=== PATIENT | female | born 1935 | race Caucasian/White ===

== ENCOUNTER 2019-12-09 09:59 | Emergency (ER) | payer MEDICARE, OTHER, SELFPAY ==
--- NOTE | ~2019-12-09 | CT_ITS ---
EXAMINATION: CT abdomen pelvis w con DATE: 12/09/2019 13:09 INDICATION: Right upper quadrant abdominal pain. TECHNIQUE: Computed tomography (CT) of the abdomen and pelvis was performed with 100 mL Omnipaque-350 intravenous contrast. Automated exposure control and iterative reconstruction technique were employe d. The dose-length product was 305.11 mGy-cm. COMPARISON: None FINDINGS: Mild respiratory motion and atelectasis at the lung bases. Mild cardiomegaly. No pericardial or pleur al effusion. Small sliding-type hiatal hernia suggestion of mild wall thickening the distal esophagus which could be related to reflux esophagitis. Mild intrahepatic ductal or ductal dilation likely related to prior cholecystectomy. Several splenic calcifications consistent with old granulomatous disease. Pancreas and bilateral adrenal glands are n ormal. A few subcentimeter low-attenuation renal cysts as well as a few 3 mm or smaller bilateral non obstructing renal stones. No hydronephrosis or stones seen along the bilateral ureters. Normal bladde r. The uterus is not identified and has likely been surgically resected. Unchanged 2.8 x 1.8 x 2.2 cm nodular soft tissue density in the left hemipelvis likely representing the left ovary. Postoperative change of prior distal colectomy with suture line at the end of a Mckenzie's pouch in th e bladder and with left lower quadrant and colostomy. Small portions of the anterior wall of the amezcua sverse colon extends through a small ventral hernias at 2 locations along a midline surgical scar. Th ere is edematous wall thickening at the terminal ileum which is most likely infectious or inflammator y in etiology. No obstruction. No free intraperitoneal gas or fluid. Small fat-containing right ingui nal hernia. No pathologically enlarged abdominal or pelvic lymphadenopathy. Evaluation of the left hemipelvis is mildly limited by metallic streak artifact from a bipolar type l eft hip hemiarthroplasty. Mild thoracolumbar levocurvature with moderate to severe spondylosis. Uncha nged chronic compression fractures at L3 and L5 and L1 burst fracture. Interval progression of a hand almond blancher sammy T12 burst fracture. More recent-appearing L4 burst fracture with more subacute appearing lucent f racture lines. IMPRESSION: 1. Terminal ileitis which could be infectious or secondary to Crohn's disease. 2. Small sliding-type hiatal hernia with mild wall thickening the distal esophagus suggesting reflux esophagitis. 3. A couple ventral hernias containing small portions of the anterior wall of the nonobstructed trans verse colon. 4. Multiple chronic lumbar and lower thoracic compression and burst fractures with new subacute appea ring L4 burst fracture. 5. Cardiomegaly. Reviewed, dictated and finalized at location A. IMPRESSION: 1. Terminal ileitis which could be infectious or secondary to Crohn's disease. 2. Small sliding-type hiatal hernia with mild wall thickening the distal esopha zelda suggesting reflux esophagitis. 3. A couple ventral hernias containing small portions of the anterior wall of t he nonobstructed transverse colon. 4. Multiple chronic lumbar and lower thoracic compression and burst fractures w ith new subacute appearing L4 burst fracture. 5. Cardiomegaly.
[2019-12-09 09:58] VITALS: BP 158/85; PULSE 64; RESP 20; TEMP 36.7; O2SAT 98
--- NOTE | 2019-12-09 10:18 | ED.ABDPAIN ---
HPI - Abdominal Pain General Chief Complaint: Abdominal Pain Stated Complaint: RUQ pain Time Seen by Provider: 12/09/19 10:17 History of Present Illness HPI narrative: RUQ pain since yesterday. Moderate pain. Cramping in quality. She is concerned that she may have a bowel obstruction although she has had a large amount of watery output from her stoma. No fever, UTI. Related Data Home Medications Medication Instructions Recorded Confirmed acetaminophen 1,000 mg PO Q6H PRN 12/09/19 amlodipine [Norvasc] 5 mg PO DAILY 12/09/19 baclofen 10 mg PO TID 12/09/19 calcium carbonate-vitamin D3 1 tablet PO BID 12/09/19 [Calcium 600 + D(3)] calcium polycarbophil [Fiber 1,250 mg PO BID 12/09/19 (calcium polycarbophil)] carbidopa-levodopa 1 tablet PO TID 12/09/19 cholecalciferol (vitamin D3) 125 mcg PO DAILY 12/09/19 [Vitamin D3] cyanocobalamin (vitamin B-12) 1,000 mcg IM ONCE 12/09/19 dicyclomine 20 mg PO QID PRN 12/09/19 donepezil 10 mg PO HS 12/09/19 duloxetine [Cymbalta] 30 mg PO BID 12/09/19 ergocalciferol (vitamin D2) 1,250 mcg PO WEEKLY 12/09/19 ferrous sulfate 325 mg PO EVERY OTHER DAY 12/09/19 fluticasone propionate [Flonase 2 spray INTRANASAL DAILY 12/09/19 Allergy Relief] gabapentin 400 mg PO TID 12/09/19 levothyroxine 125 mcg PO DAILY 12/09/19 loratadine 10 mg PO DAILY PRN 12/09/19 losartan 50 mg PO DAILY 12/09/19 meclizine 25 mg PO HS 12/09/19 melatonin 5 mg PO HS 12/09/19 memantine [Namenda] 10 mg PO BID 12/09/19 omeprazole 20 mg PO DAILY 12/09/19 polyethylene glycol 3350 [Miralax] 17 g PO DAILY 12/09/19 quetiapine 12.5 mg PO HS 12/09/19 vilazodone [Viibryd] 20 mg PO DAILY 12/09/19 vit C,F-Fe-shvdt-lutein-zeaxan 1 tablet PO DAILY 12/09/19 [PreserVision AREDS-2] Allergies Allergy/AdvReac Type Severity Reaction Status Date / Time No Known Allergies Allergy Verified 12/09/19 10:07 Review of Systems Review of Systems: All systems reviewed & are unremarkable except as noted in HPI and below PMFSH Past Medical History Medical History Bowel obstruction Ileostomy in place Family History Family History Father Acute myocardial infarction, Onset Age: 72 Patient's father is Social History Social History Smoking status: Never smoker Alcohol intake: never Exam Const: General: healthy appearing, no acute distress and alert Orientation/consciousness: patient oriented x3 HENMT: Head: normal to inspection Neck: Neck: normal visual inspection and no lymphadenopathy Chest: Chest palpation & inspection: no tenderness Resp: Effort & Inspection: normal respiratory effort Auscultation: clear to auscultation bilaterally, no rales, no rhonchi and no wheezes Cardio: Jugular venous distension: no JVD Rate: regular rate Rhythm: regular rhythm Heart sounds: no murmurs GI: Inspection: non-distended GI Palp: Yes Soft to palpation and Yes Tenderness to palpation present (GI) Auscultation: Hyperactive bowel sounds present Other: ileostomy in place draining thick brown liquid Skin: General skin exam: normal color Neuro: General: patient oriented x3 and moves all extremities Speech: normal speech Extrem: General: no edema Psych: Appearance: well kempt Affect: normal affect Course Vital Signs Vital signs: Vital Signs Temperature 36.7 C 12/09/19 09:58 Pulse Rate 64 12/09/19 09:58 Respiratory Rate 20 12/09/19 09:58 Blood Pressure 158/85 H 12/09/19 09:58 Pulse Oximetry 98 12/09/19 09:58 Temperature 36.7 C 12/09/19 09:58 Pulse Rate 64 12/09/19 14:38 Respiratory Rate 18 12/09/19 14:38 Blood Pressure 143/63 H 12/09/19 14:38 Pulse Oximetry 98 12/09/19 11:46 MDM - Abdominal Pain MDM Narrative Medical decision making narrative: Ileitis on CT. No
[2019-12-09 10:54] LABS: Add Urine Microscopic? YES; Appearance Urine Clear (Clear); Bilirubin Urine Negative (Negative); Blood Urine Negative (Negative); Color Urine Straw (Yellow); Glucose Urine UA Negative (Negative); Ketones Urine Negative (Negative); Leukocyte Esterase Ur Negative LEU/UL (Negative); Nitrate Urine Negative (Negative); Protein Urine Negative (Negative); Specific Grav Ur 1.012 (1.001-1.035); Urobilinogen Urine Negative mg/dL (<2.0); WBC Urine 0-3 /hpf
[2019-12-09 10:56] VITALS: BP 120/60; PULSE 64; RESP 18; O2SAT 99
[2019-12-09 11:46] VITALS: BP 124/77; PULSE 70; RESP 14; O2SAT 98
[2019-12-09 12:21] LABS: Basophils Percent Auto 0.2 % (0.2-1.2); Eosinophils Absolute Auto 0.1 K/mm3 (0-0.3); Eosinophils Percent Auto 1.7 % (0-4.4); Hematocrit 30.9 % (37.0-47.0); Hemoglobin 9.9 g/dL (12.0-15.0); Immature Granulocyte Absolute 0.02 K/mm3 (0.00-0.031); Immature Granulocyte Percent A 0.3 % (0-0.5); Lymphocytes Absolute Auto 0.98 K/mm3 (0.9-3.2); Lymphocytes Percent Auto 16.5 % (18.3-44.2); Mean Corpuscular Volume 106.2 fl (80-100); Mean Platelet Volume 9.4 fl (7.4-10.4); Monocytes Absolute Auto 0.4 K/mm3 (0.1-0.6); Monocytes Percent Auto 7.4 % (2.6-8.5); Neutrophils Absolute Auto 4.4 K/mm3 (1.3-6.7); Neutrophils Percent Auto 73.9 % (45.5-73.1); Platelet Count Result 126 k/mm3 (150-375); Red Blood Count 2.91 M/mm3 (4.2-5.4); Red Cell Distribution Width 13.8 % (11.5-14.5)
[2019-12-09 12:35] LABS: Alanine Aminotransferase 16 U/L (4-35); Albumin Level 3.9 g/dL (3.5-5.1); Alkaline Phosphatase 84 U/L (38-126); Aspartate Amino Transferase 24 U/L (14-36); Bilirubin,Total 0.4 mg/dL (0.2-1.3); Blood Urea Nitrogen 22 mg/dL (7-17); Carbon Dioxide 20 mmol/L (22-30); Chloride 108 mmol/L (98-107); Estimated CRCL calculation 33 ml/min; Estimated Glomerular Filt Rate 53; Glucose 120 mg/dL (65-105); Lipase 70 U/L (23-300); Potassium 4.8 mmol/L (3.4-5.0); Sodium 137 mmol/L (137-145)
[2019-12-09] MEDS: metroNIDAZOLE 250 MG TABLET 500 MG PO (14:35)
[2019-12-09] MEDS: CIPROFLOXACIN 500 MG TAB PO (14:36)
[2019-12-09 14:38] VITALS: BP 143/63; PULSE 64; RESP 18
--- NOTE | 2019-12-09 15:43 | PC.NURSE ---
report called to [facility] / [facility]. natalie called for transport
[2019-12-09 16:24] VITALS: BP 112/74; PULSE 78; RESP 20; O2SAT 99
== END 2019-12-09 16:10 ==
PROVIDERS: Emergency Provider Emergency Medicine; PCP Family Medicine
DX: K50.00 Crohn's disease of small intestine without complications (principal); Z93.2 Ileostomy status; K44.9 Diaphragmatic hernia without obstruction or gangrene; K43.9 Ventral hernia without obstruction or gangrene; I51.7 Cardiomegaly
CPT/HCPCS: 36415; 51701; 74177; 80053; 81001; 83690; 85025; 99284; A9270; Q9967

== ENCOUNTER 2020-03-30 06:09 | Inpatient (IN) | payer MEDICARE, OTHER, MEDICAID, SELFPAY ==
[2020-03-30] VITALS (9 sets, daily range): BP systolic 124–164; BP diastolic 50–94; PULSE 72–92; RESP 18–20; TEMP 36.3–36.8; O2SAT 92–98; BMI 24.7
--- NOTE | ~2020-03-30 | XR_ITS ---
EXAMINATION: XR knee RT min 4V DATE: 03/30/2020 06:39 INDICATION: Right knee pain post fall TECHNIQUE: Anteroposterior, 2 oblique and crosstable lateral views of the right knee were obtained COMPARISON: None. FINDINGS: Alignment is normal. No fracture. At least mild patellofemoral osteoarthritis with nonuniform joint space narrowing and small marginal osteophytes. Small enthesophytes at the upper pole of the patella with additional heterotopic ossification along the cephalad rim of the articular surface. No joint ef fusion/layering lipohemarthrosis. Mild prepatellar soft tissue swelling. IMPRESSION: 1. Patellofemoral osteoarthritis. No right knee joint effusion or acute osseous abnormality. Reviewed, dictated and finalized at location A.
--- NOTE | ~2020-03-30 | XR_ITS ---
EXAMINATION: XR hip RT min 2V DATE: 03/31/2020 11:30 INDICATION: Postoperative evaluation following bipolar type right hip hemiarthroplasty. TECHNIQUE: Anteroposterior and lateral views of the right hip were obtained. COMPARISON: Intraoperative radiograph dated 03/31/2020 FINDINGS: Interval placement of bipolar type right hip hemiarthroplasty which appears well seated in near anato ewa alignment. Expected small amount of subcutaneous gas in the postoperative bed. No fractures iden tified. Partially visualized is a contralateral left hip hemiarthroplasty. IMPRESSION: 1. Bipolar type right hip hemiarthroplasty, negative for postoperative purposes. Reviewed, dictated and finalized at location A. IMPRESSION: 1. Bipolar type right hip hemiarthroplasty, negative for postoperative purposes .
--- NOTE | ~2020-03-30 | XR_ITS ---
EXAMINATION: XR hip RT min 2V DATE: 03/30/2020 13:20 INDICATION: Reevaluation right hip fracture TECHNIQUE: Anteroposterior , frog leg and cross-table lateral views of the right hip were obtained. COMPARISON: CT dated 03/30/2020 FINDINGS: Again seen is a fracture of the right femoral neck with impaction along the superior head neck juncti on and with no significant displacement along the anterior margin of the fracture which is near the m id neck. Right femoral head remains normally centered within the right acetabulum with mild osteoarth ritis. Incidentally noted is a left hip hemiarthroplasty. No other fractures identified. IMPRESSION: 1. No interval change in a nondisplaced fracture of the right femoral neck with mild impaction at the superolateral femoral head neck junction. Reviewed, dictated and finalized at location A.
--- NOTE | ~2020-03-30 | XR_ITS ---
EXAMINATION: XR hip RT 2V w AP pelvis DATE: 03/30/2020 07:36 INDICATION: Right hip pain post fall TECHNIQUE: Anteroposterior view of the pelvis and anteroposterior and cross-table lateral views of th e right hip were obtained. COMPARISON: CT dated 12/09/2019 FINDINGS: Transcervical fracture of the proximal right femur with slight anterior displacement, proximal migrat ion and mild external rotation. Right femoral head remains normally located in the right acetabulum. Chronic compression fractures at L4 and L5 seen on prior CT there are poorly appreciated on the provi ded projections. No other fractures identified. Mild osteoarthritis at the right hip and mild to mode rate bilateral sacroiliac osteoarthritis. Moderate lower lumbar spondylosis. Left hip hemiarthroplast y in near-anatomic alignment. Scattered and enthesophytes and heterotopic ossification including at t he bilateral greater trochanters, iliac crest and left supratrochanteric region. IMPRESSION: 1. Transcervical proximal right femoral fracture. Reviewed, dictated and finalized at location A.
--- NOTE | ~2020-03-30 | XR_ITS ---
EXAMINATION: XR chest 1V portable DATE: 03/30/2020 08:15 INDICATION: Generalized chest pain post fall TECHNIQUE: frontal view of the chest was obtained. COMPARISON: Chest radiograph and CT dated 05/16/[address] abdomen and pelvis dated 12/09/2019 FINDINGS: Calcified nodule at the medial left lung base and calcified left hilar lymph nodes consistent with ol d granulomatous disease. The lungs are otherwise clear with no focal airspace opacities, pulmonary ed shaunna, pleural effusion or pneumothorax. Cardiomegaly. Chronic T12 and L1 burst fractures with mild ass ociated levocurvature unchanged since 12/09/2019. Additional chronic T5 and T7 burst fractures, unchang ed since 05/16/2018. Metallic interbody fusion device for anterior spinal fusion at the lower cervica l spine. There are additional IMPRESSION: 1. Cardiomegaly. No acute cardiopulmonary disease. Line 2. Multiple chronic thoracic and upper lumbar burst fractures. Reviewed, dictated and finalized at location A.
--- NOTE | ~2020-03-30 | CT_ITS ---
EXAMINATION: CT cervical spine wo con DATE: 03/30/2020 13:00 INDICATION: Neck pain post trauma TECHNIQUE: Computed tomography (CT) of the cervical spine was performed without intravenous contrast. Automated exposure control and iterative reconstruction technique were employed. The dose-length pro duct was 386.27 mGy-cm. COMPARISON: Cervical spine CT dated 05/01/[address] dated 05/16/2018 FINDINGS: Mild levocurvature centered at the cervicothoracic junction. Straightening of the normal cervical jamie dosis. C6-C7 anterior spinal fusion with dense metallic implant with associated streak artifact which extends predominately laterally and which obscures immediately adjacent bone and soft tissues. No in terval change in a chronic T3 burst fracture with 40% central vertebral body height loss and 3 mm ret ropulsion resulting in mild central canal stenosis at this level. No interval change in chronic Schmo rl's nodes along the superior endplates of C4 and T1. Remaining vertebral body heights are normal. No acute fractures identified. Disc heights are normal with mild bilateral uncovertebral osteoarthritis throughout the cervical spine. Disc bulge resulting in mild central canal stenosis at C3-C4. More pr ominent central disc extrusion resulting in mild to moderate central canal stenosis at C4-C5 which ap pears to been present on the prior study. Multilevel mild bilateral facet osteoarthritis. Mild neural foraminal stenosis on the right at C3-C4 and bilaterally at C7-T1. Small amount of atherosclerotic c alcific calcification at the bilateral carotid bulbs. Cervical soft tissues are otherwise unremarkabl e. Visualized portions of the mastoid air cells, middle ear cavities and airway are clear. Mild eric h septal line thickening at the apices consistent with minimal pulmonary edema. IMPRESSION: 1. Chronic T1 burst fracture resulting in mild central canal stenosis. No acute osseous abnormality. 2. Mild cervical thoracic levocurvature with mild spondylosis most notable for a prominent chronic di sc extrusion at C3-C4 resulting in mild to moderate central canal stenosis. Reviewed, dictated and finalized at location A. IMPRESSION: 1. Chronic T1 burst fracture resulting in mild central canal stenosis. No acute osseous abnormality. 2. Mild cervical thoracic levocurvature with mild spondylosis most notable for a prominent chronic disc extrusion at C3-C4 resulting in mild to moderate centr al canal stenosis.
--- NOTE | ~2020-03-30 | XR_ITS ---
EXAMINATION: XR surgery orthopedic DATE: 03/31/2020 11:29 INDICATION: Intraoperative evaluation during right hip arthroplasty TECHNIQUE: Frontal view of the right hip was obtained. COMPARISON: None. FINDINGS: Intraoperative image during a right total hip arthroplasty demonstrate placement of a femoral with th e proximal tip and surrounding lucent head component centered over the right acetabulum. Bipolar type left hip hemiarthroplasty in near-anatomic alignment. No fracture. Visualized bones. The cephalad as pect of the pelvis is excluded from the [id number]. IMPRESSION: 1. Expected appearance during right hip arthroplasty. Reviewed, dictated and finalized at location A.
--- NOTE | ~2020-03-30 | XR_ITS ---
EXAMINATION: XR shoulder RT min 2V DATE: 03/30/2020 13:20 INDICATION: Right shoulder pain post fall TECHNIQUE: AP internally and externally rotated, AP oblique externally rotated and axillary views of the right shoulder were obtained. COMPARISON: None FINDINGS: Normal alignment. No fracture.Mild right glenohumeral and acromioclavicular osteoarthritis. Right nathalia ng is clear with no pleural effusion or pneumothorax. Soft tissues are unremarkable. IMPRESSION: Right glenohumeral and acromioclavicular osteoarthritis. No acute osseous abnormality. Reviewed, dictated and finalized at location A. IMPRESSION: Right glenohumeral and acromioclavicular osteoarthritis. No acute osseous abnor mality.
--- NOTE | ~2020-03-30 | XR_ITS ---
EXAMINATION: XR chest 1V portable DATE: 04/02/2020 10:17 INDICATION: Hypoxia. TECHNIQUE: A single frontal view of the chest was obtained. COMPARISON: Chest single view 03/30/2020, chest CT 05/16/2018 FINDINGS: There is mild atelectasis at right lung base. No pleural effusion or pneumothorax. Cardiome nadres is noted. There are changes of anterior fusion procedure in cervical spine. IMPRESSION: 1. Mild atelectasis at right lung base. 2. Cardiomegaly. Reviewed, dictated and finalized at location A.
--- NOTE | ~2020-03-30 | CT_ITS ---
EXAMINATION: CT hip RT wo con DATE: 03/30/2020 10:06 INDICATION: Right hip pain and femoral neck fracture. TECHNIQUE: High resolution computed tomography (CT) of the right hip was performed without intravenou s contrast. Additional sagittal and coronal reconstructions were performed. Automated exposure contro l and iterative reconstruction technique were employed. The dose-length product was 235.79 mGy-cm. COMPARISON: Radiographs dated 03/30/[address] abdomen and pelvis dated 12/09/2019 FINDINGS: Again seen is a nondisplaced fracture of the right femoral neck which extends from the region of the anterosuperior femoral head neck junction anterosuperiorly posteroinferiorly to the mid neck. There i s mild impaction posteriorly. Minimal comminution couple small bone fragments along the superior chrissy in of the fracture. No other fractures identified. Right femoral head remains normally located at the right acetabulum with mild osteoarthritis. There is a small right hip joint effusion. Small fat-cont aining right inguinal hernia. There is a suture line along segment of bowel extending along the poste rior dome of the bladder. No free fluid in the pelvis. IMPRESSION: 1. Nondisplaced fracture of the right femoral neck with mild posterior impaction as detailed above. Reviewed, dictated and finalized at location A. IMPRESSION: 1. Nondisplaced fracture of the right femoral neck with mild posterior impactio n as detailed above.
--- NOTE | 2020-03-30 06:27 | PC.NURSE ---
Patient taken to xray.
--- NOTE | 2020-03-30 07:14 | ED.LOWEXIN ---
HPI - Extremity Injury (Lower) General Chief Complaint: Fall Stated Complaint: FALL Time Seen by Provider: 03/30/20 07:08 Source: patient Mode of arrival: EMS Limitations: dementia History of Present Illness HPI Narrative: Patient is 89-year-old female complaining of right thigh right knee pain after she fell at around 3 AM this morning at [facility]. Patient denies any head, neck, chest, abdomen, back, or pelvic pain/injury. Patient denies any loss of consciousness Related Data Home Medications Medication Instructions Recorded Confirmed acetaminophen 1,000 mg PO Q6H PRN 12/09/19 amlodipine [Norvasc] 5 mg PO DAILY 12/09/19 baclofen 10 mg PO TID 12/09/19 calcium carbonate-vitamin D3 1 tablet PO BID 12/09/19 [Calcium 600 + D(3)] calcium polycarbophil [Fiber 1,250 mg PO BID 12/09/19 (calcium polycarbophil)] carbidopa-levodopa 1 tablet PO TID 12/09/19 cholecalciferol (vitamin D3) 125 mcg PO DAILY 12/09/19 [Vitamin D3] cyanocobalamin (vitamin B-12) 1,000 mcg IM ONCE 12/09/19 dicyclomine 20 mg PO QID PRN 12/09/19 donepezil 10 mg PO HS 12/09/19 duloxetine [Cymbalta] 30 mg PO BID 12/09/19 ergocalciferol (vitamin D2) 1,250 mcg PO WEEKLY 12/09/19 ferrous sulfate 325 mg PO EVERY OTHER DAY 12/09/19 fluticasone propionate [Flonase 2 spray INTRANASAL DAILY 12/09/19 Allergy Relief] gabapentin 400 mg PO TID 12/09/19 levothyroxine 125 mcg PO DAILY 12/09/19 loratadine 10 mg PO DAILY PRN 12/09/19 losartan 50 mg PO DAILY 12/09/19 meclizine 25 mg PO HS 12/09/19 melatonin 5 mg PO HS 12/09/19 memantine [Namenda] 10 mg PO BID 12/09/19 omeprazole 20 mg PO DAILY 12/09/19 polyethylene glycol 3350 [Miralax] 17 g PO DAILY 12/09/19 quetiapine 12.5 mg PO HS 12/09/19 vilazodone [Viibryd] 20 mg PO DAILY 12/09/19 vit C,U-Xw-pyjcz-lutein-zeaxan 1 tablet PO DAILY 12/09/19 [PreserVision AREDS-2] white petrolatum-mineral oil 03/30/20 [Retaine PM] Allergies Allergy/AdvReac Type Severity Reaction Status Date / Time No Known Allergies Allergy Verified 03/30/20 06:20 Review of Systems Review of Systems: All systems reviewed & are unremarkable except as noted in HPI and below Constitutional: Constitutional: Denies body ache(s), Denies chills, Denies excessive sweating, Denies fatigue, Denies fever(s), Denies headache(s), Denies lethargy, Denies malaise, Denies weakness and Denies weight loss Eyes: Eyes: Denies blurry vision, Denies change in vision and Denies loss of vision ENT: Denies dizziness, Denies ear discharge, Denies headache(s), Denies lip swelling, Denies epistaxis, Denies nasal congestion, Denies neck pain, Denies throat swelling and Denies tongue swelling Cardiovascular: Cardiovascular: Denies chest pain, Denies chest pain at rest, Denies chest pain with activity, Denies diaphoresis, Denies rapid heart rate, Denies edema, Denies irregular heart rhythm, Denies lightheadedness, Denies palpitations, Denies dyspnea and Denies dyspnea on exertion Respiratory: Respiratory: Denies chest congestion, Denies cough, Denies hemoptysis, Denies dyspnea and Denies dyspnea on exertion Gastrointestinal: Gastrointestinal: Denies abdominal pain, Denies melena, Denies hematochezia, Denies diarrhea, Denies nausea, Denies vomiting and Denies hematemesis Musculoskeletal: Musculoskeletal: Denies neck pain and Denies numbness Neurologic: Denies Abnormal speech present, Denies abnormal gait, Denies confusion, Denies dizziness, Denies headache(s), Denies focal weakness, Denies loss of vision, Denies numbness, Denies Other visual disturbances, Denies Sensory deficit (Neuro) and Denies weakness Psychiatric: Psychiatric: Denies confusion, Denies depression, Denies auditory hallucinations, Denies homicidal ideation and Denies suicidal ideation Endocrine: Endocrine: Denies cold intolerance, Denies excessive sweating, Denies fatigue, Denies heat intolerance and Denies palpitations Hematologic/Lymphatic: Hematologic/Lymphatic: De
[2020-03-30] MEDS: HYDROcodone/acetaminophen (*CRX) 5-325 MG TABLET 1 TAB PO (07:23)
[2020-03-30] MEDS: HYDROmorphone HCL INJ (*CRX) 1 MG/ML SYR 0.5 MG IV PUSH (08:18)
[2020-03-30] MEDS: LACTATED RINGERS 1,000 ML 100 ML IV CONT (08:18)
[2020-03-30] MEDS: ONDANSETRON INJ 4 MG/2 ML VIAL IV PUSH (08:32)
[2020-03-30 08:46] LABS: Basophils Percent Auto 0.2 % (0.2-1.2); Eosinophils Absolute Auto 0.1 K/mm3 (0-0.3); Eosinophils Percent Auto 0.6 % (0-4.4); Hematocrit 39.7 % (37.0-47.0); Hemoglobin 12.7 g/dL (12.0-15.0); Immature Granulocyte Absolute 0.05 K/mm3 (0.00-0.031); Immature Granulocyte Percent A 0.5 % (0-0.5); Lymphocytes Absolute Auto 0.67 K/mm3 (0.9-3.2); Lymphocytes Percent Auto 6.7 % (18.3-44.2); Mean Corpuscular Hemoglobin 34.1 pg (26-34); Mean Corpuscular Volume 106.7 fl (80-100); Mean Platelet Volume 8.9 fl (7.4-10.4); Monocytes Absolute Auto 0.6 K/mm3 (0.1-0.6); Monocytes Percent Auto 6.2 % (2.6-8.5); Neutrophils Absolute Auto 8.6 K/mm3 (1.3-6.7); Neutrophils Percent Auto 85.8 % (45.5-73.1); Platelet Count Result 154 k/mm3 (150-375); Red Blood Count 3.72 M/mm3 (4.2-5.4); Red Cell Distribution Width 12.9 % (11.5-14.5)
[2020-03-30 08:48] LABS: Anion Gap 8 mmol/L (8-16); Blood Urea Nitrogen 21 mg/dL (7-17); Calcium 8.7 mg/dL (8.4-10.2); Carbon Dioxide 23 mmol/L (22-30); Chloride 110 mmol/L (98-107); Estimated Glomerular Filt Rate 60; Glucose 124 mg/dL (65-105); Potassium 5.4 mmol/L (3.4-5.0); Sodium 141 mmol/L (137-145)
[2020-03-30 08:49] LABS: INR 1.4; Prothrombin Time 16.5 Seconds (11.1-14.7)
--- NOTE | 2020-03-30 11:15 | ADMGEN ---
This patient, Lyndsey Lee, was admitted to Medical Room 253-01. Patient/family oriented to hospital policies and general routines including ID bracelet, bed and alarms, visiting hours, pain management, procedures, bathroom and other care routines, personal items, smoking policy, room service/diet, and visiting hours. Information on how to activate the Rapid Response Team has been discussed. Patient/Family are encouraged to report perceived risks to care and to ask questions if they do not understand what they are told or what they should do.
--- NOTE | 2020-03-30 11:47 | PM.CNOR ---
Assessment and Plan Additional Plan This patient is an 84-year-old female who was admitted through the emergency room this morning with an impacted slightly displaced right subcapital femoral neck fracture. Her past medical history is significant for an ostomy bag placed a [facility] in the past and a Press-Fit bipolar hemiarthroplasty performed at [place] 45 years ago period I think she is confused about the year she had her hemiarthroplasty. She does have history of dementia. Her medications are reviewed and she does take Namenda. She states she had surgery on her neck years ago and complains that she has new pain in her neck on the right side since her fall. Her other complaint is pain in the right hip area. She does communicate appropriately. I asked her what year was and she said 2019 and I asked her the present was and she said Tr. [facility]. She states she had a very hard fall onto her right hip at 3:00 a.m. this morning. She states she has never had a problem with her bipolar hemiarthroplasty On the left. X-rays of her right hip demonstrate what appears to be a minimally displaced subcapital femoral neck fracture with some marginal comminution. We obtained a CT scan since we did not have optimal positioning to assess the fracture on the plain x-rays and it shows that there is moderate posterior comminution of the neck which predicts a poorer outcome with screw fixation potentially. On examination today her mental status is as mentioned above. She has a palpable 2+ dorsalis pedis pulse on the right. There is mild external rotation of the right leg. She has no lower extremity edema under skin looks healthy. She complains of pain in the proximal anterior thigh with slight movement of the right hip and the pain is fairly severe but at rest she is comfortable. She does move her neck in can lift her head off the pillow but complains of right-sided neck pain. Will order a CT scan of her cervical spine today to evaluate for fracture. She denies any numbness or tingling in her right foot other than her normal mild neuropathy symptoms that she has. She wiggles her toes up and down which causes pain in her right hip. She denies any other injury. Pressure in mildly comminuted subcapital right femoral neck fracture. I have discussed with her the 2 options for treatment 1 would be screw fixation which would require a prolonged period of touch weight-bearing and the other would be a bipolar hemiarthroplasty and at her age I would prefer a cemented bipolar hemiarthroplasty to allow weight-bearing as tolerated immediately postoperatively. She is adamant that she would not want to have screw fixation that she would want to have the same operation and that she had on the left side since she has done so well on the left I think that is the best choice for her. She said that she had hoped that she would be taken to [place] because she has never had surgery at the hospital here at [place] and I asked her whether she would prefer to be transferred to [place] or whether she would be content to have the surgery performed here at [facility] by myself and she is willing to stay here for the surgery. I have spoke with anesthesia and we will schedule this for tomorrow morning. Patient will be evaluated by the hospitalist service for preoperative evaluation and if she is stable to proceed we will proceed as planned. History of Present Illness HPI Consult date: 03/30/20 Chief complaint: right hip fracture PMFSH Past Medical History Medical History (Updated 03/30/20 @ 09:16 by Amando Snyder MD) Bowel obstruction Ileostomy in place Family History Family History Father Acute myocardial infarction, Onset Age: 72 Patient's father is Social History Social History Smoking
--- NOTE | 2020-03-30 12:52 | PM.IMHP ---
H&P: HPI History of Present Illness Date/Time: 03/30/20 12:52 Chief complaint: right hip fracture Narrative: Lyndsey Lee is a 84 year old female Who is from [facility]. The patient stated she is up in the bathroom this morning and she fell around 3:00 a.m. this morning. She said she could not get up. She said she heard from her right shoulder all the way down to her toes. She tells me about 2 or 3 years ago she had fractured her left hip but went to [facility] to have that repaired. She has had a history of Crohn's and has a colostomy and went to [facility] for that surgery. The patient stated she had never had surgery here before initially she had requested either go to [place] or [facility]. However when she saw the orthopedic physician she felt confident that she could stay here and have her surgery performed. She does have a history of dementia and Parkinson's although she is able to answer my questions she does have some memory problems. She does some word searching at times. She has never been or had any children. Her nephew has been the [employer] regional recruiter for healthcare. The patient tells me that she is in discomfort from her right shoulder all the way down to her toe. She told me that the pain medication that she is receiving is not quite enough. The patient stated she does not feel like she hit her head or lost consciousness at that time. Her hip CT was read as nondisplaced fracture of the right femoral neck with mild posterior impaction. Dr. carey has already seen the patient. Chest x-ray was read as cardiomegaly no acute cardiopulmonary disease. Multiple chronic thoracic and upper lumbar burst fractures. Right knee x-ray patellofemoral osteoarthritis no right knee joint effusion or acute osseous abnormality. Cervical spine CT was taken but no read is available at this time . Patient was given [place], Dilaudid, and Zofran in the emergency room. Her potassium is 5.4 and glucose 124. Otherwise her labs are unremarkable. Patient is being admitted to inpatient on the medical floor date of service is 03/30/2020 Review of Systems Review of Systems: All systems reviewed & are unremarkable except as noted in HPI and below Constitutional: Constitutional: Reports as per HPI and Reports no additional constitutional complaints Eyes: Eyes: Reports as per HPI and Reports no additional eye complaints ENT: Reports system reviewed and no additional complaints, except as documented and Reports Normal hearing present Cardiovascular: Cardiovascular: Reports no additional cardiovascular complaints Respiratory: Respiratory: Reports no additional respiratory complaints and Reports no additional respiratory complaints Gastrointestinal: Gastrointestinal: Reports as per HPI and Reports no additional gastrointestinal complaints Musculoskeletal: Musculoskeletal: Reports no additional musculoskeletal complaints Integumentary/Breasts: Skin/Breast: Reports system reviewed and no additional complaints, except as docu and Reports as per HPI Neurologic: Reports system reviewed and no additional complaints, except as documented, Reports as per HPI and Reports Normal hearing present Psychiatric: Psychiatric: Reports no additional psychiatric complaints and Reports as per HPI Endocrine: Endocrine: Reports no additional endocrine complaints Hematologic/Lymphatic: Hematologic/Lymphatic: Reports no additional hematologic/lymphatic complaints Allergic/Immunologic: Allergic/Immunologic: Reports no additional allergic/immunologic complaints ON LICENSE OF [facility] Past Medical History Medical History (Updated 03/30/20 @ 13:27 by Manasa Martinez NP) Anxiety and depression Bowel obstruction Chronic GERD Colostomy in place Crohn's disease Dementia Glaucoma Hypertension Hypothyroidism Ileostomy in place Osteoarthritis Parkinsons Surgical History Surgical History (Updated 03/30/20 @ 13:12 by Manasa Martinez NP)
[2020-03-30] MEDS: oxyCODONE HCL (*CRX) 2.5 MG TAB IR PO ×3 (13:31→20:25)
[2020-03-30] MEDS: ACETAMINOPHEN 325 MG TABLET 650 MG PO ×2 (13:31→18:32)
[2020-03-30] MEDS: CELECOXIB 100 MG CAPSULE PO (13:31)
--- NOTE | 2020-03-30 13:32 | ECG_ITS ---
Measurements Intervals [place] Rate: 91 P: 52 AL: 142 QRS: -41 QRSD: 90 T: 70 QT: 327 QTc: 404 Interpretive Statements SINUS RHYTHM LEFT AXIS DEVIATION POOR R WAVE PROGRESSION, CONSIDER ANTERIOR INFARCT BORDERLINE ST-T WAVE ABNORMALITY- HIGH LATERAL LEADS ABNORMAL ECG Electronically Signed On 03-30-2020 17:37:39 CDT by Huy Hudson D.O.
[2020-03-30 14:38] LABS: Anion Gap 7 mmol/L (8-16); Blood Urea Nitrogen 21 mg/dL (7-17); Calcium 8.5 mg/dL (8.4-10.2); Carbon Dioxide 26 mmol/L (22-30); Chloride 107 mmol/L (98-107); Estimated Glomerular Filt Rate > 60; Glucose 100 mg/dL (65-105); Potassium 5.4 mmol/L (3.4-5.0); Sodium 140 mmol/L (137-145)
[2020-03-30] MEDS: DULoxetine HCL 30 MG CAPSULE.DR PO (16:32)
[2020-03-30] MEDS: CARBIDOPA/LEVODOPA 25/250 MG TABLET 1 TABLET PO (16:32)
[2020-03-30] MEDS: calcium polycarbophiL 625 MG TABLET PO (16:32)
[2020-03-30] MEDS: MEMANTINE 10 MG TABLET PO (16:32)
[2020-03-30] MEDS: BACLOFEN 5 MG TABLET PO (16:33)
[2020-03-30] MEDS: BACLOFEN 10 MG TABLET PO (16:33)
--- NOTE | 2020-03-30 18:04 | WPDANESEPP ---
Anes - Eval Pre Procedure Procedure: Right partial hip replacement Date/Time: 03/30/20 18:04 Surgeon: Drake Abraham M.D. Preop Diagnosis: right hip fracture Pre Op Diagnosis: right hip fracture Patient Data Age: 84 Gender: F Height: 1.45 m Weight: 52 kg Last Vital Signs Temp 36.3 C L 03/30/20 14:00 Pulse 90 03/30/20 14:00 Resp 20 03/30/20 14:00 BP 146/60 H 03/30/20 14:00 Pulse Ox 92 03/30/20 14:00 Allergies Allergy/AdvReac Type Severity Reaction Status Date / Time No Known Allergies Allergy Verified 03/30/20 11:02 Home Medications Medication Instructions Recorded Confirmed Type acetaminophen 1,000 mg PO Q6H PRN 12/09/19 03/30/20 History amlodipine [Norvasc] 5 mg PO DAILY 12/09/19 03/30/20 History baclofen 15 mg PO TID 12/09/19 03/30/20 History calcium carbonate-vitamin D3 1 tablet PO BID 12/09/19 03/30/20 History [Calcium 600 + D(3)] calcium polycarbophil [Fiber 625 mg PO BID 12/09/19 03/30/20 History (calcium polycarbophil)] carbidopa-levodopa 1 tablet PO TID 12/09/19 03/30/20 History cholecalciferol (vitamin D3) 125 mcg PO DAILY 12/09/19 03/30/20 History [Vitamin D3] cyanocobalamin (vitamin B-12) 1,000 mcg IM MONTHLY 12/09/19 03/30/20 History dicyclomine 20 mg PO Q6H PRN 12/09/19 03/30/20 History donepezil 10 mg PO HS 12/09/19 03/30/20 History duloxetine [Cymbalta] 30 mg PO BID 12/09/19 03/30/20 History ergocalciferol (vitamin D2) 50,000 unit PO WEEKLY 12/09/19 03/30/20 History ferrous sulfate 325 mg PO EVERY OTHER DAY 12/09/19 03/30/20 History fluticasone propionate [Flonase 2 spray INTRANASAL DAILY 12/09/19 03/30/20 History Allergy Relief] gabapentin 400 mg PO DAILY 12/09/19 03/30/20 History levothyroxine 125 mcg PO DAILY 12/09/19 03/30/20 History loratadine 10 mg PO DAILY PRN 12/09/19 03/30/20 History losartan 100 mg PO DAILY 12/09/19 03/30/20 History meclizine 25 mg PO HS 12/09/19 03/30/20 History melatonin 10 mg PO HS 12/09/19 03/30/20 History memantine [Namenda] 10 mg PO BID 12/09/19 03/30/20 History omeprazole 20 mg PO DAILY 12/09/19 03/30/20 History polyethylene glycol 3350 [Miralax] 17 g PO DAILY 12/09/19 03/30/20 History quetiapine 12.5 mg PO HS 12/09/19 03/30/20 History vilazodone [Viibryd] 20 mg PO DAILY 12/09/19 03/30/20 History vit C,T-Ka-ibihj-lutein-zeaxan 1 tablet PO DAILY 12/09/19 03/30/20 History [PreserVision AREDS-2] dextromethorphan-guaifenesin 1 tablet PO Q12H PRN 03/30/20 03/30/20 History [Mucinex DM] white petrolatum-mineral oil 1 applic OPHTHALMIC (EYE) HS 03/30/20 03/30/20 History [Retaine PM] Laboratory Tests 03/30/20 03/30/20 03/30/20 08:26 08:26 08:26 WBC 10.0 K/mm3 K/mm3 (4.5-10.0) RBC 3.72 M/mm3 L M/mm3 (4.2-5.4) Hgb 12.7 g/dL g/dL (12.0-15.0) Hct 39.7 % % (37.0-47.0) MCV 106.7 fl H fl (80-100) MCH 34.1 pg H pg (26-34) MCHC 32.0 g/dl g/dl (32-36) RDW 12.9 % % (11.5-14.5) Plt Count 154 k/mm3 k/mm3 (150-375) MPV 8.9 fl fl (7.4-10.4) Immature Gran % (Auto) 0.5 % % (0-0.5) Neut % (Auto) 85.8 % H % (45.5-73.1) Lymph % (Auto) 6.7 % L % (18.3-44.2) [place] % (Auto) 6.2 % % (2.6-8.5) Eos % (Auto) 0.6 % % (0-4.4) Baso % (Auto) 0.2 % % (0.2-1.2) Lymph # (Auto) 0.67 K/mm3 L K/mm3 (0.9-3.2) [place] # (Auto) 0.6 K/mm3 K/mm3 (0.1-0.6) Eos # (Auto) 0.1 K/mm3 K/mm3 (0-0.3) Baso # (Auto) 0.0 K/mm3 K/mm3 (0.0-0.1) Abs Immat Gran (auto) 0.05 K/mm3 H K/mm3 (0.00-0.031) Absolute Neuts (auto) 8.6 K/mm3 H K/mm3 (1.3-6.7) Absolute Nucleated RBC 0.0 K/mm3 K/mm3 (0.0-0.012) Nucleated RBC % 0.0 % % (0.0-0.2) PT 16.5 Seconds H Seconds (11.1-14.7) INR 1.4 APTT 27.0 SECONDS SECONDS (22.3-36.8) Sodium 141 mmol/L mmol/L (137-145) [place]
[2020-03-30] MEDS: LACTATED RINGERS 1,000 ML 90 ML IV CONT (18:31)
[2020-03-30] MEDS: DONEPEZIL HCL 10 MG TABLET PO (20:25)
[2020-03-30] MEDS: QUEtiapine FUMARATE 12.5 MG TABLET PO (20:26)
[2020-03-30] MEDS: MECLIZINE HCL 25 MG TABLET PO (20:26)
[2020-03-30] MEDS: MELATONIN 5 MG TABLET 10 MG PO (20:26)
[2020-03-31] VITALS (14 sets, daily range): BP systolic 120–164; BP diastolic 52–81; PULSE 88–102; RESP 14–20; TEMP 36–37.2; O2SAT 92–100
[2020-03-31] MEDS: oxyCODONE HCL (*CRX) 2.5 MG TAB IR PO ×5 (00:05→20:22)
[2020-03-31] MEDS: ACETAMINOPHEN 325 MG TABLET 650 MG PO ×4 (00:05→17:13)
[2020-03-31] MEDS: LACTATED RINGERS 1,000 ML 90 ML IV CONT (04:27)
[2020-03-31 05:27] LABS: Hematocrit 37.1 % (37.0-47.0); Hemoglobin 12.1 g/dL (12.0-15.0); Mean Corpuscular HGB Conc 32.6 g/dl (32-36); Mean Corpuscular Hemoglobin 33.7 pg (26-34); Mean Corpuscular Volume 103.3 fl (80-100); Mean Platelet Volume 9.2 fl (7.4-10.4); Platelet Count Result 134 k/mm3 (150-375); Red Blood Count 3.59 M/mm3 (4.2-5.4); Red Cell Distribution Width 12.8 % (11.5-14.5); White Blood Count 7.5 K/mm3 (4.5-10.0)
[2020-03-31 05:41] LABS: Alanine Aminotransferase 15 U/L (4-35); Albumin Level 3.3 g/dL (3.5-5.1); Alkaline Phosphatase 75 U/L (38-126); Anion Gap 7 mmol/L (8-16); Aspartate Amino Transferase 22 U/L (14-36); Bilirubin,Total 0.7 mg/dL (0.2-1.3); Blood Urea Nitrogen 20 mg/dL (7-17); Calcium 8.3 mg/dL (8.4-10.2); Carbon Dioxide 24 mmol/L (22-30); Chloride 107 mmol/L (98-107); Estimated Glomerular Filt Rate 60; Glucose 110 mg/dL (65-105); Magnesium 1.2 mg/dL (1.6-2.3); Potassium 4.6 mmol/L (3.4-5.0); Sodium 138 mmol/L (137-145)
[2020-03-31] MEDS: LEVOTHYROXINE SODIUM 125 MCG TABLET PO (06:02)
[2020-03-31 07:16] LABS: Vitamin D 25 Hydroxy 30.2 ng/mL
--- NOTE | 2020-03-31 07:29 | P.HPUP_ITS ---
History and Physical Update Update Date/Time: 03/31/20 07:29 History and Physical has been reviewed, including an updated exam of the patient. There are NO changes in the patient's condition. Risks, benefits, and alternatives have been discussed and questions answered. Patient agrees to proceed with procedure. Patient's mental status this morning is the same as yesterday. She is quite alert and talkative. She answers questions appropriately. I did note that her protime was a little bit elevated at 16 yesterday INR was 1.4. Chemistry panel showed normal AST ALT and bili Mcduffie. Creatinine still normal 0.9. Hemoglobin 12.1. Twenty-five hydroxy vitamin-D borderline normal at 30.2. TSH was normal at 3.4. I spoke at length with the patient's nephew Radu Adames, yesterday afternoon and I discussed the risks of surgery with him in detail and he provided consent to nery winn.
--- NOTE | 2020-03-31 07:34 | WPDANESEFPP ---
Anes - Eval Final PreProcedure Day of Procedure 03/31/20 07:34 Patient weight: normal Heart: regular rate and rhythm Lungs: clear to auscultation Airway: Mallampati scale class II Neurological: confused Last oral intake: >/= 8 hours ASA classification: IV Emergent: yes Anesthetic plan: proceed Anesthesia type and monitoring: general ETT and standard monitoring Informed Consent: The patient's anesthetic plan and its attendant risks and benefits were discussed with the patient/family/POA. Questions were solicited and answers provided to the satisfaction of the patient/family/POA.
[2020-03-31] MEDS: ceFAZolin SODIUM 1 GM VIAL 3 GM IM (08:11)
[2020-03-31] MEDS: ceFAZolin 2 GM/D5W 50 ML 2 GM/50 ML BAG IVPB (08:11)
[2020-03-31] MEDS: TRANEXAMIC ACID 1,000MG/ISO100 1,000 MG/100 ML BAG 200 MG IVPB (08:31)
--- NOTE | 2020-03-31 09:46 | SUR.OPER ---
IRRIGATION ON FIELD:3000CC IVNS MIXED WITH 3GM ANCEF, UNABLE TO SCAN WITH SCANNER TO PUT ON MAR. SCANNER NOT WORKING.
--- NOTE | 2020-03-31 09:48 | SUR.OPER ---
MEDICATIONS ON FIELD: 1 AMP EPI. MIXED WITH 100CC IV NS. SCANNER NOT WORKING, UNABLE TO SCAN INTO MAR
--- NOTE | 2020-03-31 10:13 | SUR.OPER ---
ADDITIONAL 1 GMTXA GIVEN BY ANESTHESIA @[facility]. [facility] SCANNER NOT WORKING
--- NOTE | 2020-03-31 10:46 | P.OP_ITS ---
Procedure Note - Detailed Date of procedure: 03/31/20 Pre-op diagnosis: right hip fracture Right subcapital femoral neck fracture with comminution and mild displacement Post-op diagnosis: same Procedure performed: cemented bipolar hemiarthroplasty of the right hip Description of procedure: patient was brought to the operating room and general anesthesia was administered. She received weight based vancomycin pre operatively 2 g of Ancef and 1 g of tranexamic acid. She was placed in the laterally decubitus position. The hip rests were applied very carefully to avoid any pressure on the stoma which was in the left lower quadrant left mid quadrant region. The left hip was prepped draped usual fashion after careful scrubbed with Paulo prep cloths. A 6 in longitudinal incision was made and fat fascia mayank incised in line with the incision. The anterior 40% of the gluteus medius and gluteus minimus were elevated off the greater trochanter. The capsule was incised. A provisional femoral neck osteotomy made according to preoperative templating. The femoral head was removed without difficulty and had normal articular cartilage as did the acetabulum and the acetabular labrum looked normal. The femoral head measured only 40.5 mm in diameter. The 41 mm trial sat nicely in the acetabulum sitting at most a mm proud. The femur was broached to a size 9 and we trialed with a -6 and found this to be a little bit too tight. We countersunk the broach another 4 mm and calcar planed and trialed and this time the hip had appropriate Shuck and stability and full range of motion. An intraoperative x-ray was obtained and showed that we had reproduced the preoperative plan. A Toussaint's plug was cut down so it would fit in her narrow canal. The canal was sounded to 10 mm but we did not have a 10 mm centralizer the smallest being 11 therefore we did not use a centralizer plug. The intramedullary canal was thoroughly irrigated and then treated with epinephrine soaked sponges then dry sponges. We cemented with 2 batches of Biomet methylmethacrylate 1 contained gentamicin powder. The cement was injected and lightly pressurized with the patient in stable condition with 100% oxygen saturation and the stem was inserted and held in the proper position and she tolerated this well without any drop in pressure or saturations. She had some ectopy and heart rate lability earlier in the case but that had normalized. Excess cement was sought for removed and we trialed with a -6 which was again found to be appropriate. The -6 ball was snapped into the 41 mm bipolar head and the construct impacted onto the clean and dry trunnion the hip was reduced stability and range of motion reconfirmed. Capsule was repaired with 2. Ethibond. The abductors repaired the anterior greater trochanter with 5. Ethibond and 2. Ethibond. The fascia was closed with interrupted 2. Vicryl as and running 1. You directional frandy strata fix suture. Wound was quite dry at time of wound closure. We estimated blood loss 200 cc during the procedure. No drain was used. Skin was closed with 2 subcutaneous Vicryl and glue. She was transferred postop recovery room stable condition no no complications. 1/3 g Ancef 2nd g of tranexamic acid were given time of wound closure. Because of her age and ectopy we will plan on having her on a monitored bed postoperatively. Implants: Biomet Anesthesia: GETA Surgeon: Drake Abraham MD Senior Storage Administrator: Liliya Woodard Estimated blood loss (mL): 200 Drains: No Packing: No Pathology: none sent Complications: No immediate complications Condition: stable Disposition: PACU
[2020-03-31] MEDS: LACTATED RINGERS 1,000 ML 30 ML IV CONT (11:16)
[2020-03-31] MEDS: fentaNYL CITRATE INJ (*CRX) 100 MCG/2 ML VIAL 25 MCG IV PUSH ×4 (11:38→12:05)
--- NOTE | 2020-03-31 11:46 | SUR.PHASEI ---
1140; SAO2 DROPPED TO 86% ON ROOM AIR. RESP EVEN UNLABORED. P,W,D. O2 2L NC APPLIED.
--- NOTE | 2020-03-31 12:00 | SUR.PHASEI ---
PT RESTING QUIETLY. REPORT FAXED TO FLOOR
--- NOTE | 2020-03-31 12:09 | SUR.PHASEI ---
PT RESTING QUIETLY. STATES PAIN BETTER NOW, LESS BURNING
--- NOTE | 2020-03-31 12:28 | SUR.PHASEI ---
REPORT GIVEN TO FLOOR RN. WAITING FOR TRANSPORT ASSISTANCE. PT AWAKE AND ALERT.
[2020-03-31] MEDS: CELECOXIB 100 MG CAPSULE PO (12:45)
--- NOTE | 2020-03-31 12:45 | PC.NURSE ---
Returned from OR per bed. Report received from YARA Garcia.
[2020-03-31] MEDS: amLODIPine BESYLATE 5 MG TABLET PO (12:46)
[2020-03-31] MEDS: BACLOFEN 10 MG TABLET PO ×2 (12:46→16:09)
[2020-03-31] MEDS: BACLOFEN 5 MG TABLET PO ×2 (12:46→16:09)
[2020-03-31] MEDS: CARBIDOPA/LEVODOPA 25/250 MG TABLET 1 TABLET PO ×2 (12:47→16:09)
[2020-03-31] MEDS: calcium polycarbophiL 625 MG TABLET PO ×2 (12:47→16:09)
[2020-03-31] MEDS: FLUTICASONE PROPIONATE 0.05% NA SPR 16 GM BTL (*BKC) 2 SPRAY NASAL (12:48)
[2020-03-31] MEDS: LORATADINE 10 MG TABLET PO (12:48)
[2020-03-31] MEDS: FERROUS SULFATE 324 MG TABLET PO (12:48)
[2020-03-31] MEDS: CHOLECALCIFEROL 1,000 UNITS TABLET 5000 UNITS PO (12:48)
[2020-03-31] MEDS: DULoxetine HCL 30 MG CAPSULE.DR PO ×2 (12:48→16:09)
[2020-03-31] MEDS: LOSARTAN POTASSIUM 100 MG TABLET PO (12:49)
[2020-03-31] MEDS: GABAPENTIN 400 MG CAPSULE PO (12:49)
[2020-03-31] MEDS: MEMANTINE 10 MG TABLET PO ×2 (12:49→16:09)
[2020-03-31] MEDS: polyethylene glycoL 3350 17 GM POWD.PACK PO (12:49)
[2020-03-31] MEDS: PANTOPRAZOLE 40 MG TABLET PO (12:49)
[2020-03-31] MEDS: OPTI-GEN TAB 1 TABLET PO (12:49)
[2020-03-31] MEDS: DEXTROSE 5%/0.45% SOD CHL 1,000 ML 80 ML IV CONT (12:56)
[2020-03-31] MEDS: MAGNESIUM SULFATE 3GM/D5W100ML 3 GM/100 ML BAG IVPB (13:04)
--- NOTE | 2020-03-31 14:04 | PM.IMPN ---
Progress Note: A&P Assessment and Plan (1) Nondisplaced fracture of right femur: Code(s): S72.91XA - Unspecified fracture of right femur, initial encounter for closed fracture Status: Acute Assessment and Plan: Patient presented with right hip pain after a fall. X-ray demonstrated transcervical proximal right femoral fracture. Orthopedic surgery consulted - appreciate recommendations. She is now POD#0 s/p bipolar hemiarthroplasty right hip by Dr. Abraham this morning. Doing well so far postoperatively. Management of wound care, DVT prophylaxis, pain control per the orthopedic service. (2) Hypertension: Qualifiers: Hypertension type: essential hypertension Qualified Code(s): I10 - Essential (primary) hypertension Code(s): I10 - Essential (primary) hypertension Status: Chronic Assessment and Plan: Blood pressure is mildly elevated, likely secondary to pain, but stable. Maintained on her home Norvasc, losartan. Monitor BP and adjust treatment as needed. (3) Hypothyroidism: Qualifiers: Hypothyroidism type: unspecified Qualified Code(s): E03.9 - Hypothyroidism, unspecified Code(s): E03.9 - Hypothyroidism, unspecified Status: Chronic Assessment and Plan: Maintained on home levothyroxine. TSH within normal limits. (4) Parkinsons: Code(s): G20 - Parkinson's disease Status: Chronic Assessment and Plan: Patient with history of Parkinson's dementia. Continue Sinemet, Aricept and Namenda, Seroquel. Stable, cooperative and pleasant this afternoon. (5) Chronic GERD: Code(s): K21.9 - Gastro-esophageal reflux disease without esophagitis Status: Chronic Assessment and Plan: Continue PPI. No acute issues. (6) Anxiety and depression: Code(s): F41.9 - Anxiety disorder, unspecified; F32.9 - Major depressive disorder, single episode, unspecified Status: Chronic Assessment and Plan: Continue Cymbalta. Viibryd held and non formulary. (7) Crohn's disease: Qualifiers: Gastrointestinal tract location: unspecified location Digestive disease complication type: unspecified complication Qualified Code(s): K50.919 - Crohn's disease, unspecified, with unspecified complications Code(s): K50.90 - Crohn's disease, unspecified, without complications Status: Chronic Assessment and Plan: Patient has a colostomy to the left lower quadrant. She is on daily MiraLax. She avoids caffeinated beverages. Subjective Date/time seen: 03/31/20 1345 Interval history: Ms. Lee is an 84yo F admitted for a right hip fracture after a fall, seen this afternoon after returning from PACU s/p right bipolar hemiarthroplasty right hip by Dr Abraham this AM. She reports she is feeling okay and her pain is controlled at present. She denies any chest pain, shortness of breath, palpitations, nausea or vomiting. Review of Systems Review of Systems: All systems reviewed & are unremarkable except as noted in HPI and below Exam Narrative: Exam Narrative: General: Pleasant elderly female comfortably resting in semi-Villatoro's position in bed in no acute distress. HEENT: Normocephalic, EOMI, oral mucosa tacky. Cardiovascular: Rate and rhythm are regular. Telemetry review shows normal sinus rhythm HR 80 bpm. Respiratory: Lungs clear to auscultation all [place]. Non-labored breathing. Abdomen: Soft, non-tender, non-distended, bowel sounds hypoactive. Extremities: Peripheral pulses intact. Right hip Mepilex is clean, dry, intact. Right lower extremity is neurovascularly intact distal to the surgica
--- NOTE | 2020-03-31 15:27 | PC.NURSE ---
I called Radu PRIETO to see if he could bring in NF Viibryd. He said he would call me back to let me know whether he could bring the medication or not.
[2020-03-31] MEDS: DOCUSATE SODIUM 100 MG CAPSULE PO (16:10)
[2020-03-31] MEDS: MECLIZINE HCL 25 MG TABLET PO (20:40)
[2020-03-31] MEDS: MELATONIN 5 MG TABLET 10 MG PO (20:40)
[2020-03-31] MEDS: DONEPEZIL HCL 10 MG TABLET PO (20:40)
[2020-03-31] MEDS: QUEtiapine FUMARATE 12.5 MG TABLET PO (20:40)
[2020-04-01] VITALS (12 sets, daily range): BP systolic 100–135; BP diastolic 39–63; PULSE 78–98; RESP 16–20; TEMP 36.4–36.9; O2SAT 91–98
--- NOTE | 2020-04-01 | ECHO_ITS ---
Patient Info Name: Lyndsey Lee Age: 84 years : 1935 Gender: Female Ht: 58 in Wt: 114 lbs BSA: 1.47 m2 HR: 68 bpm BP: 100 / 39 mmHg Heart Rhythm: Sinus Rhythm Technical Quality: Good Exam Date: 04/01/2020 3:49 PM Exam Location: [facility] Pulmonary Exam Room: 253 Patient Status: Inpatient Admit Date: 03/30/2020 Staff Ordering Physician: Andrea Banks MD Gathering Machine Setter: Cherie Valdes RDCS Attending Provider: Bekah Stevens PA-C Referring Physician: Jocelyn MOYA; Exam Type: CA echo doppler color flow Study Info Indications - MITRAL REGURGITATION Complete two-dimensional, color flow and Doppler transthoracic echocardiogram is performed. Summary 1. Complete two-dimensional, color flow and Doppler transthoracic echocardiogram is performed. 2. Left ventricular chamber dimension is normal. 3. Left ventricular systolic function is hyperdynamic, estimated at >70%. 4. Left atrial chamber dimension is moderately enlarged. 5. Remarkably normal looking cardiac valves at this age. Left Ventricle Left ventricular chamber dimension is normal. Left ventricular systolic function is hyperdynamic, estimated at >70%. There is mild concentric increased left ventricular wall thickness. The left ventricular diastolic function is normal. Right Ventricle Right ventricular chamber dimension is normal. Left Atria Left atrial chamber dimension is moderately enlarged. Right Atria Right atrial chamber dimension is normal. Aortic Valve The aortic valve is normal. Pulmonic Valve The pulmonic valve is normal. Mitral Valve The mitral valve has normal leaflets. Tricuspid Valve The tricuspid valve leaflets are normal. There is mild tricuspid valve regurgitation. Pericardium/Pleural The pericardium appears normal. Aorta The aortic root size at the sinus of Valsalva is normal. Left Ventricular Outflow Tract Name Value Normal LVOT 2D LVOT Diameter 2.0 cm LVOT Doppler LVOT Peak Gradient 7 mmHg LVOT Mean Gradient 4 mmHg LVOT VTI 28 cm LVOT VTI/AV VTI Ratio 0.8 LVOT Stroke Volume 87 ml LVOT CO 17.8 l/min LVOT CI 12.1 l/min/m2 Pulmonic Valve Name Value Normal PV Doppler PV Peak Gradient 4 mmHg Mitral Valve Name Value Normal MV Doppler MV Decel [place] 358 cm/s2 MV PHT 63 ms
[2020-04-01] MEDS: ACETAMINOPHEN 325 MG TABLET 650 MG PO ×4 (00:31→17:04)
[2020-04-01] MEDS: oxyCODONE HCL (*CRX) 2.5 MG TAB IR PO ×5 (00:32→20:20)
[2020-04-01] MEDS: LEVOTHYROXINE SODIUM 125 MCG TABLET PO (05:54)
[2020-04-01 06:13] LABS: Basophils Percent Auto 0.1 % (0.2-1.2); Eosinophils Absolute Auto 0.1 K/mm3 (0-0.3); Eosinophils Percent Auto 0.9 % (0-4.4); Hematocrit 29.9 % (37.0-47.0); Hemoglobin 9.7 g/dL (12.0-15.0); Immature Granulocyte Absolute 0.04 K/mm3 (0.00-0.031); Immature Granulocyte Percent A 0.4 % (0-0.5); Lymphocytes Absolute Auto 0.82 K/mm3 (0.9-3.2); Lymphocytes Percent Auto 8.5 % (18.3-44.2); Mean Corpuscular HGB Conc 32.4 g/dl (32-36); Mean Corpuscular Hemoglobin 34.5 pg (26-34); Mean Corpuscular Volume 106.4 fl (80-100); Mean Platelet Volume 9.2 fl (7.4-10.4); Monocytes Absolute Auto 0.6 K/mm3 (0.1-0.6); Monocytes Percent Auto 5.9 % (2.6-8.5); Neutrophils Absolute Auto 8.1 K/mm3 (1.3-6.7); Neutrophils Percent Auto 84.2 % (45.5-73.1); Platelet Count Result 118 k/mm3 (150-375); Red Blood Count 2.81 M/mm3 (4.2-5.4); Red Cell Distribution Width 13.2 % (11.5-14.5); White Blood Count 9.7 K/mm3 (4.5-10.0)
[2020-04-01] MEDS: oxyCODONE HCL (*CRX) 5 MG TAB IR PO (07:35)
[2020-04-01] MEDS: CELECOXIB 100 MG CAPSULE PO (07:35)
[2020-04-01 08:40] LABS: Anion Gap 6 mmol/L (8-16); Blood Urea Nitrogen 18 mg/dL (7-17); Calcium 7.8 mg/dL (8.4-10.2); Carbon Dioxide 27 mmol/L (22-30); Chloride 101 mmol/L (98-107); Estimated Glomerular Filt Rate 53; Glucose 101 mg/dL (65-105); Magnesium 1.9 mg/dL (1.6-2.3); Potassium 4.6 mmol/L (3.4-5.0); Sodium 134 mmol/L (137-145)
[2020-04-01] MEDS: CHOLECALCIFEROL 1,000 UNITS TABLET 5000 UNITS PO (09:07)
[2020-04-01] MEDS: ENOXAPARIN 40 MG/0.4 ML SYRINGE SUB-Q (09:08)
[2020-04-01] MEDS: DULoxetine HCL 30 MG CAPSULE.DR PO ×2 (09:08→17:05)
[2020-04-01] MEDS: guaiFENesin 600 MG/DEXTROMETHORPHAN 30 MG SR TAB 12 HR 1 TAB PO (09:08)
[2020-04-01] MEDS: PANTOPRAZOLE 40 MG TABLET PO (09:08)
[2020-04-01] MEDS: DOCUSATE SODIUM 100 MG CAPSULE PO (09:08)
[2020-04-01] MEDS: CARBIDOPA/LEVODOPA 25/250 MG TABLET 1 TABLET PO ×3 (09:08→17:05)
[2020-04-01] MEDS: OPTI-GEN TAB 1 TABLET PO (09:08)
[2020-04-01] MEDS: calcium polycarbophiL 625 MG TABLET PO ×2 (09:09→17:04)
[2020-04-01] MEDS: polyethylene glycoL 3350 17 GM POWD.PACK PO (09:09)
[2020-04-01] MEDS: MEMANTINE 10 MG TABLET PO ×2 (09:10→17:05)
[2020-04-01] MEDS: GABAPENTIN 400 MG CAPSULE PO (09:10)
[2020-04-01] MEDS: LOSARTAN POTASSIUM 100 MG TABLET PO (09:25)
[2020-04-01] MEDS: BACLOFEN 5 MG TABLET PO ×3 (09:25→17:04)
[2020-04-01] MEDS: amLODIPine BESYLATE 5 MG TABLET PO (09:25)
[2020-04-01] MEDS: BACLOFEN 10 MG TABLET PO ×3 (09:25→17:04)
--- NOTE | 2020-04-01 09:29 | PCOTNOTE ---
OT evaluation attempted this AM. Patient nauseated and vomiting. Will attempt OT evaluation at later time.
--- NOTE | 2020-04-01 10:30 | ECG_ITS ---
Measurements Intervals [place] Rate: 77 P: 51 MN: 129 QRS: -40 QRSD: 106 T: 31 QT: 369 QTc: 418 Interpretive Statements SINUS RHYTHM LEFT AXIS DEVIATION VOLTAGE CRITERIA FOR LVH POOR R WAVE PROGRESSION, CONSIDER ANTERIOR INFARCT ABNORMAL ECG Electronically Signed On 04-01-2020 11:56:19 CDT by Huy Hudson D.O.
--- NOTE | 2020-04-01 10:30 | WPDANESPN ---
Anes - Prog Note Post-Op Date/Time: 04/01/20 10:30 Cardiovascular status: normal Respiratory status: normal Airway patency: baseline Mental status: baseline Post-Op hydration status: normal Vital Signs: Last Vital Signs Temp 97.9 F 04/01/20 05:44 Pulse 89 04/01/20 05:44 Resp 16 04/01/20 05:44 BP 132/56 L 04/01/20 05:44 Pulse Ox 97 04/01/20 05:44 Pain Score (VAS): 0 I/O: Intake & Output 03/31/20 04/01/20 04/01/20 23:59 07:59 15:59 Intake Total 690 1550 120 Output Total 500 1000 Balance 190 550 120 Laboratory Tests 04/01/20 05:27 04/01/20 05:27 04/01/20 04/01/20 04/01/20 03:20 05:27 05:27 WBC 9.7 RBC 2.81 L Hgb 9.7 L Hct 29.9 L MCV 106.4 H MCH 34.5 H MCHC 32.4 RDW 13.2 Plt Count 118 L MPV 9.2 Immature Gran % (Auto) 0.4 Neut % (Auto) 84.2 H Lymph % (Auto) 8.5 L King[place] % (Auto) 5.9 Eos % (Auto) 0.9 Baso % (Auto) 0.1 L Lymph # (Auto) 0.82 L King[place] # (Auto) 0.6 Eos # (Auto) 0.1 Baso # (Auto) 0.0 Abs Immat Gran (auto) 0.04 H Absolute Neuts (auto) 8.1 H Absolute Nucleated RBC 0.0 Nucleated RBC % 0.0 Sodium 134 L Potassium 4.6 Chloride 101 Carbon Dioxide 27 Anion Gap 6 L BUN 18 H Creatinine 1.00 Estim Creat Clear Calc Not Reportable Estimated GFR 53 L Glucose 101 Calcium 7.8 L Magnesium 1.9 SARS-CoV-2 RNA (RT-PCR) Pending Post-procedural complaints: none Patient Feedback: Patient satisfied with anesthetic care.
--- NOTE | 2020-04-01 11:20 | PM.PNORT ---
Progress Note: A&P Additional Plan POD 1 alert avss ,wd-dry ,wiggles toes .pain is well controlled, PT will work with pt, will plan to send back to care home when stable <MARTHA Avila - Last Filed: 04/01/20 11:21> Subjective Subjective Date/Time Seen: 04/01/20 11:20 <MARTHA Avila - Last Filed: 04/01/20 11:21> Objective Data Vital Signs Vital Signs: Vital Signs - 24 hr 03/31/20 11:30 03/31/20 11:44 03/31/20 12:00 Temperature Pulse Rate 94 92 94 Respiratory Rate 14 16 16 Blood Pressure 154/73 H 153/64 H 145/77 H Pulse Oximetry 99 98 98 03/31/20 12:15 03/31/20 12:40 03/31/20 12:55 Temperature 36.8 C 36.7 C Pulse Rate 92 92 100 Respiratory Rate 14 18 18 Blood Pressure 145/66 H 153/70 H 157/81 H Pulse Oximetry 98 96 96 03/31/20 13:25 03/31/20 14:25 03/31/20 16:00 Temperature 36.4 C 37.1 C Pulse Rate 96 93 102 H Respiratory Rate 15 16 Blood Pressure 164/66 H 141/56 H Pulse Oximetry 93 98 03/31/20 18:00 03/31/20 20:00 03/31/20 21:51 Temperature 37.2 C 36.8 C Pulse Rate 99 92 88 Respiratory Rate 18 16 Blood Pressure 120/52 L 133/64 Pulse Oximetry 92 100 04/01/20 00:00 04/01/20 02:00 04/01/20 04:00 Temperature 36.7 C Pulse Rate 92 98 91 Respiratory Rate 16 Blood Pressure 135/63 Pulse Oximetry 98 04/01/20 05:44 Temperature 36.6 C Pulse Rate 89 Respiratory Rate 16 Blood Pressure 132/56 L Pulse Oximetry 97 <MARTHA Avila - Last Filed: 04/01/20 11:21> Intake/Output Intake/Output: Intake & Output 03/29/20 03/30/20 03/31/20 04/01/20 23:59 23:59 23:59 23:59 Intake Total 1480 2630 1670 Output Total 1275 1650 1000 Balance 205 980 670 <MARTHA Avila - Last Filed: 04/01/20 11:21> Meds/Results Medications: Active Medications Generic Name Dose Route Start Last Admin Trade Name Pawan PRN Reason Stop Dose Admin Acetaminophen 650 mg 03/30/20 12:00 04/01/20 05:54 Acetaminophen 325 Mg Tablet PO 650 mg Q6HR [facility] Administration Amlodipine Besylate 5 mg 03/31/20 09:00 04/01/20 09:25 Amlodipine Besylate 5 Mg Tablet PO 5 mg DAILY [facility] Administration Baclofen 10 mg 03/30/20 17:00 04/01/20 09:25 Baclofen 10 Mg Tablet PO 10 mg TID [facility] Administration Baclofen 5 mg 03/30/20 17:00 04/01/20 09:25 Baclofen 5 Mg Tablet PO 5 mg TID [facility] Administration Calcium Carbonate 500 mg 03/30/20 17:00 04/01/20 09:10 Calcium/Vitamin D 500 Mg Tablet PO 500 mg BID [facility] Administration Calcium Polycarbophil 625 mg 03/30/20 17:00 04/01/20 09:09 Calcium Polycarbophil 625 Mg Tablet PO 625 mg BID [facility] Administration Carbidopa/Levodopa 1 tablet 03/30/20 17:00 04/01/20 09:08 Carbidopa/Levodopa 25/250 Mg Tablet PO 1 tablet TID [facility] Administration Celecoxib 100 mg 03/30/20 11:40 04/01/20 07:35 Celecoxib 100 Mg Capsule PO 100 mg DAILY@0800 [facility] Administration Cyanocobalamin 1,000 mcg 04/08/20 09:00 Cyanocobalamin Inj 1,000 Mcg/Ml Vial IM MONTHLY [facility] Dicyclomine HCl 20 mg 03/30/20 15:27 Dicyclomine Hcl 10 Mg Capsule PO Q6H PRN Abdominal Discomfort Docusate Sodium 100 mg 03/31/20 17:00 04/01/20 09:08 Docusate Sodium 100 Mg Capsule PO 100 mg BID [facility] Administration Donepezil HCl 10 mg 03/30/20 21:00 03/31/20 20:40 Donepezil Hcl 10 Mg Tablet PO 10 mg HS [facility] Administration Duloxetine HCl 30 mg 03/30/20 17:00 04/01/20 09:08 Duloxetine Hcl 30 Mg Capsule.Dr PO 30 mg BID [facility] Administration Enoxaparin Sodium 40 mg 04/01/20 09:00 04/01/20 09:08 Enoxaparin 40 Mg/0.4 Ml Syringe SUB-Q 05/06/20 09:01 40 mg DAILY [facility] Administration Ergocalciferol 50,000 unit 04/08/20 09:00 Ergocalciferol 50,000 Unit Capsule PO MoFr@0900 [facility] Ferrous Sulfate 324 mg 03/31/20 09:00 03/31/20 12:48 Ferrous Sulfate 324 Mg Tablet PO 324 mg Q48H [facility] Administration Fluticasone Propionate 2 spray 03/31
[2020-04-01] MEDS: FLUTICASONE PROPIONATE 0.05% NA SPR 16 GM BTL (*BKC) 2 SPRAY NASAL (12:09)
[2020-04-01 12:29] LABS: Troponin I 0.086 ng/mL (0.000-0.034)
--- NOTE | 2020-04-01 14:25 | PM.CNCAR ---
Assessment and Plan Additional Plan this is an 84-year-old woman who entered the hospital after falling in her long-term units sustaining a hip fracture. While she is in the hospital presumably because of her age and frailty she was placed on telemetry. We are seeing evidence of what appears to be asymptomatic sick sinus syndrome. I do not believe we are seeing any evidence of AV node dysfunction. She has no history of syncope according to the nephew who is in the room to provide additional history. She is not taking any medications such as a beta-dipti that would slow the sinus node. She does have a murmur on physical exam suggestive of some mitral valve regurgitation. I will watch her telemetry with you while she is in the hospital at this time since she is not symptomatic she does not require or meet criteria to receive a cardiac pacemaker device. I will obtain an echocardiogram to assess her valvular disease Andrea Banks MD [facility] History of Present Illness History of Present Illness Consult date/time: 04/01/20 14:25 Reason For Visit: right hip fracture Narrative: This is an 84-year-old woman I am seeing at the request of the hospitalist because of Elijah arrhythmias that were noted on telemetry this morning. The patient was hospitalized here at [facility] after falling and sustaining a hip fracture. She was seen by Orthopedics and was already taken to the operating room for surgical repair which was done successfully over the weekend. Apparently just because of her advanced age she is on telemetry and some Elijah arrhythmias were noticed earlier today prompting me to see her in consultation. According to the nursing staff she was asymptomatic at the time of being bradycardic. The patient is a somewhat limited historian because of memory deficits and some degree of dementia. Fortunately her nephew was in the room providing more assistance with the history. She was hospitalized over the weekend again she lives the in a long-term where she slipped on a slippery bathroom floor fell and sustained her hip fracture. She is confident that she did not lose consciousness resulting in the fall. She indicates she has never had an episode of syncope or near-syncope. Her nephew also corroborates this history indicating that there is no knowledge of a previous syncopal event to the best of his ability to remember. The patient's 12 lead ECG demonstrates normal sinus rhythm with a leftward axis but no significant abnormalities. She on telemetry is also in sinus rhythm occasionally she has some premature atrial contractions and then appears to have some sinus pauses with no clear-cut evidence of AV node dysfunction. She is not taking any medications that would affect her sinus node and once again has never had a syncopal event. Review of Systems Constitutional: Constitutional: Reports frequent falls Eyes: Eyes: Reports no additional eye complaints ENT: Reports system reviewed and no additional complaints, except as documented Cardiovascular: Cardiovascular: Reports no additional cardiovascular complaints Respiratory: Respiratory: Reports no additional respiratory complaints Gastrointestinal: Gastrointestinal: Reports constipation Musculoskeletal: Musculoskeletal: Reports arthralgias Neurologic: Reports memory loss Endocrine: Endocrine: Reports no additional endocrine complaints Hematologic/Lymphatic: Hematologic/Lymphatic: Reports no additional hematologic/lymphatic complaints Allergic/Immunologic: Allergic/Immunologic: Reports no additional allergic/immunologic complaints [facility] Past Medical History Medical History (Updated 03/31/20 @ 15:20 by Bekah Stevens PA-C) Anxiety and depression Bowel obstruction Chronic GERD Colostomy in place Crohn's disease Dementia Glaucoma Hypertension Hypothyroidism Ileostomy in place Osteoarthritis Parkinsons Surgical History Surgical History (Updated 03/30/20 @ 13:12 by
--- NOTE | 2020-04-01 15:57 | PM.IMPN ---
Progress Note: A&P Assessment and Plan (1) Nondisplaced fracture of right femur: Code(s): S72.91XA - Unspecified fracture of right femur, initial encounter for closed fracture Status: Acute Assessment and Plan: Patient presented with right hip pain after a fall. X-ray demonstrated transcervical proximal right femoral fracture. Orthopedic surgery consulted - appreciate recommendations. She is now POD#1 s/p bipolar hemiarthroplasty right hip by Dr. Abraham 03/31/20. Management of wound care, DVT prophylaxis, pain control per the orthopedic service. (2) Hypertension: Qualifiers: Hypertension type: essential hypertension Qualified Code(s): I10 - Essential (primary) hypertension Code(s): I10 - Essential (primary) hypertension Status: Chronic Assessment and Plan: Blood pressures are soft today maintained on her home Norvasc, losartan. Will hold AM doses of her medications for now, monitor BP and reassess in AM. (3) Hypothyroidism: Qualifiers: Hypothyroidism type: unspecified Qualified Code(s): E03.9 - Hypothyroidism, unspecified Code(s): E03.9 - Hypothyroidism, unspecified Status: Chronic Assessment and Plan: Maintained on home levothyroxine. TSH within normal limits. (4) Parkinsons: Code(s): G20 - Parkinson's disease Status: Chronic Assessment and Plan: Patient with history of Parkinson's dementia. Continue Sinemet, Aricept and Namenda, Seroquel. Stable, cooperative and pleasant this afternoon. (5) Chronic GERD: Code(s): K21.9 - Gastro-esophageal reflux disease without esophagitis Status: Chronic Assessment and Plan: Continue PPI. No acute issues. (6) Anxiety and depression: Code(s): F41.9 - Anxiety disorder, unspecified; F32.9 - Major depressive disorder, single episode, unspecified Status: Chronic Assessment and Plan: Continue Cymbalta. Viibryd brought in from home. (7) Crohn's disease: Qualifiers: Gastrointestinal tract location: unspecified location Digestive disease complication type: unspecified complication Qualified Code(s): K50.919 - Crohn's disease, unspecified, with unspecified complications Code(s): K50.90 - Crohn's disease, unspecified, without complications Status: Chronic Assessment and Plan: Patient has a colostomy to the left lower quadrant. She is on daily MiraLax. She avoids caffeinated beverages. (8) Bradycardia: Code(s): R00.1 - Bradycardia, unspecified Status: Acute Assessment and Plan: I am notified by nursing this morning that patient had a couple episodes of bradycardia on telemetry with which she was asymptomatic. Dr Abraham has ordered EKG, troponin x 1, and cardiology consultation. No chest pain, palpitations, dizziness. Appreciate Dr Banks's input. Noted his recommendations that this appears to be asymptomatic sick sinus syndrome, monitor telemetry. Subjective Date/time seen: 04/01/20 1445 Interval history: Ms. Lee is an 84yo F admitted for a right hip fracture after a fall now POD#1 s/p right hip hemiarthroplasty by Dr Abraham. She reports feeling okay today, describes a sore throat after anesthesia. She vomited this morning but denies feeling nauseous at present. She denies any chest pain, shortness of breath, dizziness, or palpitations. Review of Systems Review of Systems: All systems reviewed & are unremarkable except as noted in HPI and below Exam Narrative: Exam Narrative: General: Pleasant elderly female comfortably resting in s
--- NOTE | 2020-04-01 16:15 | PHAR ---
(Vilazodone [Viibryd] 20 mg Tablet)- Home med seen in pharmacy and returned to nurse at pharmacy window
[2020-04-01 16:30] LABS: SARS-CoV-2 RNA PCR Negative
[2020-04-01] MEDS: MELATONIN 5 MG TABLET 10 MG PO (20:22)
[2020-04-01] MEDS: MECLIZINE HCL 25 MG TABLET PO (20:22)
[2020-04-01] MEDS: DONEPEZIL HCL 10 MG TABLET PO (20:22)
[2020-04-01] MEDS: QUEtiapine FUMARATE 12.5 MG TABLET PO (21:30)
[2020-04-02] VITALS (12 sets, daily range): BP systolic 98–105; BP diastolic 40–54; PULSE 71–86; RESP 16–18; TEMP 36.3–36.9; O2SAT 90–96
[2020-04-02] MEDS: ACETAMINOPHEN 325 MG TABLET 650 MG PO ×4 (00:01→17:41)
[2020-04-02] MEDS: oxyCODONE HCL (*CRX) 2.5 MG TAB IR PO ×7 (00:01→20:22)
[2020-04-02 05:54] LABS: Basophils Percent Auto 0.3 % (0.2-1.2); Eosinophils Absolute Auto 0.2 K/mm3 (0-0.3); Eosinophils Percent Auto 2.7 % (0-4.4); Hematocrit 29.7 % (37.0-47.0); Hemoglobin 9.4 g/dL (12.0-15.0); Immature Granulocyte Absolute 0.03 K/mm3 (0.00-0.031); Immature Granulocyte Percent A 0.4 % (0-0.5); Lymphocytes Absolute Auto 0.83 K/mm3 (0.9-3.2); Lymphocytes Percent Auto 11.2 % (18.3-44.2); Mean Corpuscular HGB Conc 31.6 g/dl (32-36); Mean Corpuscular Hemoglobin 34.7 pg (26-34); Mean Corpuscular Volume 109.6 fl (80-100); Mean Platelet Volume 9.5 fl (7.4-10.4); Monocytes Absolute Auto 0.7 K/mm3 (0.1-0.6); Neutrophils Absolute Auto 5.7 K/mm3 (1.3-6.7); Neutrophils Percent Auto 76.4 % (45.5-73.1); Platelet Count Result 110 k/mm3 (150-375); Red Blood Count 2.71 M/mm3 (4.2-5.4); Red Cell Distribution Width 13.6 % (11.5-14.5); White Blood Count 7.4 K/mm3 (4.5-10.0)
[2020-04-02] MEDS: LEVOTHYROXINE SODIUM 125 MCG TABLET PO (05:57)
[2020-04-02 06:10] LABS: Anion Gap 5 mmol/L (8-16); Blood Urea Nitrogen 26 mg/dL (7-17); Calcium 7.8 mg/dL (8.4-10.2); Carbon Dioxide 26 mmol/L (22-30); Chloride 104 mmol/L (98-107); Estimated Glomerular Filt Rate 53; Glucose 99 mg/dL (65-105); Magnesium 1.8 mg/dL (1.6-2.3); Potassium 4.7 mmol/L (3.4-5.0); Sodium 135 mmol/L (137-145)
[2020-04-02] MEDS: CARBIDOPA/LEVODOPA 25/250 MG TABLET 1 TABLET PO ×3 (08:22→17:08)
[2020-04-02] MEDS: FLUTICASONE PROPIONATE 0.05% NA SPR 16 GM BTL (*BKC) 2 SPRAY NASAL (08:22)
[2020-04-02] MEDS: ENOXAPARIN 40 MG/0.4 ML SYRINGE SUB-Q (08:22)
[2020-04-02] MEDS: calcium polycarbophiL 625 MG TABLET PO ×2 (08:31→17:08)
[2020-04-02] MEDS: guaiFENesin 600 MG/DEXTROMETHORPHAN 30 MG SR TAB 12 HR 1 TAB PO ×2 (08:31→20:23)
[2020-04-02] MEDS: DULoxetine HCL 30 MG CAPSULE.DR PO ×2 (08:32→17:08)
[2020-04-02] MEDS: PANTOPRAZOLE 40 MG TABLET PO (08:32)
[2020-04-02] MEDS: FERROUS SULFATE 324 MG TABLET PO (08:32)
[2020-04-02] MEDS: BACLOFEN 10 MG TABLET PO ×3 (08:32→17:07)
[2020-04-02] MEDS: LORATADINE 10 MG TABLET PO ×2 (08:32→17:41)
[2020-04-02] MEDS: GABAPENTIN 400 MG CAPSULE PO (08:32)
[2020-04-02] MEDS: CELECOXIB 100 MG CAPSULE PO (08:33)
[2020-04-02] MEDS: OPTI-GEN TAB 1 TABLET PO (08:33)
[2020-04-02] MEDS: MEMANTINE 10 MG TABLET PO ×2 (08:33→17:09)
[2020-04-02] MEDS: CHOLECALCIFEROL 1,000 UNITS TABLET 5000 UNITS PO (08:33)
[2020-04-02] MEDS: BACLOFEN 5 MG TABLET PO ×3 (08:33→17:07)
[2020-04-02] MEDS: DOCUSATE SODIUM 100 MG CAPSULE PO (08:34)
--- NOTE | 2020-04-02 09:58 | PM.IMPN ---
Progress Note: A&P Assessment and Plan (1) Nondisplaced fracture of right femur: Code(s): S72.91XA - Unspecified fracture of right femur, initial encounter for closed fracture Status: Acute Assessment and Plan: -----Patient presented with right hip pain after a fall. X-ray demonstrated transcervical proximal right femoral fracture. POD#2 s/p bipolar hemiarthroplasty right hip by Dr. Abraham 03/31/20. Management of wound care, DVT prophylaxis, pain control per the orthopedic service. I have held the Dulcolax since she has been having pretty significant ostomy output. Continue MiraLax (2) Acute respiratory failure with hypoxia: Code(s): J96.01 - Acute respiratory failure with hypoxia Status: Acute Assessment and Plan: ----- Currently on 3L and she usually does not utilize o2 at home. Unclear etiology at this time. no documentation of hypoxia but I spoke to the nurse who took care the patient yesterday and said that she was unable to be weaned off oxygen after her surgery. I will obtain a chest x-ray and wean her off oxygen as tolerated. Could be due to excessive fluids since there are some crackles. White blood cell count normal, no signs of pneumonia. COVID appears less likely, negative test yesterday. Will see how the chest x-ray is and may consider giving Lasix although blood pressure is low. Monitor (3) Hypertension: Qualifiers: Hypertension type: essential hypertension Qualified Code(s): I10 - Essential (primary) hypertension Code(s): I10 - Essential (primary) hypertension Status: Chronic Assessment and Plan: ------ blood pressures have remained soft, continue to hold Norvasc and losartan at this time. hemoglobin stable. Monitor (4) Hypothyroidism: Qualifiers: Hypothyroidism type: unspecified Qualified Code(s): E03.9 - Hypothyroidism, unspecified Code(s): E03.9 - Hypothyroidism, unspecified Status: Chronic Assessment and Plan: ------Maintained on home levothyroxine. TSH within normal limits. (5) Parkinsons: Code(s): G20 - Parkinson's disease Status: Chronic Assessment and Plan: ------Patient with history of Parkinson's dementia. Continue Sinemet, Aricept and Namenda, Seroquel. She is stable, cooperative and pleasant during this stay. (6) Chronic GERD: Code(s): K21.9 - Gastro-esophageal reflux disease without esophagitis Status: Chronic Assessment and Plan: -----Continue PPI. No acute issues. (7) Anxiety and depression: Code(s): F41.9 - Anxiety disorder, unspecified; F32.9 - Major depressive disorder, single episode, unspecified Status: Chronic Assessment and Plan: ----Continue Cymbalta. Viibryd brought in from home. (8) Crohn's disease: Qualifiers: Gastrointestinal tract location: unspecified location Digestive disease complication type: unspecified complication Qualified Code(s): K50.919 - Crohn's disease, unspecified, with unspecified complications Code(s): K50.90 - Crohn's disease, unspecified, without complications Status: Chronic Assessment and Plan: --------Patient has a colostomy to the left lower quadrant. She is on daily MiraLax. She avoids caffeinated beverages (9) Bradycardia: Code(s): R00.1 - Bradycardia, unspecified Status: Acute Assessment and Plan: -----Reported bradycardia during her stay without CP, palpitations or dizziness. Cardiology saw the patient and does not think she needs any additional treatment at this time and to continue conservative treatment and observation. Tele shows no further bradycardia at this point. Echo reviewed and looks okay. Continue to major hospital tele. Time Spent With Patient Time with patient: 25 - 35 minutes Subjective Date/time seen: 04/02/20 09:58 Interval history: Pt is a 84-year-old female here for hip fract
--- NOTE | 2020-04-02 10:22 | PCOTNOTE ---
Attempted to see patient for OT, patient sleeping soundly and difficult to maintain wakeful state. Will attempt patient later today when she is more rested.
--- NOTE | 2020-04-02 12:50 | PM.PNORT ---
Progress Note: A&P Additional Plan Patient is now postop day 2. After cemented bipolar hemiarthroplasty right hip. She had an episode of bradycardia yesterday morning and Dr. Banks saw her and ordered an echocardiogram. The results of the echocardiogram appeared to be unremarkable. She had and ejection fraction of greater than 70% considered hyper dynamic. She had a chest x-ray today that showed cardiomegaly and mild atelectasis right lung base. Hemoglobin is 9.4 not significantly changed from yesterday 9.7. Platelets [id number] slightly down from yesterday. Creatinine is 1.0. It was 0.9 at admission. Her BUN is elevated at 26. Potassium normal 4.7. I have discontinued her Celebrex which we are using to help control her pain to minimize use of narcotics. She was positive for MRSA in her nose. I have initiated Bactroban ointment and we will treat her with 7 days of single strength Bactrim b.i.d. for prophylaxis against wound infection. At this time she was resting comfortably and she aroused. She stated it was Wednesday in that her cyst Nephew was here to see her yesterday on Wednesday so she is trying to remain oriented. Her wound is dry there is no drainage on the dressing. There is no significant swelling in the hip or thigh. She is being mobilized. She is weight-bearing as tolerated. She is on Lovenox for DVT prophylaxis. Subjective Subjective Date/Time Seen: 04/02/20 12:50 Objective Data Vital Signs Vital Signs: Vital Signs - 24 hr 04/01/20 14:00 04/01/20 16:00 04/01/20 16:54 Temperature 36.4 C Pulse Rate 88 78 78 Respiratory Rate 18 Blood Pressure 100/39 L 104/48 L Pulse Oximetry 91 04/01/20 20:00 04/01/20 22:00 04/02/20 00:00 Temperature 36.6 C Pulse Rate 84 83 83 Respiratory Rate 20 Blood Pressure 112/46 L Pulse Oximetry 98 04/02/20 04:00 04/02/20 06:00 04/02/20 08:00 Temperature 36.9 C Pulse Rate 81 81 82 Respiratory Rate 18 Blood Pressure 105/53 L Pulse Oximetry 96 04/02/20 08:39 04/02/20 11:20 Temperature Pulse Rate Respiratory Rate Blood Pressure Pulse Oximetry 94 92 Intake/Output Intake/Output: Intake & Output 03/30/20 03/31/20 04/01/20 04/02/20 23:59 23:59 23:59 23:59 Intake Total 1480 2630 2755 420 Output Total 1275 1650 1800 Balance 205 980 955 420 Meds/Results Medications: Active Medications Generic Name Dose Route Start Last Admin Trade Name Freq PRN Reason Stop Dose Admin Acetaminophen 650 mg 03/30/20 12:00 04/02/20 05:57 Acetaminophen 325 Mg Tablet PO 650 mg Q6HR [facility] Administration Amlodipine Besylate 5 mg 03/31/20 09:00 04/01/20 09:25 Amlodipine Besylate 5 Mg Tablet PO 5 mg DAILY [facility] Administration Baclofen 10 mg 03/30/20 17:00 04/02/20 08:32 Baclofen 10 Mg Tablet PO 10 mg TID [place] Administration Baclofen 5 mg 03/30/20 17:00 04/02/20 08:33 Baclofen 5 Mg Tablet PO 5 mg TID [place] Administration Calcium Carbonate 500 mg 03/30/20 17:00 04/02/20 08:33 Calcium/Vitamin D 500 Mg Tablet PO 500 mg BID [place] Administration Calcium Polycarbophil 625 mg 03/30/20 17:00 04/02/20 08:31 Calcium Polycarbophil 625 Mg Tablet PO 625 mg BID [place] Administration Carbidopa/Levodopa 1 tablet 03/30/20 17:00 04/02/20 08:22 Carbidopa/Levodopa 25/250 Mg Tablet PO 1 tablet TID [facility] Administration Cyanocobalamin 1,000 mcg 04/08/20 09:00 Cyanocobalamin Inj 1,000 Mcg/Ml Vial IM MONTHLY [facility] Dicyclomine HCl 20 mg 03/30/20 15:27 Dicyclomine Hcl 10 Mg Capsule PO Q6H PRN Abdominal Discomfort Docusate Sodium 100 mg 03/31/20 17:00 04/02/20 08:34 Docusate Sodium 100 Mg Capsule PO 100 mg BID [place] Administration Donepezil HCl 10 mg 03/30/20 21:00 04/01/20 20:22 Donepezil Hcl 10 Mg Tablet PO 10 mg HS [facility] Administration Duloxetine HCl 30 mg 03/30/20 17:00 04/02/20 08:32 Duloxetine Hcl 30 Mg Capsule.Dr PO 30 mg BID [place] Administration
[2020-04-02] MEDS: MUPIROCIN 2% OINT 22 GM TUBE 1 APPLIC EACH NARE ×2 (13:14→20:30)
--- NOTE | 2020-04-02 13:56 | PC.NURSE ---
On 04/02/20, the student, [ Destiny Rico and Elissa Yan], provided care and completed [facility] documentation on this patient. I have reviewed the student's documentation and agree with the findings.
--- NOTE | 2020-04-02 14:53 | PM.PNCARD ---
Progress Note: A&P Assessment and Plan (1) Bradycardia: Code(s): R00.1 - Bradycardia, unspecified Status: Acute Assessment and Plan: Telemetry reveals no bradycardia over the last 24 hours. (2) Murmur: Code(s): R01.1 - Cardiac murmur, unspecified Status: Acute Assessment and Plan: Echocardiogram 04/01/2020:Left ventricular chamber dimension is normal. Left ventricular systolic function is hyperdynamic, estimated at >70%. Left atrial chamber dimension is moderately enlarged. Remarkably normal looking cardiac valves at this age. Additional Plan Will continue follow-up p.r.n.. Plan discussed with Dr Rashaun Ragland 04/02/2020 Subjective Date/time seen: 04/02/20 14:53 Interval history: Follow-up for: Bradycardia Date of service: Subjective: Sleeping when I entered the room. Very hard of hearing. Arousable. States needs a pain pill. Denied any chest discomfort, shortness of breath or lightheadedness. Review of Systems Constitutional: Constitutional: Reports frequent falls Eyes: Eyes: Denies blurry vision ENT: Denies dizziness and Reports hearing loss Cardiovascular: Cardiovascular: Denies chest pain, Denies pedal edema, Denies dyspnea on exertion, Denies orthopnea and Denies paroxysmal nocturnal dyspnea Respiratory: Respiratory: Denies dyspnea on exertion Gastrointestinal: Gastrointestinal: Reports constipation Musculoskeletal: Musculoskeletal: Reports arthralgias ( Hip pain) Neurologic: Reports frequent falls and Reports memory loss Psychiatric: Psychiatric: Reports memory loss Endocrine: Endocrine: Reports no additional endocrine complaints Hematologic/Lymphatic: Hematologic/Lymphatic: Reports no additional hematologic/lymphatic complaints Allergic/Immunologic: Allergic/Immunologic: Reports no additional allergic/immunologic complaints Exam Const: Other: Elderly white female sleeping. Laying flat in bed. HENMT: Head: normocephalic and atraumatic Ears: hearing grossly impaired General nose exam: Normal nares present and no epistaxis Mouth: Yes dry mucous membranes Other: Neck: Neck: supple Resp: Effort & Inspection: normal respiratory effort Auscultation: clear to auscultation bilaterally Cardio: Jugular venous distension: no JVD Rate: regular rate Rhythm: regular rhythm Heart sounds: Murmur heart sound present systolic holo and at the left sternal border Peripheral pulses: Peripheral pulses 2+ throughout GI: Auscultation: normal bowel sounds Skin: General skin exam: normal color Neuro: Cognition (Neuro): normal cognition Extrem: General: normal to inspection and no clubbing, cyanosis or edema Objective Data Vital Signs Vital Signs: Vital Signs - 24 hr 04/01/20 16:00 04/01/20 16:54 04/01/20 20:00 Temperature Pulse Rate 78 78 84 Respiratory Rate Blood Pressure 104/48 L Pulse Oximetry 04/01/20 22:00 04/02/20 00:00 04/02/20 04:00 Temperature 36.6 C Pulse Rate 83 83 81 Respiratory Rate 20 Blood Pressure 112/46 L Pulse Oximetry 98 04/02/20 06:00 04/02/20 08:00 04/02/20 08:39 Temperature 36.9 C Pulse Rate 81 82 Respiratory Rate 18 Blood Pressure 105/53 L Pulse Oximetry 96 94 04/02/20 11:20 Temperature Pulse Rate Respiratory Rate Blood Pressure Pulse Oximetry 92 Intake/Output Intake/Output: Intake & Output 03/30/20 03/31/20 04/01/20 04/02/20 23:59 23:59 23:59 23:59 Intake Total 1480 2630 2755 540 Output Total 1275 1650 1800 Balance 205 980 955 540 Meds/Results Medications: Active Medications Generic Name Dose Route Start Last Admin Trade Name Pawan PRN Reason Stop Dose Admin Acetaminophen 650 mg 03/30/20 12:00 04/02/20 13:14 Acetaminophen 325 Mg Tablet PO 650 mg Q6HR [place] Administration Amlodipine Besylate 5 mg 03/31/20 09:00 04/01/20 09:25 Am
[2020-04-02] MEDS: MECLIZINE HCL 25 MG TABLET PO (20:22)
[2020-04-02] MEDS: MELATONIN 5 MG TABLET 10 MG PO (20:23)
[2020-04-02] MEDS: DONEPEZIL HCL 10 MG TABLET PO (20:23)
[2020-04-02] MEDS: QUEtiapine FUMARATE 12.5 MG TABLET PO (20:32)
--- NOTE | 2020-04-02 20:35 | PC.NURSE ---
quetiapine fumarate 12.5mg was unable to scan. pharmacy unable to fix, verified medication with 2nd RN enrique barrera
[2020-04-03] VITALS (7 sets, daily range): BP systolic 111–154; BP diastolic 47–62; PULSE 71–91; RESP 16–18; TEMP 36.4–36.8; O2SAT 94–95
[2020-04-03] MEDS: oxyCODONE HCL (*CRX) 2.5 MG TAB IR PO ×4 (00:17→08:49)
[2020-04-03] MEDS: ACETAMINOPHEN 325 MG TABLET 650 MG PO ×3 (00:17→12:01)
[2020-04-03] MEDS: LEVOTHYROXINE SODIUM 125 MCG TABLET PO (05:41)
[2020-04-03 06:07] LABS: Hematocrit 31.6 % (37.0-47.0); Hemoglobin 9.9 g/dL (12.0-15.0)
[2020-04-03 06:25] LABS: Anion Gap 5 mmol/L (8-16); Blood Urea Nitrogen 28 mg/dL (7-17); Carbon Dioxide 27 mmol/L (22-30); Chloride 103 mmol/L (98-107); Estimated Glomerular Filt Rate 47; Glucose 92 mg/dL (65-105); Potassium 4.8 mmol/L (3.4-5.0); Sodium 135 mmol/L (137-145)
--- NOTE | 2020-04-03 07:07 | PM.DS ---
DS: Admitting Diagnosis Admitting Diagnosis Admitting Diagnosis: right hip fracture DS: Discharge Diagnosis Discharge Diagnosis (1) Nondisplaced fracture of right femur: Code(s): S72.91XA - Unspecified fracture of right femur, initial encounter for closed fracture Status: Acute Assessment and Plan: -----Patient presented with right hip pain after a fall. X-ray demonstrated transcervical proximal right femoral fracture. She underwent bipolar hemiarthroplasty right hip by Dr. Abraham 03/31/20. Plan for 32 more days of lovenox and SNF placement (2) Acute respiratory failure with hypoxia: Code(s): J96.01 - Acute respiratory failure with hypoxia Status: Acute Assessment and Plan: -----Resolved and off O2. Unclear etiology at this time. no documentation of hypoxia but I spoke to the nurse who took care the patient throughout her stay and said that she was unable to be weaned off oxygen after her surgery. CXR only showed mild atelectasis. NO PE suspected as she was not tachycardic and improved and no longer required o2. Could be due to excessive fluids since there are some crackles. White blood cell count normal, no signs of pneumonia. COVID appears less likely, negative test 04/01/20 (3) Hypertension: Qualifiers: Hypertension type: essential hypertension Qualified Code(s): I10 - Essential (primary) hypertension Code(s): I10 - Essential (primary) hypertension Status: Chronic Assessment and Plan: ------ last glucose 132/55. continue htn medications. (4) Hypothyroidism: Qualifiers: Hypothyroidism type: unspecified Qualified Code(s): E03.9 - Hypothyroidism, unspecified Code(s): E03.9 - Hypothyroidism, unspecified Status: Chronic Assessment and Plan: ------Maintained on home levothyroxine. TSH within normal limits. (5) Parkinsons: Code(s): G20 - Parkinson's disease Status: Chronic Assessment and Plan: ------Patient with history of Parkinson's dementia. Continue Sinemet, Aricept and Namenda, Seroquel. She is stable, cooperative and pleasant during this stay. (6) Chronic GERD: Code(s): K21.9 - Gastro-esophageal reflux disease without esophagitis Status: Chronic Assessment and Plan: -----Continue PPI. No acute issues. (7) Anxiety and depression: Code(s): F41.9 - Anxiety disorder, unspecified; F32.9 - Major depressive disorder, single episode, unspecified Status: Chronic Assessment and Plan: ----Continue Cymbalta. Viibryd brought in from home. (8) Crohn's disease: Qualifiers: Gastrointestinal tract location: unspecified location Digestive disease complication type: unspecified complication Qualified Code(s): K50.919 - Crohn's disease, unspecified, with unspecified complications Code(s): K50.90 - Crohn's disease, unspecified, without complications Status: Chronic Assessment and Plan: --------Patient has a colostomy to the left lower quadrant. She is on daily MiraLax. She avoids caffeinated beverages (9) Bradycardia: Code(s): R00.1 - Bradycardia, unspecified Status: Acute Assessment and Plan: -----Reported bradycardia during her stay without CP, palpitations or dizziness. Cardiology saw the patient and does not think she needs any additional treatment at this time and to continue conservative treatment and observation. Tele shows no further bradycardia at this point. Echo reviewed and looks okay. DS: Summary Hospital Course Reason for hospitalization: hip fx Hospital Course: Patient is an 84-year-old female who presented emergency room for right thigh and knee pain after she fell at [facility]. Vitals in the ER were stable. CBC within normal limits. BMP showed hyperkalemia 5.4. X-ray showed transcervical proximal Right femur fracture. CT of the brain and cervic
[2020-04-03] MEDS: BACLOFEN 10 MG TABLET PO (08:49)
[2020-04-03] MEDS: OPTI-GEN TAB 1 TABLET PO (08:50)
[2020-04-03] MEDS: GABAPENTIN 400 MG CAPSULE PO (08:50)
[2020-04-03] MEDS: CARBIDOPA/LEVODOPA 25/250 MG TABLET 1 TABLET PO ×2 (08:51→12:01)
[2020-04-03] MEDS: MEMANTINE 10 MG TABLET PO (08:51)
[2020-04-03] MEDS: PANTOPRAZOLE 40 MG TABLET PO (08:51)
[2020-04-03] MEDS: CHOLECALCIFEROL 1,000 UNITS TABLET 5000 UNITS PO (08:51)
[2020-04-03] MEDS: ENOXAPARIN 40 MG/0.4 ML SYRINGE SUB-Q (08:52)
[2020-04-03] MEDS: DICYCLOMINE HCL 10 MG CAPSULE 20 MG PO (08:53)
[2020-04-03] MEDS: DULoxetine HCL 30 MG CAPSULE.DR PO (08:53)
[2020-04-03] MEDS: BACLOFEN 5 MG TABLET PO (08:53)
[2020-04-03] MEDS: FLUTICASONE PROPIONATE 0.05% NA SPR 16 GM BTL (*BKC) 2 SPRAY NASAL (08:54)
[2020-04-03] MEDS: calcium polycarbophiL 625 MG TABLET PO (08:54)
[2020-04-03] MEDS: MUPIROCIN 2% OINT 22 GM TUBE 1 APPLIC EACH NARE (08:55)
--- NOTE | 2020-04-03 10:44 | PM.PNCARD ---
Progress Note: A&P Assessment and Plan (1) Bradycardia: Code(s): R00.1 - Bradycardia, unspecified Status: Acute Assessment and Plan: Telemetry reveals no bradycardia over the last 48 hours. (2) Murmur: Code(s): R01.1 - Cardiac murmur, unspecified Status: Acute Assessment and Plan: Echocardiogram 04/01/2020:Left ventricular chamber dimension is normal. Left ventricular systolic function is hyperdynamic, estimated at >70%. Left atrial chamber dimension is moderately enlarged. Remarkably normal looking cardiac valves at this age. Additional Plan OK to discharge from cardiac standpoint. Does not need cardiology follow-up. Cardiology signing off. Can discontinue telemetry Plan discussed with Dr. Banks 1055 04/03/2020 Subjective Date/time seen: 04/03/20 10:44 Interval history: Follow-up for: Bradycardia Date of service: Subjective: Up in the chair. Complaining only right hip pain. Denied chest discomfort, shortness of breath or lightheadedness. Review of Systems Constitutional: Constitutional: Reports frequent falls Eyes: Eyes: Denies blurry vision ENT: Denies dizziness and Reports hearing loss Cardiovascular: Cardiovascular: Denies chest pain, Denies pedal edema, Denies dyspnea on exertion, Denies orthopnea and Denies paroxysmal nocturnal dyspnea Respiratory: Respiratory: Denies dyspnea on exertion Gastrointestinal: Gastrointestinal: Reports constipation Musculoskeletal: Musculoskeletal: Reports arthralgias ( Hip pain) Neurologic: Denies dizziness, Reports frequent falls and Reports memory loss Psychiatric: Psychiatric: Reports memory loss Endocrine: Endocrine: Reports no additional endocrine complaints Hematologic/Lymphatic: Hematologic/Lymphatic: Reports no additional hematologic/lymphatic complaints Allergic/Immunologic: Allergic/Immunologic: Reports no additional allergic/immunologic complaints Exam Const: Other: Elderly white female sitting up in chair. HENMT: Head: normocephalic and atraumatic Ears: hearing grossly impaired General nose exam: Normal nares present and no epistaxis Mouth: Yes dry mucous membranes Other: Neck: Neck: supple Resp: Effort & Inspection: normal respiratory effort Auscultation: clear to auscultation bilaterally Cardio: Jugular venous distension: no JVD Rate: regular rate Rhythm: regular rhythm Heart sounds: Murmur heart sound present systolic holo and at the left sternal border Peripheral pulses: Peripheral pulses 2+ throughout GI: Auscultation: normal bowel sounds Skin: General skin exam: normal color Neuro: Cognition (Neuro): normal cognition Extrem: General: normal to inspection and no clubbing, cyanosis or edema Objective Data Vital Signs Vital Signs: Vital Signs - 24 hr 04/02/20 11:20 04/02/20 12:00 04/02/20 14:00 Temperature 36.4 C Pulse Rate 77 86 Respiratory Rate 18 Blood Pressure 103/54 L Pulse Oximetry 92 91 04/02/20 16:00 04/02/20 19:57 04/02/20 20:00 Temperature Pulse Rate 86 74 74 Respiratory Rate 18 Blood Pressure Pulse Oximetry 91 04/02/20 21:51 04/03/20 00:00 04/03/20 04:00 Temperature 36.3 C L Pulse Rate 71 71 77 Respiratory Rate 16 Blood Pressure 98/40 L Pulse Oximetry 90 04/03/20 06:00 04/03/20 08:24 Temperature 36.4 C 36.7 C Pulse Rate 74 91 Respiratory Rate 16 18 Blood Pressure 111/47 L 154/62 H Pulse Oximetry 94 95 Intake/Output Intake/Output: Intake & Output 03/31/20 04/01/20 04/02/20 04/03/20 23:59 23:59 23:59 23:59 Intake Total 2630 2755 800 340 Output Total 1650 1800 1750 400 Balance 980 955 -950 -60 Meds/Results Medications: Active Medications Generic Name Dose Route Start Last Admin Trade Name Freq PRN Reason Stop Dose Admin Acetaminophen 650 mg 03/30/20 12:00 04/03/20 05:41 Acetaminophen 325
--- NOTE | 2020-04-03 12:01 | PM.PNORT ---
Progress Note: A&P Additional Plan POD 3 alert wd-dry pain is well controlled, has been working with PT. hgb-is stable from yesterday. working on d/c to [place] when ready Subjective Subjective Date/Time Seen: 04/03/20 12:01 Objective Data Vital Signs Vital Signs: Vital Signs - 24 hr 04/02/20 14:00 04/02/20 16:00 04/02/20 19:57 Temperature 36.4 C Pulse Rate 86 86 74 Respiratory Rate 18 18 Blood Pressure 103/54 L Pulse Oximetry 91 91 04/02/20 20:00 04/02/20 21:51 04/03/20 00:00 Temperature 36.3 C L Pulse Rate 74 71 71 Respiratory Rate 16 Blood Pressure 98/40 L Pulse Oximetry 90 04/03/20 04:00 04/03/20 06:00 04/03/20 08:24 Temperature 36.4 C 36.7 C Pulse Rate 77 74 91 Respiratory Rate 16 18 Blood Pressure 111/47 L 154/62 H Pulse Oximetry 94 95 Intake/Output Intake/Output: Intake & Output 03/31/20 04/01/20 04/02/20 04/03/20 23:59 23:59 23:59 23:59 Intake Total 2630 2755 800 340 Output Total 1650 1800 1750 700 Balance 980 366 -306 -976 Meds/Results Medications: Active Medications Generic Name Dose Route Start Last Admin Trade Name Nevilleq PRN Reason Stop Dose Admin Acetaminophen 650 mg 03/30/20 12:00 04/03/20 05:41 Acetaminophen 325 Mg Tablet PO 650 mg Q6HR [place] Administration Amlodipine Besylate 5 mg 03/31/20 09:00 04/01/20 09:25 Amlodipine Besylate 5 Mg Tablet PO 5 mg DAILY [facility] Administration Baclofen 10 mg 03/30/20 17:00 04/03/20 08:49 Baclofen 10 Mg Tablet PO 10 mg TID [place] Administration Baclofen 5 mg 03/30/20 17:00 04/03/20 08:53 Baclofen 5 Mg Tablet PO 5 mg TID [place] Administration Calcium Carbonate 500 mg 03/30/20 17:00 04/03/20 08:52 Calcium/Vitamin D 500 Mg Tablet PO 500 mg BID [place] Administration Calcium Polycarbophil 625 mg 03/30/20 17:00 04/03/20 08:54 Calcium Polycarbophil 625 Mg Tablet PO 625 mg BID [facility] Administration Carbidopa/Levodopa 1 tablet 03/30/20 17:00 04/03/20 08:51 Carbidopa/Levodopa 25/250 Mg Tablet PO 1 tablet TID [place] Administration Cyanocobalamin 1,000 mcg 04/08/20 09:00 Cyanocobalamin Inj 1,000 Mcg/Ml Vial IM MONTHLY [facility] Dicyclomine HCl 20 mg 03/30/20 15:27 04/03/20 08:53 Dicyclomine Hcl 10 Mg Capsule PO 20 mg Q6H PRN Administration Abdominal Discomfort Docusate Sodium 100 mg 03/31/20 17:00 04/02/20 08:34 Docusate Sodium 100 Mg Capsule PO 100 mg BID [place] Administration Donepezil HCl 10 mg 03/30/20 21:00 04/02/20 20:23 Donepezil Hcl 10 Mg Tablet PO 10 mg HS [facility] Administration Duloxetine HCl 30 mg 03/30/20 17:00 04/03/20 08:53 Duloxetine Hcl 30 Mg Capsule.Dr PO 30 mg BID [place] Administration Enoxaparin Sodium 40 mg 04/01/20 09:00 04/03/20 08:52 Enoxaparin 40 Mg/0.4 Ml Syringe SUB-Q 05/06/20 09:01 40 mg DAILY [facility] Administration Ergocalciferol 50,000 unit 04/08/20 09:00 Ergocalciferol 50,000 Unit Capsule PO MoFr@0900 [facility] Ferrous Sulfate 324 mg 03/31/20 09:00 04/02/20 08:32 Ferrous Sulfate 324 Mg Tablet PO 324 mg Q48H [facility] Administration Fluticasone Propionate 2 spray 03/31/20 09:00 04/03/20 08:54 Fluticasone Propionate 0.05% Na Spr 16 Gm Btl (*Bkc) NASAL 2 spray DAILY [facility] Administration Gabapentin 400 mg 03/31/20 09:00 04/03/20 08:50 Gabapentin 400 Mg Capsule PO 400 mg DAILY [facility] Administration Guaifenesin/Dextromethorphan 1 tab 03/30/20 15:27 04/02/20 20:23 Guaifenesin 600 Mg/Dextromethorphan 30 Mg Sr Tab 12 Hr PO 1 tab Q12H PRN Administration Cold Symptoms Levothyroxine Sodium 125 mcg 03/31/20 06:30 04/03/20 05:41 Levothyroxine Sodium 125 Mcg Tablet PO 125 mcg DAILY@0630 [facility] Administration Loratadine 10 mg 03/30/20 15:27 04/02/20 17:41 Loratadine 10 Mg Tablet PO 10 mg DAILY PRN Administration Allergic Symptoms Losartan Potassium 100 mg 03/31/20 09:00 04/01/20 09:25 Losartan Potassium 100 Mg Tablet PO 100
--- NOTE | 2020-04-03 14:48 | PC.NURSE ---
On 04/03/20, the student, Caty Rondon, provided care and completed [facility] documentation on this patient. I have reviewed the student's documentation and agree with the findings.
== END 2020-04-03 16:15 | DRG 521 ==
LOC: ANHED 09:16 → ANH2MED 03-31 04:15
PROVIDERS: Family Medicine; Nurse Practitioner; Orthopaedic Surgery; Physician Assistant; Admitting Provider Family Medicine; Emergency Provider Emergency Medicine; PCP Family Medicine; Visit Provider Physician Assistant
PROC: 0SRR019 Replacement of Right Hip Joint, Femoral Surface with Metal Synthetic Substitute, Cemented, Open Approach (ICD-10-PCS; CPT 27125; principal; 2020-03-31 07:30)
DX: S72.031A Displaced midcervical fracture of right femur, initial encounter for closed fracture (principal); J96.01 Acute respiratory failure with hypoxia; K50.90 Crohn's disease, unspecified, without complications; Z20.828 Contact with and (suspected) exposure to other viral communicable diseases; W19.XXXA Unspecified fall, initial encounter; R00.1 Bradycardia, unspecified; R01.1 Cardiac murmur, unspecified; F41.8 Other specified anxiety disorders; K21.9 Gastro-esophageal reflux disease without esophagitis; F03.90 Unspecified dementia, unspecified severity, without behavioral disturbance, psychotic disturbance, mood disturbance, and anxiety; E03.9 Hypothyroidism, unspecified; I10 Essential (primary) hypertension; E87.5 Hyperkalemia; M19.90 Unspecified osteoarthritis, unspecified site; G20 Parkinson's disease; H40.9 Unspecified glaucoma; Z96.642 Presence of left artificial hip joint; Z93.2 Ileostomy status; Z90.710 Acquired absence of both cervix and uterus; Z90.49 Acquired absence of other specified parts of digestive tract; Z22.322 Carrier or suspected carrier of Methicillin resistant Staphylococcus aureus
CPT/HCPCS: 36415; 71045; 72125; 73030; 73502; 73564; 73700; 80048; 80053; 82306; 82728; 83735; 84443; 84484; 85014; 85018; 85025; 85027; 85610; 85730; 86850; 86900; 86901; 87070; 87077; 87186; 87635; 93005; 93306; 96361; 96374; 96375; 97110; 97116; 97161; 97165; 97530; 97535; 99285; A9270; C1713; C1776; C9803; J0171; J0330; J0690; J1100; J1170; J1650; J2270; J2405; J2704; J2795; J3010; J3370; J3475; J7120; U0003

== ENCOUNTER 2020-06-05 08:46 | Inpatient (IN) | payer MEDICARE, OTHER, MEDICAID, SELFPAY ==
--- NOTE | ~2020-06-05 | XR_ITS ---
EXAMINATION: XR abdomen/kub 1V DATE: 06/06/2020 06:37 INDICATION: Small bowel obstruction TECHNIQUE: A supine view of the abdomen on 2 radiographs was obtained. COMPARISON: None. FINDINGS: Several gas-filled but not frankly dilated loops of bowel in the abdomen. Postoperative changes with suture material projecting over the central abdomen. Persistent likely excreted related to earlier co ntrast-enhanced CT within the distended bladder. Bilateral bipolar type hip hemiarthroplasties. A few chronic compression fractures in the lumbar and lower thoracic spine with severe spondylosis. IMPRESSION: 1. Nonspecific, nonobstructive bowel gas pattern. Reviewed, dictated and finalized at location A. WAITRESS
--- NOTE | ~2020-06-05 | XR_ITS ---
EXAMINATION: XR abdomen NG/feed tube insert DATE: 06/05/2020 11:59 INDICATION: Nasogastric tube placement TECHNIQUE: A supine view of the abdomen and lower chest was obtained for evaluation of feeding tube placement. COMPARISON: None. FINDINGS: Nasogastric tube tip in the stomach with proximal side-port approximately 3 cm above the level of the gastroesophageal junction. No dilated loops of gas-filled bowel to suggest obstruction. Excreted con trast in the bladder from the prior CT . Calcified nodule at the left lung base consistent with old g ranulomatous disease. Postoperative changes in the right lower quadrant with sutures project over the midline of the abdomen. Bilateral bipolar type hip hemiarthroplasties. Severe lumbar spondylosis wit h compression fractures at T12, L1, L4 and L5 which are better appreciated on prior CT. IMPRESSION: 1. Nasogastric tube tip in the body of the stomach. Consider advancement by [address] the proximal s dave-port below the level of the gastroesophageal junction. Reviewed, dictated and finalized at location A. TH CONSULTANT IMPRESSION: 1. Nasogastric tube tip in the body of the stomach. Consider advancement by [address] the proximal side-port below the level of the gastroesophageal junction .
--- NOTE | ~2020-06-05 | XR_ITS ---
EXAMINATION: XR abdomen NG/feed tube rechec INDICATION: Nasogastric tube repositioning TECHNIQUE: Portable AP KUB-NG at 0851 hours COMPARISON: 0611 hours FINDINGS: The nasogastric tube and its proximal side port are in the stomach. No dilated loops of bow el are identified. Contrast from earlier CT examination partially opacifies the urinary tract. The vi sualized lung bases are clear. Changes of bilateral hip arthroplasty are noted. IMPRESSION: 1. Nasogastric tube in the stomach. Reviewed, dictated and finalized at location A. URCE CONSERVATIONIST
--- NOTE | ~2020-06-05 | XR_ITS ---
EXAMINATION: XR abdomen/kub 1V DATE: 06/08/2020 06:23 INDICATION: Small bowel obstruction TECHNIQUE: A supine view of the abdomen was obtained. COMPARISON: 06/07/2020 FINDINGS: Interval passage of the previously seen residual oral contrast material in the colon. No dilated loop s of gas-filled bowel. Calcified nodule at the left lung base consistent with old granulomatous disea se. Severe thoracolumbar spondylosis with multiple compression and/or burst fractures. Bipolar type b ilateral hip hemiarthroplasties. IMPRESSION: 1. Nonobstructive bowel gas pattern with interval passage of the prior oral contrast material. Reviewed, dictated and finalized at location A. TO PANCAKE FRIER IMPRESSION: 1. Nonobstructive bowel gas pattern with interval passage of the prior oral con trast material.
--- NOTE | ~2020-06-05 | XR_ITS ---
EXAMINATION: XR sm bowel follow through WS DATE: 06/06/2020 14:45 INDICATION: Small bowel obstruction TECHNIQUE: Ship'S Electronic Warfare Officer radiograph(s) of the abdomen was/were obtained. Water-soluble oral contrast was admi nistered, and sequential radiographs of the abdomen were obtained until oral contrast was noted to be in the proximal colon. Spot fluoroscopic images of the small bowel were obtained. Fluoroscopy exposu re time was 0.4 minutes. A total of 4 overhead radiographs and 2 fluoroscopic spot images were obtain ed. COMPARISON: CT dated 06/05/2020, 12/09/2019 and 05/16/2018. FINDINGS: On image demonstrates nasogastric tube tip in the body of the stomach. Postoperative changes with sut ure material projecting over the central abdomen. No dilated loops of gas-filled bowel to suggest obs truction. Transit time from the stomach to proximal colon was approximately 45 minutes. There is narr owing and irregular mucosal contour to the terminal ileum consistent with terminal ileitis. There is otherwise normal caliber and mucosal fold pattern throughout the small bowel. IMPRESSION: 1. Nonobstructing stricture with irregular mucosal contour along the terminal ileum consistent with r ecurrent terminal ileitis and suggesting possibility of Crohn's disease. Reviewed, dictated and finalized at location A. SCREENER IMPRESSION: 1. Nonobstructing stricture with irregular mucosal contour along the terminal i leum consistent with recurrent terminal ileitis and suggesting possibility of C rohn's disease.
--- NOTE | ~2020-06-05 | XR_ITS ---
EXAMINATION: XR abdomen NG/feed tube rechec INDICATION: Small bowel obstruction, nasogastric tube advancement TECHNIQUE: Portable AP KUB-NG at 2141 hours COMPARISON: 0000 hours FINDINGS: The tip of the nasogastric tube is in the stomach. Proximal side port is at the gastroesoph ageal junction. Multiple dilated loops of bowel persist in the midabdomen. Contrast from earlier CT e xamination partially opacifies the urinary tract. There are changes of bilateral hip arthroplasty. IMPRESSION: 1. Tip of nasogastric tube in the proximal side port at the gastroesophageal junction. Tube could be safely advanced 2 to 3 cm. 2. Small bowel obstruction. Reviewed, dictated and finalized at location A. DER AND CHIEF TECHNICAL OFFICER IMPRESSION: 1. Tip of nasogastric tube in the proximal side port at the gastroesophageal ju nction. Tube could be safely advanced 2 to 3 cm. 2. Small bowel obstruction.
--- NOTE | ~2020-06-05 | XR_ITS ---
EXAMINATION: XR abdomen/kub 1V DATE: 06/07/2020 06:16 INDICATION: Small bowel obstruction TECHNIQUE: A supine view of the abdomen was obtained. COMPARISON: 06/06/2020 FINDINGS: Nasogastric tube tip in the body of the stomach. There is oral contrast material scattered throughout the colon extending to and colostomy in the left abdomen. No residual contrast material within the s mall bowel were dilated gas-filled small bowel to suggest obstruction. Suture material projecting ove r the mid upper abdomen. Mild thoracolumbar levocurvature with severe spondylosis and a few chronic c ompression fractures. Bilateral bipolar type hip hemiarthroplasties. IMPRESSION: 1. Nonobstructive bowel gas pattern. Reviewed, dictated and finalized at location A. HYSICAL DRAFTER
--- NOTE | ~2020-06-05 | CT_ITS ---
EXAMINATION: CT abdomen pelvis w con DATE: 06/05/2020 10:14 INDICATION: Generalized abdominal pain. Status post colostomy. TECHNIQUE: Computed tomography (CT) of the abdomen and pelvis was performed with 100 cc Omnipaque 350 intravenous contrast. Automated exposure control and iterative reconstruction technique were employe d. Exam dose: 598.78 mGy-cm total exam DLP. COMPARISON: 12/09/2019 CT abdomen pelvis FINDINGS: Cardiomegaly. No pericardial or pleural effusion. No consolidation at the lung bases. Probable cholecystectomy, which likely accounts for mild prominence of the intrahepatic bile ducts. N o hepatic or splenic space-occupying mass lesion is evident. There are calcified splenic granulomas c onsistent with old granulomatous disease. No pancreatic mass lesion or calcification or ductal dilatation. Normal morphology of the adrenal glands. Several small renal cysts are suggested. 2 mm upper pole nonobstructing right renal calculus. 4 mm nonobstructing lower pole left renal calculus. No apparent ureteral calculus or hydroureteroneph rosis is evident. However, there is extensive streak artifact obscuring the pelvic structures as result of bilateral hi p arthroplasties. This limits severely the evaluation of the urinary bladder, reproductive organs as well as rectosigmoid area and portions of the distal small bowel bowel. There are dilated small bowel segments measuring up to 4.5 cm diameter, with small bowel air-fluid le vels. There appears to be a transition in the distal small bowel in the mid to right lower abdomen/pe lvis. Differential diagnosis includes distal small bowel obstruction secondary to adhesions versus st ricture secondary to inflammatory bowel disease. Small sliding hiatal hernia. Left colostomy. Midline ventral abdominal wall hernia containing partial segment of transverse colon, without strangu lation or obstruction. Normal caliber and atherosclerotic calcification of the abdominal aorta. No abdominal aortic aneurysm . No intraperitoneal or retroperitoneal or pelvic mass lesion or adenopathy or ascites is evident, wi th the limitation mentioned above is far as visualization of the pelvic structures due to streak epifanio fact from the hip replacements. Diffuse idiopathic skeletal hyperostosis of the thoracic spine. Numerous fracture deformities of the spine including T12, L1, L3, L4, L5. Severe degenerative change at the apophyseal joints of the lower lumbar and lumbosacral area with ass ociated grade 1 anterolisthesis at L4-5. Multilevel degenerative disc disease. IMPRESSION: Distal small bowel obstruction which may be secondary to adhesions or inflammatory bowel disease Status post left colostomy Reviewed, dictated and finalized at Location A. Reviewed, dictated and finalized at location A. ANIC SOUND TECHNICIAN
[2020-06-05 08:43] VITALS: BP 177/75; PULSE 84; RESP 17; TEMP 36.7; O2SAT 95
--- NOTE | 2020-06-05 08:56 | ED.NAVMDI ---
HPI - Nausea/Vomiting/Diarrhea General Chief complaint: Nausea/Vomiting/Diarrhea Stated complaint: VOMITING/ABD PAIN Time Seen by Provider: 06/05/20 08:56 Source: patient and EMS Mode of arrival: EMS Limitations: dementia History of Present Illness HPI Narrative: Patient is an 84-year-old female with a history of Parkinson's dementia, Crohn's disease, ileostomy in place, recent femoral neck fracture, repaired in March, who presents to this facility for evaluation of abdominal pain. Patient states she had abdominal pain, nausea and vomiting over the past 24 hours. Her pain is currently resolved, but nausea persists. She states she had one episode of nonbloody, nonbilious emesis this morning. She reports that the pain was in her upper abdomen, no ripping or tearing sensation to the flanks. No chest pain, cough or shortness of breath. She denies fever, chills, dysuria or hematuria. She states she has had normal output from the ostomy. Patient does have mild dementia but is able to participate in history and I do feel like is reliable source of information at this point. Related Data Home Medications Medication Instructions Recorded Confirmed PreserVision AREDS-2 1 tablet PO DAILY 12/09/19 03/30/20 Viibryd 20 mg PO DAILY 12/09/19 03/30/20 acetaminophen 1,000 mg PO Q6H PRN 12/09/19 03/30/20 amlodipine [Norvasc] 5 mg PO DAILY 12/09/19 03/30/20 baclofen 15 mg PO TID 12/09/19 03/30/20 calcium carbonate-vitamin D3 1 tablet PO BID 12/09/19 03/30/20 [Calcium 600 + D(3)] calcium polycarbophil [Fiber 625 mg PO BID 12/09/19 03/30/20 (calcium polycarbophil)] carbidopa-levodopa 1 tablet PO TID 12/09/19 03/30/20 cholecalciferol (vitamin D3) 125 mcg PO DAILY 12/09/19 03/30/20 [Vitamin D3] cyanocobalamin (vitamin B-12) 1,000 mcg IM MONTHLY 12/09/19 03/30/20 dicyclomine 20 mg PO Q6H PRN 12/09/19 03/30/20 donepezil 10 mg PO HS 12/09/19 03/30/20 duloxetine [Cymbalta] 30 mg PO BID 12/09/19 03/30/20 ergocalciferol (vitamin D2) 50,000 unit PO WEEKLY 12/09/19 03/30/20 ferrous sulfate 325 mg PO EVERY OTHER DAY 12/09/19 03/30/20 fluticasone propionate [Flonase 2 spray INTRANASAL DAILY 12/09/19 03/30/20 Allergy Relief] levothyroxine 125 mcg PO DAILY 12/09/19 03/30/20 loratadine 10 mg PO DAILY PRN 12/09/19 03/30/20 meclizine 25 mg PO HS 12/09/19 03/30/20 melatonin 10 mg PO HS 12/09/19 03/30/20 memantine [Namenda] 10 mg PO BID 12/09/19 03/30/20 omeprazole 20 mg PO DAILY 12/09/19 03/30/20 polyethylene glycol 3350 [Miralax] 17 g PO DAILY 12/09/19 03/30/20 quetiapine 12.5 mg PO HS 12/09/19 03/30/20 Mucinex DM 1 tablet PO Q12H PRN 03/30/20 03/30/20 Retaine PM 1 applic OPHTHALMIC (EYE) HS 03/30/20 03/30/20 cyanocobalamin (vitamin B-12) 1,000 mcg PO DAILY 06/05/20 hydrocodone-acetaminophen [[place]] 1 tablet PO Q6H PRN 06/05/20 pregabalin [Lyrica] 50 mg PO BID 06/05/20 pregabalin [Lyrica] 75 mg PO HS 06/05/20 Allergies Allergy/AdvReac Type Severity Reaction Status Date / Time No Known Allergies Allergy Verified 06/05/20 09:24 Review of Systems Review of Systems: Narrative: CONSTITUTIONAL: Denies fever, chills ENT: Denies rhinorrhea, congestion, sore throat, or otalgia. CARDIOVASCULAR: Denies chest pain, palpitations, or edema. RESPIRATORY: Denies cough or dyspnea. GASTROINTESTINAL: Denies current abdominal pain, reports nausea and vomiting GENITOURINARY: Denies dysuria or hematuria. SKIN: Denies rash or itching. MUSCULOSKELETAL: Denies back pain, joint pain, or myalgia. NEUROLOGIC: Denies headache, numbness, or weakness. PMFSH Past Medical History Medical History Anxiety and depression Bowel obstruction Chronic GERD Colostomy in place Crohn's disease Dementia Glaucoma Hypertension Hypothyroidism Ileostomy in place Osteoarthritis Parkinsons Surgical History Surgical History H/O colectomy H/O: hysterectomy History of left
[2020-06-05] MEDS: ONDANSETRON INJ 4 MG/2 ML VIAL IV PUSH (09:16)
[2020-06-05] MEDS: SODIUM CHLORIDE 0.9% IV 1,000 ML 999 ML IV CONT (09:16)
[2020-06-05 09:44] LABS: Add Urine Microscopic? YES; Appearance Urine Clear (Clear); Bilirubin Urine Negative (Negative); Blood Urine Negative (Negative); Color Urine Yellow (Yellow); Glucose Urine UA Negative (Negative); Ketones Urine Negative (Negative); Leukocyte Esterase Ur 2+ LEU/UL (Negative); Mucus Urine Rare /lpf; Nitrate Urine Negative (Negative); Protein Urine 1+ mg/dL (Negative); Specific Grav Ur 1.014 (1.001-1.035); Squamous Epithelial Cell Urine Rare /hpf (Few); Urobilinogen Urine Negative mg/dL (<2.0); WBC Urine 51-75 /hpf
[2020-06-05 09:51] LABS: Basophils Percent Auto 0.3 % (0.2-1.2); Eosinophils Percent Auto 0.1 % (0-4.4); Hemoglobin 10.1 g/dL (12.0-15.0); Immature Granulocyte Absolute 0.02 K/mm3 (0.00-0.031); Immature Granulocyte Percent A 0.3 % (0-0.5); Lymphocytes Absolute Auto 0.49 K/mm3 (0.9-3.2); Lymphocytes Percent Auto 6.2 % (18.3-44.2); Mean Corpuscular HGB Conc 32.6 g/dl (32-36); Mean Corpuscular Hemoglobin 33.4 pg (26-34); Mean Corpuscular Volume 102.6 fl (80-100); Mean Platelet Volume 9.7 fl (7.4-10.4); Monocytes Absolute Auto 0.3 K/mm3 (0.1-0.6); Monocytes Percent Auto 4.2 % (2.6-8.5); Neutrophils Percent Auto 88.9 % (45.5-73.1); Platelet Count Result 142 k/mm3 (150-375); Red Blood Count 3.02 M/mm3 (4.2-5.4); Red Cell Distribution Width 13.3 % (11.5-14.5); White Blood Count 7.9 K/mm3 (4.5-10.0)
[2020-06-05 10:04] LABS: Alanine Aminotransferase 25 U/L (4-35); Albumin Level 3.6 g/dL (3.5-5.1); Alkaline Phosphatase 100 U/L (38-126); Anion Gap 7 mmol/L (8-16); Aspartate Amino Transferase 37 U/L (14-36); Bilirubin,Total 0.5 mg/dL (0.2-1.3); Blood Urea Nitrogen 24 mg/dL (7-17); Calcium 8.6 mg/dL (8.4-10.2); Carbon Dioxide 26 mmol/L (22-30); Chloride 107 mmol/L (98-107); Estimated CRCL calculation 28 ml/min; Estimated Glomerular Filt Rate 53; Glucose 109 mg/dL (65-105); Lipase 35 U/L (23-300); Potassium 4.3 mmol/L (3.4-5.0); Sodium 140 mmol/L (137-145)
[2020-06-05 10:51] VITALS: BP 171/88; PULSE 110; RESP 16; O2SAT 98
[2020-06-05] MEDS: metroNIDAZOLE 500 MG/ISO 100ML 500 MG/100 ML BAG 100 MG IVPB ×3 (12:38→23:39)
[2020-06-05 12:40] VITALS: BP 155/84; PULSE 84; RESP 16; O2SAT 98
--- NOTE | 2020-06-05 12:59 | ADMGEN ---
This patient, Lyndsey Lee, was admitted to Medical Room 343-01. Patient/family oriented to hospital policies and general routines including ID bracelet, bed and alarms, visiting hours, pain management, procedures, bathroom and other care routines, personal items, smoking policy, room service/diet, and visiting hours. Information on how to activate the Rapid Response Team has been discussed. Patient/Family are encouraged to report perceived risks to care and to ask questions if they do not understand what they are told or what they should do.
[2020-06-05 13:08] VITALS: BMI 23.2
--- NOTE | 2020-06-05 13:23 | PM.CNGS ---
Assessment and Plan Assessment and plan (1) Partial small bowel obstruction: Code(s): K56.600 - Partial intestinal obstruction, unspecified as to cause Status: Acute Assessment and Plan: CT scan suggestive of recurrent Crohn's disease and obstruction due to this. Could also be due to adhesions. NG tube has been placed. I will advance the NG tube a bit further. Does not appear to have any evidence of intestinal ischemia. Patient a poor surgical candidate and hopefully this will resolve without the need for laparotomy. Will continue NG suction, IV fluids, serial abdominal exams with labs and daily KUB. (2) Crohn's disease: Qualifiers: Gastrointestinal tract location: unspecified location Digestive disease complication type: unspecified complication Qualified Code(s): K50.919 - Crohn's disease, unspecified, with unspecified complications Code(s): K50.90 - Crohn's disease, unspecified, without complications Status: Chronic Assessment and Plan: Longstanding history with evidence of recurrence 2 years ago after colonoscopy. She seems to of had Crohn's ileitis as she had was noted to have an ileo colonic anastomosis at that colonoscopy. Not currently on therapy for Crohn's. Gastroenterology to see. 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 Status: Chronic Assessment and Plan: Some gas and stool passing. No significant abnormalities noted (4) Parkinsons: Code(s): G20 - Parkinson's disease Status: Chronic (5) Dementia: Qualifiers: Dementia type: Parkinson's disease Dementia behavioral disturbance: without behavioral disturbance Qualified Code(s): G20 - Parkinson's disease; F02.80 - Dementia in other diseases classified elsewhere without behavioral disturbance Code(s): F03.90 - Unspecified dementia without behavioral disturbance Status: Chronic History of Present Illness Consult details Consult date: 06/05/20 Reason for consult: abdominal pain Requesting physician: Suzanna Estes MD Narrative: the patient is an 84-year-old woman who resides at [facility]. She was transferred to [facility] Emergency room with a 24 hour history of abdominal pain nausea and vomiting. She was seen in the emergency room. Her pain was better and she has not had any vomiting in the emergency room. She still has some nausea. She had an emesis earlier this morning. She has a long history of Parkinson's disease and dementia but is able to give some history. Looking through her old records, she has been evaluated both fear and at [facility] for abdominal pain on several occasions in the past. She has a history of Crohn's disease and, although it is not entirely clear, probably had a sigmoid resection with end colostomy in 1985. She has also had other abdominal surgeries including hysterectomy and cholecystectomy. She had an upper endoscopy at [facility] in October of this year. This showed a tortuous esophagus and gastritis. Colonoscopy done here 2 years ago by showed a descending colostomy. There was a more proximal ileo colonic anastomosis with patchy inflammation consistent with mild Crohn's disease was noted. The rectum also showed some mild diffuse inflammation. Biopsies of the terminal ileum and the rectum showed nonspecific inflammation but evidence of distortion of crypt architecture in both the rectum and the distal ileum. She was treated with Augmentin and metronidazole. CT scan of the abdomen pelvis done in the emergency room today showed evidence of a small-bowel obstruction and possibly recurrence of inflammatory bowel disease. I reviewed the films independently and with Dr. Cesar Poe. My review with Dr. Poe was very suggestive of thickened small bowel wall and recurrent Crohn's disease. The site of obstruction seemed to be proximal to the stoma. There were several dilat
[2020-06-05] MEDS: SODIUM CHLORIDE 0.9% IV 1,000 ML 80 ML IV CONT (13:25)
[2020-06-05 14:00] VITALS: BP 161/56; PULSE 83; RESP 18; TEMP 36.4; O2SAT 95
--- NOTE | 2020-06-05 14:45 | WPDGICN ---
Assessment and Plan Additional Plan A. Abdominal pain/Nausea/Vomiting/Abnormal Imaging-Digestive -CT imaging suggesting partial SBO -Hx of crohn's disease with colostomy secondary to sigmoid colectomy -concerns for active IBD -IV decadron 4 mg q12 h -IV Levaquin and Flagyl -Last colonoscopy showed active inflammation [address] Carrasquillo -NG in place -No further nausea or vomiting. -Chong abdominal pain but tender on exam -She will most likely need to be started biologic therapy due to hx of bowel resection. -Appreciate surgical recommendations -KUB in AM B. Macrocytic Anemia -Hgb 10, Hct 31, MCV 102 -Check iron studies, b12 and folate -Monitor H&H, transfuse as needed C. GERD -Hx of gastritis, tortuous esophagus and non bleeding duodenal diverticulum on EGD 10/2019 at [facility] -Continue PPI therapy -Care with NSAIDs and ASA GI Consult Note Consult date/time: 06/05/20 14:45 HPI: This is an 84 year old patient with a history of Crohn's disease s/p sigmoid colectomy ?, Parkinson, dementia, anxiety, depression, GERD, HTN, hypothyroidism, hysterectomy, cholecystectomy, and left hip replacement. She present to the ER from [facility] as the last 24 hours she was reporting abdominal pain, nausea and vomiting. History is obtained from chart and patient was able to give limited history. Patient was slightly confused when she was assessed in the ER. She has a history of Crohn's disease and possibly had a sigmoid resection with end colostomy in 1985. It does not appear she is on any medications for inflammatory bowel disease. Patient denies any further abdominal pain, nausea or vomiting, trouble swallowing, bloating, loss of appetite or weight, early satiety, heartburn, diarrhea or constipation, rectal bleeding or melena. She denies any decreased output in her colostomy. She said she drank juice this AM and came right back up. Last colonoscopy [address] Carrasquillo she had noted descending colostomy, proximal ileo colonic anastomosis with patchy inflammation suggestive of crohn's disease along with inflammation in the rectum. Biopsies of the TI and rectum had noted non- specific inflammation but with evidence of distortion of crypt architecture in both the rectum and distal ileum. EGD reviewed from 10/2019 at [facility] she had noted tortuous esophagus, gastritis and non bleeding diverticulum. CT scan of the abdomen pelvis showed evidence of a small-bowel obstruction and possibly recurrence of inflammatory bowel disease. Per surgery site of obstruction appears to be proximal to the stoma. No history of endocarditis, rheumatic fever, dental prophylaxis, heart valve surgery, bleeding disorder. [facility] Past Medical History Medical History (Updated 06/05/20 @ 13:54 by Armando Campos MD) Anxiety and depression Bowel obstruction Chronic GERD Colostomy in place Crohn's disease Dementia Glaucoma Hypertension Hypothyroidism Ileostomy in place Osteoarthritis Parkinsons Surgical History Surgical History H/O colectomy H/O: hysterectomy History of left hip replacement Hx of cholecystectomy Family History Family History Father Acute myocardial infarction, Onset Age: 72 Patient's father is Mother Parkinson disease Heart attack Sibling Hypertension Cerebrovascular accident Social History Social History Social History: the patient lives at [facility]. She has never or had any children. Her nephew is her durable power staff attorney for healthcare. The patient desires to be a full code. She is a lifelong nonsmoker. She states that she does not use alcohol marijuana or illicit drugs. She used to work for [employer] in [place]. She worked there for 25 years but then became disabled due to all of her medical co
--- NOTE | 2020-06-05 16:00 | PM.IMHP ---
H&P: HPI History of Present Illness Date/Time: 06/05/20 16:00 Chief Complaint: Nausea, vomiting, and abdominal pain. Narrative: The patient is an 84-year-old female with Crohn's disease status post partial colectomy with colostomy, mild dementia, Parkinson, GERD, hypertension, anemia, and bipolar disorder who presented to the emergency department earlier today via EMS from [facility] with complaints of nausea, vomiting, and abdominal pain for about 24 hours. Just past midnight yesterday she developed upper abdominal cramping and nausea. This morning she reports feculent emesis x1 and she has not been able to hold down any liquids since that time. She has also noticed a decrease in stool output in her colostomy. CT of the abdomen and pelvis today showed findings of a small-bowel obstruction possibly due to recurrence of inflammatory disease bowel disease and she is being admitted in this setting. At the time my evaluation she continues to have upper abdominal cramping however it has improved somewhat since the nurse finally hooked her up to NG suction. She denies fever, chills, sweats, chest pain, shortness of breath, vomiting since admission, and dysuria. Review of Systems Review of Systems: Narrative: Twelve systems were reviewed with pertinent positives and negatives as per HPI. No fever, chills, or sweats. She is a resident at a long-term care facility but has been mack not to contract COVID. She denies sinus congestion, rhinorrhea, otalgia, and odynophagia. No cough or shortness of breath. Except as documented, all other systems were reviewed and are negative. [facility] Past Medical History Medical History (Updated 06/05/20 @ 16:11 by Divina Hurt PA-C) Anxiety and depression Bipolar disorder Bowel obstruction Chronic anemia Chronic GERD Colostomy in place Crohn's disease Dementia Glaucoma Hip fracture Left hip fracture in 12/2017 after a fall. Right hip fracture in 03/26/2020 after a fall. Hypertension Hypothyroidism Lumbar burst fracture (~12/2017) L1, L3, and L5 burst fractures sustained in a fall. Osteoarthritis Osteoporosis Parkinsons Vitamin D deficiency Surgical History Surgical History (Updated 06/05/20 @ 16:09 by Divina Hurt PA-C) History of bilateral carpal tunnel release History of cervical spinal surgery Diskectomy and fusion. History of cholecystectomy History of left hip replacement (~12/2017) History of partial colectomy History of right hip replacement (~03/2020) History of vaginal hysterectomy Family History Family History Father Acute myocardial infarction, Onset Age: 72 Patient's father is Mother Parkinson disease Heart attack Sibling Hypertension Cerebrovascular accident Social History Social History (Updated 06/05/20 @ 16:10 by Divina Hurt PA-C) Social History: The patient lives at [facility]. She was never and has no children. 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 She is a lifelong nonsmoker and denies alcohol and illicit substance use. Her nephew, Radu Adames, as her healthcare power of collections attorney. She is listed as a full code. Spiritual care concerns: No Meds Home Medications and Allergies Home Medications Medication Instructions Recorded Confirmed Type PreserVision AREDS-2 1 tablet PO DAILY 12/09/19 06/05/20 History Viibryd 20 mg PO DAILY 12/09/19 06/05/20 History acetaminophen 1,000 mg PO Q6H PRN 12/09/19 06/05/20 History amlodipine [Norvasc] 5 mg PO DAILY 12/09/19 06/05/20 History baclofen 15 mg PO TID 12/09/19 06/05/20 History calcium carbonate-vitamin D3 1 tablet PO BID 12/09/19 06/05/20 History [Calcium 600 + D(3)] calcium polycarbophil [Fiber 625 mg PO BID 12/09/19 06/05/20 History (calcium polycarbophil)] carbidopa-levodopa 1 tablet PO TID 12/09/19 06/05/20 History cholecalciferol (vitami
[2020-06-05 16:38] LABS: Iron 40 ug/dL (37-170)
[2020-06-05 16:47] LABS: Percent Iron Saturation 13 % (20-50)
[2020-06-05 17:11] LABS: Hepatitis B Surface Antigen Negative (Negative)
[2020-06-05 17:17] LABS: HAV RESULT Negative (Negative); Hepatitis B Core IgM Result Negative (Negative)
[2020-06-05 17:28] LABS: Hepatitis C Virus Antibody Negative (Negative)
[2020-06-05 17:35] LABS: CRP 0.6 mg/dL (<1.0)
[2020-06-05 17:38] LABS: Folic Acid > 20.0 ng/mL (2.76->20)
[2020-06-05 17:38] LABS: Erythrocyte Sedimentation Rate 51 mm/hr (0-20)
[2020-06-05] MEDS: PREGABALIN (*CRX) 50 MG CAPSULE PO (17:44)
[2020-06-05] MEDS: CARBIDOPA/LEVODOPA 25/250 MG TABLET 1 TABLET PO (17:45)
[2020-06-05] MEDS: DULoxetine HCL 30 MG CAPSULE.DR PO (17:45)
[2020-06-05 20:34] VITALS: BP 146/66; PULSE 87; RESP 14; TEMP 36.6; O2SAT 97
[2020-06-05] MEDS: PREGABALIN (*CRX) 75 MG CAPSULE PO (20:45)
[2020-06-05] MEDS: MEMANTINE 10 MG TABLET PO (20:46)
[2020-06-05] MEDS: QUEtiapine FUMARATE 12.5 MG TABLET PO (20:46)
[2020-06-05] MEDS: DEXAMETHASONE SOD PHOS INJ 4 MG/ML VIAL IV PUSH (20:46)
[2020-06-05] MEDS: MINERAL OIL/PETROLATUM OPHTH OINT 3.5 GM (EYE LUBRICANT) 1 APPLIC EACH EYE (20:47)
[2020-06-06] MEDS: SODIUM CHLORIDE 0.9% IV 1,000 ML 80 ML IV CONT ×2 (02:56→23:56)
[2020-06-06 04:29] VITALS: BP 122/60; PULSE 89; RESP 17; TEMP 36.6; O2SAT 97
[2020-06-06] MEDS: metroNIDAZOLE 500 MG/ISO 100ML 500 MG/100 ML BAG 100 MG IVPB ×4 (05:08→23:56)
[2020-06-06] MEDS: LEVOTHYROXINE SODIUM 125 MCG TABLET PO (05:34)
[2020-06-06 07:29] LABS: Anion Gap 9 mmol/L (8-16); Blood Urea Nitrogen 21 mg/dL (7-17); Calcium 7.8 mg/dL (8.4-10.2); Carbon Dioxide 23 mmol/L (22-30); Chloride 107 mmol/L (98-107); Estimated CRCL calculation 31 ml/min; Estimated Glomerular Filt Rate 60; Glucose 92 mg/dL (65-105); Potassium 4.7 mmol/L (3.4-5.0); Sodium 139 mmol/L (137-145)
[2020-06-06 07:34] LABS: Hematocrit 32.1 % (37.0-47.0); Hemoglobin 10.8 g/dL (12.0-15.0); Mean Corpuscular HGB Conc 33.6 g/dl (32-36); Mean Corpuscular Hemoglobin 34.6 pg (26-34); Mean Corpuscular Volume 102.9 fl (80-100); Platelet Count Result 175 k/mm3 (150-375); Red Blood Count 3.12 M/mm3 (4.2-5.4); Red Cell Distribution Width 13.4 % (11.5-14.5); White Blood Count 5.9 K/mm3 (4.5-10.0)
--- NOTE | 2020-06-06 08:12 | PM.PNGS ---
Progress Note: A&P Assessment and Plan (1) Partial small bowel obstruction: Code(s): K56.600 - Partial intestinal obstruction, unspecified as to cause Status: Acute Assessment and Plan: improving. Continue present treatment. Possibly proceed with Gastrografin upper GI small-bowel follow-through tomorrow. (2) Crohn's disease: Qualifiers: Gastrointestinal tract location: unspecified location Digestive disease complication type: unspecified complication Qualified Code(s): K50.919 - Crohn's disease, unspecified, with unspecified complications Code(s): K50.90 - Crohn's disease, unspecified, without complications Status: Chronic Assessment and Plan: On steroids as well as Levaquin and metronidazole 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 (4) Dementia: Qualifiers: Dementia type: Parkinson's disease Dementia behavioral disturbance: without behavioral disturbance Qualified Code(s): G20 - Parkinson's disease; F02.80 - Dementia in other diseases classified elsewhere without behavioral disturbance Code(s): F03.90 - Unspecified dementia without behavioral disturbance Status: Chronic (5) Parkinsons: Code(s): G20 - Parkinson's disease Status: Chronic Subjective Subjective Date/Time Seen: 06/06/20 08:12 Patient reports: no new complaints, feels better ( wants to go home) and pain is less Review of Systems Review of Systems: All systems reviewed & are unremarkable except as noted in HPI and below Constitutional: Constitutional: Denies chills, Denies fever(s) and Reports increased appetite Cardiovascular: Cardiovascular: Denies chest pain and Denies dyspnea Respiratory: Respiratory: Denies cough and Denies dyspnea Gastrointestinal: Gastrointestinal: Reports as per HPI, Denies abdominal pain, Denies GI cramping, Denies nausea and Denies vomiting Neurologic: Reports confusion and Reports memory loss Psychiatric: Psychiatric: Reports confusion and Reports memory loss Exam Const: General: comfortable, no acute distress, alert, awake and confusion Nutritional Appearance: well nourished and thin Orientation/consciousness: confusion GI: Inspection: distended, scar and other ( stool and air in colostomy bag. More than yesterday. Abd less distended) GI Palp: No abdominal tenderness, Yes Soft to palpation, No Tenderness to palpation present (GI), No Guarding due to palpation present (GI) and No Rebound tenderness present Auscultation: Hypoactive bowel sounds present Extrem: General: no calf tenderness and no edema Objective Data Vital Signs Vital Signs: Vital Signs - 24 hr 06/05/20 08:43 06/05/20 10:51 06/05/20 12:40 Temperature 36.7 C Pulse Rate 84 110 H 84 Respiratory Rate 17 16 16 Blood Pressure 177/75 H 171/88 H 155/84 H Pulse Oximetry 95 98 98 06/05/20 14:00 06/05/20 20:34 06/06/20 04:29 Temperature 36.4 C L 36.6 C 36.6 C Pulse Rate 83 87 89 Respiratory Rate 18 14 17 Blood Pressure 161/56 H 146/66 H 122/60 Pulse Oximetry 95 97 97 Intake/Output Intake/Output: Intake & Output 06/03/20 06/04/20 06/05/20 06/06/20 23:59 23:59 23:59 23:59 Intake Total 1250 1200 Output Total 50 160 Balance 1200 1040 Meds/Results Medications: Active Medications Generic Name Dose Route Start Last Admin Trade Name Freq PRN Reason Stop Dose Admin Carbidopa/Levodopa 1 tablet 06/05/20 17:00 06/05/20 17:45 Carbidopa/Levodopa 25/250 Mg Tablet PO 1 tablet TID [place] Administration Dexamethasone Sodium Phosphate 4 mg 06/05/20 21:00 06/05/20 20:46 Dexamethasone Sod Phos Inj 4 Mg/Ml Vial IV PUSH 4 mg Q12HR [place] Administration Donepezil HCl 10 mg 06/05/20 21:00 Donepezil Hcl 10 Mg Tablet PO HS [place] Duloxetine HCl 30 mg 06/05/20 17:00 06/05/20 17:45 Duloxetine Hcl 30 Mg Capsule.Dr PO 30
[2020-06-06] MEDS: DULoxetine HCL 30 MG CAPSULE.DR PO ×2 (09:05→17:46)
[2020-06-06] MEDS: DEXAMETHASONE SOD PHOS INJ 4 MG/ML VIAL IV PUSH ×2 (09:05→22:37)
[2020-06-06] MEDS: ENOXAPARIN 40 MG/0.4 ML SYRINGE SUB-Q (09:05)
[2020-06-06] MEDS: CARBIDOPA/LEVODOPA 25/250 MG TABLET 1 TABLET PO ×3 (09:05→17:46)
[2020-06-06] MEDS: MEMANTINE 10 MG TABLET PO ×2 (09:06→22:36)
[2020-06-06] MEDS: PANTOPRAZOLE SODIUM IV 40 MG VIAL IV PUSH (09:06)
[2020-06-06] MEDS: OPTI-GEN TAB 1 TABLET PO (09:06)
[2020-06-06] MEDS: PREGABALIN (*CRX) 50 MG CAPSULE PO ×2 (09:09→17:45)
--- NOTE | 2020-06-06 09:36 | PM.IMPN ---
Progress Note: A&P Assessment and Plan (1) Partial small bowel obstruction: Code(s): K56.600 - Partial intestinal obstruction, unspecified as to cause Status: Acute Assessment and Plan: Improving. appreciate Dr. Soto (gastroenterology) and Dr. Campos (surgery) consults KUB ordered for today results/report pending. continue IVFs 80 ml/hr NS maintenance rate Electrolytes stable, Na 139, K 4.7, Gluc 92, Monitor daily and PRN Glucose to avoid Hypoglycemia. patient comfortable, stool output per ostomy appropriate, NG patent and remains in place. No N/V, Abd. Pain improved. No fevers noted. WBC 5.9. Trying ice chips today. Keeping NG in place. Gen. Surgery - Possibly proceed with Gastrografin upper GI small-bowel follow-through tomorrow. (2) Crohn's disease: Qualifiers: Digestive disease complication type: unspecified complication Gastrointestinal tract location: unspecified location Qualified Code(s): K50.919 - Crohn's disease, unspecified, with unspecified complications Code(s): K50.90 - Crohn's disease, unspecified, without complications Status: Chronic Assessment and Plan: On steroids 4mg Dexamethasone Q 12 H minimal pain / distension/bloating/ abd swelling today. IV Levaquin and IV metronidazole patient comfortable, stool output per ostomy appropriate, NG patent and remains in place. No N/V, Abd. Pain improved. No fevers noted. WBC 5.9. Slowly restart PO diet, trying ice chips today. (3) Chronic anemia: Code(s): D64.9 - Anemia, unspecified Status: Inactive Assessment and Plan: Chronic. Treated with Iron every other day at home. Stable. H/H 10.8 / 32.1 iron studies as well as B12 and folates. % sat low 13%, takes Vit D and B12 at home. No current S/s of bleeding, non noted in ostomy output, patient denies Hematuria. Need to restart Iron and Vitamins once back on full diet. Continue to monitor with CBC. (4) Hypertension: Qualifiers: Hypertension type: essential hypertension Qualified Code(s): I10 - Essential (primary) hypertension Code(s): I10 - Essential (primary) hypertension Status: Chronic Assessment and Plan: Chronic. Controlled with Meds. BPs 122/60 HR 80s. controlled at home with Norvasc will need to started Norvasc once SBPs>140 continue to monitor. (5) Hypothyroidism: Qualifiers: Hypothyroidism type: unspecified Qualified Code(s): E03.9 - Hypothyroidism, unspecified Code(s): E03.9 - Hypothyroidism, unspecified Status: Chronic Assessment and Plan: Chronic. Controlled with Meds. Vital signs stable, alert when awakened. controlled at home with Levothyroxine TSH 1.93 on 06/05/20 continue to monitor. (6) Parkinsons: Code(s): G20 - Parkinson's disease Status: Chronic Assessment and Plan: Chronic. Controlled with Meds. Vital signs stable, alert when awakened. controlled at home with Carbidopa-Levodopa TSH 1.93 on 06/05/20 continue to monitor. (7) Dementia: Qualifiers: Dementia behavioral disturbance: without behavioral disturbance Dementia type: Parkinson's disease Qualified Code(s): G20 - Parkinson's disease; F02.80 - Dementia in other diseases classified elsewhere without behavioral disturbance Code(s): F03.90 - Unspecified dementia without behavioral disturbance Status: Chronic Assessment and Plan: Chronic. Controlled with Meds. Vital signs stable, alert when awakened. controlled at home with Namenda restart when tolerating PO meds. continue to monitor. (8) Chronic GERD: Code(s): K21.9 - Gastro-esophageal reflux disease without esophagitis Status: Chronic Assessment and Plan: Chronic. Controlled with Meds. Vital signs stable, alert when awakened. controlled at this time, with NG in place continue to monitor. (9) Bipolar disorder: Code(s): F31.9 - Bipolar disorder, unspeci
--- NOTE | 2020-06-06 13:31 | PC.NURSE ---
NG remains clamped r/t small bowel series. Transport to X-ray via stretcher.
[2020-06-06 14:00] VITALS: BP 105/79; PULSE 91; RESP 16; TEMP 36.6; O2SAT 96
--- NOTE | 2020-06-06 15:37 | PC.NURSE ---
NG to remain clamped per Dr. Soto, unless pt demonstrates nausea/vomiting.
--- NOTE | 2020-06-06 16:09 | WPDGIPROGNO ---
Progress Note: A&P Additional Plan [facility] for Dr. Carrasquillo 05 Jun 2020 VSS soft/NT Pertinent Labs/Imaging: Hct 32. B12 297, folate >20. Ferritin 395, fe 40, TIBC 308, %sat 13 SBFT: IMPRESSION: Nonobstructing stricture with irregular mucosal contour along the terminal ileum consistent with recurrent terminal ileitis and suggesting possibility of Crohn's disease. Assessment and Plan: A. Abdominal pain/Nausea/Vomiting/Abnormal Imaging-Digestive: -CT imaging suggesting partial SBO in patient with history of Crohn's disease -Hx of Crohn's disease with colostomy secondary to sigmoid colectomy -Concerns for flare of SB Crohn's -IV decadron 4 mg q12 h -IV Levaquin and Flagyl -Last colonoscopy showed active inflammation [address] Carrasquillo -NG in place; clamp and consider clears -No further nausea or vomiting -May consider biologic therapy due to hx of bowel resection. -Appreciate surgical recommendations B. Macrocytic Anemia -Hgb 10, Hct 31, MCV 102 -Check B12 is low normal suggesting total body deficiency; replete SQ -Monitor H&H, transfuse as needed C. GERD -Hx of gastritis, tortuous esophagus and non bleeding duodenal diverticulum on EGD 10/2019 at [facility] -Continue PPI therapy -Care with NSAIDs and ASA -Observe for now Thanks, [facility] [phone] Subjective Date/time seen: 06/06/20 16:09 Objective Data Vital Signs Vital Signs: Vital Signs - 24 hr 06/05/20 20:34 06/06/20 04:29 Temperature 36.6 C 36.6 C Pulse Rate 87 89 Respiratory Rate 14 17 Blood Pressure 146/66 H 122/60 Pulse Oximetry 97 97 Intake/Output Intake/Output: Intake & Output 06/03/20 06/04/20 06/05/20 06/06/20 23:59 23:59 23:59 23:59 Intake Total 1250 1540 Output Total 50 1010 Balance 1200 530 Meds/Results Medications: Active Medications Generic Name Dose Route Start Last Admin Trade Name Freq PRN Reason Stop Dose Admin Carbidopa/Levodopa 1 tablet 06/05/20 17:00 06/06/20 12:50 Carbidopa/Levodopa 25/250 Mg Tablet PO 1 tablet TID [facility] Administration Dexamethasone Sodium Phosphate 4 mg 06/05/20 21:00 06/06/20 09:05 Dexamethasone Sod Phos Inj 4 Mg/Ml Vial IV PUSH 4 mg Q12HR [facility] Administration Donepezil HCl 10 mg 06/05/20 21:00 Donepezil Hcl 10 Mg Tablet PO HS [facility] Duloxetine HCl 30 mg 06/05/20 17:00 06/06/20 09:05 Duloxetine Hcl 30 Mg Capsule.Dr PO 30 mg BID [facility] Administration Enoxaparin Sodium 40 mg 06/06/20 09:00 06/06/20 09:05 Enoxaparin 40 Mg/0.4 Ml Syringe SUB-Q 40 mg DAILY [facility] Administration Sodium Chloride 1,000 mls @ 80 mls/hr 06/05/20 11:35 06/06/20 02:56 Normal Saline Iv IV CONT 80 mls/hr .[id number] [facility] Administration Metronidazole 500 mg in 100 mls @ 100 mls/hr 06/05/20 18:00 06/06/20 12:34 Flagyl 500 Mg/Iso Soln 100 Ml IVPB Infused Q6H [facility] Infusion Levofloxacin/Dextrose 750 mg in 150 mls @ 100 mls/hr 06/07/20 22:00 Levaquin 750 Mg/D5w 150 Ml IVPB Q48H [facility] Levothyroxine Sodium 125 mcg 06/06/20 06:30 06/06/20 05:34 Levothyroxine Sodium 125 Mcg Tablet PO 125 mcg DAILY@0630 [facility] Administration Memantine 10 mg 06/05/20 21:00 06/06/20 09:06 Memantine 10 Mg Tablet PO 10 mg Q12HR [facility] Administration Mineral Oil/Petrolatum/Glycerin 1 applic 06/05/20 21:00 06/05/20 20:47 Mineral Oil/Petrolatum Ophth Oint 3.5 Gm (Eye Lubricant) EACH EYE 1 applic HS [place] Administration Multivitamins/Minerals 1 tablet 06/06/20 09:00 06/06/20 09:06 Opti-Gen Tab PO 1 tablet QAM [place] Administration Pantoprazole Sodium 40 mg 06/06/20 09:00 06/06/20 09:06 Pantoprazole Sodium Iv 40 Mg Vial IV PUSH 40 mg QAM [place] Administration Pregabalin 75 mg 06/05/20 21:00 06/05/20 20:45 Pregabalin (*Crx) 75 Mg Capsule PO 75 mg HS [facility] Administration Pregabalin 50 mg 06/05/20 17:00 06/06/20 09:09 Pregabalin (*Crx) 50 Mg Capsule PO 50 mg BID [facility] Administration Quetiapine Fumarate 12.5 mg
[2020-06-06 22:00] VITALS: BP 118/52; PULSE 87; RESP 21; TEMP 36.6; O2SAT 100
[2020-06-06] MEDS: QUEtiapine FUMARATE 12.5 MG TABLET PO (22:37)
[2020-06-06] MEDS: PREGABALIN (*CRX) 75 MG CAPSULE PO (22:37)
[2020-06-06] MEDS: MINERAL OIL/PETROLATUM OPHTH OINT 3.5 GM (EYE LUBRICANT) 1 APPLIC EACH EYE (22:37)
[2020-06-07 06:00] VITALS: BP 142/82; PULSE 80; RESP 20; TEMP 36.7; O2SAT 99
[2020-06-07 06:10] LABS: Hematocrit 33.4 % (37.0-47.0); Hemoglobin 10.5 g/dL (12.0-15.0); Mean Corpuscular HGB Conc 31.4 g/dl (32-36); Mean Corpuscular Hemoglobin 32.9 pg (26-34); Mean Corpuscular Volume 104.7 fl (80-100); Platelet Count Result 156 k/mm3 (150-375); Red Blood Count 3.19 M/mm3 (4.2-5.4); Red Cell Distribution Width 13.1 % (11.5-14.5); White Blood Count 9.1 K/mm3 (4.5-10.0)
[2020-06-07] MEDS: LEVOTHYROXINE SODIUM 125 MCG TABLET PO (06:10)
[2020-06-07] MEDS: metroNIDAZOLE 500 MG/ISO 100ML 500 MG/100 ML BAG 100 MG IVPB ×4 (06:10→23:25)
[2020-06-07 06:27] LABS: Anion Gap 10 mmol/L (8-16); Blood Urea Nitrogen 25 mg/dL (7-17); Calcium 7.9 mg/dL (8.4-10.2); Carbon Dioxide 20 mmol/L (22-30); Chloride 106 mmol/L (98-107); Estimated CRCL calculation 26 ml/min; Estimated Glomerular Filt Rate 47; Glucose 80 mg/dL (65-105); Potassium 3.9 mmol/L (3.4-5.0); Sodium 136 mmol/L (137-145)
--- NOTE | 2020-06-07 08:45 | PM.IMPN ---
Progress Note: A&P Assessment and Plan (1) Partial small bowel obstruction: Code(s): K56.600 - Partial intestinal obstruction, unspecified as to cause Status: Acute Assessment and Plan: Improving. hx of bowel resection and Last colonoscopy showed active inflammation [address] Carrasquillo appreciate Dr. Soto (gastroenterology) and Dr. Campos (surgery) orders/recommendations. continue IVFs 80 ml/hr NS maintenance rate Electrolytes stable, Na 139 yesterday, 136 today; K 4.7 yesterday, 3.9 today. Monitor daily and PRN Glucose to avoid Hypoglycemia. Daily glucose checks: 109, 92, 80 today. patient comfortable, stool output per ostomy- green and watery, bilious at times. Change in stool, stool cultures pending. No N/V, Abd. Pain completely resolved. No fevers noted. WBC 5.9 yesterday, 9.1 today. NG remains in stomach/ in place and patent. 06/06 SBfollow-through:Nonobstructing stricture with irregular mucosal contour along the terminal ileum consistent with recurrent terminal ileitis and suggesting Crohn's. Continue steroids 4mg Dexamethasone Q 12 H, IV Levaquin and IV metronidazole (2) Crohn's disease: Qualifiers: Gastrointestinal tract location: unspecified location Digestive disease complication type: unspecified complication Qualified Code(s): K50.919 - Crohn's disease, unspecified, with unspecified complications Code(s): K50.90 - Crohn's disease, unspecified, without complications Status: Chronic Assessment and Plan: On steroids 4mg Dexamethasone Q 12 H minimal pain / distension/bloating/ abd swelling today. IV Levaquin and IV metronidazole patient comfortable, stool output per ostomy- green and watery, bilious at times. Change in stool, stool cultures pending. No N/V, Abd. Pain completely resolved. No fevers noted. WBC 5.9 yesterday, 9.1 today. Slowly restart PO diet, Did well with Meds and Ice chips yesterday. 06/06 SBfollow-through:Nonobstructing stricture with irregular mucosal contour along the terminal ileum consistent with recurrent terminal ileitis and suggesting Crohn's. (3) Chronic anemia: Code(s): D64.9 - Anemia, unspecified Status: Inactive Assessment and Plan: Chronic. Treated with Iron every other day at home. Stable. H/H 10.8 / 32.1, and 10.5/33.4 today. iron studies as well as B12 and folates. % sat low 13%, takes Vit D and B12 at home. No current S/s of bleeding, none noted in ostomy output, patient denies Hematuria. Need to restart Iron once back on full diet. Restarted Vitamins. Continue to monitor with CBC. (4) Hypertension: Qualifiers: Hypertension type: essential hypertension Qualified Code(s): I10 - Essential (primary) hypertension Code(s): I10 - Essential (primary) hypertension Status: Chronic Assessment and Plan: Chronic. Controlled with Meds. BPs 105/79-118/52 HR 57-74. controlled at home with Norvasc will need to restart Norvasc if SBPs>140, continue to hold at this time. continue to monitor. (5) Hypothyroidism: Qualifiers: Hypothyroidism type: unspecified Qualified Code(s): E03.9 - Hypothyroidism, unspecified Code(s): E03.9 - Hypothyroidism, unspecified Status: Chronic Assessment and Plan: Chronic. Controlled with Meds. Vital signs stable, alert when awakened. controlled at home with Levothyroxine TSH 1.93 on 06/05/20 continue to monitor. (6) Parkinsons: Code(s): G20 - Parkinson's disease Status: Chronic Assessment and Plan: Chronic. Controlled with Meds. Vital signs stable, alert when awakened. controlled at home with Carbidopa-Levodopa assist with ADLs PT/OT continue to monitor. (7) Dementia: Qualifiers: Dementia type: Parkinson's disease Dementia behavioral disturbance: without behavioral disturbance Qualified Code(s): G20 - Parkinson's disease; F02.80 - Dementia in other diseases classified elsewher
[2020-06-07] MEDS: PANTOPRAZOLE SODIUM IV 40 MG VIAL IV PUSH (08:52)
[2020-06-07] MEDS: OPTI-GEN TAB 1 TABLET PO (08:52)
[2020-06-07] MEDS: ENOXAPARIN 40 MG/0.4 ML SYRINGE SUB-Q (08:52)
[2020-06-07] MEDS: MEMANTINE 10 MG TABLET PO ×2 (08:52→20:13)
[2020-06-07] MEDS: CARBIDOPA/LEVODOPA 25/250 MG TABLET 1 TABLET PO ×3 (08:52→17:19)
[2020-06-07] MEDS: DEXAMETHASONE SOD PHOS INJ 4 MG/ML VIAL IV PUSH ×2 (08:52→20:12)
[2020-06-07] MEDS: PREGABALIN (*CRX) 50 MG CAPSULE PO ×2 (08:52→17:20)
[2020-06-07] MEDS: DULoxetine HCL 30 MG CAPSULE.DR PO ×2 (08:52→17:19)
[2020-06-07] MEDS: ERGOCALCIFEROL 50,000 UNIT CAPSULE 50000 UNITS PO (10:15)
[2020-06-07] MEDS: CHOLECALCIFEROL 1,000 UNITS TABLET 5000 UNITS PO (10:15)
[2020-06-07] MEDS: FERROUS SULFATE 324 MG TABLET PO (10:16)
[2020-06-07] MEDS: CYANOCOBALAMIN 1,000 MCG TABLET 1000 MCG PO (10:16)
[2020-06-07] MEDS: FLUTICASONE PROPIONATE 0.05% NA SPR 16 GM BTL (*BKC) 2 SPRAY NASAL (10:16)
--- NOTE | 2020-06-07 11:25 | WPDGIPROGNO ---
Progress Note: A&P Additional Plan GI [facility] for Dr. Carrasquillo 07 Jun 2020 Per YARA hayes sips of liquids and ice chips with NG clamped VSS soft/NT Pertinent Labs/Imagin06-06-2020: Hct 32. B12 297, folate >20. Ferritin 395, fe 40, TIBC 308, %sat 13 SBFT: IMPRESSION: Nonobstructing stricture with irregular mucosal contour along the terminal ileum consistent with recurrent terminal ileitis and suggesting possibility of Crohn's disease. Assessment and Plan: A. Abdominal pain/Nausea/Vomiting/Abnormal Imaging-Digestive: -CT imaging suggesting partial SBO in patient with history of Crohn's disease -Hx of Crohn's disease with colostomy secondary to sigmoid colectomy -Concerns for flare of SB Crohn's -IV decadron 4 mg q12 h -IV Levaquin and Flagyl -Last colonoscopy showed active inflammation [address] Carrasquillo -Improving; will d/c NG and slowly advance diet -May consider biologic therapy due to hx of bowel resection. -Appreciate surgical recommendations B. Macrocytic Anemia -Hgb 10, Hct 31, MCV 102 -Check B12 is low normal suggesting total body deficiency; replete SQ -Monitor H&H, transfuse as needed C. GERD -Hx of gastritis, tortuous esophagus and non bleeding duodenal diverticulum on EGD 10/2019 at [facility] -Continue PPI therapy -Care with NSAIDs and ASA -Observe for now Thanks, MIKE [phone] Subjective Date/time seen: 06/07/20 11:25 Objective Data Vital Signs Vital Signs: Vital Signs - 24 hr 06/06/20 14:00 06/06/20 22:00 06/07/20 06:00 Temperature 36.6 C 36.6 C 36.7 C Pulse Rate 91 87 80 Respiratory Rate 16 21 H 20 Blood Pressure 105/79 118/52 L 142/82 H Pulse Oximetry 96 100 99 Intake/Output Intake/Output: Intake & Output 06/04/20 06/05/20 06/06/20 06/07/20 23:59 23:59 23:59 23:59 Intake Total 1250 3120 200 Output Total 50 2160 Balance 1200 960 200 Meds/Results Medications: Active Medications Generic Name Dose Route Start Last Admin Trade Name Freq PRN Reason Stop Dose Admin Calcium Carbonate 500 mg 06/07/20 09:00 06/07/20 10:15 Calcium/Vitamin D 500 Mg Tablet PO 500 mg BID [place] Administration Carbidopa/Levodopa 1 tablet 06/05/20 17:00 06/07/20 08:52 Carbidopa/Levodopa 25/250 Mg Tablet PO 1 tablet TID [facility] Administration Cyanocobalamin 1,000 mcg 06/07/20 09:00 06/07/20 10:16 Cyanocobalamin 1,000 Mcg Tablet PO 1,000 mcg DAILY [facility] Administration Dexamethasone Sodium Phosphate 4 mg 06/05/20 21:00 06/07/20 08:52 Dexamethasone Sod Phos Inj 4 Mg/Ml Vial IV PUSH 4 mg Q12HR [facility] Administration Donepezil HCl 10 mg 06/05/20 21:00 Donepezil Hcl 10 Mg Tablet PO HS [facility] Duloxetine HCl 30 mg 06/05/20 17:00 06/07/20 08:52 Duloxetine Hcl 30 Mg Capsule.Dr PO 30 mg BID [facility] Administration Enoxaparin Sodium 40 mg 06/06/20 09:00 06/07/20 08:52 Enoxaparin 40 Mg/0.4 Ml Syringe SUB-Q 40 mg DAILY [facility] Administration Ergocalciferol 50,000 unit 06/07/20 09:00 06/07/20 10:15 Ergocalciferol 50,000 Unit Capsule PO 50,000 unit MoFr@0900 [facility] Administration Ferrous Sulfate 324 mg 06/07/20 09:00 06/07/20 10:16 Ferrous Sulfate 324 Mg Tablet PO 324 mg Q48H [place] Administration Fluticasone Propionate 2 spray 06/07/20 09:00 06/07/20 10:16 Fluticasone Propionate 0.05% Na Spr 16 Gm Btl (*Bkc) NASAL 2 spray DAILY [facility] Administration Sodium Chloride 1,000 mls @ 80 mls/hr 06/05/20 11:35 06/06/20 23:56 Normal Saline Iv IV CONT 80 mls/hr .[id number] [facility] Administration Metronidazole 500 mg in 100 mls @ 100 mls/hr 06/05/20 18:00 06/07/20 07:10 Flagyl 500 Mg/Iso Soln 100 Ml IVPB Infused Q6H [facility] Infusion Levofloxacin/Dextrose 750 mg in 150 mls @ 100 mls/hr 06/07/20 22:00 Levaquin 750 Mg/D5w 150 Ml IVPB Q48H [facility] Levothyroxine Sodium 125 mcg 06/06/20 06:30 06/07/20 06:10 Levothyroxine Sodium 125 Mcg Tablet PO 125 mcg DAILY@0630 [facility] Administration Meclizine HCl 25 mg
--- NOTE | 2020-06-07 13:08 | PM.PNGS ---
Progress Note: A&P Assessment and Plan (1) Partial small bowel obstruction: Code(s): K56.600 - Partial intestinal obstruction, unspecified as to cause Status: Acute Assessment and Plan: OK to advance diet and discharge from surgical standpoint GI recs for medical treatment of Crohn's (2) Crohn's disease: Qualifiers: Gastrointestinal tract location: unspecified location Digestive disease complication type: unspecified complication Qualified Code(s): K50.919 - Crohn's disease, unspecified, with unspecified complications Code(s): K50.90 - Crohn's disease, unspecified, without complications Status: Chronic Assessment and Plan: On steroids as well as Levaquin and metronidazole 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 (4) Dementia: Qualifiers: Dementia type: Parkinson's disease Dementia behavioral disturbance: without behavioral disturbance Qualified Code(s): G20 - Parkinson's disease; F02.80 - Dementia in other diseases classified elsewhere without behavioral disturbance Code(s): F03.90 - Unspecified dementia without behavioral disturbance Status: Chronic (5) Parkinsons: Code(s): G20 - Parkinson's disease Status: Chronic Subjective Subjective Date/Time Seen: 06/07/20 13:08 NG out. Tolerating clears. Good ostomy output. No bloating or nausea. Exam GI: Inspection: non-distended and other (Ostomy pink and functioning) GI Palp: Yes Soft to palpation, No Tenderness to palpation present (GI) and No Guarding due to palpation present (GI) Auscultation: normal bowel sounds Objective Data Vital Signs Vital Signs: Vital Signs - 24 hr 06/06/20 14:00 06/06/20 22:00 06/07/20 06:00 Temperature 36.6 C 36.6 C 36.7 C Pulse Rate 91 87 80 Respiratory Rate 16 21 H 20 Blood Pressure 105/79 118/52 L 142/82 H Pulse Oximetry 96 100 99 Intake/Output Intake/Output: Intake & Output 06/04/20 06/05/20 06/06/20 06/07/20 23:59 23:59 23:59 23:59 Intake Total 1250 3120 780 Output Total 50 2160 Balance 1200 960 780 Meds/Results Medications: Active Medications Generic Name Dose Route Start Last Admin Trade Name Pawan PRN Reason Stop Dose Admin Calcium Carbonate 500 mg 06/07/20 09:00 06/07/20 10:15 Calcium/Vitamin D 500 Mg Tablet PO 500 mg BID [place] Administration Carbidopa/Levodopa 1 tablet 06/05/20 17:00 06/07/20 08:52 Carbidopa/Levodopa 25/250 Mg Tablet PO 1 tablet TID [place] Administration Cyanocobalamin 1,000 mcg 06/07/20 09:00 06/07/20 10:16 Cyanocobalamin 1,000 Mcg Tablet PO 1,000 mcg DAILY [facility] Administration Dexamethasone Sodium Phosphate 4 mg 06/05/20 21:00 06/07/20 08:52 Dexamethasone Sod Phos Inj 4 Mg/Ml Vial IV PUSH 4 mg Q12HR [facility] Administration Donepezil HCl 10 mg 06/05/20 21:00 Donepezil Hcl 10 Mg Tablet PO HS [facility] Duloxetine HCl 30 mg 06/05/20 17:00 06/07/20 08:52 Duloxetine Hcl 30 Mg Capsule.Dr PO 30 mg BID [place] Administration Enoxaparin Sodium 40 mg 06/06/20 09:00 06/07/20 08:52 Enoxaparin 40 Mg/0.4 Ml Syringe SUB-Q 40 mg DAILY [facility] Administration Ergocalciferol 50,000 unit 06/07/20 09:00 06/07/20 10:15 Ergocalciferol 50,000 Unit Capsule PO 50,000 unit MoFr@0900 [facility] Administration Ferrous Sulfate 324 mg 06/07/20 09:00 06/07/20 10:16 Ferrous Sulfate 324 Mg Tablet PO 324 mg Q48H [facility] Administration Fluticasone Propionate 2 spray 06/07/20 09:00 06/07/20 10:16 Fluticasone Propionate 0.05% Na Spr 16 Gm Btl (*Bkc) NASAL 2 spray DAILY [facility] Administration Sodium Chloride 1,000 mls @ 80 mls/hr 06/05/20 11:35 06/06/20 23:56 Normal Saline Iv IV CONT 80 mls/hr .[id number] [facility] Administration Metronidazole 500 mg in 100 mls @ 100 mls/hr 06/05/20 18:00 06/07/20 12:27 Flagyl 500 Mg/Iso Soln 100 Ml IVPB Infuse
[2020-06-07 14:00] VITALS: BP 122/80; PULSE 82; RESP 16; TEMP 36.8; O2SAT 99
[2020-06-07 16:09] LABS: IFOB Positive Control Positive; Immunochemical Fecal Occult Bl Negative (N)
[2020-06-07] MEDS: SODIUM CHLORIDE 0.9% IV 1,000 ML 80 ML IV CONT (18:35)
[2020-06-07] MEDS: MECLIZINE HCL 25 MG TABLET PO (20:12)
[2020-06-07] MEDS: PREGABALIN (*CRX) 75 MG CAPSULE PO (20:12)
[2020-06-07] MEDS: MELATONIN 5 MG TABLET 10 MG PO (20:13)
[2020-06-07] MEDS: MINERAL OIL/PETROLATUM OPHTH OINT 3.5 GM (EYE LUBRICANT) 1 APPLIC EACH EYE (20:13)
[2020-06-07] MEDS: QUEtiapine FUMARATE 12.5 MG TABLET PO (20:13)
[2020-06-07 20:24] VITALS: BP 136/57; PULSE 73; RESP 16; TEMP 37; O2SAT 97
[2020-06-07 20:56] LABS: NIL 0.02 IU/mL; Quantiferon TB Plus, 1T NEGATIVE (NEGATIVE); TB1-NIL 0.01 IU/mL
[2020-06-08] MEDS: metroNIDAZOLE 500 MG/ISO 100ML 500 MG/100 ML BAG 100 MG IVPB ×2 (05:32→12:46)
[2020-06-08] MEDS: LEVOTHYROXINE SODIUM 125 MCG TABLET PO (05:32)
[2020-06-08 05:33] VITALS: BP 116/50; PULSE 70; RESP 18; TEMP 36.9; O2SAT 97
[2020-06-08 05:47] LABS: Hematocrit 26.5 % (37.0-47.0); Hemoglobin 8.6 g/dL (12.0-15.0); Mean Corpuscular HGB Conc 32.5 g/dl (32-36); Mean Corpuscular Hemoglobin 32.5 pg (26-34); Platelet Count Result 148 k/mm3 (150-375); Red Blood Count 2.65 M/mm3 (4.2-5.4)
[2020-06-08 06:13] LABS: Anion Gap 7 mmol/L (8-16); Blood Urea Nitrogen 24 mg/dL (7-17); Calcium 7.2 mg/dL (8.4-10.2); Carbon Dioxide 21 mmol/L (22-30); Chloride 105 mmol/L (98-107); Estimated CRCL calculation 26 ml/min; Estimated Glomerular Filt Rate 47; Glucose 106 mg/dL (65-105); Potassium 3.8 mmol/L (3.4-5.0); Sodium 133 mmol/L (137-145)
[2020-06-08] MEDS: FLUTICASONE PROPIONATE 0.05% NA SPR 16 GM BTL (*BKC) 2 SPRAY NASAL (09:21)
[2020-06-08] MEDS: CYANOCOBALAMIN 1,000 MCG TABLET 1000 MCG PO (09:24)
[2020-06-08] MEDS: OPTI-GEN TAB 1 TABLET PO (09:24)
[2020-06-08] MEDS: PREGABALIN (*CRX) 50 MG CAPSULE PO (09:24)
[2020-06-08] MEDS: CHOLECALCIFEROL 1,000 UNITS TABLET 5000 UNITS PO (09:24)
[2020-06-08] MEDS: DULoxetine HCL 30 MG CAPSULE.DR PO (09:25)
[2020-06-08] MEDS: ENOXAPARIN 40 MG/0.4 ML SYRINGE SUB-Q (09:25)
[2020-06-08] MEDS: MEMANTINE 10 MG TABLET PO (09:25)
[2020-06-08] MEDS: CARBIDOPA/LEVODOPA 25/250 MG TABLET 1 TABLET PO ×2 (09:25→12:48)
[2020-06-08] MEDS: PANTOPRAZOLE SODIUM IV 40 MG VIAL IV PUSH (09:25)
[2020-06-08] MEDS: DEXAMETHASONE SOD PHOS INJ 4 MG/ML VIAL IV PUSH (09:25)
--- NOTE | 2020-06-08 10:31 | WPDGIPROGNO ---
Progress Note: A&P Additional Plan GI [facility] for Dr. Carrasquillo 08 Jun 2020 Per RN patient freddy po well and good ostomy OP. NG out. No AP, N, V VSS soft/NT Hct 25, WBC 5 Pertinent Labs/Imagin-31-2019: Hct 32. B12 297, folate >20. Ferritin 395, fe 40, TIBC 308, %sat 13 SBFT: IMPRESSION: Nonobstructing stricture with irregular mucosal contour along the terminal ileum consistent with recurrent terminal ileitis and suggesting possibility of Crohn's disease. Assessment and Plan: A. Abdominal pain/Nausea/Vomiting/Abnormal Imaging-Digestive: -Patient with partial SBO secondary to Crohn's disease -Resolving with Steroids and ABX -CT imaging suggesting partial SBO in patient with history of Crohn's disease -Hx of Crohn's disease with colostomy secondary to sigmoid colectomy -IV decadron 4 mg q12 h-> 4 mg po as OP -IV Levaquin->Rocephin and Flagyl -Last colonoscopy showed active inflammation [address] Carrasquillo -May consider biologic therapy and oral Pentasa due to hx of bowel resection per Dr. Carrasquillo as OP -Appreciate surgical recommendations B. Macrocytic Anemia -Hgb 10, Hct 31, MCV 102 -B12 is low normal suggesting total body deficiency; replete SQ -H&H stable C. GERD -Hx of gastritis, tortuous esophagus and non bleeding duodenal diverticulum on EGD 10/2019 at [facility] -Continue PPI therapy -Care with NSAIDs and ASA -Observe for now OK with me for discharge today. Patient will follow-up with Dr. Carrasquillo for GI GI discharge meds: Cefdinir per Jaylyn (finish 14 day course of ABx) Flagyl 500 mg po BID (finish 14 day course of ABx) Decadron 4 mg po daily (please give 30 day supply) Thanks, [facility] [phone] Cc: Dr. Yamileth Garcia; Dr. Kevin Carrasquillo Subjective Date/time seen: 06/08/20 10:31 Objective Data Vital Signs Vital Signs: Vital Signs - 24 hr 06/07/20 14:00 06/07/20 20:24 06/08/20 05:33 Temperature 36.8 C 37.0 C 36.9 C Pulse Rate 82 73 70 Respiratory Rate 16 16 18 Blood Pressure 122/80 136/57 L 116/50 L Pulse Oximetry 99 97 97 Intake/Output Intake/Output: Intake & Output 06/05/20 06/06/20 06/07/20 06/08/20 23:59 23:59 23:59 23:59 Intake Total 1250 3120 2670 1290 Output Total 50 2160 1900 300 Balance 1200 960 770 990 Meds/Results Medications: Active Medications Generic Name Dose Route Start Last Admin Trade Name Freq PRN Reason Stop Dose Admin Acetaminophen 650 mg 06/08/20 10:27 Acetaminophen 325 Mg Tablet PO Q4H PRN Mild Pain (1-3) or Fever Calcium Carbonate 500 mg 06/07/20 09:00 06/08/20 09:25 Calcium/Vitamin D 500 Mg Tablet PO 500 mg BID [place] Administration Carbidopa/Levodopa 1 tablet 06/05/20 17:00 06/08/20 09:25 Carbidopa/Levodopa 25/250 Mg Tablet PO 1 tablet TID [facility] Administration Cyanocobalamin 1,000 mcg 06/07/20 09:00 06/08/20 09:24 Cyanocobalamin 1,000 Mcg Tablet PO 1,000 mcg DAILY [facility] Administration Dexamethasone Sodium Phosphate 4 mg 06/05/20 21:00 06/08/20 09:25 Dexamethasone Sod Phos Inj 4 Mg/Ml Vial IV PUSH 4 mg Q12HR [facility] Administration Donepezil HCl 10 mg 06/05/20 21:00 Donepezil Hcl 10 Mg Tablet PO HS [facility] Duloxetine HCl 30 mg 06/05/20 17:00 06/08/20 09:25 Duloxetine Hcl 30 Mg Capsule.Dr PO 30 mg BID [facility] Administration Enoxaparin Sodium 40 mg 06/06/20 09:00 06/08/20 09:25 Enoxaparin 40 Mg/0.4 Ml Syringe SUB-Q 40 mg DAILY [facility] Administration Ergocalciferol 50,000 unit 06/07/20 09:00 06/07/20 10:15 Ergocalciferol 50,000 Unit Capsule PO 50,000 unit MoFr@0900 [place] Administration Ferrous Sulfate 324 mg 06/07/20 09:00 06/07/20 10:16 Ferrous Sulfate 324 Mg Tablet PO 324 mg Q48H [facility] Administration Fluticasone Propionate 2 spray 06/07/20 09:00 06/08/20 09:21 Fluticasone Propionate 0.05% Na Spr 16 Gm Btl (*Bkc) NASAL 2 spray DAILY [place] Administration Sodium Chloride 1,000 mls @ 80 mls/hr 06/05/20 11:35 06/07/20 18:35 Normal Saline Iv IV CONT 80
[2020-06-08] MEDS: SODIUM CHLORIDE 0.9% IV 1,000 ML 80 ML IV CONT (10:50)
[2020-06-08] MEDS: ACETAMINOPHEN 325 MG TABLET 650 MG PO (10:52)
[2020-06-08 14:00] VITALS: BP 120/56; PULSE 72; RESP 16; TEMP 36.7; O2SAT 96
--- NOTE | 2020-06-08 15:51 | PM.DS ---
DS: Admitting Diagnosis Admitting Diagnosis Admitting Diagnosis: Small bowel obstruction due to Chron's colitis DS: Discharge Diagnosis Discharge Diagnosis (1) Partial small bowel obstruction: Code(s): K56.600 - Partial intestinal obstruction, unspecified as to cause Status: Acute Assessment and Plan: Discharge Summary (Date of service 06/08/20): Mrs. Lee is an 84-year-old female with PMH significant for Crohn's disease status post partial colectomy with colostomy, mild dementia, Parkinson, GERD, hypertension, anemia, and bipolar disorder who presented to the emergency department 06/05/20 via EMS from [facility] with complaints of nausea, vomiting, and abdominal pain for 24 hours as well as a decrease in stool output in her colostomy. CT abdomen/pelvis in the emergency department demonstrated a small-bowel obstruction possibly due to recurrence of inflammatory disease bowel disease and she was admitted to the hospitalist service with general surgery and gastroenterology consultations. NG tube was placed and she was treated with IV dexamethasone, IV flagyl, and IV levaquin. General surgery recommended conservative management. Plain abdominal films the morning of 06/06/20 demonstrated non-obstructive bowel gas pattern. She underwent small bowel follow-through the afternoon of 06/06/20 which demonstrated nonobstructing stricture with irregular mucosal contour along the terminal ileum consistent with recurrent terminal ileitis and suggesting Crohn's. Pain resolved and she had no further nausea or vomiting. Her diet was advanced per general surgery and she tolerated this well. Output from her colostomy improved. She was cleared from a general surgery and GI standpoint. Dr. Soto recommended she complete 14 days total of antibiotics (cefdinir and metronidazole) as well as 30 days of dexamethasone with further recommendations per Dr. Carrasquillo outpatient regarding steroids/potential taper. She will also need to discuss biologic therapy with Dr. Carrasquillo outpatient. She was discharged in hemodynamically stable condition on the afternoon of 06/08/20. (2) Crohn's disease: Qualifiers: Gastrointestinal tract location: unspecified location Digestive disease complication type: unspecified complication Qualified Code(s): K50.919 - Crohn's disease, unspecified, with unspecified complications Code(s): K50.90 - Crohn's disease, unspecified, without complications Status: Chronic Assessment and Plan: The patient has a known hx of Chron's disease s/p partial colectomy with end colostomy. CT abd/pelvis demostrated partial small bowel obstrcution with thickened small bowel wall suggestive of Chron's colitis. She follows with Dr. Carrasquillo and had a colonoscopy 2 years ago which showed active inflammation. She was not on any Chron's-specific therapy prior to admission. She was seen by Dr. Soto who recommended IV dexamethasone 4mg Q12Hr and IV levaquin and flagyl for acute Chron's flare. She underwent small bowel follow-through 06/06/20 which demonstrated nonobstructing stricture with irregular mucosal contour along the terminal ileum consistent with recurrent terminal ileitis and suggesting Crohn's. (3) Hypertension: Qualifiers: Hypertension type: essential hypertension Qualified Code(s): I10 - Essential (primary) hypertension Code(s): I10 - Essential (primary) hypertension Status: Chronic Assessment and Plan: Chronic. Blood pressure control was reasonable while inpatient. Amlodipine was resumed at discharge. (4) Hypothyroidism: Qualifiers: Hypothyroidism type: unspecified Qualified Code(s): E03.9 - Hypothyroidism, unspecified Code(s): E03.9 - Hypothyroidism, unspecified Status: Chronic Assessment and Plan: Chronic. TSH was 1.93 on 06/05/20. Levothyroxine was continued at discharge. (5) Parkinsons: Code(s): G20 - Parkinson'
[2020-06-09 20:43] LABS: Hepatitis A Antibody Total Reactive (Nonreactive)
== END 2020-06-08 17:40 | DRG 389 ==
LOC: ANHED 12:32 → ANH3MED 12:40
PROVIDERS: Nurse Practitioner; Physician Assistant; Surgery; Admitting Provider Family Medicine; Emergency Provider Emergency Medicine; PCP Family Medicine; Visit Provider Physician Assistant
DX: K56.600 Partial intestinal obstruction, unspecified as to cause (principal); K50.912 Crohn's disease, unspecified, with intestinal obstruction; N39.0 Urinary tract infection, site not specified; G20 Parkinson's disease; F02.80 Dementia in other diseases classified elsewhere, unspecified severity, without behavioral disturbance, psychotic disturbance, mood disturbance, and anxiety; Z93.2 Ileostomy status; D64.9 Anemia, unspecified; K21.9 Gastro-esophageal reflux disease without esophagitis; F41.8 Other specified anxiety disorders; I10 Essential (primary) hypertension; E03.9 Hypothyroidism, unspecified
CPT/HCPCS: 36415; 51701; 74018; 74177; 74250; 80048; 80053; 80074; 81001; 82274; 82607; 82728; 82746; 83540; 83550; 83605; 83690; 84443; 85025; 85027; 85652; 86140; 86480; 86708; 87015; 87045; 87046; 87077; 87086; 87088; 87177; 87186; 87209; 87269; 87272; 87324; 87427; 89055; 96361; 96374; 96375; 97116; 97161; 97165; 97530; 97535; 99285; A9270; C9113; G0378; J0696; J1100; J1650; J1956; J2405; J7030; Q9967

== ENCOUNTER 2020-07-13 19:22 | Inpatient (IN) | payer MEDICARE, OTHER, MEDICAID, SELFPAY ==
--- NOTE | ~2020-07-13 | XR_ITS ---
EXAMINATION: XR sm bowel follow through WS DATE: 07/15/2020 12:32 INDICATION: Small bowel obstruction. TECHNIQUE: Oral contrast was administered, and a time course of radiographs of the abdomen was obtain ed. Fluoroscopy of the small bowel was not performed. Fluoroscopy exposure time was 0 minutes. The to carine number of images was 4. COMPARISON: CT abdomen and pelvis 07/13/2020, small bowel series 06/06/2020 FINDINGS: There is a stricture of the terminal ileum. There are multiple dilated loops of small bowel. Transit time from the stomach to proximal colon was approximately 1 hour 45 minutes. There is an end colostom y on the left. 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 IMPRESSION: 1. Persistent stricture of the terminal ileum with partial small bowel obstruction, which may be from Crohn disease. Reviewed, dictated and finalized at location A. N OUT DRILLER IMPRESSION: 1. Persistent stricture of the terminal ileum with partial small bowel obstruct ion, which may be from Crohn disease.
--- NOTE | ~2020-07-13 | CT_ITS ---
EXAMINATION: CT abdomen pelvis w con DATE: 07/13/2020 20:52 INDICATION: Epigastric pain TECHNIQUE: Computed tomography (CT) of the abdomen and pelvis was performed with 100 cc Omnipaque 350 intravenous contrast. The dose-length product was 505.50 mGy-cm. Automated exposure control and iter ative reconstruction technique were employed. COMPARISON: CT dated 06/05/2020 FINDINGS: Cardiomegaly. No significant pleural or pericardial effusion. Status post cholecystectomy with expected prominence of the bile ducts. The spleen, pancreas, adrenal glands, and kidneys are unremarkable. Study is limited by motion artifact as well as streak artifact from bilateral hip arthroplasties in the pelvis. There are probable bilateral renal stones, although evaluation limited by contrast. There are surgical changes consistent with partial colectomy with le ft lower quadrant ostomy. There are surgical anastomotic changes in the pelvis. There is abnormal thi ckening in the expected location of the terminal ileum which may relate to infection or inflammatory bowel disease. There is retained fecal material in the more proximal small bowel with air-fluid level s at multiple locations. There is a ventral abdominal wall hernia containing nonobstructed bowel. The re are multiple chronic compression fractures of the lower thoracic and lumbar spine. Severe lumbar s pondylosis. There is a Chance fracture of L2 which appears new compared with prior examination. IMPRESSION: 1. Abnormal thickening of the distal small bowel at the level of the terminal ileum with probable ass ociated small bowel obstruction. Differential diagnosis includes infection and inflammatory bowel dis ease. 2: New Chance fracture of L2. Correlate for history of recent trauma. There are additional stable chr onic lower thoracic and lumbar compression fractures. Reviewed, dictated and finalized at location A. DUMPER IMPRESSION: 1. Abnormal thickening of the distal small bowel at the level of the terminal i leum with probable associated small bowel obstruction. Differential diagnosis i ncludes infection and inflammatory bowel disease. 2: New Chance fracture of L2. Correlate for history of recent trauma. There are additional stable chronic lower thoracic and lumbar compression fractures.
--- NOTE | ~2020-07-13 | XR_ITS ---
EXAMINATION: XR abdomen NG/feed tube insert DATE: 07/13/2020 22:00 INDICATION: Nasogastric tube placement. TECHNIQUE: A semierect view of the abdomen was obtained. COMPARISON: CT abdomen and pelvis 07/13/2020 FINDINGS: The lower abdomen is excluded. There are no visible dilated loops of bowel. The nasogastric tube tip is in the stomach. IMPRESSION: 1. Nasogastric tube tip in the stomach. Reviewed, dictated and finalized at location A. ERAGE PURCHASE AND SALE CLERK
--- NOTE | ~2020-07-13 | XR_ITS ---
EXAMINATION: XR abdomen NG/feed tube insert DATE: 07/15/2020 00:59 INDICATION: Nasogastric tube placement. TECHNIQUE: An upright view of the abdomen was obtained. COMPARISON: Abdomen single view 07/13/2020 FINDINGS: The lower abdomen and right lateral aspect of the abdomen are excluded. There are no dilate d loops of bowel. The nasogastric tube tip is in the stomach. IMPRESSION: 1. Nasogastric tube tip in the stomach. Reviewed, dictated and finalized at location A. ARE WORKER
[2020-07-13 19:25] VITALS: BP 139/74; PULSE 80; RESP 16; O2SAT 100
[2020-07-13 20:01] VITALS: BP 125/65; PULSE 83; RESP 28; O2SAT 96
[2020-07-13 20:03] LABS: Basophils Percent Auto 0.2 % (0.2-1.2); Eosinophils Absolute Auto 0.1 K/mm3 (0-0.3); Eosinophils Percent Auto 0.9 % (0-4.4); Hematocrit 35.9 % (37.0-47.0); Hemoglobin 11.6 g/dL (12.0-15.0); Immature Granulocyte Absolute 0.02 K/mm3 (0.00-0.031); Immature Granulocyte Percent A 0.3 % (0-0.5); Lymphocytes Absolute Auto 1.06 K/mm3 (0.9-3.2); Lymphocytes Percent Auto 16.4 % (18.3-44.2); Mean Corpuscular HGB Conc 32.3 g/dl (32-36); Mean Corpuscular Hemoglobin 33.7 pg (26-34); Mean Corpuscular Volume 104.4 fl (80-100); Monocytes Absolute Auto 0.5 K/mm3 (0.1-0.6); Monocytes Percent Auto 7.1 % (2.6-8.5); Neutrophils Absolute Auto 4.9 K/mm3 (1.3-6.7); Neutrophils Percent Auto 75.1 % (45.5-73.1); Platelet Count Result 149 k/mm3 (150-375); Red Blood Count 3.44 M/mm3 (4.2-5.4); Red Cell Distribution Width 14.4 % (11.5-14.5); White Blood Count 6.5 K/mm3 (4.5-10.0)
[2020-07-13] MEDS: fentaNYL CITRATE INJ (*CRX) 100 MCG/2 ML VIAL 50 MCG IV PUSH (20:10)
[2020-07-13] MEDS: ONDANSETRON INJ 4 MG/2 ML VIAL IV PUSH (20:10)
[2020-07-13 20:14] LABS: Alanine Aminotransferase 13 U/L (4-35); Albumin Level 3.8 g/dL (3.5-5.1); Alkaline Phosphatase 92 U/L (38-126); Anion Gap 7 mmol/L (8-16); Aspartate Amino Transferase 71 U/L (14-36); Bilirubin,Total 0.5 mg/dL (0.2-1.3); Blood Urea Nitrogen 28 mg/dL (7-17); Calcium 8.4 mg/dL (8.4-10.2); Carbon Dioxide 24 mmol/L (22-30); Chloride 113 mmol/L (98-107); Estimated CRCL calculation 33 ml/min; Estimated Glomerular Filt Rate > 60; Glucose 118 mg/dL (65-105); INR 1.2; Lipase 43 U/L (23-300); Potassium 4.3 mmol/L (3.4-5.0); Prothrombin Time 15.3 Seconds (11.1-14.7); Sodium 144 mmol/L (137-145)
--- NOTE | 2020-07-13 21:24 | ED.GENADULT ---
HPI - General Adult General Chief complaint: Abdominal Pain Stated complaint: abd pain Time Seen by Provider: 07/13/20 19:27 History of Present Illness HPI narrative: Patient is an 84-year-old female with history of Crohn's disease that presents the ER with concern for possible bowel obstruction. Patient has been having epigastric pain throughout the day as well as increased abdominal distention. She has decreased output from her colostomy but does continue to have air in the bag. No reports of nausea or vomiting however patient has dementia and history is limited. Patient has been seen by Dr. Carrasquillo in the past. She was recently hospitalized a little over a month ago with a small bowel obstruction due to a Crohn's flare. She was treated with Decadron, Levaquin, and Flagyl. Related Data Home Medications Medication Instructions Recorded Confirmed PreserVision AREDS-2 1 tablet PO DAILY 12/09/19 06/05/20 Viibryd 20 mg PO DAILY 12/09/19 06/05/20 acetaminophen 1,000 mg PO Q6H PRN 12/09/19 06/05/20 amlodipine [Norvasc] 5 mg PO DAILY 12/09/19 06/05/20 baclofen 15 mg PO TID 12/09/19 06/05/20 calcium carbonate-vitamin D3 1 tablet PO BID 12/09/19 06/05/20 [Calcium 600 + D(3)] calcium polycarbophil [Fiber 625 mg PO BID 12/09/19 06/05/20 (calcium polycarbophil)] carbidopa-levodopa 1 tablet PO TID 12/09/19 06/05/20 cholecalciferol (vitamin D3) 125 mcg PO DAILY 12/09/19 06/05/20 [Vitamin D3] dicyclomine 20 mg PO Q6H PRN 12/09/19 06/05/20 donepezil 10 mg PO HS 12/09/19 06/05/20 duloxetine [Cymbalta] 30 mg PO BID 12/09/19 06/05/20 ergocalciferol (vitamin D2) 50,000 unit PO WEEKLY 12/09/19 06/05/20 ferrous sulfate 325 mg PO EVERY OTHER DAY 12/09/19 06/05/20 fluticasone propionate [Flonase 2 spray INTRANASAL DAILY 12/09/19 06/05/20 Allergy Relief] levothyroxine 125 mcg PO DAILY 12/09/19 06/05/20 loratadine 10 mg PO DAILY PRN 12/09/19 06/05/20 meclizine 25 mg PO HS 12/09/19 06/05/20 melatonin 10 mg PO HS 12/09/19 06/05/20 memantine [Namenda] 10 mg PO BID 12/09/19 06/05/20 polyethylene glycol 3350 [Miralax] 17 g PO DAILY 12/09/19 06/05/20 quetiapine 12.5 mg PO HS 12/09/19 06/05/20 Mucinex DM 1 tablet PO Q12H PRN 03/30/20 06/05/20 Retaine PM 1 applic OPHTHALMIC (EYE) HS 03/30/20 06/05/20 cyanocobalamin (vitamin B-12) 1,000 mcg PO DAILY 06/05/20 06/05/20 hydrocodone-acetaminophen [[place]] 1 tablet PO Q6H PRN 06/05/20 06/05/20 pregabalin [Lyrica] 50 mg PO BID 06/05/20 06/05/20 pregabalin [Lyrica] 75 mg PO HS 06/05/20 06/05/20 Allergies Allergy/AdvReac Type Severity Reaction Status Date / Time No Known Allergies Allergy Verified 06/05/20 13:23 Review of Systems Review of Systems: ROS unobtainable: Yes unobtainable due to mental status PMFSH Past Medical History Medical History (Updated 07/13/20 @ 23:39 by Pawel Barbour MD) Anxiety and depression Bipolar disorder Bowel obstruction Chronic anemia Chronic GERD Colostomy in place Crohn's disease Dementia Glaucoma Hip fracture Left hip fracture in 12/2017 after a fall. Right hip fracture in 03/26/2020 after a fall. Hypertension Hypothyroidism Lumbar burst fracture (~12/2017) L1, L3, and L5 burst fractures sustained in a fall. Osteoarthritis Osteoporosis Parkinsons Vitamin D deficiency Surgical History Surgical History (Updated 06/05/20 @ 16:09 by Divina Hurt PA-C) History of bilateral carpal tunnel release History of cervical spinal surgery Diskectomy and fusion. History of cholecystectomy History of left hip replacement (~12/2017) History of partial colectomy History of right hip replacement (~03/2020) History of vaginal hysterectomy Family History Family History Father Acute myocardial infarction, Onset Age: 72 Patient's father is Mother Parkinson disease Heart attack Sibling Hypertension Cerebrovascular accident Social History Social History (Updated 12
[2020-07-13 21:42] VITALS: BP 135/71; PULSE 89; RESP 18; O2SAT 96
[2020-07-13 22:01] VITALS: BP 127/96; PULSE 82; RESP 15
[2020-07-13 23:01] VITALS: BP 141/70; PULSE 83; RESP 19
[2020-07-13] MEDS: MORPHINE SULFATE (*CRX) 2 MG/ML INJ IV PUSH (23:56)
[2020-07-14] VITALS (9 sets, daily range): BP systolic 126–164; BP diastolic 49–74; PULSE 76–100; RESP 12–23; TEMP 36.3–37.4; O2SAT 94–97; BMI 21.6
--- NOTE | 2020-07-14 00:43 | PM.IMHP ---
H&P: HPI History of Present Illness Date/Time: 07/14/20 00:43 Chief Complaint: Abdominal pain, no colostomy output Narrative: Lyndsey Lee is a 84 year old female with a past medical history of dementia, hypothyroidism, hypertension and Crohn's disease with chronic colostomy who presented to the ER via EMS from [facility] due to abdominal pain. The patient inform nursing staff that he has not had any stool output from her ostomy for the last week. She has had continued gas output from her ostomy. She had not been eating for the last 24-36 hours due to abdominal pain. She has had increased abdominal distension. The patient was admitted to the hospital last month for bowel obstruction and was treated with Decadron Levaquin and Flagyl. She has been evaluated by Dr. Carrasquillo in the past. The patient is a poor historian at baseline and had just received morphine prior to my evaluation so did not provide any history directly to me. In the ER the patient had NG tube placed. She has had a moderate amount of gastric secretions since NG placement. She has gas in her ostomy bag at the time of my evaluation but no stool. She remained he is afebrile. The patient was sleeping but moving her legs restlessly. When I attempted to evaluate her abdomen she cried out in pain with light palpation of the epigastric region and right lower quadrant. Her abdomen was soft without rebound tenderness. Review of Systems Review of Systems: ROS unobtainable: Yes unobtainable due to medical condition (Dementia) [facility] Past Medical History Medical History Anxiety and depression Bipolar disorder Bowel obstruction Chronic anemia Chronic GERD Colostomy in place Crohn's disease Dementia Glaucoma Hip fracture Left hip fracture in 12/2017 after a fall. Right hip fracture in 03/26/2020 after a fall. Hypertension Hypothyroidism Lumbar burst fracture (~12/2017) L1, L3, and L5 burst fractures sustained in a fall. Osteoarthritis Osteoporosis Parkinsons Vitamin D deficiency Surgical History Surgical History History of bilateral carpal tunnel release History of cervical spinal surgery Diskectomy and fusion. History of cholecystectomy History of left hip replacement (~12/2017) History of partial colectomy History of right hip replacement (~03/2020) History of vaginal hysterectomy Family History Family History (Updated 07/14/20 @ 06:23 by Essie Beckman DO) Father Acute myocardial infarction, Onset Age: 72 Mother Parkinson disease Heart attack Sibling Hypertension Cerebrovascular accident Social History Social History (Updated 07/14/20 @ 06:24 by Essie Beckman DO) Social History: The patient lives at [facility]. She was never and has no children. 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 She is a lifelong nonsmoker and denies alcohol and illicit substance use. Her nephew, Radu Adames, as her healthcare power of transactional attorney. She is listed as a full code. Smoking status: Never smoker Alcohol intake: former Substance use: never Gender identity (if verbalized by the patient): Female Sexual Orientation (if Verbalized by the Patient): Straight or Heterosexual Spiritual care concerns: No Meds Home Medications and Allergies Home Medications Medication Instructions Recorded Confirmed Type PreserVision AREDS-2 1 tablet PO DAILY 12/09/19 07/14/20 History Viibryd 20 mg PO DAILY 12/09/19 07/14/20 History acetaminophen 1,000 mg PO Q6H PRN 12/09/19 07/14/20 History amlodipine [Norvasc] 5 mg PO DAILY 12/09/19 07/14/20 History baclofen 10 mg PO QPM 12/09/19 07/14/20 History calcium carbonate-vitamin D3 1 tablet PO BID 12/09/19 07/14/20 History [Calcium 600 + D(3)] calcium polycarbophil [Fiber 625 mg PO BID 12/09/19 07/14/20 History (calcium po
--- NOTE | 2020-07-14 01:13 | ADMGEN ---
This patient, Lyndsey Lee, was admitted to Medical Room 346-01. Patient/family oriented to hospital policies and general routines including ID bracelet, bed and alarms, visiting hours, pain management, procedures, bathroom and other care routines, personal items, smoking policy, room service/diet, and visiting hours. Information on how to activate the Rapid Response Team has been discussed. Patient/Family are encouraged to report perceived risks to care and to ask questions if they do not understand what they are told or what they should do.
[2020-07-14] MEDS: SODIUM CHLORIDE 0.9% IV 1,000 ML 100 ML IV CONT (01:17)
[2020-07-14] MEDS: MORPHINE SULFATE (*CRX) 4 MG/ML INJ IV PUSH (05:53)
[2020-07-14] MEDS: PANTOPRAZOLE SODIUM IV 40 MG VIAL IV PUSH ×2 (09:33→09:34)
--- NOTE | 2020-07-14 09:36 | WPDGICN ---
Assessment and Plan Assessment and plan (1) Small bowel obstruction: Code(s): K56.609 - Unspecified intestinal obstruction, unspecified as to partial versus complete obstruction Status: Acute Assessment and Plan: We will continue NG tube decompression. IV steroids will be started for presumed Crohn's disease causing a bowel obstruction. Sigmoid stricture ring by previous endoscopy was identified. Subsequent small bowel series will be performed perhaps tomorrow to determine the status of her obstruction. May benefit for surgical consultation as this is recurrent she may need resection at some point. Ultimately she would benefit from long-term medications for her Crohn's disease currently does not be appear to be on any period IV antibiotics will be given empirically for possible infectious contribute taken to her inflammation the small bowel Levaquin and Flagyl may be of some benefit in inflammatory bowel disease as well. (2) Crohn's disease: Qualifiers: Digestive disease complication type: with intestinal obstruction Gastrointestinal tract location: unspecified location Qualified Code(s): K50.912 - Crohn's disease, unspecified, with intestinal obstruction Code(s): K50.90 - Crohn's disease, unspecified, without complications Status: Acute 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 Status: Chronic (4) Dementia: Qualifiers: Dementia type: Parkinson's disease Dementia behavioral disturbance: without behavioral disturbance Qualified Code(s): G20 - Parkinson's disease; F02.80 - Dementia in other diseases classified elsewhere without behavioral disturbance Code(s): F03.90 - Unspecified dementia without behavioral disturbance Status: Chronic (5) L2 vertebral fracture: Code(s): S32.029A - Unspecified fracture of second lumbar vertebra, initial encounter for closed fracture Status: Acute GI Consult Note Consult date/time: 07/14/20 09:36 HPI: Lyndsey Lee is a 84 year old female Currently resident at custodial stated that she developed abdominal pain with no output through her colostomy for this reason presented to the emergency room. CT scan suggest small bowel obstruction. Patient states symptoms have been present for 2 days. Patient has a past history Crohn's disease with colectomy on this basis. Patient has had follow-up colonoscopy apparently by Dr. babs shaw 2 years ago that revealed active inflammation in the ileum at that time patient was placed on Uceris. In May patient [facility] with bowel obstruction was treated with Decadron. It is unclear if any additional medications were given subsequently. Surgery was not required at that time. Patient's past medical history is significant for dementia, Crohn's disease with sigmoid colectomy, dim Parkinson's disease, anxiety, depression, reflux, hypothyroidism, previous hysterectomy, previous cholecystectomy, previous left hip replacement. this presentation appears very similar to the last last presentation. Review of Systems Review of Systems: All systems reviewed & are unremarkable except as noted in HPI and below PMFSH Past Medical History Medical History Anxiety and depression Bipolar disorder Bowel obstruction Chronic anemia Chronic GERD Colostomy in place Crohn's disease Dementia Glaucoma Hip fracture Left hip fracture in 12/2017 after a fall. Right hip fracture in 03/26/2020 after a fall. Hypertension Hypothyroidism Lumbar burst fracture (~12/2017) L1, L3, and L5 burst fractures sustained in a fall. Osteoarthritis Osteoporosis Parkinsons Vitamin D deficiency Surgical History Surgical History History of bilateral carpal tunnel release History of cervical spinal surgery Diskectomy and fusion. History of cholecystec
[2020-07-14] MEDS: levoFLOXacin 250 MG/D5W 50 ML 250 MG/50 ML BAG 50 MG IVPB (10:32)
--- NOTE | 2020-07-14 11:17 | PM.IMPN ---
Progress Note: A&P Assessment and Plan (1) Small bowel obstruction: Code(s): K56.609 - Unspecified intestinal obstruction, unspecified as to partial versus complete obstruction Status: Acute Assessment and Plan: Partial small-bowel obstruction likely associated with Crohn's disease. NG tube has been placed to low intermittent suction. Patient is NPO. Continue morphine as needed for pain and Zofran as needed for nausea and vomiting. Will change the patient's home Protonix to IV formulation. Gastroenterology has been consulted and evaluated the pt and started her on IV antibiotics Flagyl and Levaquin to cover for infection as well as IV Solumedrol to cover for Crohn's disease flare Plans for small-bowel series tomorrow per GI Continue monitoring. Appreciate GI input. Pain medications as needed. (2) Crohn's disease: Qualifiers: Digestive disease complication type: with intestinal obstruction Gastrointestinal tract location: unspecified location Qualified Code(s): K50.912 - Crohn's disease, unspecified, with intestinal obstruction Code(s): K50.90 - Crohn's disease, unspecified, without complications Status: Acute Assessment and Plan: She above under SBO. For her Crohn's she is on mesalamine 1000 mg q.i.d. GIs input is greatly appreciated for further recommendations on medications (3) L2 vertebral fracture: Code(s): S32.029A - Unspecified fracture of second lumbar vertebra, initial encounter for closed fracture Status: Acute Assessment and Plan: Patient's CT scan of her abdomen showed new Chance fracture of L2. As compared to CT scan from May of 2020. There are additional stable chronic lower thoracic and lumbar compression fractures. Since the patient is a poor historian and unsure of he fall for her last admission 1 month ago. We will consult orthopedic surgery for further evaluation recommendations because a chance fracture is known to unstable. Appreciate Orthopedic's input. Continue pain medications p.r.n.. Will order PT/OT once cleared by orthopedic. (4) Hypertension: Qualifiers: Hypertension type: essential hypertension Qualified Code(s): I10 - Essential (primary) hypertension Code(s): I10 - Essential (primary) hypertension Status: Chronic Assessment and Plan: Patient does have history of hypertension but blood pressures are stable at this time. Will provide orders for IV hydralazine as needed for systolic blood pressures greater than 160. Restart home medications once she is eating and drinking like normal. Continue monitoring. (5) Dementia: Qualifiers: Dementia type: Parkinson's disease Dementia behavioral disturbance: without behavioral disturbance Qualified Code(s): G20 - Parkinson's disease; F02.80 - Dementia in other diseases classified elsewhere without behavioral disturbance Code(s): F03.90 - Unspecified dementia without behavioral disturbance Status: Chronic Time Spent With Patient Time with patient: 25 - 35 minutes Subjective Date/time seen: 07/14/20 11:17 Interval history: Date of service 07/14/2020: Patient reports feeling better today.She denies any pain at this time since she recently had some pain medications given. She does have tenderness to palpation but not at rest. She denies much stool output in a few days. She denies any chest pain, shortness of breath, cough cough fever, chills, nausea, vomiting since arrival, leg swelling, calf pain or any other symptoms at this time. Review of Systems Review of Systems: All systems reviewed & are unremarkable except as noted in HPI and below Exam Narrative: Exam Narrative: General: 84 year-old woman laying flat in bed, appe
[2020-07-14] MEDS: metroNIDAZOLE 500 MG/ISO 100ML 500 MG/100 ML BAG 100 MG IVPB ×2 (11:35→21:20)
[2020-07-14] MEDS: methylPREDNISolone SOD SUCC 40 MG VIAL IV PUSH ×2 (11:35→21:20)
--- NOTE | 2020-07-14 12:40 | PM.CNOR ---
Assessment and Plan Additional Plan This patient is a very pleasant 84-year-old female with was asked to see for evaluation of an incidental finding on abdominal CT scan done yesterday. The radiologist noted a Chance fracture at L2. She had a CT scan of her abdomen on June 05 2020 and I reviewed those images and the fracture at L2 was not present at that time. A Chance fracture is a potentially very serious type of a fracture as it can be associated with severe spinal instability. It usually occurs as a fracture through the posterior elements, typically and classically a fracture of the spinous process that runs longitudinally along the axis of the spinous process approximating the axial plane of the body, and the pedicles and then the vertebral body through a flexion distraction mechanism such as having a seatbelt across the waist only and being in a head on collision. In this case, there is a transverse fracture of the lower aspect of the L2 vertebral body between the inferior endplate and the rest of the vertebral body with slight distraction. I do not see a fracture through the pedicles or through the spinous process. I think the mechanism of this injury is different than a Chance fracture also. She has compression deformities that are chronic of L4 and L5 and also of L1 and T12 so as she tries to stand straight her lie supine there is relative extension moment at L2. Patient denies any recent falls. She denies any back pain at all right now. I think this fracture is occurred as an insufficiency fracture. On exam she is very pleasant. And she was oriented to the year but could not recall the names of either past or current presents. She has normal motor function both ankles denies any numbness or tingling in either lower extremity. Again she denies any pain. She has a colostomy bag on the left side of her abdomen that was placed 17 years ago for Crohn's disease. She is currently being treated for small bowel obstruction and she has a nasogastric tube in place and is NPO. I would recommend that this patients L2 vertebral body distraction fracture be managed by a career resource specialist and I am not a career resource specialist. Her colostomy poses additional difficulties with respective bracing which has to be done in a way to allow access to the colostomy. Close follow-up will be necessary to make sure that the distraction does not increase and become unstable which could cause neurologic compromise potentially. Perhaps the greater risk is that this will go on to a symptomatic nonunion that be problematic and difficult to manage. I do not have expertise in managing this type of fracture. I will speak to the hospitalist service regarding obtaining evaluation by a career resource specialist. History of Present Illness HPI Consult date: 07/14/20 Chief complaint: SBO, chrons disease PMFSH Past Medical History Medical History Anxiety and depression Bipolar disorder Bowel obstruction Chronic anemia Chronic GERD Colostomy in place Crohn's disease Dementia Glaucoma Hip fracture Left hip fracture in 12/2017 after a fall. Right hip fracture in 03/26/2020 after a fall. Hypertension Hypothyroidism Lumbar burst fracture (~12/2017) L1, L3, and L5 burst fractures sustained in a fall. Osteoarthritis Osteoporosis Parkinsons Vitamin D deficiency Surgical History Surgical History History of bilateral carpal tunnel release History of cervical spinal surgery Diskectomy and fusion. History of cholecystectomy History of left hip replacement (~12/2017) History of partial colectomy History of right hip replacement (~03/2020) History of vaginal hysterectomy Family History Family History (Updated 07/14/20 @ 06:23 by Essie Beckman DO) Father Acute myocardial infarction, Onset Age: 72 Mother Parkinson disease Heart attack Sibling Hypertension Cere
[2020-07-14] MEDS: hydrALAZINE HCL 20 MG/ML VIAL 10 MG IV PUSH (14:13)
[2020-07-14] MEDS: SODIUM CHLORIDE 0.9% IV 1,000 ML 60 ML IV CONT (14:14)
[2020-07-14 14:41] LABS: Folic Acid > 20.0 ng/mL (2.76->20)
[2020-07-15 05:51] LABS: Hematocrit 36.6 % (37.0-47.0); Hemoglobin 11.2 g/dL (12.0-15.0); Mean Corpuscular HGB Conc 30.6 g/dl (32-36); Mean Platelet Volume 9.1 fl (7.4-10.4); Platelet Count Result 179 k/mm3 (150-375); Red Blood Count 3.39 M/mm3 (4.2-5.4); Red Cell Distribution Width 14.3 % (11.5-14.5); White Blood Count 8.4 K/mm3 (4.5-10.0)
[2020-07-15] MEDS: metroNIDAZOLE 500 MG/ISO 100ML 500 MG/100 ML BAG 100 MG IVPB ×2 (05:56→14:03)
[2020-07-15 06:00] VITALS: BP 142/59; PULSE 95; RESP 12; TEMP 36.6; O2SAT 96
[2020-07-15 06:05] LABS: Alanine Aminotransferase 37 U/L (4-35); Albumin Level 3.6 g/dL (3.5-5.1); Alkaline Phosphatase 79 U/L (38-126); Anion Gap 9 mmol/L (8-16); Aspartate Amino Transferase 27 U/L (14-36); Bilirubin,Total 0.6 mg/dL (0.2-1.3); Blood Urea Nitrogen 27 mg/dL (7-17); Calcium 8.5 mg/dL (8.4-10.2); Carbon Dioxide 22 mmol/L (22-30); Chloride 116 mmol/L (98-107); Estimated CRCL calculation 27 ml/min; Estimated Glomerular Filt Rate 53; Glucose 107 mg/dL (65-105); Potassium 4.2 mmol/L (3.4-5.0); Sodium 147 mmol/L (137-145)
[2020-07-15] MEDS: methylPREDNISolone SOD SUCC 40 MG VIAL IV PUSH ×2 (06:12→14:04)
--- NOTE | 2020-07-15 07:13 | WPDGIPROGNO ---
Progress Note: A&P Assessment and Plan (1) Partial small bowel obstruction: Code(s): K56.600 - Partial intestinal obstruction, unspecified as to cause Status: Acute Assessment and Plan: Bowel obstruction appears resolved clinically. Plan is for small bowel series today. Etiology unclear but suspicious for Crohn's disease based on prior x-ray reports. If no obstruction by a small bowel series with change to oral medications. Oral prednisone tapering dose suggested and Pentasa mesalamine type product advised. (2) Crohn's disease: Qualifiers: Digestive disease complication type: with intestinal obstruction Gastrointestinal tract location: unspecified location Qualified Code(s): K50.912 - Crohn's disease, unspecified, with intestinal obstruction Code(s): K50.90 - Crohn's disease, unspecified, without complications Status: Acute (3) Dementia: Qualifiers: Dementia type: Parkinson's disease Dementia behavioral disturbance: without behavioral disturbance Qualified Code(s): G20 - Parkinson's disease; F02.80 - Dementia in other diseases classified elsewhere without behavioral disturbance Code(s): F03.90 - Unspecified dementia without behavioral disturbance Status: Chronic Subjective Date/time seen: 07/15/20 07:13 Patient alert but confused this morning. Pulled out her NG tube. Now passing flatus and stool via her colostomy. Review of Systems Review of Systems: ROS unobtainable: Yes unobtainable due to mental status Exam Narrative: Exam Narrative: On physical exam lungs are clear. Heart without murmur. Abdomen is soft flat nontender. Bowel sounds are present. Colostomy in the left lower quadrant now functioning. Brown stool evident. Objective Data Vital Signs Vital Signs: Vital Signs - 24 hr 07/14/20 08:00 07/14/20 12:00 07/14/20 13:59 Temperature 97.8 F 97.3 F L Pulse Rate 86 76 83 Respiratory Rate 12 16 16 Blood Pressure 158/69 H 164/74 H Pulse Oximetry 94 97 94 07/14/20 15:38 07/14/20 19:58 07/15/20 06:00 Temperature 99.4 F 98 F Pulse Rate 100 97 95 Respiratory Rate 12 12 Blood Pressure 126/49 L 133/52 L 142/59 H Pulse Oximetry 97 96 Intake/Output Intake/Output: Intake & Output 07/12/20 07/13/20 07/14/2021 23:59 23:59 23:59 23:59 Intake Total 1250 Output Total 700 950 Balance 550 -950 Meds/Results Medications: Active Medications Generic Name Dose Route Start Last Admin Trade Name Freq PRN Reason Stop Dose Admin Hydralazine HCl 10 mg 07/14/20 06:27 07/14/20 14:13 Hydralazine Hcl 20 Mg/Ml Vial IV PUSH 10 mg Q4H PRN Administration SBP greater than 160 Sodium Chloride 1,000 mls @ 60 mls/hr 07/13/20 23:40 07/14/20 14:14 Normal Saline Iv IV CONT 60 mls/hr .[id number] [facility] Administration Metronidazole 500 mg in 100 mls @ 100 mls/hr 07/14/20 12:00 07/15/20 05:56 Flagyl 500 Mg/Iso Soln 100 Ml IVPB 100 mls/hr Q8HR [facility] Administration Levofloxacin/Dextrose 250 mg in 50 mls @ 50 mls/hr 07/14/20 09:00 07/14/20 11:32 Levaquin 250 Mg/D5w 50 Ml IVPB Infused Q24H [facility] Infusion Methylprednisolone Sodium Succinate 40 mg 07/14/20 12:00 07/15/20 06:12 Methylprednisolone Sod Succ 40 Mg Vial IV PUSH 40 mg Q8HR [facility] Administration Morphine Sulfate 1 mg 07/14/20 11:51 Morphine Sulfate (*Crx) 4 Mg/Ml Inj IV PUSH Q2H PRN Pain Rated 7-10 Multi-Ingred Cream/Lotion/Oil/Oint 1 applic 07/14/20 21:00 07/14/20 21:20 Mineral Oil/Petrolatum,White 1 Applic EACH EYE 08/13/20 21:01 1 applic HS [facility] Administration Pantoprazole Sodium 40 mg 07/14/20 09:00 07/14/20 09:34 Pantoprazole Sodium Iv 40 Mg Vial IV PUSH 40 mg QAM [facility] Administration Radiology Results: ITS Impressions Abdomen/Pelvis CT 07/13/20 20:55 IMPRESSION: 1. Abnormal thickening of the distal small bowel at the level of the terminal ileum with probable associated small arlen
[2020-07-15] MEDS: SODIUM CHLORIDE 0.9% IV 1,000 ML 60 ML IV CONT (08:30)
[2020-07-15] MEDS: levoFLOXacin 250 MG/D5W 50 ML 250 MG/50 ML BAG 50 MG IVPB (08:31)
[2020-07-15] MEDS: DEXTROSE 5%/LACTATED RINGERS 1,000 ML 75 ML IV CONT (11:24)
[2020-07-15] MEDS: MESALAMINE 250 MG CAP CR 1000 MG PO ×3 (12:05→20:46)
[2020-07-15 14:00] VITALS: BP 154/69; PULSE 88; RESP 18; TEMP 36.8; O2SAT 98
--- NOTE | 2020-07-15 15:05 | PM.IMPN ---
Progress Note: A&P Assessment and Plan (1) L2 vertebral fracture: Code(s): S32.029A - Unspecified fracture of second lumbar vertebra, initial encounter for closed fracture Status: Acute Assessment and Plan: Patient's CT scan of her abdomen showed new Chance fracture of L2. As compared to CT scan from May of 2020. There are additional stable chronic lower thoracic and lumbar compression fractures. I talked to the patient's nephew who states that she has had a few episodes where she has slid out of bed at her long-term. He stated that they did imaging and it showed no acute fractures. Dr. Abraham evaluated the patient 07/14/20 and recommended transfer to [facility] Since the patient is a poor historian and unsure of he fall for her last admission 1 month ago. We will consult orthopedic surgery for further evaluation recommendations because a chance fracture is known to unstable. * I Called [facility] and talked to their NeuroSurgery Team, Dr. Landis who accepted the patient to the NeuroSurg Floor now that the patients Crohn's Flare and SBO is resolved. TRANSFER to [facility]- She is stable from a GI Perspective and medical perspective to be transferred to [place] [facility] Floor and was accepted by Dr. Landis. (2) Small bowel obstruction: Code(s): K56.609 - Unspecified intestinal obstruction, unspecified as to partial versus complete obstruction Status: Acute Assessment and Plan: Partial small-bowel obstruction likely associated with Crohn's disease. The patient had pulled her NG tube out twice last night. Dr. Damon saw her this morning and her Small Bowel Follow Through showed Persistent stricture of the terminal ileum with partial small bowel obstruction, which may be from Crohn disease. Dr. Damon thought that district sugar is chronic in nature. Otherwise during his examination she was having gas and stool in her colostomy bag. He recommended continuing her on a prednisone taper for her Crohn's flare: Prednisone 30mg for 1 week, then decrease by 5 mg every week until done. Recommended starting Pentasa 1000 mg QID. She ate a Low Residual Diet without any issues or concerns. Dr. Damon recommended discontinuing antibiotics at this time and Following up with Dr. Carrasquillo her GI specialist she has seen in the past. Continue monitoring. Appreciate GI input. Pain medications as needed. (3) Crohn's disease: Qualifiers: Digestive disease complication type: with intestinal obstruction Gastrointestinal tract location: unspecified location Qualified Code(s): K50.912 - Crohn's disease, unspecified, with intestinal obstruction Code(s): K50.90 - Crohn's disease, unspecified, without complications Status: Acute Assessment and Plan: See above under SBO. (4) Hypertension: Qualifiers: Hypertension type: essential hypertension Qualified Code(s): I10 - Essential (primary) hypertension Code(s): I10 - Essential (primary) hypertension Status: Chronic Assessment and Plan: Patient does have history of hypertension. Blood pressures have been elevated, 154/69, today. She is now eating without any issues and will restart her home medications. Will provide orders for IV hydralazine as needed for systolic blood pressures greater than 160. Continue monitoring. (5) Dementia: Qualifiers: Dementia behavioral disturbance: without behavioral disturbance Dementia type: Parkinson's disease Qualified Code(s): G20 - Parkinson's disease; F02.80 - Dementia in other diseases classified elsewhere without behavioral disturbance Code(s): F03.90 - Unspecified dementia without behavioral disturbance Status: Chronic Assessment and P
[2020-07-15 18:27] LABS: SARS-CoV-2 RNA PCR Negative
[2020-07-15 20:00] VITALS: BP 118/52; PULSE 77; RESP 16; TEMP 36.8; O2SAT 95
--- NOTE | 2020-07-16 04:39 | PC.NURSE ---
Spoke to Ursula at [facility] transfer center to inform them pt Covid test is negative as of 07/15/2020 at 0154am. Height, weight, and most recent vitals given at request. [facility] will call to notify when there is a bed available.
[2020-07-16] MEDS: DEXTROSE 5%/LACTATED RINGERS 1,000 ML 50 ML IV CONT (04:54)
[2020-07-16 06:00] VITALS: BP 137/57; PULSE 67; RESP 18; TEMP 37.1; O2SAT 98
[2020-07-16 06:11] LABS: Hemoglobin 10.3 g/dL (12.0-15.0); Mean Corpuscular HGB Conc 32.2 g/dl (32-36); Mean Corpuscular Hemoglobin 33.1 pg (26-34); Mean Corpuscular Volume 102.9 fl (80-100); Platelet Count Result 148 k/mm3 (150-375); Red Blood Count 3.11 M/mm3 (4.2-5.4); Red Cell Distribution Width 14.2 % (11.5-14.5); White Blood Count 8.7 K/mm3 (4.5-10.0)
[2020-07-16 06:24] LABS: Anion Gap 4 mmol/L (8-16); Blood Urea Nitrogen 27 mg/dL (7-17); Carbon Dioxide 25 mmol/L (22-30); Chloride 109 mmol/L (98-107); Estimated CRCL calculation 27 ml/min; Estimated Glomerular Filt Rate 53; Glucose 105 mg/dL (65-105); Potassium 3.5 mmol/L (3.4-5.0); Sodium 138 mmol/L (137-145)
[2020-07-16] MEDS: predniSONE 20 MG, predniSONE 10 MG 30 MG PO (08:33)
[2020-07-16] MEDS: PANTOPRAZOLE SODIUM IV 40 MG VIAL IV PUSH (08:34)
[2020-07-16] MEDS: MESALAMINE 250 MG CAP CR 1000 MG PO ×3 (08:34→17:01)
[2020-07-16] MEDS: CARBIDOPA/LEVODOPA 25/250 MG TABLET 1 TABLET PO ×3 (09:36→17:01)
[2020-07-16] MEDS: amLODIPine BESYLATE 5 MG TABLET PO (09:36)
[2020-07-16] MEDS: DULoxetine HCL 30 MG CAPSULE.DR PO (09:36)
[2020-07-16] MEDS: PREGABALIN (*CRX) 50 MG CAPSULE PO ×2 (09:37→17:01)
[2020-07-16] MEDS: LEVOTHYROXINE SODIUM 125 MCG TABLET PO (09:37)
[2020-07-16] MEDS: MEMANTINE 10 MG TABLET PO (09:37)
--- NOTE | 2020-07-16 11:40 | WPDGIPROGNO ---
Progress Note: A&P Assessment and Plan (1) Small bowel obstruction: Code(s): K56.609 - Unspecified intestinal obstruction, unspecified as to partial versus complete obstruction Status: Acute Assessment and Plan: Small-bowel obstruction appears resolved. Small-bowel follow-through reveals narrowing in the distal ileum suspicious for Crohn's disease. Plan to continue steroid taper we will start her on Pentasa orally. Follow-up with Dr. Annie Guzman as an outpatient. (2) Crohn's disease: Qualifiers: Digestive disease complication type: with intestinal obstruction Gastrointestinal tract location: unspecified location Qualified Code(s): K50.912 - Crohn's disease, unspecified, with intestinal obstruction Code(s): K50.90 - Crohn's disease, unspecified, without complications Status: Acute Assessment and Plan: Patient known to have Crohn's disease. Status post previous bowel resection and colostomy. 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 Anticipate transfer to tertiary care center. If necessary GI service can follow up at that institution. Subjective Date/time seen: 07/16/20 11:40 Patient feeling better today. Tolerating low residue diet. Adequate stool output noted abdomen less distended and nontender. Review of Systems Review of Systems: All systems reviewed & are unremarkable except as noted in HPI and below Exam Narrative: Exam Narrative: Physical exam reveals patient to be alert comfortable at rest. She is anicteric. Lungs are clear. Abdomen is soft bowel sounds are present colostomy functioning adequately. Objective Data Vital Signs Vital Signs: Vital Signs - 24 hr 07/15/20 14:00 07/15/20 20:00 07/16/20 06:00 Temperature 98.3 F 98.2 F 98.8 F Pulse Rate 88 77 67 Respiratory Rate 18 16 18 Blood Pressure 154/69 H 118/52 L 137/57 L Pulse Oximetry 98 95 98 Intake/Output Intake/Output: Intake & Output 07/13/20 07/14/20 07/15/20 07/16/20 23:59 23:59 23:59 23:59 Intake Total 1250 2870 1000 Output Total 700 2625 125 Balance 550 183 875 Meds/Results Medications: Active Medications Generic Name Dose Route Start Last Admin Trade Name Freq PRN Reason Stop Dose Admin Acetaminophen 650 mg 07/15/20 17:55 Acetaminophen 325 Mg Tablet PO Q4H PRN Headache Amlodipine Besylate 5 mg 07/16/20 09:00 07/16/20 09:36 Amlodipine Besylate 5 Mg Tablet PO 5 mg DAILY [facility] Administration Carbidopa/Levodopa 1 tablet 07/16/20 09:00 07/16/20 09:36 Carbidopa/Levodopa 25/250 Mg Tablet PO 1 tablet TID [facility] Administration Donepezil HCl 10 mg 07/16/20 21:00 Donepezil Hcl 10 Mg Tablet PO HS [facility] Duloxetine HCl 30 mg 07/16/20 09:00 07/16/20 09:36 Duloxetine Hcl 30 Mg Capsule.Dr PO 30 mg Q12HR [facility] Administration Hydralazine HCl 10 mg 07/14/20 06:27 07/14/20 14:13 Hydralazine Hcl 20 Mg/Ml Vial IV PUSH 10 mg Q4H PRN Administration SBP greater than 160 Dextrose/Lactated Ringer's 1,000 mls @ 50 mls/hr 07/15/20 08:40 07/16/20 04:54 Dextrose 5%/Lactated Ringers IV CONT 50 mls/hr .Q20H [facility] Administration Levothyroxine Sodium 125 mcg 07/16/20 09:00 07/16/20 09:37 Levothyroxine Sodium 125 Mcg Tablet PO 125 mcg DAILY@0630 [facility] Administration Memantine 10 mg 07/16/20 09:00 07/16/20 09:37 Memantine 10 Mg Tablet PO 10 mg Q12HR [facility] Administration Mesalamine 1,000 mg 07/15/20 09:00 07/16/20 08:34 Mesalamine 250 Mg Cap Cr PO 1,000 mg QID [facility] Administration Morphine Sulfate 1 mg 07/14/20 11:51 Morphine Sulfate (*Crx) 4 Mg/Ml Inj IV PUSH Q2H PRN Pain Rated 7-10
[2020-07-16 14:00] VITALS: BP 135/66; PULSE 76; RESP 18; TEMP 36.9; O2SAT 98
--- NOTE | 2020-07-16 15:46 | PC.NURSE ---
1, Anna Cunningham clinical instructor for [employer], have reviewed and approve student nurse - Lizette Fisher's charting for the today
--- NOTE | 2020-07-16 15:46 | PM.IMPN ---
Subjective Date/time seen: 07/16/20 15:46 Interval history: Patient is a 84 yo F with history of dementia, hypothyroidism, hypertension and Crohn's disease with chronic colostomy who is seen in follow up for resolved SBO and L2 vertebral Chance fracture; patient awaiting bed from Neurosurgery service at [facility]. Patient states she feels okay today. Her main complaint is having the SCDs placed on her legs earlier. No other complaints. Denies f/c/s, cp/palpitations, sob/cough, n/v/d/c, abd pain, dysuria, hematuria, cloudy urine, calf pain/swelling. Review of Systems Review of Systems: All systems reviewed & are unremarkable except as noted in HPI and below (pleasantly confused at times. A&Ox3) Exam Narrative: Exam Narrative: General: Patient resting supine in bed in no acute distress; feet elevated. A&Ox person, place, year but pleasantly confused at times HEENT: Normocephalic, EOMI, oral mucosa moist. Cardiovascular: Rate and rhythm are regular. No notable murmur, rub, or gallop. Respiratory: Lungs clear to auscultation all [place]. Non-labored breathing. Abdomen: Soft, non-tender, non-distended, bowel sounds present. Extremities: Peripheral pulses intact. No edema. Neuro: No focal neurological deficits. Speech is clear. Objective Data Vital Signs Vital Signs: Vital Signs - 24 hr 07/15/20 20:00 07/16/20 06:00 07/16/20 14:00 Temperature 98.2 F 98.8 F 98.5 F Pulse Rate 77 67 76 Respiratory Rate 16 18 18 Blood Pressure 118/52 L 137/57 L 135/66 Pulse Oximetry 95 98 98 Intake/Output Intake/Output: Intake & Output 07/13/20 07/14/20 07/15/20 07/16/20 23:59 23:59 23:59 23:59 Intake Total 1250 2870 1290 Output Total 263 3435 748 Balance 550 923 022 Meds/Results Medications: Active Medications Generic Name Dose Route Start Last Admin Trade Name Freq PRN Reason Stop Dose Admin Acetaminophen 650 mg 07/15/20 17:55 Acetaminophen 325 Mg Tablet PO Q4H PRN Headache Amlodipine Besylate 5 mg 07/16/20 09:00 07/16/20 09:36 Amlodipine Besylate 5 Mg Tablet PO 5 mg DAILY [place] Administration Carbidopa/Levodopa 1 tablet 07/16/20 09:00 07/16/20 14:10 Carbidopa/Levodopa 25/250 Mg Tablet PO 1 tablet TID [facility] Administration Donepezil HCl 10 mg 07/16/20 21:00 Donepezil Hcl 10 Mg Tablet PO HS [facility] Duloxetine HCl 30 mg 07/16/20 09:00 07/16/20 09:36 Duloxetine Hcl 30 Mg Capsule.Dr PO 30 mg Q12HR [facility] Administration Hydralazine HCl 10 mg 07/14/20 06:27 07/14/20 14:13 Hydralazine Hcl 20 Mg/Ml Vial IV PUSH 10 mg Q4H PRN Administration SBP greater than 160 Dextrose/Lactated Ringer's 1,000 mls @ 50 mls/hr 07/15/20 08:40 07/16/20 04:54 Dextrose 5%/Lactated Ringers IV CONT 50 mls/hr .Q20H [facility] Administration Levothyroxine Sodium 125 mcg 07/16/20 09:00 07/16/20 09:37 Levothyroxine Sodium 125 Mcg Tablet PO 125 mcg DAILY@0630 [facility] Administration Memantine 10 mg 07/16/20 09:00 07/16/20 09:37 Memantine 10 Mg Tablet PO 10 mg Q12HR [facility] Administration Mesalamine 1,000 mg 07/15/20 09:00 07/16/20 14:10 Mesalamine 250 Mg Cap Cr PO 1,000 mg QID [facility] Administration Morphine Sulfate 1 mg 07/14/20 11:51 Morphine Sulfate (*Crx) 4 Mg/Ml Inj IV PUSH Q2H PRN Pain Rated 7-10 Multi-Ingred Cream/Lotion/Oil/Oint 1 applic 07/14/20 21:00 07/15/20 20:47 Mineral Oil/Petrolatum,White 1 Applic EACH EYE 08/13/20 21:01 1 applic HS [facility] Administration Pantoprazole Sodium 40 mg 07/14/20 09:00 07/16/20 08:34 Pantoprazole Sodium Iv 40 Mg Vial IV PUSH 40 mg QAM [facility] Administration Prednisone 20 mg/ Prednisone 30 mg 07/16/20 08:00 07/16/20 08:33 10 mg PO 07/22/20 08:01 30 mg DAILY@0800 [facility] Administration Pregabalin 75 mg 07/16/20 21:00 Pregabalin (*Crx) 75 Mg Capsule PO HS [facility] Pregabalin 50 mg 07/16/20 09:00 07/16/20 09:37 Pregabalin (*Crx) 50 Mg Capsule PO 50 mg BID [facility] Admini
--- NOTE | 2020-07-16 16:10 | PC.NURSE ---
Report given to YARA Oreilly at [place] regarding transfer of the patient. No questions remain.
--- NOTE | 2020-07-16 16:13 | PM.TDS ---
Transfer Discharge Sum: Prov Provider Date of admission: 07/14/20 07:21 Primary care physician: Jaciel Garcia MD Admitting clinician: Essie Beckman DO Consults: 07/13/20 23:37 Consult to Physician Routine Comment: spoke with ED physician Consulting Provider: Bobo Damon truck washer/MD group to consult: [place] Reason for consultation: SBO Has provider been notified: Yes 07/14/20 Consult to Physician Routine Comment: Spoke with Dr. Abraham @ 0739 Consulting Provider: Drake Abraham truck washer/MD group to consult: Orthopedic surgery Reason for consultation: New L2 trans fracture (incidental finding) Has provider been notified: Yes DS: Admitting Diagnosis Admitting Diagnosis Admitting Diagnosis: SBO, crohn's disease, L2 vertebral Chance fracture DS: Discharge Diagnosis Discharge Diagnosis (1) L2 vertebral fracture: Code(s): S32.029A - Unspecified fracture of second lumbar vertebra, initial encounter for closed fracture Status: Acute Assessment and Plan: Patient's CT scan of her abdomen showed new Chance fracture of L2. As compared to CT scan from May of 2020. There are additional stable chronic lower thoracic and lumbar compression fractures. Dr. Abraham, Orthopedic Surgery, consulted and recommended transfer to tertiary care center given that this was felt unstable. [facility] transfer line contacted on and case was discussed with previous Hospitalist provider and Neurosurgeon, Dr. Landis at [facility] who accepted patient for transfer. Bed available on 07/16 and will transfer to [facility] (2) Small bowel obstruction: Code(s): K56.609 - Unspecified intestinal obstruction, unspecified as to partial versus complete obstruction Status: Acute Assessment and Plan: Partial small-bowel obstruction likely associated with Crohn's disease. Appears to have resolved; bowel function returned. Dr. Damon consulted and appreciate input. Continue with low residue diet per GI rec Continue with Crohn's recommendations as detailed below (3) Crohn's disease: Qualifiers: Digestive disease complication type: with intestinal obstruction Gastrointestinal tract location: unspecified location Qualified Code(s): K50.912 - Crohn's disease, unspecified, with intestinal obstruction Code(s): K50.90 - Crohn's disease, unspecified, without complications Status: Acute Assessment and Plan: Dr. Damon consulted and appreciate input. Transitioned to PO prednisone 07/16, as well as, Pentasa per GI rec. Per GI rec, continue prednisone 30 mg x 1 week, then taper by 5 mg every week until taper complete. Continue Pentasa per GI rec Continue Low residual diet per GI rec F/u with GI as outpatient (4) Hypertension: Qualifiers: Hypertension type: essential hypertension Qualified Code(s): I10 - Essential (primary) hypertension Code(s): I10 - Essential (primary) hypertension Status: Chronic Assessment and Plan: BP 130s sys most recently Resume home antihypertensive PRN hydralazine with parameters (5) Dementia: Qualifiers: Dementia behavioral disturbance: without behavioral disturbance Dementia type: Parkinson's disease Qualified Code(s): G20 - Parkinson's disease; F02.80 - Dementia in other diseases classified elsewhere without behavioral disturbance Code(s): F03.90 - Unspecified dementia without behavioral disturbance Status: Chronic Assessment and Plan: History of dementia. Continue with home medications Transfer Discharge Sum: Med Medications Active and Home Medications: Home Medications PreserVision AREDS-2 1 tablet PO DAILY 12/09/19 [History Confirmed 07/14/20] Vi
== END 2020-07-16 20:03 | disposition short-term general hospital (02) | DRG 386 ==
LOC: ANHED 23:39 → ANH3MED 23:55
PROVIDERS: Physician Assistant; Admitting Provider Internal Medicine; Emergency Provider Emergency Medicine; PCP Family Medicine; Visit Provider Physician Assistant
DX: K50.912 Crohn's disease, unspecified, with intestinal obstruction (principal); S32.029A Unspecified fracture of second lumbar vertebra, initial encounter for closed fracture; K56.690 Other partial intestinal obstruction; W19.XXXA Unspecified fall, initial encounter; Z20.822 Contact with and (suspected) exposure to COVID-19; F03.90 Unspecified dementia, unspecified severity, without behavioral disturbance, psychotic disturbance, mood disturbance, and anxiety; I10 Essential (primary) hypertension; F41.8 Other specified anxiety disorders; F31.9 Bipolar disorder, unspecified; K21.9 Gastro-esophageal reflux disease without esophagitis; D64.9 Anemia, unspecified; H40.9 Unspecified glaucoma; E03.9 Hypothyroidism, unspecified; M19.90 Unspecified osteoarthritis, unspecified site; M81.0 Age-related osteoporosis without current pathological fracture; E55.9 Vitamin D deficiency, unspecified; G20 Parkinson's disease; M48.54XD Collapsed vertebra, not elsewhere classified, thoracic region, subsequent encounter for fracture with routine healing; M48.56XD Collapsed vertebra, not elsewhere classified, lumbar region, subsequent encounter for fracture with routine healing; Z96.643 Presence of artificial hip joint, bilateral; Z93.3 Colostomy status; Z98.1 Arthrodesis status; Z90.49 Acquired absence of other specified parts of digestive tract; Z90.710 Acquired absence of both cervix and uterus
CPT/HCPCS: 36415; 74177; 74250; 80048; 80053; 82607; 82746; 83690; 85025; 85027; 85610; 85730; 96361; 96374; 96375; 96376; 99285; A9270; C9113; C9803; G0378; J0360; J1956; J2270; J2405; J2920; J3010; J7030; J7121; J7512; Q9967; U0003; U0005

== ENCOUNTER 2021-02-11 14:11 | Outpatient (RCR) | payer MEDICAID, SELFPAY | END 2021-02-11 23:59 | disposition home or self-care (01) | LOC: ANHAUDIO 14:11 | PROVIDERS: PCP Family Medicine; Visit Provider Family Medicine | DX: Z46.1 Encounter for fitting and adjustment of hearing aid (principal) | CPT/HCPCS: V5160; V5261 ==

== ENCOUNTER 2021-02-11 14:30 | Outpatient (RCR) | payer MEDICAID, SELFPAY | END 2021-02-11 23:59 | disposition home or self-care (01) | LOC: ANHAUDIO 14:30 | PROVIDERS: PCP Family Medicine | DX: Z46.1 Encounter for fitting and adjustment of hearing aid (principal) | CPT/HCPCS: 99199 ==

== ENCOUNTER 2021-03-02 16:36 | Inpatient (IN) | payer MEDICARE, OTHER, MEDICAID, SELFPAY ==
--- NOTE | ~2021-03-02 | XR_ITS ---
EXAMINATION: XR abdomen NG/feed tube insert DATE: 03/04/2021 07:46 INDICATION: Nasogastric tube placement TECHNIQUE: A supine view of the abdomen was obtained for evaluation of feeding tube placement. COMPARISON: 03/04/2021 at 5:49 AM FINDINGS: Nasogastric tube tip in proximal side port in the body of the stomach. Moderate amount of gas scatter ed throughout the colon. Gas within a nondilated loop of small bowel in the left lower quadrant. No d ilated loops of gas-filled small bowel. Postoperative changes in the abdomen. Calcified left lower lo be nodule consistent with old granulomatous disease. Cardiomegaly. Moderate spondylosis with multiple compression/burst fractures throughout the lumbar spine and at T12. IMPRESSION: 1. Nasogastric tube in stomach. 2. Nonspecific nonobstructive bowel gas pattern. 3. Cardiomegaly. Reviewed, dictated and finalized at location A.
--- NOTE | ~2021-03-02 | XR_ITS ---
EXAMINATION: XR sm bowel follow through WS EXAM DATE: 03/04/2021 09:38 INDICATION: Small bowel obstruction follow-up. Patient has had bowel surgery orthopedic surgeries, h as a left lower quadrant ostomy. TECHNIQUE: Cattle Dipper radiograph was acquired. Barium was administered for small bowel exam performed. Carlos almendarez had just removed. Nasogastric tube but she ingested barium and portable KUB obtained bedside at 15 minutes. Pulsed dose reduction fluoroscopy was used with fluoroscopic time of 0.0 minutes. A to carine of 1 images obtained for the exam. Correlation is made to CT abdomen pelvis 03/02/2021. FINDINGS: On the 1st image obtained at 15 minutes postingestion of contrast, there is barium within n ormal appearing jejunum, and several loops of mildly dilated ileum. Contrast was also within the asce nding colon, rapid transit time of 15 minutes. No obstruction. The colonic ileal junction is superimposed on other pelvic loops of small bowel making it specificall y poorly visualized, but no question that there was ileitis on CT scan 2 days ago. IMPRESSION: 1. Mildly dilated ileum with rapid transit time 15 minutes, no obstruction. 2. Mildly dilated ileum, ileitis. Reviewed, dictated and finalized at location A.
--- NOTE | ~2021-03-02 | XR_ITS ---
EXAMINATION: XR abdomen/kub 1V DATE: 03/04/2021 06:03 INDICATION: Small bowel obstruction TECHNIQUE: A supine view of the abdomen was obtained. COMPARISON: 03/03/2021 FINDINGS: Nasogastric tube tip in proximal side port in the body of the stomach. There are some gas scattered t hroughout nondilated bowel most likely colonic. No dilated gas-filled loops of small bowel to suggest obstruction. Postoperative changes knee upper abdomen. Bilateral bipolar type hip hemiarthroplasties . Moderate lumbar spondylosis with multiple compression fractures. IMPRESSION: 1. Nasogastric tube in the stomach with no dilated gas-filled bowel to suggest obstruction. Reviewed, dictated and finalized at location A.
--- NOTE | ~2021-03-02 | XR_ITS ---
EXAMINATION: XR abdomen NG/feed tube insert DATE: 03/03/2021 01:44 INDICATION: Nasogastric tube placement TECHNIQUE: A supine view of the abdomen and lower chest was obtained for evaluation of feeding tube placement. COMPARISON: CT dated 03/02/2021 FINDINGS: Nasogastric tube tip in proximal side port in the body of the stomach. No dilated loops of gas-filled bowel in the visualized abdomen. Portions of the pelvis are excluded from the [id number]. Sutures project over the mid abdomen. There are additional radiopaque foreign bodies projecting over the lef t lower chest and of the midline lower abdomen which on prior CT appear to represent material externa l to the patient. Excreted contrast is seen within the bilateral renal collecting systems from the ea rlier contrast-enhanced CT . Mild atelectasis in the bilateral lower lung zones. Calcified left lower lobe nodule consistent with old granulomatous disease. Heart size is normal. Mild lumbar levocurvatu re with multiple lumbar burst fractures and moderate spondylosis. IMPRESSION: 1. Nasogastric tube in stomach. Reviewed, dictated and finalized at location A.
--- NOTE | ~2021-03-02 | CT_ITS ---
EXAMINATION: CT abdomen pelvis w con DATE: 03/02/2021 22:31 INDICATION: Epigastric pain TECHNIQUE: Computed tomography (CT) of the abdomen and pelvis was performed with 100 mL Omnipaque-350 intravenous contrast. Automated exposure control and iterative reconstruction technique were employe d. The dose-length product was 683.48 mGy-cm. COMPARISON: 07/13/2020 FINDINGS: Calcified left lower lobe nodule consistent with old granulomatous disease. Mild dependent atelectasi s in the bilateral lower lobes. 8 x 4 mm nodular opacity in the anterior right middle lobe. Mild card iomegaly. No pericardial or pleural effusion. Small sliding-type hiatal hernia. Chronic pneumobilia l ikely related to prior cholecystectomy. Liver is otherwise normal. Spleen, pancreas, bilateral adrena l glands are normal. Again seen are a few nonobstructing bilateral renal stones measuring up to 3-4 m m in maximal diameter in the left kidney. Bilateral <6 mm renal cysts. Distal colectomy with Mckenzie' s pouch and left lower quadrant and colostomy. The anterior margins of several loops of small bowel e xtend into a shallow wide mouthed ventral hernia extending along the deep margin of a midline surgica l scar. There is wall thickening with some inflammatory stranding surrounding the terminal ileum cons istent with terminal ileitis such as in the setting of Crohn's disease. There is mild dilation of the immediately more proximal small bowel with pseudofeces sign consistent with likely early or partial small bowel obstruction. No pneumatosis. No abscess or free intraperitoneal gas or fluid. Portions of the bladder and central pelvis are obscured by dense metallic streak artifact from bilateral likely bipolar type hip hemiarthroplasties. Visualized portion of the bladder is normal. The uterus is not i dentified and has likely been surgically resected. Mild thoracolumbar levocurvature with chronic burs t fractures from T12 through L5, all moderate severity except for mild at L3. Associated retropulsion results in multilevel mild to moderate central canal stenosis. Additional severe central canal steno sis at L4-L5 resulting from 7 mm anterolisthesis L4 on L5. Severe lumbar facet osteoarthritis. IMPRESSION: 1. Early/partial small bowel obstruction with transition point at the terminal ileum where there is w all thickening and inflammatory change consistent with recurrent terminal ileitis suspicious for Croh n's disease. 2. Mild cardiomegaly. 3. Small sliding-type hiatal hernia. 4. 8 x 4 mm right middle lobe nodule. Recommend 6-12 month follow-up low-dose noncontrast chest CT. 5. Bilateral nonobstructing nephrolithiasis. 6. Moderate to severe lumbar central canal stenosis resulting from combination of spondylosis, multip le burst fractures and 7 mm anterolisthesis L4 on L5. Reviewed, dictated and finalized at location A. IMPRESSION: 1. Early/partial small bowel obstruction with transition point at the terminal ileum where there is wall thickening and inflammatory change consistent with re current terminal ileitis suspicious for Crohn's disease. 2. Mild cardiomegaly. 3. Small sliding-type hiatal hernia. 4. 8 x 4 mm right middle lobe nodule. Recommend 6-12 month follow-up low-dose n oncontrast chest CT. 5. Bilateral nonobstructing nephrolithiasis. 6. Moderate to severe lumbar central canal stenosis resulting from combination of spondylosis, multiple burst fractures and 7 mm anterolisthesis L4 on L5.
[2021-03-02 16:56] VITALS: BP 165/71; PULSE 84; RESP 16; TEMP 36.6; O2SAT 93
[2021-03-02 17:05] LABS: Basophils Percent Auto 0.4 % (0.2-1.2); Eosinophils Absolute Auto 0.1 K/mm3 (0-0.3); Eosinophils Percent Auto 1.6 % (0-4.4); Hematocrit 42.5 % (37.0-47.0); Hemoglobin 13.3 g/dL (12.0-15.0); Immature Granulocyte Absolute 0.05 K/mm3 (0.00-0.031); Immature Granulocyte Percent A 0.6 % (0-0.5); Lymphocytes Absolute Auto 0.78 K/mm3 (0.9-3.2); Lymphocytes Percent Auto 10.1 % (18.3-44.2); Mean Corpuscular HGB Conc 31.3 g/dl (32-36); Mean Corpuscular Hemoglobin 34.5 pg (26-34); Mean Corpuscular Volume 110.4 fl (80-100); Monocytes Absolute Auto 0.4 K/mm3 (0.1-0.6); Monocytes Percent Auto 5.3 % (2.6-8.5); Neutrophils Absolute Auto 6.3 K/mm3 (1.3-6.7); Platelet Count Result 165 k/mm3 (150-375); Red Blood Count 3.85 M/mm3 (4.2-5.4); Red Cell Distribution Width 14.1 % (11.5-14.5); White Blood Count 7.7 K/mm3 (4.5-10.0)
[2021-03-02 17:15] LABS: Alanine Aminotransferase 13 U/L (4-35); Albumin Level 4.4 g/dL (3.5-5.1); Alkaline Phosphatase 95 U/L (38-126); Anion Gap 10 mmol/L (8-16); Aspartate Amino Transferase 42 U/L (14-36); Bilirubin,Total 0.3 mg/dL (0.2-1.3); Blood Urea Nitrogen 19 mg/dL (7-17); Calcium 8.9 mg/dL (8.4-10.2); Carbon Dioxide 27 mmol/L (22-30); Chloride 108 mmol/L (98-107); Estimated Glomerular Filt Rate 60; Glucose 115 mg/dL (65-110); Lipase 41 U/L (23-300); Potassium 3.9 mmol/L (3.4-5.0); Sodium 145 mmol/L (137-145)
--- NOTE | 2021-03-02 19:40 | PC.NURSE ---
Pt actively vomiting in WR. Pt awake and upright in wheelchair. Offered wash cloths and given emesis bag.
[2021-03-02 20:04] VITALS: BP 152/86; PULSE 86; RESP 18; TEMP 36.6; O2SAT 100
--- NOTE | 2021-03-02 21:00 | ED.ABDPAIN ---
HPI - Abdominal Pain General Chief Complaint: Abdominal Pain Stated Complaint: abd pain Time Seen by Provider: 03/02/21 20:56 History of Present Illness HPI narrative: Patient is an 85-year-old female who presents ER with epigastric pain. Ongoing over the last day. Reports she has decreased output from her colostomy bag but continues to have gas. She endorses nausea and vomiting but no abdominal distention. No fevers or chills or sweats. Cannot report any alleviating factors. Patient has history of Crohn's disease. Related Data Home Medications Medication Instructions Recorded Confirmed PreserVision AREDS-2 1 tablet PO DAILY 12/09/19 03/03/21 Viibryd 10 mg PO DAILY 12/09/19 03/03/21 acetaminophen 1,000 mg PO Q6H PRN 12/09/19 03/03/21 amlodipine [Norvasc] 5 mg PO DAILY 12/09/19 03/03/21 baclofen 10 mg PO QPM 12/09/19 03/03/21 calcium carbonate-vitamin D3 1 tablet PO BID 12/09/19 03/03/21 [Calcium 600 + D(3)] calcium polycarbophil [Fiber 625 mg PO BID 12/09/19 03/03/21 (calcium polycarbophil)] carbidopa-levodopa 1 tablet PO TID 12/09/19 03/03/21 cholecalciferol (vitamin D3) 125 mcg PO DAILY 12/09/19 03/03/21 [Vitamin D3] dicyclomine 20 mg PO Q6H PRN 12/09/19 03/03/21 donepezil 10 mg PO HS 12/09/19 03/03/21 duloxetine [Cymbalta] 30 mg PO DAILY 12/09/19 03/03/21 ergocalciferol (vitamin D2) 50,000 unit PO 2XW 12/09/19 03/03/21 ferrous sulfate 325 mg PO BID 12/09/19 03/03/21 fluticasone propionate [Flonase 2 spray INTRANASAL DAILY PRN 12/09/19 03/03/21 Allergy Relief] levothyroxine 125 mcg PO QAM 12/09/19 03/03/21 loratadine 10 mg PO DAILY PRN 12/09/19 03/03/21 meclizine 25 mg PO HS 12/09/19 03/03/21 melatonin 10 mg PO HS 12/09/19 03/03/21 memantine [Namenda] 10 mg PO BID 12/09/19 03/03/21 polyethylene glycol 3350 [Miralax] 17 g PO DAILY PRN 12/09/19 03/03/21 quetiapine 12.5 mg PO HS 12/09/19 03/03/21 Retaine PM 1 applic OPHTHALMIC (EYE) HS 03/30/20 03/03/21 cyanocobalamin (vitamin B-12) 1,000 mcg PO MONTHLY 06/05/20 03/03/21 hydrocodone-acetaminophen [Crane] 1 tablet PO Q6H PRN 06/05/20 03/03/21 pregabalin [Lyrica] 50 mg PO BID 06/05/20 03/03/21 pregabalin [Lyrica] 75 mg PO HS 06/05/20 03/03/21 baclofen 5 mg PO QAM AND QPM 07/14/20 03/03/21 mesalamine 1,000 mg PO QID 07/14/20 03/03/21 Biofreeze (menthol) 1 dose TOPICAL TID PRN 03/03/21 03/03/21 clotrimazole-betamethasone 1 applic TOPICAL BID PRN 03/03/21 03/03/21 cyanocobalamin (vitamin B-12) 1,000 mcg PO DAILY 03/03/21 03/03/21 dicyclomine 20 mg PO AC 03/03/21 03/03/21 duloxetine 20 mg PO HS 03/03/21 03/03/21 meclizine 25 mg PO Q6-8H PRN 03/03/21 03/03/21 Allergies Allergy/AdvReac Type Severity Reaction Status Date / Time No Known Allergies Allergy Verified 03/03/21 02:52 Review of Systems Review of Systems: All systems reviewed & are unremarkable except as noted in HPI and below Constitutional: Constitutional: Denies chills, Denies fever(s) and Denies weakness ENT: Denies nasal congestion and Denies sore throat Cardiovascular: Cardiovascular: Denies chest pain, Denies rapid heart rate and Denies radiating jaw, neck or arm pain Respiratory: Respiratory: Denies cough and Denies dyspnea Gastrointestinal: Gastrointestinal: Reports abdominal pain, Denies bloating, Denies diarrhea, Reports nausea and Reports vomiting Genitourinary: Genitourinary: Denies nocturia, Denies dysuria and Denies flank pain PMFSH Past Medical History Medical History Anxiety and depression Bipolar disorder Bowel obstruction Chronic anemia Chronic GERD Colostomy in place Crohn's disease Dementia Glaucoma Hip fracture Left hip fracture in 12/2017 after a fall. Right hip fracture in 03/26/2020 after a fall. Hypertension Hypothyroidism Lumbar burst fracture (~12/2017) L1, L3, and L5 burst fractures sustained in a fall. Osteoarthritis Osteoporosis Parkinsons Vitamin D deficiency Surgical History Surgical History (Revi
[2021-03-02 21:04] VITALS: BP 139/89; PULSE 90; RESP 18; O2SAT 98
[2021-03-02 22:23] LABS: Basophils Percent Auto 0.3 % (0.2-1.2); Eosinophils Absolute Auto 0.1 K/mm3 (0-0.3); Eosinophils Percent Auto 0.6 % (0-4.4); Hematocrit 43.1 % (37.0-47.0); Immature Granulocyte Absolute 0.04 K/mm3 (0.00-0.031); Immature Granulocyte Percent A 0.3 % (0-0.5); Lymphocytes Percent Auto 6.8 % (18.3-44.2); Mean Corpuscular HGB Conc 32.5 g/dl (32-36); Mean Corpuscular Hemoglobin 34.7 pg (26-34); Mean Corpuscular Volume 106.7 fl (80-100); Mean Platelet Volume 8.9 fl (7.4-10.4); Monocytes Absolute Auto 0.7 K/mm3 (0.1-0.6); Monocytes Percent Auto 5.6 % (2.6-8.5); Neutrophils Absolute Auto 10.2 K/mm3 (1.3-6.7); Neutrophils Percent Auto 86.4 % (45.5-73.1); Platelet Count Result 173 k/mm3 (150-375); Red Blood Count 4.04 M/mm3 (4.2-5.4); Red Cell Distribution Width 13.9 % (11.5-14.5); White Blood Count 11.8 K/mm3 (4.5-10.0)
[2021-03-02 22:45] LABS: Alanine Aminotransferase 20 U/L (4-35); Albumin Level 4.5 g/dL (3.5-5.1); Alkaline Phosphatase 94 U/L (38-126); Anion Gap 10 mmol/L (8-16); Aspartate Amino Transferase 52 U/L (14-36); Bilirubin,Total 0.4 mg/dL (0.2-1.3); Blood Urea Nitrogen 19 mg/dL (7-17); Calcium 9.2 mg/dL (8.4-10.2); Carbon Dioxide 27 mmol/L (22-30); Chloride 107 mmol/L (98-107); Estimated Glomerular Filt Rate 60; Glucose 127 mg/dL (65-110); Lipase 37 U/L (23-300); Potassium 3.8 mmol/L (3.4-5.0); Sodium 144 mmol/L (137-145)
[2021-03-02] MEDS: SODIUM CHLORIDE 0.9% IV 1,000 ML 999 ML IV CONT (22:48)
[2021-03-02] MEDS: MORPHINE SULFATE (*CRX) 4 MG/ML INJ IV PUSH (22:49)
[2021-03-02] MEDS: ONDANSETRON INJ 4 MG/2 ML VIAL IV PUSH (22:49)
[2021-03-02 23:45] VITALS: BP 158/77; PULSE 90; RESP 20; O2SAT 100
[2021-03-03] MEDS: DEXAMETHASONE SOD PHOS INJ 4 MG/ML VIAL IV PUSH ×3 (01:14→20:33)
[2021-03-03 01:18] VITALS: BP 161/66; PULSE 87; RESP 20; O2SAT 100
--- NOTE | 2021-03-03 01:44 | PC.NURSE ---
NG tube placement verified by portable KUB xray, and ED MD Barbour gave OK to use.
--- NOTE | 2021-03-03 01:51 | PC.NURSE ---
marlinar faxed to [address] [place] [address]. pt to go to [phone].
[2021-03-03 02:09] VITALS: PULSE 92; RESP 16; TEMP 36.3; O2SAT 98
--- NOTE | 2021-03-03 02:09 | PC.NURSE ---
Report to YARA Driscoll for [id number].
--- NOTE | 2021-03-03 02:30 | ADMGEN ---
This patient, Lyndsey Lee, was admitted to Medical Room 344-01. Patient/family oriented to hospital policies and general routines including ID bracelet, bed and alarms, visiting hours, pain management, procedures, bathroom and other care routines, personal items, smoking policy, room service/diet, and visiting hours. Information on how to activate the Rapid Response Team has been discussed. Patient/Family are encouraged to report perceived risks to care and to ask questions if they do not understand what they are told or what they should do.
[2021-03-03] MEDS: SODIUM CHLORIDE 0.9% IV 1,000 ML 125 ML IV CONT ×2 (02:43→12:29)
[2021-03-03 02:51] VITALS: BMI 23.8
[2021-03-03 03:25] VITALS: BP 171/65; PULSE 89; RESP 18; TEMP 36.7; O2SAT 95
[2021-03-03 03:33] LABS: Add Urine Microscopic? NO; Appearance Urine Clear (Clear); Bilirubin Urine Negative (Negative); Blood Urine Negative (Negative); Color Urine Yellow (Yellow); Glucose Urine UA Negative (Negative); Ketones Urine Negative (Negative); Leukocyte Esterase Ur Negative LEU/UL (Negative); Nitrate Urine Negative (Negative); Protein Urine Negative (Negative); Specific Grav Ur 1.029 (1.001-1.035); Urobilinogen Urine Negative mg/dL (<2.0)
--- NOTE | 2021-03-03 04:03 | PM.IMHP ---
H&P: HPI History of Present Illness Date/Time: 03/03/21 04:03 Chief Complaint: abdominal pain Narrative: Patient is an 85-year-old female [facility] resident who presents to the ER with 2 days history of abdominal pain nausea and vomiting. She also reports decreased output from her colostomy bag but does report it gets filled up with gas. She reports she had nausea and decreased appetite along with abdominal distension and several episodes of vomiting since past 2 days. She denies any fevers chills. She had a history of Crohn's disease and has similar episodes back in July 2020. Review of Systems Review of Systems: - CONSTITUTIONAL: Denies weight loss, fever and chills. - HEENT: Denies changes in vision and hearing - RESPIRATORY: Denies SOB and cough. - CV: Denies palpitations and CP. - GI: Reports abdominal pain, nausea, vomiting and denies diarrhea. - : Denies dysuria and urinary frequency. - MSK: Denies myalgia and joint pain. - SKIN: Denies rash and pruritus. - NEUROLOGICAL: Denies headache and syncope. - PSYCHIATRIC: Denies recent changes in mood. Denies anxiety and depression. All systems reviewed & are unremarkable except as noted in HPI and below Constitutional: Constitutional: Reports fatigue and Reports weakness Neurologic: Reports weakness Endocrine: Endocrine: Reports fatigue PMFSH Past Medical History Medical History Anxiety and depression Bipolar disorder Bowel obstruction Chronic anemia Chronic GERD Colostomy in place Crohn's disease Dementia Glaucoma Hip fracture Left hip fracture in 12/2017 after a fall. Right hip fracture in 03/26/2020 after a fall. Hypertension Hypothyroidism Lumbar burst fracture (~12/2017) L1, L3, and L5 burst fractures sustained in a fall. Osteoarthritis Osteoporosis Parkinsons Vitamin D deficiency Surgical History Surgical History History of bilateral carpal tunnel release History of cervical spinal surgery Diskectomy and fusion. History of cholecystectomy History of left hip replacement (~12/2017) History of partial colectomy History of right hip replacement (~03/2020) History of vaginal hysterectomy Family History Family History Father Acute myocardial infarction, Onset Age: 72 Mother Parkinson disease Heart attack Sibling Hypertension Cerebrovascular accident Social History Social History (Updated 07/14/20 @ 06:24 by Essie Beckman DO) Social History: The patient lives at [facility]. She was never and has no children. 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 She is a lifelong nonsmoker and denies alcohol and illicit substance use. Her nephew, Radu Adames, as her healthcare power of immigration attorney. She is listed as a full code. Smoking status: Never smoker Alcohol intake: never Substance use: never Gender identity (if verbalized by the patient): Female Sexual Orientation (if Verbalized by the Patient): Straight or Heterosexual Spiritual care concerns: No Meds Home Medications and Allergies Home Medications Medication Instructions Recorded Confirmed Type PreserVision AREDS-2 1 tablet PO DAILY 12/09/19 03/03/21 History Viibryd 10 mg PO DAILY 12/09/19 03/03/21 History acetaminophen 1,000 mg PO Q6H PRN 12/09/19 03/03/21 History amlodipine [Norvasc] 5 mg PO DAILY 12/09/19 03/03/21 History baclofen 10 mg PO QPM 12/09/19 03/03/21 History calcium carbonate-vitamin D3 1 tablet PO BID 12/09/19 03/03/21 History [Calcium 600 + D(3)] calcium polycarbophil [Fiber 625 mg PO BID 12/09/19 03/03/21 History (calcium polycarbophil)] carbidopa-levodopa 1 tablet PO TID 12/09/19 03/03/21 History cholecalciferol (vitamin D3) 125 mcg PO DAILY 12/09/19 03/03/21 History [Vitamin D3] dicyclomine
[2021-03-03 06:00] VITALS: BP 155/78; PULSE 91; RESP 18; TEMP 37.1; O2SAT 97
--- NOTE | 2021-03-03 13:33 | PM.CNGS ---
Assessment and Plan Assessment and plan (1) Small bowel obstruction: Code(s): K56.609 - Unspecified intestinal obstruction, unspecified as to partial versus complete obstruction Status: Acute Assessment and Plan: CT scan reviewed. There is evidence of terminal ileitis and immediately proximal to this is some mildly dilated loops of small bowel with pseudofeces sign, suggesting there is a possible small bowel obstruction secondary to the terminal ileitis. Most likely this is related to her Crohn's disease, although this could be secondary to adhesions as well. We would agree with GI consultation for management of her Crohn's, and to continue NG tube decompression, bowel rest, analgesics, and IV fluids. NG tube appears to be in good position. Due to her age, previous abdominal surgeries, and multiple co-morbidities, she is a poor surgical candidate. Hopefully, this will improve with medical/conservative treatment and she can avoid surgical intervention. We will continue to monitor with serial abdominal exams and imaging. I have ordered a KUB for tomorrow morning. Thank you for allowing us to see the patient in consultation and we will continue to follow along with you. (2) Crohn's disease: Qualifiers: Digestive disease complication type: with intestinal obstruction Gastrointestinal tract location: unspecified location Qualified Code(s): K50.912 - Crohn's disease, unspecified, with intestinal obstruction Code(s): K50.90 - Crohn's disease, unspecified, without complications Status: Acute Assessment and Plan: CT findings of wall thickening and inflammatory change of the terminal ileum, likely related to her Crohn's. GI has been consulted. Would agree with continuing IV steroids and await GI's recommendations. 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 Status: Chronic Assessment and Plan: Multiple previous abdominal surgeries with what appears to be a sigmoid resection with an end descending colostomy in the . No gas or stool output in the ostomy bag on exam today. (4) Dementia: Qualifiers: Dementia type: Parkinson's disease Dementia behavioral disturbance: without behavioral disturbance Qualified Code(s): G20 - Parkinson's disease; F02.80 - Dementia in other diseases classified elsewhere without behavioral disturbance Code(s): F03.90 - Unspecified dementia without behavioral disturbance Status: Chronic (5) Hypertension: Qualifiers: Hypertension type: essential hypertension Qualified Code(s): I10 - Essential (primary) hypertension Code(s): I10 - Essential (primary) hypertension Status: Chronic (6) Parkinsons: Code(s): G20 - Parkinson's disease Status: Chronic (7) Incisional hernia without obstruction or gangrene: Code(s): K43.2 - Incisional hernia without obstruction or gangrene Status: Acute Assessment and Plan: CT scan showed a wide-mouthed ventral hernia containing some loops of small bowel, but this does not appear to be causing the obstruction by CT or on exam. Additional Plan I have discussed the patient's case and plan of care with Dr. Campos. History of Present Illness Consult details Consult date: 03/03/21 Reason for consult: other (Partial small bowel obstruction with terminal ileitis) Requesting physician: Pawel Barbour MD Narrative: This is an 85-year-old elderly female with a history of multiple medical problems, who was transferred to the ER from [facility] for a 2 day history of abdominal pain and vomiting. She has a history of dementia and Parkinson's, and is able to answer some questions while gathering a history. The rest of her history is obtained from review of her electronic medical records. She apparently had generalized abdominal pain and vomiting with generalized weakness. She reports also having vomiting while in the ER. She has been evaluated here an
[2021-03-03 14:22] VITALS: BP 140/64; PULSE 86; RESP 16; TEMP 37.1; O2SAT 92
[2021-03-03] MEDS: MORPHINE SULFATE (*CRX) 4 MG/ML INJ IV PUSH (15:23)
--- NOTE | 2021-03-03 16:07 | PM.IMPN ---
Progress Note: A&P Assessment and Plan (1) Small bowel obstruction: Code(s): K56.609 - Unspecified intestinal obstruction, unspecified as to partial versus complete obstruction Status: Acute Assessment and Plan: SBO: Distal small bowel obstruction with masslike wall thickening causing obstruction and terminal ileum approximately 3 cm segment Similar presentation back in July 2020 Likely related to Crohn's disease GI has been consulted, and started on steroid Solu-Medrol NG tube has been placed in the ER will connect to low intermittent suction General surgery has been consulted,recommendations appreciated Continue NPO and bowel rest Continue IVF Follow KUB Subjective Date/time seen: 03/03/21 16:07 Interval history: Agree with current A/P. Will continue to monitor Objective Data Vital Signs Vital Signs: Vital Signs - 24 hr 03/02/21 16:56 03/02/21 20:04 03/02/21 21:04 Temperature 36.6 C 36.6 C Pulse Rate 84 86 90 Respiratory Rate 16 18 18 Blood Pressure 165/71 H 152/86 H 139/89 Pulse Oximetry 93 100 98 03/02/21 23:45 03/03/21 01:18 03/03/21 02:09 Temperature 36.3 C L Pulse Rate 90 87 92 Respiratory Rate 20 20 16 Blood Pressure 158/77 H 161/66 H Pulse Oximetry 100 100 98 03/03/21 03:25 03/03/21 06:00 03/03/21 14:22 Temperature 36.7 C 37.1 C 37.1 C Pulse Rate 89 91 86 Respiratory Rate 18 18 16 Blood Pressure 171/65 H 155/78 H 140/64 Pulse Oximetry 95 97 92 Intake/Output Intake/Output: Intake & Output 02/28/21 03/01/21 03/02/21 03/03/21 23:59 23:59 23:59 23:59 Intake Total 2000 Output Total 480 Balance 1520 Meds/Results Medications: Active Medications Generic Name Dose Route Start Last Admin Trade Name Freq PRN Reason Stop Dose Admin Dexamethasone Sodium Phosphate 4 mg 03/03/21 09:00 03/03/21 08:21 Dexamethasone Sod Phos Inj 4 Mg/Ml Vial IV PUSH 4 mg Q12HR [place] Administration Acetaminophen 1,000 mg in 100 mls @ 400 mls/hr 03/03/21 00:46 Ofirmev 1,000 Mg Ivpb IVPB 03/04/21 00:45 Q6H PRN Mild Pain (1-3) or Fever Sodium Chloride 1,000 mls @ 125 mls/hr 03/03/21 00:50 03/03/21 12:29 Normal Saline Iv IV CONT 125 mls/hr .Q8H [place] Administration Mineral Oil/Petrolatum/Glycerin 1 applic 03/03/21 21:00 Mineral Oil/Petrolatum Ophth Oint 3.5 Gm (Eye Lubricant) EACH EYE HS [place] Morphine Sulfate 4 mg 03/03/21 00:46 03/03/21 15:23 Morphine Sulfate (*Crx) 4 Mg/Ml Inj IV PUSH 4 mg Q2H PRN Administration Pain Rated 7-10 Morphine Sulfate 2 mg 03/03/21 14:09 Morphine Sulfate (*Crx) 2 Mg/Ml Inj IV PUSH Q2H PRN Pain Rated 4-6 Ondansetron HCl 4 mg 03/03/21 00:46 Ondansetron Inj 4 Mg/2 Ml Vial IV PUSH Q4H PRN Nausea Radiology Results: ITS Impressions Abdomen X-Ray 03/03/21 08:08 IMPRESSION: 1. Nasogastric tube in stomach. Abdomen/Pelvis CT 03/03/21 08:36 IMPRESSION: 1. Early/partial small bowel obstruction with transition point at the terminal ileum where there is wall thickening and inflammatory change consistent with recurrent terminal ileitis suspicious for Crohn's disease. 2. Mild cardiomegaly. 3. Small sliding-type hiatal hernia. 4. 8 x 4 mm right middle lobe nodule. Recommend 6-12 month follow-up low-dose noncontrast chest CT. 5. Bilateral nonobstructing nephrolithiasis. 6. Moderate to severe lumbar central canal stenosis resulting from combination of spondylosis, multiple burst fractures and 7 mm anterolisthesis L4 on L5. Labs Labs: Laboratory Results - last 24 hr 03/02/21 03/02/21 03/02/21 16:57 16:57 22:16 WBC 7.7 11.8 H RBC 3.85 L 4.04 L Hgb 13.3 D 14.0 Hct 42.5 43.1 MCV 110.4 H 106.7 H MCH 34.5 H 34.7 H MCHC 31.3 L 32.5 RDW 14.1 13.9 Plt Count 165 173 MPV 9.0 8.9 Immature Gran % (Auto) 0.6 H 0.3 Neut % (Auto) 82.0 H 86.4 H Lymph % (Auto) 10.1 L 6.8 L [place] % (Auto) 5.3 5.6 Eos % (Auto
[2021-03-03] MEDS: KCL 40 MEQ/D5 1/2NS 1,000 ML 80 ML IV CONT (18:52)
[2021-03-03] MEDS: ENOXAPARIN 30 MG/0.3 ML SYRINGE SUB-Q (18:53)
[2021-03-03 20:25] VITALS: BP 150/65; PULSE 86; RESP 16; TEMP 35.8; O2SAT 94
[2021-03-03] MEDS: FAMOTIDINE 20 MG/2 ML VIAL IV PUSH (20:33)
[2021-03-04 05:59] VITALS: BP 142/60; PULSE 77; RESP 16; TEMP 35.7; O2SAT 98
[2021-03-04 06:13] LABS: Hematocrit 37.4 % (37.0-47.0); Hemoglobin 12.2 g/dL (12.0-15.0); Mean Corpuscular HGB Conc 32.6 g/dl (32-36); Mean Corpuscular Hemoglobin 35.4 pg (26-34); Mean Corpuscular Volume 108.4 fl (80-100); Mean Platelet Volume 9.3 fl (7.4-10.4); Platelet Count Result 180 k/mm3 (150-375); Red Blood Count 3.45 M/mm3 (4.2-5.4); Red Cell Distribution Width 13.8 % (11.5-14.5); White Blood Count 9.8 K/mm3 (4.5-10.0)
[2021-03-04 06:29] LABS: Anion Gap 7 mmol/L (8-16); Blood Urea Nitrogen 15 mg/dL (7-17); Calcium 7.7 mg/dL (8.4-10.2); Carbon Dioxide 25 mmol/L (22-30); Chloride 110 mmol/L (98-107); Estimated CRCL calculation 29 ml/min; Estimated Glomerular Filt Rate 60; Glucose 106 mg/dL (65-110); Potassium 4.3 mmol/L (3.4-5.0); Sodium 142 mmol/L (137-145)
--- NOTE | 2021-03-04 08:48 | PM.IMPN ---
Progress Note: A&P Assessment and Plan (1) Partial small bowel obstruction: Code(s): K56.600 - Partial intestinal obstruction, unspecified as to cause Status: Acute Assessment and Plan: Patient presents with abdominal pain. CT the abdomen showing partial small bowel obstruction with transition point at the terminal ileum where there is wall thickening and inflammatory change consistent with recurrent terminal ileitis suspicious for Crohn's disease. suspect partial small-bowel obstruction related to exacerbation. She has been started on IV steroids. She is having increasing stool output. KUB today showing no dilated bowel. Defer to General surgery consider starting clear liquid diet. Patient has removed her NG tube and will try not to have to put this back in at this time. (2) Acute Crohn's disease: Qualifiers: Digestive disease complication type: with intestinal obstruction Qualified Code(s): K50.912 - Crohn's disease, unspecified, with intestinal obstruction Code(s): K50.90 - Crohn's disease, unspecified, without complications Status: Acute Assessment and Plan: CT scan as mentioned above consistent with Crohn's exacerbation. Currently on dexamethasone. GI has been consulted. Wean steroids once she is able to take oral intake. (3) Dementia: Qualifiers: Dementia behavioral disturbance: without behavioral disturbance Dementia type: Parkinson's disease Qualified Code(s): G20 - Parkinson's disease; F02.80 - Dementia in other diseases classified elsewhere without behavioral disturbance Code(s): F03.90 - Unspecified dementia without behavioral disturbance Status: Chronic Assessment and Plan: Other providers have documented that the patient has been more oriented. Worsening confusion probably related to the fact she is off her medications and from the IV steroids. Will resume home medications when patient is able to take oral intake which will hopefully be later today. (4) Hypertension: Qualifiers: Hypertension type: essential hypertension Qualified Code(s): I10 - Essential (primary) hypertension Code(s): I10 - Essential (primary) hypertension Status: Chronic Assessment and Plan: Patient's blood pressure was reviewed on 03/04 Blood pressure remains reasonably well controlled. Will continue to monitor. Resume home medications when able. (5) Parkinsons: Code(s): G20 - Parkinson's disease Status: Chronic Assessment and Plan: patient feeling very weak. Probably combination of bed rest and being off her medications. Resume Sinemet when able. Start PT and OT. Increase activity level. (6) DVT prophylaxis: Code(s): Z29.9 - Encounter for prophylactic measures, unspecified Status: Acute Assessment and Plan: [place] Subjective Date/time seen: 03/04/21 08:48 Interval history: 85yo female with dementia and Crohns disease here for abdominal pain and found to have a partial SBO. Assuming care. Chart reviewed. Patient is alert but confused so hx is suspect. She denies n/v. She denies abdominal pain. No chest pain. She feels weak. RN states good stool output from colostomy yesterday Review of Systems Review of Systems: ROS unobtainable: Yes unobtainable due to mental status Exam Narrative: AF 96.2 142/60 77 16 98% ra Gen - NARD Chest - CTA bilaterally, nml RR CV - RRR S1/S2 Abd - Soft, ND, Positive BS. ostomy in the left lower quadrant with brown stool in the bag Ext - No pedal edema Neuro - Alert but confused. No focal weakness. Psych - Nml mood and affect Skin - Warm and dry Objective Data Vital Signs Vital Signs: Vital Signs - 24 hr 03/03/21 14:22 03/03/21 20:25 03/04/21 05:59 Temperature 98.8 F 96.4 F L 96.2 F L Pulse Rate 86 86 77 Respiratory Rate 16 16 16 Blood Pressure 140/64 150/65 H 142/60 H Pulse Oximetry 92 9
[2021-03-04] MEDS: ENOXAPARIN 30 MG/0.3 ML SYRINGE SUB-Q (09:19)
[2021-03-04] MEDS: DEXAMETHASONE SOD PHOS INJ 4 MG/ML VIAL IV PUSH (09:19)
[2021-03-04] MEDS: FAMOTIDINE 20 MG/2 ML VIAL IV PUSH (09:19)
[2021-03-04] MEDS: KCL 40 MEQ/D5 1/2NS 1,000 ML 80 ML IV CONT (12:04)
--- NOTE | 2021-03-04 13:09 | WPDGICN ---
Assessment and Plan Assessment and plan (1) Crohn's disease: Qualifiers: Digestive disease complication type: with intestinal obstruction Gastrointestinal tract location: unspecified location Qualified Code(s): K50.912 - Crohn's disease, unspecified, with intestinal obstruction Code(s): K50.90 - Crohn's disease, unspecified, without complications Status: Acute Assessment and Plan: Patient with known Crohn's disease. Now with partial small-bowel obstruction. Plan is to continue mesalamine after discharge. She currently is responding to IV steroids. As obstruction resolves whilst introduce oral steroids on a tapering dose. Start with clear liquid diet advance as tolerated. (2) Partial small bowel obstruction: Code(s): K56.600 - Partial intestinal obstruction, unspecified as to cause Status: Acute Assessment and Plan: Patient appears to have partial small-bowel obstruction on the basis of terminal ileitis. Similar to previous admission in July. She is improving with nonsurgical conservative management. NG tube now out. Small-bowel series reveals no blockage but slow passage contrast would recommend advancing diet initially with liquid diet advancing as tolerated. IV steroids will be changed to oral steroids as diet as tolerated. (3) Dementia: Qualifiers: Dementia type: Parkinson's disease Dementia behavioral disturbance: without behavioral disturbance Qualified Code(s): G20 - Parkinson's disease; F02.80 - Dementia in other diseases classified elsewhere without behavioral disturbance Code(s): F03.90 - Unspecified dementia without behavioral disturbance Status: Chronic GI Consult Note Consult date/time: 03/04/21 13:09 HPI: Lyndsey Lee is a 85 year old female was just notified to see today. Patient previously followed by Dr. Bobo Carrasquillo. Patient known to have Crohn's disease. Has a history of sigmoid resection and subsequent colostomy. Admitted the hospital in July with partial small-bowel obstruction. Similar to current presentation patient presented Wednesday with nausea vomiting. CT scan suggested partial small-bowel obstruction. Evidence for terminal ileal Crohn's disease. Patient has been maintained on mesalamine as an outpatient. After presentation was started on IV steroids. Patient currently has good bowel function manifested by air and stool in the colostomy bag. She no longer has nausea vomiting. She she denies abdominal pain. Patient does have a history of underlying dementia. Making history somewhat difficult. But appears quite comfortable at the present time. Page patient does have a prior history of cholecystectomy and a left hip replacement. Her sigmoid resection occurred in 1985. Most recent colonoscopy performed by Dr. Carrasquillo was 2 years ago. She had active inflammation at that time. Review of Systems Review of Systems: Review of systems limited by her dementia. [facility] Past Medical History Medical History (Updated 03/04/21 @ 08:55 by Jan Trammell MD) Anxiety and depression Bipolar disorder Bowel obstruction Chronic anemia Chronic GERD Colostomy in place Crohn's disease Dementia Glaucoma Hip fracture Left hip fracture in 12/2017 after a fall. Right hip fracture in 03/26/2020 after a fall. Hypertension Hypothyroidism Lumbar burst fracture (~12/2017) L1, L3, and L5 burst fractures sustained in a fall. Osteoarthritis Osteoporosis Parkinsons Vitamin D deficiency Surgical History Surgical History History of bilateral carpal tunnel release History of cervical spinal surgery Diskectomy and fusion. History of cholecystectomy History of left hip replacement (~12/2017) History of partial colectomy Appears to have had a sigmoid resection with end descending colostomy. Also evidence of an ileocolic anastomosis from previous surgery. History of right hi
[2021-03-04 14:00] VITALS: BP 123/43; PULSE 90; RESP 18; TEMP 37; O2SAT 95
--- NOTE | 2021-03-04 16:03 | PM.PNGS ---
Progress Note: A&P Assessment and Plan (1) Small bowel obstruction: Code(s): K56.609 - Unspecified intestinal obstruction, unspecified as to partial versus complete obstruction Status: Acute Assessment and Plan: Resolving with current treatment. +ostomy output today and she is much less distended on exam. Abdominal x-ray this morning showed a normal bowel gas pattern. Gastrografin SBFT ordered and showed transit of contrast to the colon in 15 minutes, no evidence of SBO. Tolerating clear liquids. Okay to advance diet as tolerated to low fiber from our standpoint. (2) Crohn's disease: Qualifiers: Digestive disease complication type: with intestinal obstruction Gastrointestinal tract location: unspecified location Qualified Code(s): K50.912 - Crohn's disease, unspecified, with intestinal obstruction Code(s): K50.90 - Crohn's disease, unspecified, without complications Status: Acute Assessment and Plan: Continue treatment per GI, currently on steroids and mesalamine. 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 Status: Chronic Assessment and Plan: Ostomy functioning well. Multiple previous abdominal surgeries with what appears to be a sigmoid resection with an end descending colostomy in the . Additional Plan I have discussed the plan of care with Dr. Campos. Subjective Subjective Date/Time Seen: 03/04/21 14:03 Patient reports: no new complaints and tolerating liquids well Interval history: Patient seen and examined following her small bowel series. She has had her NG tube removed and started on clear liquids per GI prior to my arrival. History limited by her dementia, but able to answer simple questions. She denies any abdominal pain, nausea, or vomiting currently. Per the nurse, she has had a large amount of stool output and gas from her colostomy following the gastrografin study. There is documented 500 cc stool so far today. No other acute complaints at this time. Review of Systems Constitutional: Constitutional: Denies fever(s) and Denies headache(s) Gastrointestinal: Gastrointestinal: Reports as per HPI and Reports no additional gastrointestinal complaints Exam Const: General: comfortable and no acute distress Orientation/consciousness: oriented to person and Other orientation findings (hx dementia, memory loss) GI: Inspection: non-distended GI Palp: Yes Soft to palpation, No Tenderness to palpation present (GI), No Guarding due to palpation present (GI), Yes Hernia present (soft reducible incisional hernia) and No Rebound tenderness present Auscultation: normal bowel sounds Other: Colostomy with gas and small amount of liquid stool in bag. Neuro: General: moves all extremities and no focal motor deficits Extrem: General: no clubbing, cyanosis or edema Psych: Mental Status: mental status grossly normal Insight: Limited insight present (Psych) Judgement: Limited judgement present (Psych) Objective Data Vital Signs Vital Signs: Vital Signs - 24 hr 03/03/21 20:25 03/04/21 05:59 03/04/21 14:00 Temperature 96.4 F L 96.2 F L 98.6 F Pulse Rate 86 77 90 Respiratory Rate 16 16 18 Blood Pressure 150/65 H 142/60 H 123/43 L Pulse Oximetry 94 98 95 Intake/Output Intake/Output: Intake & Output 03/01/21 03/02/21 03/03/21 03/04/21 23:59 23:59 23:59 23:59 Intake Total 2000 1000 Output Total 930 1025 Balance 1070 -25 Meds/Results Medications: Active Medications Generic Name Dose Route Start Last Admin Trade Name Freq PRN Reason Stop Dose Admin Acetaminophen 1,000 mg 03/04/21 14:48 Acetaminophen 500 Mg Tablet PO Q6H PRN Fever Or Pain 1-5 Amlodipine Besylate 5 mg 03/05/21 09:00 Amlodipine Besylate 5 Mg Tablet PO DAILY [place] Baclofen 10 mg 03/04/21 21:00 Baclofen 10 Mg Tablet PO HS [facility] Baclofen 5 mg 03/04/21 17:00 Baclofen 5 Mg Tablet PO BID [place] Calcium Carbon
[2021-03-04] MEDS: BACLOFEN 5 MG TABLET PO (16:57)
[2021-03-04] MEDS: MESALAMINE 250 MG CAP CR 1000 MG PO ×2 (16:57→23:08)
[2021-03-04] MEDS: LORazepam INJ (*CRX) 2 MG/ML VIAL 0.5 MG IM (18:00)
[2021-03-04] MEDS: PREGABALIN (*CRX) 50 MG CAPSULE PO (18:07)
[2021-03-04] MEDS: FERROUS SULFATE 324 MG TABLET PO (19:27)
[2021-03-04 19:53] VITALS: BP 123/70; PULSE 76; RESP 18; TEMP 36.5; O2SAT 100
[2021-03-04] MEDS: QUEtiapine FUMARATE 12.5 MG TABLET PO (23:08)
[2021-03-04] MEDS: DONEPEZIL HCL 10 MG TABLET PO (23:08)
[2021-03-04] MEDS: MEMANTINE 10 MG TABLET PO (23:08)
[2021-03-04] MEDS: MELATONIN 5 MG TABLET 10 MG PO (23:08)
[2021-03-04] MEDS: DULoxetine HCL 20 MG CAPSULE.DR PO (23:09)
[2021-03-04] MEDS: MECLIZINE HCL 25 MG TABLET PO (23:09)
[2021-03-04] MEDS: CARBIDOPA/LEVODOPA 25/250 MG TABLET 1 TABLET PO (23:09)
[2021-03-04] MEDS: BACLOFEN 10 MG TABLET PO (23:09)
[2021-03-04] MEDS: PREGABALIN (*CRX) 75 MG CAPSULE PO (23:10)
[2021-03-05] MEDS: LEVOTHYROXINE SODIUM 125 MCG TABLET PO (05:39)
[2021-03-05 05:40] VITALS: BP 146/74; PULSE 66; RESP 18; TEMP 36.1; O2SAT 98
[2021-03-05 06:21] LABS: Hematocrit 37.6 % (37.0-47.0); Hemoglobin 11.9 g/dL (12.0-15.0); Mean Corpuscular HGB Conc 31.6 g/dl (32-36); Mean Corpuscular Hemoglobin 34.6 pg (26-34); Mean Corpuscular Volume 109.3 fl (80-100); Platelet Count Result 131 k/mm3 (150-375); Red Blood Count 3.44 M/mm3 (4.2-5.4); Red Cell Distribution Width 13.7 % (11.5-14.5); White Blood Count 6.8 K/mm3 (4.5-10.0)
[2021-03-05 06:31] LABS: Anion Gap 7 mmol/L (8-16); Blood Urea Nitrogen 14 mg/dL (7-17); Calcium 8.2 mg/dL (8.4-10.2); Carbon Dioxide 24 mmol/L (22-30); Chloride 107 mmol/L (98-107); Estimated CRCL calculation 29 ml/min; Estimated Glomerular Filt Rate 60; Glucose 92 mg/dL (65-110); Potassium 3.3 mmol/L (3.4-5.0); Sodium 138 mmol/L (137-145)
[2021-03-05] MEDS: FLUTICASONE PROPIONATE 0.05% NA SPR 16 GM BTL (*BKC) 2 SPRAY NASAL (08:20)
[2021-03-05] MEDS: MESALAMINE 250 MG CAP CR 1000 MG PO ×2 (08:20→12:10)
[2021-03-05] MEDS: ENOXAPARIN 30 MG/0.3 ML SYRINGE SUB-Q (08:21)
[2021-03-05] MEDS: BACLOFEN 5 MG TABLET PO (08:21)
[2021-03-05] MEDS: predniSONE 20 MG TABLET 40 MG PO (08:21)
[2021-03-05] MEDS: FERROUS SULFATE 324 MG TABLET PO (08:21)
[2021-03-05] MEDS: PANTOPRAZOLE 40 MG TABLET PO (08:22)
[2021-03-05] MEDS: MEMANTINE 10 MG TABLET PO (08:22)
[2021-03-05] MEDS: CARBIDOPA/LEVODOPA 25/250 MG TABLET 1 TABLET PO ×2 (08:22→12:10)
[2021-03-05] MEDS: CYANOCOBALAMIN 1,000 MCG TABLET 1000 MCG PO (08:22)
[2021-03-05] MEDS: CHOLECALCIFEROL 1,000 UNITS TABLET 5000 UNITS PO (08:22)
[2021-03-05] MEDS: amLODIPine BESYLATE 5 MG TABLET PO (08:22)
[2021-03-05] MEDS: DULoxetine HCL 30 MG CAPSULE.DR PO (08:23)
[2021-03-05] MEDS: OPTI-GEN TAB 1 TABLET PO (08:23)
[2021-03-05] MEDS: POTASSIUM CHLORIDE 20 MEQ TABLET 40 MEQ PO (08:25)
[2021-03-05] MEDS: PREGABALIN (*CRX) 50 MG CAPSULE PO (08:25)
--- NOTE | 2021-03-05 10:38 | WPDGIPROGNO ---
Progress Note: A&P Assessment and Plan (1) Partial small bowel obstruction: Code(s): K56.600 - Partial intestinal obstruction, unspecified as to cause Status: Acute Assessment and Plan: Small-bowel obstruction appears resolved. Appears to be on the basis of small bowel Crohn's disease. Plan to continue oral Pentasa after discharge. Tapering dose of oral steroids are suggested. Now on prednisone 40mg p.o. daily should decrease by 5mg weekly. (2) Crohn's disease: Qualifiers: Digestive disease complication type: with intestinal obstruction Gastrointestinal tract location: unspecified location Qualified Code(s): K50.912 - Crohn's disease, unspecified, with intestinal obstruction Code(s): K50.90 - Crohn's disease, unspecified, without complications Status: Acute Assessment and Plan: Chronic condition. Patient has had previous colon resection on this basis. Now with small bowel Crohn's disease. Advance to low residue diet as tolerated. Hopefully early discharge. (3) Dementia: Qualifiers: Dementia type: Parkinson's disease Dementia behavioral disturbance: without behavioral disturbance Qualified Code(s): G20 - Parkinson's disease; F02.80 - Dementia in other diseases classified elsewhere without behavioral disturbance Code(s): F03.90 - Unspecified dementia without behavioral disturbance Status: Chronic Assessment and Plan: Patient with baseline dementia. Currently resident of skilled nursing anticipate return to skilled nursing today or tomorrow. Okay with GI service for discharge at this point. Subjective Date/time seen: 03/05/21 10:38 Patient alert and comfortable. Appears to be tolerating diet without difficulty. Passing stool and flatus via colostomy. Review of Systems Review of Systems: All systems reviewed & are unremarkable except as noted in HPI and below Exam Narrative: Physical exam patient is alert. Somewhat limited by dementia. Oriented x2. Lungs are clear to auscultation and percussion. Heart is without murmur or extra sounds. Bowel sounds are present no organomegaly evident. Gas and stool in left upper quadrant colostomy. Objective Data Vital Signs Vital Signs: Vital Signs - 24 hr 03/04/21 14:00 03/04/21 19:53 03/05/21 05:40 Temperature 98.6 F 97.7 F 97 F L Pulse Rate 90 76 66 Respiratory Rate 18 18 18 Blood Pressure 123/43 L 123/70 146/74 H Pulse Oximetry 95 100 98 Intake/Output Intake/Output: Intake & Output 03/02/21 03/03/21 03/04/21 03/05/21 23:59 23:59 23:59 23:59 Intake Total 1999 1240 320 Output Total 933 9234 800 Balance 2984 -6620 -754 Meds/Results Medications: Active Medications Generic Name Dose Route Start Last Admin Trade Name Pawan PRN Reason Stop Dose Admin Acetaminophen 1,000 mg 03/04/21 14:48 Acetaminophen 500 Mg Tablet PO Q6H PRN Fever Or Pain 1-5 Amlodipine Besylate 5 mg 03/05/21 09:00 03/05/21 08:22 Amlodipine Besylate 5 Mg Tablet PO 5 mg DAILY [place] Administration Baclofen 10 mg 03/04/21 21:00 03/04/21 23:09 Baclofen 10 Mg Tablet PO 10 mg HS [place] Administration Baclofen 5 mg 03/04/21 17:00 03/05/21 08:21 Baclofen 5 Mg Tablet PO 5 mg BID [place] Administration Calcium Carbonate 500 mg 03/04/21 17:00 03/05/21 08:21 Calcium/Vitamin D 500 Mg Tablet PO 04/03/21 16:59 500 mg BID [place] Administration Carbidopa/Levodopa 1 tablet 03/04/21 21:00 03/05/21 08:22 Carbidopa/Levodopa 25/250 Mg Tablet PO 1 tablet 0900,1300,2100 [place] Administration Clotrimazole 1 applic 03/04/21 14:48 Betamethasone/Clotrimazole Cr 15 Gm Tube TOPICAL BID PRN Pain Cyanocobalamin 1,000 mcg 03/05/21 09:00 03/05/21 08:22 Cyanocobalamin 1,000 Mcg Tablet PO 04/04/21 08:59 1,000 mcg DAILY [place] Administration Donepezil HCl 10 mg 03/04/21 21:00 03/04/21 23:08 Donepezil Hcl 10 Mg Tablet PO 10 mg HS [place] Administration
--- NOTE | 2021-03-05 12:13 | PM.DS ---
DS: Admitting Diagnosis Discharge Date 03/05/21 Admitting Diagnosis Abdominal pain with nausea and vomiting DS: Discharge Diagnosis Discharge Diagnosis (1) Partial small bowel obstruction: Code(s): K56.600 - Partial intestinal obstruction, unspecified as to cause Status: Acute Assessment and Plan: Patient presents with abdominal pain with n/v. CT the abdomen showed partial small bowel obstruction with transition point at the terminal ileum where there is wall thickening and inflammatory change consistent with recurrent terminal ileitis suspicious for Crohn's disease. Suspect partial small-bowel obstruction related to Crohn's exacerbation. NGT placed. She was started on IV steroids. Symptoms improved and she began to have increasing stool output. KUB showing no dilated bowel. NGT removed (by patient ) and this was not replaced. General surgery and GI were consulted. Clear liquid diet started and advanced as she tolerated. (2) Acute Crohn's disease: Qualifiers: Digestive disease complication type: with intestinal obstruction Qualified Code(s): K50.912 - Crohn's disease, unspecified, with intestinal obstruction Code(s): K50.90 - Crohn's disease, unspecified, without complications Status: Acute Assessment and Plan: CT scan as mentioned above consistent with Crohn's exacerbation. Treated with IV steroids. GI was consulted. She was weaned to oral steroids once she was able to take oral intake. (3) Dementia: Qualifiers: Dementia type: Parkinson's disease Dementia behavioral disturbance: without behavioral disturbance Qualified Code(s): G20 - Parkinson's disease; F02.80 - Dementia in other diseases classified elsewhere without behavioral disturbance Code(s): F03.90 - Unspecified dementia without behavioral disturbance Status: Chronic Assessment and Plan: Patient with dementia but is more oriented at times. She developed worsening confusion probably related to the fact she is off her medications and from the IV steroids. We resumed her home medications once she was able to take oral intake. Mood improved. (4) Hypertension: Qualifiers: Hypertension type: essential hypertension Qualified Code(s): I10 - Essential (primary) hypertension Code(s): I10 - Essential (primary) hypertension Status: Chronic Assessment and Plan: Patient's blood pressure was monitored closely and it remained well controlled. (5) Parkinsons: Code(s): G20 - Parkinson's disease Status: Chronic Assessment and Plan: Patient was feeling weak felt related to the bed rest and being off her medications. We resumed her Sinemet as soon as we could. She worked with PT/OT. She was independent in bed mobility and chair transfer. She was standby assist walking. DS: Summary Hospital Course Reason for hospitalization: 85yo female with dementia and Crohn's disease here for abdominal pain and found to have a partial SBO. Please see H&P for details Hospital Course: Please see above for details of hospital course Status at Discharge Cognitive/behavioral status at discharge: stable Time Spent with Patient Time attestation: Total time spent providing and/or coordinating discharge services: 35 minutes Time spent: Greater than 30 minutes Specific discharge activities: discussed with POA. Exam Narrative: slept well. No problems overnight. eatin gand toerlating without n/v. No cough AF 97.0 146/74 66 18 98% ra Gen - NARD Chest - mild left base inspiratory crackles that improved with dep inspirations, nml RR CV - RRR S1/S2 Abd - Soft, ND, Positive BS. ostomy in the left lower quadrant with liquid brown stool in the bag Ext - No pedal edema Neuro - Alert but confused. Oriented x2. No focal weakness. Psych - Nml mood and affect. Calm and cooperative Skin - Warm and dry DS: Data Data Completed and
--- NOTE | 2021-03-05 12:35 | PM.PNGS ---
Progress Note: A&P Assessment and Plan (1) Small bowel obstruction: Code(s): K56.609 - Unspecified intestinal obstruction, unspecified as to partial versus complete obstruction Status: Acute Assessment and Plan: Resolved with treatment of her Crohn's. +ostomy output and she is tolerating a low fiber diet. Okay from our standpoint to discharge when okay with other services. Will sign off at this point. No follow-up needed. Please call if there are any future surgical needs. (2) Crohn's disease: Qualifiers: Digestive disease complication type: with intestinal obstruction Gastrointestinal tract location: unspecified location Qualified Code(s): K50.912 - Crohn's disease, unspecified, with intestinal obstruction Code(s): K50.90 - Crohn's disease, unspecified, without complications Status: Acute Assessment and Plan: Management per GI 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 Status: Chronic Additional Plan I have discussed the plan of care with Dr. Campos. Subjective Subjective Date/Time Seen: 03/05/21 12:00 Patient reports: no new complaints, feels better, tolerating a regular diet and bowel movement (+ostomy output) Interval history: Patient seen and examined this morning. Feeling well today without any specific complaints. Denies any abdominal pain, nausea, or vomiting. ostomy bag completely full of liquid stool at the time of my exam. Review of Systems Review of Systems: All systems reviewed & are unremarkable except as noted in HPI and below Exam Const: General: comfortable, no acute distress and awake Orientation/consciousness: oriented to person and Other orientation findings (hx dementia, memory loss) GI: Inspection: non-distended GI Palp: Yes Soft to palpation, No Tenderness to palpation present (GI) and No Guarding due to palpation present (GI) Auscultation: normal bowel sounds Other: Colostomy with gas and large amount of liquid stool in bag. Neuro: General: moves all extremities and no focal motor deficits Extrem: General: no clubbing, cyanosis or edema Psych: Mental Status: mental status grossly normal Insight: Limited insight present (Psych) Judgement: Limited judgement present (Psych) Objective Data Vital Signs Vital Signs: Vital Signs - 24 hr 03/04/21 14:00 03/04/21 19:53 03/05/21 05:40 Temperature 98.6 F 97.7 F 97 F L Pulse Rate 90 76 66 Respiratory Rate 18 18 18 Blood Pressure 123/43 L 123/70 146/74 H Pulse Oximetry 95 100 98 Intake/Output Intake/Output: Intake & Output 03/02/21 03/03/21 03/04/21 03/05/21 23:59 23:59 23:59 23:59 Intake Total 1999 1240 320 Output Total 218 7866 800 Balance 0408 -6626 -852 Meds/Results Medications: Active Medications Generic Name Dose Route Start Last Admin Trade Name Pawan PRN Reason Stop Dose Admin Acetaminophen 1,000 mg 03/04/21 14:48 Acetaminophen 500 Mg Tablet PO Q6H PRN Fever Or Pain 1-5 Amlodipine Besylate 5 mg 03/05/21 09:00 03/05/21 08:22 Amlodipine Besylate 5 Mg Tablet PO 5 mg DAILY [place] Administration Baclofen 10 mg 03/04/21 21:00 03/04/21 23:09 Baclofen 10 Mg Tablet PO 10 mg HS [place] Administration Baclofen 5 mg 03/04/21 17:00 03/05/21 08:21 Baclofen 5 Mg Tablet PO 5 mg BID [place] Administration Calcium Carbonate 500 mg 03/04/21 17:00 03/05/21 08:21 Calcium/Vitamin D 500 Mg Tablet PO 04/03/21 16:59 500 mg BID [place] Administration Carbidopa/Levodopa 1 tablet 03/04/21 21:00 03/05/21 12:10 Carbidopa/Levodopa 25/250 Mg Tablet PO 1 tablet 0900,1300,2100 [place] Administration Clotrimazole 1 applic 03/04/21 14:48 Betamethasone/Clotrimazole Cr 15 Gm Tube TOPICAL BID PRN Pain Cyanocobalamin 1,000 mcg 03/05/21 09:00 03/05/21 08:22 Cyanocobalamin 1,000 Mcg Tablet PO 04/04/21 08:59 1,000 mcg DAILY [place] Administration Donepezil HCl 10 mg 03/04/21 21:00 03/04/21 23:08
[2021-03-05 13:34] LABS: EDCOVIDSCREEN Negative (Negative)
== END 2021-03-05 14:00 | DRG 386 ==
LOC: ANHED 21:17 → ANH3MED 03-03 01:04
PROVIDERS: Emergency Medicine; Surgery; Admitting Provider Internal Medicine; Emergency Provider Emergency Medicine; Visit Provider Internal Medicine
DX: K50.012 Crohn's disease of small intestine with intestinal obstruction (principal); K56.600 Partial intestinal obstruction, unspecified as to cause; Z20.822 Contact with and (suspected) exposure to COVID-19; G20 Parkinson's disease; F02.80 Dementia in other diseases classified elsewhere, unspecified severity, without behavioral disturbance, psychotic disturbance, mood disturbance, and anxiety; I10 Essential (primary) hypertension; M81.0 Age-related osteoporosis without current pathological fracture; E55.9 Vitamin D deficiency, unspecified; M19.90 Unspecified osteoarthritis, unspecified site; E03.9 Hypothyroidism, unspecified; H40.9 Unspecified glaucoma; K43.2 Incisional hernia without obstruction or gangrene; K21.9 Gastro-esophageal reflux disease without esophagitis; D64.9 Anemia, unspecified; F31.9 Bipolar disorder, unspecified; F41.8 Other specified anxiety disorders; Z96.643 Presence of artificial hip joint, bilateral; Z93.3 Colostomy status; Z98.1 Arthrodesis status; Z90.49 Acquired absence of other specified parts of digestive tract; Z90.710 Acquired absence of both cervix and uterus
CPT/HCPCS: 36415; 74018; 74177; 74250; 80048; 80053; 81003; 83690; 85025; 85027; 87426; 96361; 96374; 96375; 96376; 97161; 97165; 99285; A9270; C9803; G0378; J1100; J1650; J2060; J2270; J2405; J3480; J7030; J7512; Q9967

== ENCOUNTER 2021-05-28 01:32 | Inpatient (IN) | payer OTHER, SELFPAY ==
[2021-05-28] VITALS (8 sets, daily range): BP systolic 125–179; BP diastolic 55–83; PULSE 82–115; RESP 14–22; TEMP 36.6–37.1; O2SAT 94–100; BMI 25.7
--- NOTE | ~2021-05-28 | XR_ITS ---
UGI-AIR CONTRAST/SMALL BOWEL INDICATION: Generalized abdominal pain. Nausea. TECHNIQUE: Serial images of the upper GI tract structures and small bowel are performed following NG tube administration of water-soluble contrast. COMPARISON: None FINDINGS: Contrast flowed readily through the esophagus without evidence of hernia or reflux. Gastri c contour, mucosa and motility are normal. The duodenal bulb fills and empties regularly and has a n ormal mucosal pattern. The duodenal sweep is in normal position. The mucosal pattern of the small b owel is unremarkable with normal transit time to the colon. IMPRESSION: 1: Normal upper GI/small bowel series. Reviewed, dictated and finalized at location A. Y LOOM FIXER
--- NOTE | ~2021-05-28 | XR_ITS ---
XR abdomen NG/feed tube insert INDICATION: Evaluate NG tube position. TECHNIQUE: Limited KUB perform for evaluating NG tube . COMPARISON: 03/04/2021 FINDINGS: NG tube tip in the stomach. Visualized bowel gas pattern is unremarkable.There are surgica l changes in the abdomen. There is moderate levoscoliosis of the thoracolumbar spine. There is loss o f vertebral body height at multiple levels which appears chronic. There are bilateral hip arthroplast ies partially visualized. IMPRESSION: 1: NG tube tip in the stomach. Reviewed, dictated and finalized at location A. HT SURVEYOR
--- NOTE | ~2021-05-28 | CT_ITS ---
EXAMINATION: CT abdomen pelvis w con DATE: 05/28/2021 03:42 INDICATION: Abdominal pain. TECHNIQUE: Computed tomography (CT) of the abdomen and pelvis was performed with 100 mL Omnipaque 350 intravenous contrast. Automated exposure control and iterative reconstruction technique were employe d. The dose-length product was 437.04 mGy-cm. COMPARISON: CT abdomen and pelvis 03/02/2021 FINDINGS: The visualized portions of the lung bases demonstrate mild atelectasis. A calcified left nathalia ng nodule and calcified left hilar lymph nodes are consistent with old granulomatous disease. No pleu ral effusion. The heart size is normal. There are coronary artery calcifications. There is periportal edema in the liver. The gallbladder is absent. Calcifications in the spleen are consistent with old granulomatous disease. The pancreas and adrenal glands are normal. There is cortical thinning of the kidneys. There are stones in the kidneys measuring up to 7 mm on the right. There are cysts in left k idney measuring up to 8 mm. There is a ventral hernia containing harper of nonobstructed transverse co aura. There is an end colostomy in left abdomen. There are dilated loops of small bowel with transitio n point in the terminal ileum. There is wall thickening of the terminal ileum. There are no pathologi arlette enlarged lymph nodes. There is no free intraperitoneal fluid. There are bilateral hip arthropla sties. There is thoracolumbar levoscoliosis and severe spondylosis. There are multiple chronic burst fractures in the spine. IMPRESSION: 1. Small bowel obstruction with transition point in the terminal ileum. Chronic wall thickening of th e terminal ileum is consistent with Crohn disease. 2. Ventral hernia containing harper of nonobstructed transverse colon. Reviewed, dictated and finalized at location A. CTOR OF BILLING IMPRESSION: 1. Small bowel obstruction with transition point in the terminal ileum. Chronic wall thickening of the terminal ileum is consistent with Crohn disease. 2. Ventral hernia containing harper of nonobstructed transverse colon.
--- NOTE | ~2021-05-28 | XR_ITS ---
EXAMINATION: XR chest 1V portable DATE: 05/28/2021 16:30 INDICATION: Hypoxia TECHNIQUE: frontal view of the chest was obtained. COMPARISON: Chest radiograph dated 04/02/2020 FINDINGS: Mildly decreased right lung volume with mild relative elevation of the right hemidiaphragm. No focal airspace opacities, pulmonary edema, pleural effusion or pneumothorax. Cardiomegaly. Nasogastric tube extends along the tortuous esophagus with distal tip in proximal side port in the body of the stomac h. Anterior fusion procedure with interbody fusion device in the lower cervical spine. IMPRESSION: 1. Cardiomegaly. 2. Decreased right lung volume with elevation of right hemidiaphragm. Reviewed, dictated and finalized at location H. OR PRODUCTION PLANNER
--- NOTE | ~2021-05-28 | XR_ITS ---
EXAMINATION: XR abdomen/kub 1V DATE: 05/29/2021 06:21 INDICATION: Small bowel obstruction. TECHNIQUE: A supine view of the abdomen on 3 radiographs was obtained. COMPARISON: Abdomen radiograph 05/28/2021 FINDINGS: There are no dilated loops of bowel. The nasogastric tube tip is in the stomach. No free in traperitoneal gas. There are bilateral bipolar hip hemiarthroplasties. IMPRESSION: 1. Nonobstructive bowel gas pattern. Reviewed, dictated and finalized at location A. AGE WORKER
--- NOTE | ~2021-05-28 | US_ITS ---
EXAMINATION:US venous doppler LE BI INDICATION:Shortness of breath TECHNIQUE: Multiple grayscale, color flow and Doppler images of the right and left lower extremity de ep venous systems were obtained and reviewed. COMPARISON:No prior studies for comparison. FINDINGS: The common femoral, superficial femoral and popliteal veins demonstrate normal respiratory variation, augmentation and compressibility. Color flow is also seen within the posterior tibial, pe roneal, greater saphenous and profunda veins. IMPRESSION: 1: No lower extremity deep venous thrombosis. Reviewed, dictated and finalized at location A. RUCTIONAL DESIGN CONSULTANT
--- NOTE | 2021-05-28 01:49 | ED.ABDPAIN ---
HPI - Abdominal Pain General Chief Complaint: Nausea/Vomiting/Diarrhea Stated Complaint: abd pain Time Seen by Provider: 05/28/21 01:41 Source: patient Mode of arrival: EMS Limitations: no limitations History of Present Illness HPI narrative: Patient is an 85-year-old female complaining of abdominal pain, diffuse, 10 out of 10 accompanied by nausea and vomiting, throwing up bile that started tonight. Patient denies any chest pain, shortness of breath, diarrhea, fever or chills. According to EMS, alf staff noticed her colostomy bag to be empty today accompanied by nausea and vomiting. Related Data Home Medications Medication Instructions Recorded Confirmed PreserVision AREDS-2 1 tablet PO DAILY 12/09/19 03/03/21 Viibryd 10 mg PO DAILY 12/09/19 03/03/21 acetaminophen 1,000 mg PO Q6H PRN 12/09/19 03/03/21 amlodipine [Norvasc] 5 mg PO DAILY 12/09/19 03/03/21 baclofen 10 mg PO QPM 12/09/19 03/03/21 calcium carbonate-vitamin D3 1 tablet PO BID 12/09/19 03/03/21 [Calcium 600 + D(3)] calcium polycarbophil [Fiber 625 mg PO BID 12/09/19 03/03/21 (calcium polycarbophil)] carbidopa-levodopa 1 tablet PO TID 12/09/19 03/03/21 cholecalciferol (vitamin D3) 125 mcg PO DAILY 12/09/19 03/03/21 [Vitamin D3] dicyclomine 20 mg PO Q6H PRN 12/09/19 03/03/21 donepezil 10 mg PO HS 12/09/19 03/03/21 duloxetine [Cymbalta] 30 mg PO DAILY 12/09/19 03/03/21 ergocalciferol (vitamin D2) 50,000 unit PO 2XW 12/09/19 03/03/21 ferrous sulfate 325 mg PO BID 12/09/19 03/03/21 fluticasone propionate [Flonase 2 spray INTRANASAL DAILY PRN 12/09/19 03/03/21 Allergy Relief] levothyroxine 125 mcg PO QAM 12/09/19 03/03/21 loratadine 10 mg PO DAILY PRN 12/09/19 03/03/21 meclizine 25 mg PO HS 12/09/19 03/03/21 melatonin 10 mg PO HS 12/09/19 03/03/21 memantine [Namenda] 10 mg PO BID 12/09/19 03/03/21 polyethylene glycol 3350 [Miralax] 17 g PO DAILY PRN 12/09/19 03/03/21 quetiapine 12.5 mg PO HS 12/09/19 03/03/21 Retaine PM 1 applic OPHTHALMIC (EYE) HS 03/30/20 03/03/21 hydrocodone-acetaminophen [Blanchard] 1 tablet PO Q6H PRN 06/05/20 03/03/21 pregabalin [Lyrica] 50 mg PO BID 06/05/20 03/03/21 pregabalin [Lyrica] 75 mg PO HS 06/05/20 03/03/21 baclofen 5 mg PO QAM AND QPM 07/14/20 03/03/21 mesalamine 1,000 mg PO QID 07/14/20 03/03/21 Biofreeze (menthol) 1 dose TOPICAL TID PRN 03/03/21 03/03/21 clotrimazole-betamethasone 1 applic TOPICAL BID PRN 03/03/21 03/03/21 cyanocobalamin (vitamin B-12) 1,000 mcg PO DAILY 03/03/21 03/03/21 dicyclomine 20 mg PO AC 03/03/21 03/03/21 duloxetine 20 mg PO HS 03/03/21 03/03/21 meclizine 25 mg PO Q6-8H PRN 03/03/21 03/03/21 Allergies Allergy/AdvReac Type Severity Reaction Status Date / Time No Known Allergies Allergy Verified 03/03/21 02:52 Review of Systems Review of Systems: All systems reviewed & are unremarkable except as noted in HPI and below Constitutional: Constitutional: Denies body ache(s), Denies chills, Denies excessive sweating, Denies fatigue, Denies fever(s), Denies headache(s), Denies lethargy, Denies malaise, Denies weakness and Denies weight loss Eyes: Eyes: Denies blurry vision, Denies change in vision and Denies loss of vision ENT: Denies dizziness, Denies ear discharge, Denies headache(s), Denies lip swelling, Denies epistaxis, Denies nasal congestion, Denies neck pain, Denies throat swelling and Denies tongue swelling Cardiovascular: Cardiovascular: Denies chest pain, Denies chest pain at rest, Denies chest pain with activity, Denies diaphoresis, Denies rapid heart rate, Denies edema, Denies irregular heart rhythm, Denies lightheadedness, Denies palpitations, Denies dyspnea and Denies dyspnea on exertion Respiratory: Respiratory: Denies chest congestion, Denies cough, Denies hemoptysis, Denies dyspnea and Denies dyspnea on exertion Gastrointestinal: Gastrointestinal: Denies melena, Denies hematochezia, Denies diarrhea and Denies hematemesis Musculoskeletal: Musculoskeletal: Denies abnormal gait, Denie
[2021-05-28] MEDS: ONDANSETRON INJ 4 MG/2 ML VIAL IV PUSH (02:06)
[2021-05-28] MEDS: LACTATED RINGERS 1,000 ML 999 ML IV CONT (02:07)
[2021-05-28] MEDS: HYDROmorphone HCL INJ (*CRX) 1 MG/ML SYR 0.5 MG IV PUSH (02:07)
[2021-05-28 02:48] LABS: Basophils Absolute Auto 0.1 K/mm3 (0.0-0.1); Basophils Percent Auto 0.4 % (0.2-1.2); Eosinophils Absolute Auto 0.1 K/mm3 (0-0.3); Eosinophils Percent Auto 0.7 % (0-4.4); Hematocrit 39.2 % (37.0-47.0); Hemoglobin 12.9 g/dL (12.0-15.0); Immature Granulocyte Absolute 0.06 K/mm3 (0.00-0.031); Immature Granulocyte Percent A 0.4 % (0-0.5); Lymphocytes Absolute Auto 2.05 K/mm3 (0.9-3.2); Lymphocytes Percent Auto 13.6 % (18.3-44.2); Mean Corpuscular HGB Conc 32.9 g/dl (32-36); Mean Corpuscular Hemoglobin 35.4 pg (26-34); Mean Corpuscular Volume 107.7 fl (80-100); Mean Platelet Volume 9.3 fl (7.4-10.4); Monocytes Absolute Auto 1.3 K/mm3 (0.1-0.6); Monocytes Percent Auto 8.7 % (2.6-8.5); Neutrophils Absolute Auto 11.5 K/mm3 (1.3-6.7); Neutrophils Percent Auto 76.2 % (45.5-73.1); Platelet Count Result 184 k/mm3 (150-375); Red Blood Count 3.64 M/mm3 (4.2-5.4); Red Cell Distribution Width 14.1 % (11.5-14.5); White Blood Count 15.1 K/mm3 (4.5-10.0)
[2021-05-28 03:05] LABS: Alanine Aminotransferase 11 U/L (4-35); Albumin Level 4.1 g/dL (3.5-5.1); Alkaline Phosphatase 101 U/L (38-126); Anion Gap 6 mmol/L (8-16); Aspartate Amino Transferase 57 U/L (14-36); Bilirubin,Total 1.1 mg/dL (0.2-1.3); Blood Urea Nitrogen 16 mg/dL (7-17); Carbon Dioxide 28 mmol/L (22-30); Chloride 99 mmol/L (98-107); Estimated Glomerular Filt Rate 60; Glucose 158 mg/dL (65-110); Lactic Acid Reflex 1.3 mmol/L (0.7-2.1); Potassium 4.2 mmol/L (3.4-5.0); Sodium 133 mmol/L (137-145)
[2021-05-28 03:13] LABS: INR 1.1
[2021-05-28 03:14] LABS: Partial Thromboplastin Time 27.8 SECONDS (22.3-36.8)
[2021-05-28] MEDS: LACTATED RINGERS 1,000 ML 100 ML IV CONT ×2 (04:37→14:37)
[2021-05-28 04:38] LABS: Add Urine Microscopic? NO; Appearance Urine Clear (Clear); Bilirubin Urine Negative (Negative); Blood Urine Negative (Negative); Color Urine Yellow (Yellow); Glucose Urine UA Negative (Negative); Ketones Urine Negative (Negative); Leukocyte Esterase Ur Negative LEU/UL (Negative); Nitrate Urine Negative (Negative); Protein Urine Negative (Negative); Specific Grav Ur 1.017 (1.001-1.035); Urobilinogen Urine Negative mg/dL (<2.0)
[2021-05-28 05:55] LABS: EDCOVIDSCREEN Negative (Negative)
--- NOTE | 2021-05-28 08:43 | PC.NURSE ---
Updated long-term on patient condition and plan to admit her, Jaqueline STEVENSON states pt is usually very active with regular diet, and colostomy bag was empty throughout the night
--- NOTE | 2021-05-28 12:43 | PM.IMHP ---
H&P: HPI History of Present Illness Date/Time: 05/28/21 12:43 Chief Complaint: Abdominal pain Narrative: 85yo female with dementia, Crohn's disease with partial colectomy here for abdominal pain. Pateint was admitted here in February for abdominal pain and found to have pSBO due to Crohn's flare. Patient is alert but mildly confused so history is limited. She states she has chronic abdominal pain but she denies to me that it is worse but does admit that she has been having n/v past few days with 'stool' vomitus. She has noted decreased stool output. She denies fever or chills. No hematemesis, melena or hematochezia. She is mildly hypoxic. She is up to date on her COVID with booster and influenza vaccine. She denies feeling short of breath, chest pain, palpitations, cough, calf pain, pedal edema, anosmia, dysgeusia, odynophagia or dysphagia. According to EMS, group home staff noticed her colostomy bag to be empty accompanied by nausea and vomiting. Patient was sent to the ED for evaluation. In the ED, patient's blood pressure was elevated otherwise she was hemodynamically stable[place] [id number] with a normal hemoglobin macrocytosis noted. Sodium was low 133 and glucose 158 and AST 57 otherwise CMP was normal. Urinalysis was clear. CT abdomen pelvis shows small-bowel obstruction with transition point in the terminal ileum with chronic wall thickening the terminal ileum consistent with Crohn's disease. Visualized lung bases show atelectasis. She did not get a chest x-ray. She was given Zofran, Dilaudid and started on IV fluids. Levaquin was started. She was admitted for further care. Review of Systems Review of Systems: All systems reviewed & are unremarkable except as noted in HPI and below PMFSH Past Medical History Medical History (Updated 05/29/21 @ 17:03 by Armando Campos MD) Anxiety and depression Bipolar disorder Bowel obstruction Chronic anemia Chronic GERD Colostomy in place Dementia Glaucoma Hip fracture Left hip fracture in 12/2017 after a fall. Right hip fracture in 03/26/2020 after a fall. Hypertension Hypothyroidism Lumbar burst fracture (~12/2017) L1, L3, and L5 burst fractures sustained in a fall. Osteoarthritis Osteoporosis Parkinsons Vitamin D deficiency Surgical History Surgical History History of bilateral carpal tunnel release History of cervical spinal surgery Diskectomy and fusion. History of cholecystectomy History of left hip replacement (~12/2017) History of partial colectomy Appears to have had a sigmoid resection with end descending colostomy. Also evidence of an ileocolic anastomosis from previous surgery. History of right hip replacement (~03/2020) History of vaginal hysterectomy Family History Family History Father Acute myocardial infarction, Onset Age: 72 Mother Parkinson disease Heart attack Sibling Hypertension Cerebrovascular accident Social History Social History Social History: The patient lives at [facility]. She was never and has no children. 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 She is a lifelong nonsmoker and denies alcohol and illicit substance use. Her nephew, Radu Adames, as her healthcare power of sider mechanic. She is listed as a full code. Smoking status: Never smoker Alcohol intake: never Substance use: never Gender identity (if verbalized by the patient): Female Sexual Orientation (if Verbalized by the Patient): Straight or Heterosexual Spiritual care concerns: No Meds Home Medications and Allergies Home Medications Medication Instructions Recorded Confirmed Type PreserVision AREDS-2 1 tablet PO DAILY 12/09/19 05/28/21 History Viibryd 10 mg PO DAILY 12/09/19 05/28/21 History acetaminophen 1,000 mg
[2021-05-28] MEDS: ENOXAPARIN 30 MG/0.3 ML SYRINGE SUB-Q (14:54)
--- NOTE | 2021-05-28 14:59 | WPDGICN ---
Assessment and Plan Assessment and plan (1) Partial bowel obstruction: Qualifiers: Intestinal obstruction type: unspecified Qualified Code(s): K56.600 - Partial intestinal obstruction, unspecified as to cause Code(s): K56.600 - Partial intestinal obstruction, unspecified as to cause Status: Acute Assessment and Plan: Patient with apparent small bowel obstruction. CT scan suggests this is in the small bowel near the ileum consistent with Crohn's disease. Plan is for bowel rest. Should she have nausea vomiting then NG tube may be necessary we will try to avoid this present. Currently we will treat with IV steroids. When she is able to tolerate diet we will reimage mesalamine such as Pentasa. Hopefully surgery can be avoided as was avoided in February. Broad-spectrum antibiotics may have some value agree with Levaquin trial initially as well. (2) Crohn's disease: Qualifiers: Digestive disease complication type: with intestinal obstruction Gastrointestinal tract location: unspecified location Qualified Code(s): K50.912 - Crohn's disease, unspecified, with intestinal obstruction Code(s): K50.90 - Crohn's disease, unspecified, without complications Status: Acute Assessment and Plan: Patient known to have Crohn's disease which appears to be the major etiology for current partial small-bowel obstruction. Continuing to treat this as we are with steroids followed by a adding mesalamine when diet is tolerated with concomitant 1 to 10 day course of antibiotics is encourage. Will follow with you. (3) Dementia: Code(s): F03.90 - Unspecified dementia without behavioral disturbance Status: Acute Assessment and Plan: Patient has underlying dementia makes it difficult to assess her. Will need to rely on clinical parameters at this point. GI Consult Note Consult date/time: 05/28/21 14:59 HPI: Lyndsey Lee is a 85 year old female I am asked to see because of history of Crohn's disease. Patient currently resident of senior care. She has a history of Crohn's disease with colectomy. She has in colostomy in place. Nursing staff noticed some nausea vomiting and no stool in her colostomy bag for this reason sent to the emergency room. CT scan suggest small-bowel obstruction. Patient recently admitted to the hospital in February of this year with similar occurrence. Patient improved with conservative management. She was discharged on tapering dose of prednisone and Pentasa. Patient's medicine list does include mesalamine to continue. Patient with dementia is unable to add any useful history. Review of Systems Review of Systems: ROS unobtainable: Yes unobtainable due to mental status PMFSH Past Medical History Medical History Anxiety and depression Bipolar disorder Bowel obstruction Chronic anemia Chronic GERD Colostomy in place Crohn's disease Dementia Glaucoma Hip fracture Left hip fracture in 12/2017 after a fall. Right hip fracture in 03/26/2020 after a fall. Hypertension Hypothyroidism Lumbar burst fracture (~12/2017) L1, L3, and L5 burst fractures sustained in a fall. Osteoarthritis Osteoporosis Parkinsons Vitamin D deficiency Surgical History Surgical History History of bilateral carpal tunnel release History of cervical spinal surgery Diskectomy and fusion. History of cholecystectomy History of left hip replacement (~12/2017) History of partial colectomy Appears to have had a sigmoid resection with end descending colostomy. Also evidence of an ileocolic anastomosis from previous surgery. History of right hip replacement (~03/2020) History of vaginal hysterectomy Family History Family History Father Acute myocardial infarction, Onset Age: 72 Mother Yared
--- NOTE | 2021-05-28 15:55 | ECG_ITS ---
Measurements Intervals [place] Rate: 105 P: 55 OK: 138 QRS: -50 QRSD: 94 T: 119 QT: 320 QTc: 423 Interpretive Statements SINUS TACHYCARDIA POSSIBLE LEFT ATRIAL ENLARGEMENT LEFT AXIS DEVIATION ANTEROSEPTAL INFARCT, AGE INDETERMINATE ST-T WAVE ABNORMALITY IN HIGH LATERAL LEADS- CONSIDER ISCHEMIA BASELINE ARTIFACT- II, III, AVR, AVL, AVF, V1, V6 ABNORMAL ECG Electronically Signed On 05-29-2021 16:49:48 WAREHOUSE MANAGER by Huy Hudson D.O.
[2021-05-28 16:30] LABS: CRP 0.6 mg/dL (<1.0)
[2021-05-28] MEDS: MORPHINE SULFATE (*CRX) 2 MG/ML INJ IV PUSH (17:26)
[2021-05-28] MEDS: DEXAMETHASONE SOD PHOS INJ 4 MG/ML VIAL IV PUSH (17:27)
--- NOTE | 2021-05-28 17:50 | PM.CNGS ---
Assessment and Plan Assessment and plan (1) Small bowel obstruction: Code(s): K56.609 - Unspecified intestinal obstruction, unspecified as to partial versus complete obstruction Status: Acute Assessment and Plan: agree with NG suction and treatment of Crohn's disease. Will follow along with you. Will only plan to do surgery if Dr. Damon feels medical therapy is no longer a reasonable option or if patient should worsen despite medical treatment. (2) Crohn's disease: Qualifiers: Digestive disease complication type: with intestinal obstruction Gastrointestinal tract location: unspecified location Qualified Code(s): K50.912 - Crohn's disease, unspecified, with intestinal obstruction Code(s): K50.90 - Crohn's disease, unspecified, without complications Status: Acute Assessment and Plan: appears Crohn's ileitis is the cause of her present small bowel obstruction. Medical treatment underway. 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 Status: Chronic (4) Parkinsons: Code(s): G20 - Parkinson's disease Status: Chronic (5) Dementia: Qualifiers: Dementia type: Parkinson's disease Dementia behavioral disturbance: without behavioral disturbance Qualified Code(s): G20 - Parkinson's disease; F02.80 - Dementia in other diseases classified elsewhere without behavioral disturbance Code(s): F03.90 - Unspecified dementia without behavioral disturbance Status: Chronic History of Present Illness Consult details Consult date: 05/28/21 Reason for consult: other ( small bowel obstruction) Requesting physician: Amando Snyder MD Narrative: patient is known to me as I saw her in late February for partial small bowel obstruction very similar to her current admission. She is 85 and lives in [facility]. She has the medical history of bipolar affective disease, Parkinson's and Crohn disease. She has a left lower quadrant colostomy for presumably a sigmoid resection although this surgery was done in the 1980s and no records as to the actual procedure or the diagnosis have been available to us. The patient has had now 4 different episodes of small-bowel obstruction with evidence of distal ileal narrowing from Crohn's ileitis. In February, her obstruction resolved with steroids and other treatments per Dr. Damon. She is not a good surgical candidate. Dr. Damon has kindly seen the patient and started her on medical therapy again. Initially she was having abdominal pain but no vomiting. However by the time I saw her today, a nasogastric tube had been placed. It is in good position in the stomach by my review of her plain films. I also reviewed her CT scan which shows a thickened narrowed terminal ileum with pseudo feces in dilated more proximal ileum. At her admission in February, small-bowel series done prior to removing her NG tube showed prompt transit through to the colon in 15 minutes with no signs of obstruction after medical therapy. Patient is seen now in consultation regarding her recurrent distal small-bowel obstruction presumably due to Crohn's ileitis. Review of Systems Review of Systems: ROS unobtainable: Yes unobtainable due to mental status ( Dementia, history bipolar affective disorder) [facility] Past Medical History Medical History Anxiety and depression Bipolar disorder Bowel obstruction Chronic anemia Chronic GERD Colostomy in place Crohn's disease Dementia Glaucoma Hip fracture Left hip fracture in 12/2017 after a fall. Right hip fracture in 03/26/2020 after a fall. Hypertension Hypothyroidism Lumbar burst fracture (~12/2017) L1, L3, and L5 burst fractures sustained in a fall. Osteoarthritis Osteoporosis Parkinsons Vitamin D deficiency Surgical History Surgical History History of bilateral carp
[2021-05-28] MEDS: metroNIDAZOLE 250MG/ISO 50 ML 250 MG/50 ML BAG 50 MG IVPB (18:52)
[2021-05-29] MEDS: metroNIDAZOLE 250MG/ISO 50 ML 250 MG/50 ML BAG 50 MG IVPB ×4 (00:48→17:33)
[2021-05-29] MEDS: LACTATED RINGERS 1,000 ML 100 ML IV CONT (04:08)
[2021-05-29] MEDS: DEXAMETHASONE SOD PHOS INJ 4 MG/ML VIAL IV PUSH ×2 (04:08→15:49)
[2021-05-29] MEDS: MORPHINE SULFATE (*CRX) 2 MG/ML INJ IV PUSH (04:16)
[2021-05-29 05:53] VITALS: BP 137/63; PULSE 99; RESP 18; TEMP 37.1; O2SAT 100
[2021-05-29 06:46] LABS: Basophils Percent Auto 0.1 % (0.2-1.2); Hematocrit 35.8 % (37.0-47.0); Hemoglobin 11.5 g/dL (12.0-15.0); Immature Granulocyte Absolute 0.05 K/mm3 (0.00-0.031); Immature Granulocyte Percent A 0.5 % (0-0.5); Lymphocytes Absolute Auto 0.51 K/mm3 (0.9-3.2); Lymphocytes Percent Auto 5.1 % (18.3-44.2); Mean Corpuscular HGB Conc 32.1 g/dl (32-36); Mean Corpuscular Hemoglobin 34.7 pg (26-34); Mean Corpuscular Volume 108.2 fl (80-100); Mean Platelet Volume 9.5 fl (7.4-10.4); Monocytes Absolute Auto 0.3 K/mm3 (0.1-0.6); Neutrophils Absolute Auto 9.1 K/mm3 (1.3-6.7); Neutrophils Percent Auto 91.3 % (45.5-73.1); Platelet Count Result 156 k/mm3 (150-375); Red Blood Count 3.31 M/mm3 (4.2-5.4); Red Cell Distribution Width 13.6 % (11.5-14.5)
[2021-05-29 06:52] LABS: Alanine Aminotransferase 33 U/L (4-35); Albumin Level 3.5 g/dL (3.5-5.1); Alkaline Phosphatase 83 U/L (38-126); Anion Gap 10 mmol/L (8-16); Aspartate Amino Transferase 32 U/L (14-36); Blood Urea Nitrogen 18 mg/dL (7-17); Calcium 8.5 mg/dL (8.4-10.2); Carbon Dioxide 26 mmol/L (22-30); Chloride 101 mmol/L (98-107); Estimated CRCL calculation 24 ml/min; Estimated Glomerular Filt Rate 47; Glucose 99 mg/dL (65-110); Phosphorus 4.8 mg/dL (2.5-4.5); Potassium 4.3 mmol/L (3.4-5.0); Sodium 137 mmol/L (137-145)
[2021-05-29 07:27] LABS: Thyroid Stimulating Hormone Reflex 0.569 uIU/mL (0.465-4.68)
[2021-05-29 08:00] VITALS: O2SAT 100
[2021-05-29] MEDS: ENOXAPARIN 30 MG/0.3 ML SYRINGE SUB-Q (09:00)
[2021-05-29] MEDS: PANTOPRAZOLE SODIUM IV 40 MG VIAL IV PUSH (09:01)
--- NOTE | 2021-05-29 13:30 | PM.IMPN ---
Progress Note: A&P Assessment and Plan (1) Small bowel obstruction: Code(s): K56.609 - Unspecified intestinal obstruction, unspecified as to partial versus complete obstruction Status: Acute Assessment and Plan: Patient with pSBO probably related to Crohn's exacerbation. She was having n/v but this has resolved. NGT secured. Continue IV antibiotics. Continue steroids. Appreciate GI and general surgery input. NGt to be removed with SBFT ordered. (2) Acute Crohn's disease: Qualifiers: Digestive disease complication type: with intestinal obstruction Qualified Code(s): K50.912 - Crohn's disease, unspecified, with intestinal obstruction Code(s): K50.90 - Crohn's disease, unspecified, without complications Status: Deleted Assessment and Plan: Patient with hx of Crohn's disease. Her last flare was in Feb 2021 requiring steroids. She is maintained on mesalamine. Treatment as above. (3) Hypoxia: Code(s): R09.02 - Hypoxemia Status: Acute Assessment and Plan: Requiring O2 on admission. CXR shows cardiomegaly and decreased right lung volume with elevation of the hemidiaphragm. CT of the abdomen shows atelectasis in the lung bases. Continue to encourage incentive spirometry use. Will check lower extremity venous Dopplers. (4) Hyponatremia: Code(s): E87.1 - Hypo-osmolality and hyponatremia Status: Acute Assessment and Plan: Na 133. Suspect related to above. We started IV fluids and Sodium normal now. Follow (5) Macrocytosis: Code(s): D75.89 - Other specified diseases of blood and blood-forming organs Status: Acute Assessment and Plan: B12/folate levels normal in Jul 2020. No cirrhosis by CT. Myeloproliferative but CBC normal otherwise. Medication induced? (6) Dementia: Qualifiers: Dementia behavioral disturbance: without behavioral disturbance Dementia type: Parkinson's disease Qualified Code(s): G20 - Parkinson's disease; F02.80 - Dementia in other diseases classified elsewhere without behavioral disturbance Code(s): F03.90 - Unspecified dementia without behavioral disturbance Status: Chronic Assessment and Plan: Mood stable. Mostly oriented. Home meds are on hold. Resume some home meds. (7) Hypertension: Qualifiers: Hypertension type: essential hypertension Qualified Code(s): I10 - Essential (primary) hypertension Code(s): I10 - Essential (primary) hypertension Status: Chronic Assessment and Plan: BP elevated on admission felt related to pain. Patient's blood pressure was reviewed on 05/29 Blood pressure remains well controlled now. Home medications to be held. Hydralazine available as needed. Resume some home meds (8) Parkinsons: Code(s): G20 - Parkinson's disease Status: Chronic Assessment and Plan: Patient on Sinemet on admission. Resume home meds. Start PT/OT. (9) DVT prophylaxis: Code(s): Z29.9 - Encounter for prophylactic measures, unspecified Status: Acute Assessment and Plan: Lovenox Subjective Date/time seen: 05/29/21 13:30 Interval history: 85yo female with dementia, Crohn's disease with partial colectomy here for abdominal pain and found to have pSBO. Abdominal pain is improved. No nausea or vomiting. She does have stool in the colostomy bag. No chest pain or shortness of breath Exam Narrative: AF 97.0 179/80 84 18 99% ra Gen -NARD HEENT -NG tube secured with greenish black fluid in the tubing. Chest -few basilar crackles that improve with deep inspiration. CV -RRR. S1-S2. 2/6 systolic murmur LSB Abd -abdomen is soft. Minimal tenderness. Positive bowel sounds. Blackish liquid stool in the colostomy bag Ext -no pedal edema. Psych - normal mood and affect. Skin - warm and dry. Objective Data Vital Signs Vital Signs: Vital Signs - 24 hr
[2021-05-29 14:00] VITALS: BP 143/58; PULSE 106; RESP 18; TEMP 37.4; O2SAT 90
[2021-05-29] MEDS: MAGNESIUM SULF 2 GM/WATER 50ML 2 GM/50 ML BAG IVPB (14:55)
--- NOTE | 2021-05-29 15:16 | WPDGIPROGNO ---
Progress Note: A&P Assessment and Plan (1) Partial bowel obstruction: Qualifiers: Intestinal obstruction type: unspecified Qualified Code(s): K56.600 - Partial intestinal obstruction, unspecified as to cause Code(s): K56.600 - Partial intestinal obstruction, unspecified as to cause Status: Acute Assessment and Plan: Patient admitted with apparent small bowel obstruction on the basis of Crohn's disease. Clinically improving with NG tube decompression. Small-bowel series today is described as being unremarkable. No obvious obstruction. Clinically obstruction is relieving itself as air is now in the ostomy bag. Plan will be to clamp the NG tube and gradually re- implement diet initially with liquid diet and advance to low fiber diet. (2) Crohn's disease: Qualifiers: Digestive disease complication type: with intestinal obstruction Gastrointestinal tract location: unspecified location Qualified Code(s): K50.912 - Crohn's disease, unspecified, with intestinal obstruction Code(s): K50.90 - Crohn's disease, unspecified, without complications Status: Acute Assessment and Plan: Crohn's disease by history. We will taper off IV steroids change to prednisone. Re- implement Pentasa orally as this is affective in the small bowel. If patient unable to tolerate diet or medications and surgical resection could be required as this is her 4th episode of bowel obstruction. (3) Dementia: Qualifiers: Dementia type: Parkinson's disease Dementia behavioral disturbance: without behavioral disturbance Qualified Code(s): G20 - Parkinson's disease; F02.80 - Dementia in other diseases classified elsewhere without behavioral disturbance Code(s): F03.90 - Unspecified dementia without behavioral disturbance Status: Chronic Subjective Date/time seen: 05/29/21 15:16 Patient alert but unable to give any useful history today. Offers no specific complaints. NG tube in place. Review of Systems Review of Systems: ROS unobtainable: Yes unobtainable due to mental status Exam Narrative: On physical exam abdomen is soft flat nontender. There is now air in the ostomy bag. Objective Data Vital Signs Vital Signs: Vital Signs - 24 hr 05/28/21 22:00 05/29/21 05:53 05/29/21 08:00 Temperature 98.8 F 98.7 F Pulse Rate 115 H 99 Respiratory Rate 16 18 Blood Pressure 125/55 L 137/63 Pulse Oximetry 100 100 100 Intake/Output Intake/Output: Intake & Output 05/26/21 05/27/21 05/28/21 05/29/21 23:59 23:59 23:59 23:59 Intake Total 2300 1100 Output Total 800 Balance 1500 1100 Meds/Results Medications: Active Medications Generic Name Dose Route Start Last Admin Trade Name Freq PRN Reason Stop Dose Admin Acetaminophen 1,000 mg 05/29/21 13:40 Acetaminophen 500 Mg Tablet PO Q6H PRN Fever Or Pain 1-3 Hydrocodone Bitart/Acetaminophen 1 tab 05/29/21 13:20 Hydrocodone/Acetaminophen (*Crx) 5-325 Mg Tablet PO Q4H PRN Pain Rated 4-6 Amlodipine Besylate 5 mg 05/29/21 14:00 Amlodipine Besylate 5 Mg Tablet PO QAM [facility] Calcium Carbonate 500 mg 05/29/21 17:00 Calcium/Vitamin D 500 Mg Tablet PO 06/28/21 16:59 BID [facility] Carbidopa/Levodopa 1 tablet 05/29/21 14:00 Carbidopa/Levodopa 25/250 Mg Tablet PO Q8HR [facility] Clotrimazole 1 applic 05/29/21 13:40 Betamethasone/Clotrimazole Cr 15 Gm Tube TOPICAL BID PRN Pain Cyanocobalamin 1,000 mcg 05/30/21 09:00 Cyanocobalamin 1,000 Mcg Tablet PO 06/29/21 08:59 DAILY [facility] Dexamethasone Sodium Phosphate 4 mg 05/28/21 15:00 05/29/21 04:08 Dexamethasone Sod Phos Inj 4 Mg/Ml Vial IV PUSH 4 mg Q12H [facility] Administration Donepezil HCl 10 mg 05/29/21 21:00 Donepezil Hcl 10 Mg Tablet PO HS [facility] Duloxetine HCl 30 mg 05/30/21 09:00 Duloxetine Hcl 30 Mg Capsule. PO QAM [facility] Duloxetine HCl 20 mg 05/29/21
--- NOTE | 2021-05-29 16:56 | PM.PNGS ---
Progress Note: A&P Assessment and Plan (1) Crohn's ileitis: Qualifiers: Digestive disease complication type: with intestinal obstruction Qualified Code(s): K50.012 - Crohn's disease of small intestine with intestinal obstruction Code(s): K50.00 - Crohn's disease of small intestine without complications Status: Acute Assessment and Plan: it appears the obstruction has resolved. If patient has trouble eating or Dr. Damon feels medical management is no longer a reasonable option, would then proceed with ileocolic resection as this is the 4th time patient has been admitted with distal ileal small bowel obstruction. She is not a good surgical candidate due to Parkinson's and dementia. Continue medical management for now. Hopefully will suffice. (2) Small bowel obstruction: Code(s): K56.609 - Unspecified intestinal obstruction, unspecified as to partial versus complete obstruction Status: Acute Assessment and Plan: Resolved by small-bowel series. Medical management per Dr. Damon. Advance diet as tolerated. 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 Status: Chronic (4) Parkinsons: Code(s): G20 - Parkinson's disease Status: Chronic (5) Dementia: Qualifiers: Dementia type: Parkinson's disease Dementia behavioral disturbance: without behavioral disturbance Qualified Code(s): G20 - Parkinson's disease; F02.80 - Dementia in other diseases classified elsewhere without behavioral disturbance Code(s): F03.90 - Unspecified dementia without behavioral disturbance Status: Chronic Subjective Subjective Date/Time Seen: 05/29/21 16:56 Patient reports: feels better, pain is less ( No abdominal pain), flatus and afebrile Review of Systems Review of Systems: All systems reviewed & are unremarkable except as noted in HPI and below Constitutional: Constitutional: Denies fever(s), Denies headache(s), Reports increased appetite and Reports weakness Gastrointestinal: Gastrointestinal: Reports as per HPI, Denies abdominal pain and Denies nausea Exam GI: GI Palp: Yes Soft to palpation and No Tenderness to palpation present (GI) Auscultation: Hypoactive bowel sounds present Objective Data Vital Signs Vital Signs: Vital Signs - 24 hr 05/28/21 22:00 05/29/21 05:53 05/29/21 08:00 Temperature 37.1 C 37.1 C Pulse Rate 115 H 99 Respiratory Rate 16 18 Blood Pressure 125/55 L 137/63 Pulse Oximetry 100 100 100 05/29/21 14:00 Temperature 37.4 C Pulse Rate 106 H Respiratory Rate 18 Blood Pressure 143/58 H Pulse Oximetry 90 Intake/Output Intake/Output: Intake & Output 05/26/21 05/27/21 05/28/21 05/29/21 23:59 23:59 23:59 23:59 Intake Total 2300 1150 Output Total 800 Balance 1500 1150 Meds/Results Medications: Active Medications Generic Name Dose Route Start Last Admin Trade Name Freq PRN Reason Stop Dose Admin Acetaminophen 1,000 mg 05/29/21 13:40 Acetaminophen 500 Mg Tablet PO Q6H PRN Fever Or Pain 1-3 Hydrocodone Bitart/Acetaminophen 1 tab 05/29/21 13:20 Hydrocodone/Acetaminophen (*Crx) 5-325 Mg Tablet PO Q4H PRN Pain Rated 4-6 Amlodipine Besylate 5 mg 05/29/21 14:00 Amlodipine Besylate 5 Mg Tablet PO QAM [facility] Calcium Carbonate 500 mg 05/29/21 17:00 Calcium/Vitamin D 500 Mg Tablet PO 06/28/21 16:59 BID [facility] Carbidopa/Levodopa 1 tablet 05/29/21 14:00 Carbidopa/Levodopa 25/250 Mg Tablet PO Q8HR [facility] Cyanocobalamin 1,000 mcg 05/30/21 09:00 Cyanocobalamin 1,000 Mcg Tablet PO 06/29/21 08:59 DAILY [facility] Dexamethasone Sodium Phosphate 4 mg 05/28/21 15:00 05/29/21 15:49 Dexamethasone Sod Phos Inj 4 Mg/Ml Vial IV PUSH 4 mg Q12H [facility] Administration Donepezil HCl 10 mg 05/29/21 21:00 Donepezil Hcl 10 Mg Tablet PO HS [facility] Duloxetine HCl 30 mg 05/30/21 09:00 Duloxetine Hcl [address] Hines
[2021-05-29] MEDS: amLODIPine BESYLATE 5 MG TABLET PO (17:35)
[2021-05-29] MEDS: CARBIDOPA/LEVODOPA 25/250 MG TABLET 1 TABLET PO ×2 (17:36→21:05)
[2021-05-29] MEDS: HYDROcodone/acetaminophen (*CRX) 5-325 MG TABLET 1 TAB PO (17:50)
[2021-05-29 20:00] VITALS: PULSE 92; RESP 18; O2SAT 90
[2021-05-29] MEDS: PREGABALIN (*CRX) 50 MG CAPSULE PO (21:01)
[2021-05-29] MEDS: DONEPEZIL HCL 10 MG TABLET PO (21:01)
[2021-05-29] MEDS: MELATONIN 5 MG TABLET 10 MG PO (21:02)
[2021-05-29] MEDS: DULoxetine HCL 20 MG CAPSULE.DR PO (21:02)
[2021-05-29] MEDS: QUEtiapine FUMARATE 12.5 MG TABLET PO (21:02)
[2021-05-29] MEDS: MINERAL OIL/WHITE PETROLATUM OINTMENT 1 APPLIC EACH EYE (21:03)
[2021-05-29] MEDS: MEMANTINE 10 MG TABLET PO (21:04)
[2021-05-29 22:00] VITALS: BP 133/54; PULSE 92; RESP 18; TEMP 36.9; O2SAT 90
[2021-05-30] MEDS: metroNIDAZOLE 250MG/ISO 50 ML 250 MG/50 ML BAG 50 MG IVPB ×2 (03:17→11:46)
[2021-05-30] MEDS: DEXAMETHASONE SOD PHOS INJ 4 MG/ML VIAL IV PUSH (03:17)
[2021-05-30] MEDS: LEVOTHYROXINE SODIUM 125 MCG TABLET PO (05:52)
[2021-05-30] MEDS: CARBIDOPA/LEVODOPA 25/250 MG TABLET 1 TABLET PO (05:53)
[2021-05-30 06:00] VITALS: BP 144/63; PULSE 81; RESP 16; TEMP 36.7; O2SAT 93
[2021-05-30 08:00] VITALS: O2SAT 93
[2021-05-30] MEDS: FLUTICASONE PROPIONATE 0.05% NA SPR 16 GM BTL (*BKC) 2 SPRAY NASAL (08:45)
[2021-05-30] MEDS: amLODIPine BESYLATE 5 MG TABLET PO (08:45)
[2021-05-30] MEDS: MESALAMINE 250 MG CAP CR 1000 MG PO (08:46)
[2021-05-30] MEDS: predniSONE 20 MG TABLET PO (08:47)
--- NOTE | 2021-05-30 09:07 | WPDGIPROGNO ---
Progress Note: A&P Assessment and Plan (1) Crohn's disease: Qualifiers: Digestive disease complication type: with intestinal obstruction Gastrointestinal tract location: unspecified location Qualified Code(s): K50.912 - Crohn's disease, unspecified, with intestinal obstruction Code(s): K50.90 - Crohn's disease, unspecified, without complications Status: Acute Assessment and Plan: Patient with known Crohn's disease. This appears to have been etiology for recent small-bowel obstruction. Plan to continue Pentasa after discharge. Tapered dose of steroids initially prednisone 20 mg p.o. daily decrease by 5 mg every 5-7 days. Patient may return to [facility] if diet tolerated pain-free. (2) Small bowel obstruction: Code(s): K56.609 - Unspecified intestinal obstruction, unspecified as to partial versus complete obstruction Status: Acute Assessment and Plan: Small-bowel obstruction appears resolved. Small-bowel follow-through was unremarkable. Although patient is known to have Crohn's disease no obstruction at this time. 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 Tolerating liquid diet. Denies abdominal pain. Review of Systems Review of Systems: ROS unobtainable: Yes unobtainable due to mental status Exam Narrative: Physical exam patient is alert comfortable at rest HEENT exam unremarkable. . Lungs are clear. Heart without murmur. Abdomen bowel sounds present soft Afia stool in ostomy bag noted. Objective Data Vital Signs Vital Signs: Vital Signs - 24 hr 05/29/21 14:00 05/29/21 20:00 05/29/21 22:00 Temperature 99.4 F 98.5 F Pulse Rate 106 H 92 92 Respiratory Rate 18 18 18 Blood Pressure 143/58 H 133/54 L Pulse Oximetry 90 90 90 05/30/21 06:00 Temperature 98.0 F Pulse Rate 81 Respiratory Rate 16 Blood Pressure 144/63 H Pulse Oximetry 93 Intake/Output Intake/Output: Intake & Output 05/27/21 05/28/21 05/29/21 05/30/21 23:59 23:59 23:59 23:59 Intake Total 2300 1470 750 Output Total 800 1850 Balance 1500 -380 750 Meds/Results Medications: Active Medications Generic Name Dose Route Start Last Admin Trade Name Freq PRN Reason Stop Dose Admin Acetaminophen 1,000 mg 05/29/21 13:40 Acetaminophen 500 Mg Tablet PO Q6H PRN Fever Or Pain 1-3 Hydrocodone Bitart/Acetaminophen 1 tab 05/29/21 13:20 05/29/21 17:50 Hydrocodone/Acetaminophen (*Crx) 5-325 Mg Tablet PO 1 tab Q4H PRN Administration Pain Rated 4-6 Amlodipine Besylate 5 mg 05/29/21 14:00 05/30/21 08:45 Amlodipine Besylate 5 Mg Tablet PO 5 mg QAM [facility] Administration Calcium Carbonate 500 mg 05/29/21 17:00 05/29/21 17:36 Calcium/Vitamin D 500 Mg Tablet PO 06/28/21 16:59 500 mg BID [facility] Administration Carbidopa/Levodopa 1 tablet 05/29/21 14:00 05/30/21 05:53 Carbidopa/Levodopa 25/250 Mg Tablet PO 1 tablet Q8HR [facility] Administration Cyanocobalamin 1,000 mcg 05/30/21 09:00 Cyanocobalamin 1,000 Mcg Tablet PO 06/29/21 08:59 DAILY [facility] Donepezil HCl 10 mg 05/29/21 21:00 05/29/21 21:01 Donepezil Hcl 10 Mg Tablet PO 10 mg HS [facility] Administration Duloxetine HCl 30 mg 05/30/21 09:00 Duloxetine Hcl 30 Mg Capsule. PO QAM [facility] Duloxetine HCl 20 mg 05/29/21 21:00 05/29/21 21:02 Duloxetine Hcl 20 Mg Capsule. PO 20 mg HS [facility]
[2021-05-30 09:30] LABS: Hematocrit 33.5 % (37.0-47.0); Hemoglobin 11.2 g/dL (12.0-15.0); Mean Corpuscular HGB Conc 33.4 g/dl (32-36); Mean Corpuscular Hemoglobin 35.6 pg (26-34); Mean Corpuscular Volume 106.3 fl (80-100); Mean Platelet Volume 9.2 fl (7.4-10.4); Platelet Count Result 146 k/mm3 (150-375); Red Blood Count 3.15 M/mm3 (4.2-5.4); Red Cell Distribution Width 13.3 % (11.5-14.5); White Blood Count 7.6 K/mm3 (4.5-10.0)
[2021-05-30 09:50] LABS: Anion Gap 5 mmol/L (8-16); Blood Urea Nitrogen 19 mg/dL (7-17); Calcium 8.5 mg/dL (8.4-10.2); Carbon Dioxide 30 mmol/L (22-30); Chloride 96 mmol/L (98-107); Estimated CRCL calculation 29 ml/min; Estimated Glomerular Filt Rate 60; Glucose 257 mg/dL (65-110); Magnesium 1.6 mg/dL (1.6-2.3); Potassium 3.8 mmol/L (3.4-5.0); Sodium 131 mmol/L (137-145)
--- NOTE | 2021-05-30 11:12 | PM.DS ---
DS: Admitting Diagnosis Discharge Date 05/30/21 Admitting Diagnosis Abdominal pain DS: Discharge Diagnosis Discharge Diagnosis (1) Small bowel obstruction: Code(s): K56.609 - Unspecified intestinal obstruction, unspecified as to partial versus complete obstruction Status: Acute Assessment and Plan: Patient presents with abdominal pain with imaging showing pSBO probably related to Crohn's exacerbation. She was having n/v but this resolved. NGT placed. She was started on IV antibiotics and steroids. GI and general surgery were consulted. Repeat imaging showing resolution of the pSBO. Stool noted in the colostomy bag. NGT clamped and ultimately removed. Diet started and advanced as she tolerated. She had a normal UGI/SBFT. Plan to discharge on a slow Prednisone taper. (2) Acute Crohn's disease: Qualifiers: Digestive disease complication type: with intestinal obstruction Qualified Code(s): K50.912 - Crohn's disease, unspecified, with intestinal obstruction Code(s): K50.90 - Crohn's disease, unspecified, without complications Status: Deleted Assessment and Plan: Patient with hx of Crohn's disease. Her last flare was in Feb 2021 requiring steroids. She is maintained on mesalamine. mesalamine resumed with the return of bowel function. Steroid taper as above. (3) Hypoxia: Code(s): R09.02 - Hypoxemia Status: Acute Assessment and Plan: Requiring O2 on admission. CXR shows cardiomegaly and decreased right lung volume with elevation of the hemidiaphragm. CT of the abdomen shows atelectasis in the lung bases. She was ordered incentive spirometry. Lower extremity venous Dopplers negative. Weaned to room air without difficulty.. (4) Hyponatremia: Code(s): E87.1 - Hypo-osmolality and hyponatremia Status: Acute Assessment and Plan: Na 133. Suspect related to above +/- medication induced. (5) Macrocytosis: Code(s): D75.89 - Other specified diseases of blood and blood-forming organs Status: Acute Assessment and Plan: B12/folate levels normal in Jul 2020. No cirrhosis by CT. Chronic. (6) Dementia: Qualifiers: Dementia type: Parkinson's disease Dementia behavioral disturbance: without behavioral disturbance Qualified Code(s): G20 - Parkinson's disease; F02.80 - Dementia in other diseases classified elsewhere without behavioral disturbance Code(s): F03.90 - Unspecified dementia without behavioral disturbance Status: Chronic Assessment and Plan: Mood stable. Mostly oriented. Home meds were held but then resumed with the return of bowel function. (7) Hypertension: Qualifiers: Hypertension type: essential hypertension Qualified Code(s): I10 - Essential (primary) hypertension Code(s): I10 - Essential (primary) hypertension Status: Chronic Assessment and Plan: BP elevated on admission felt related to pain. Patient's blood pressure was monitored and since has remained well controlled now. Home meds resumed once bowel function returned (8) Parkinsons: Code(s): G20 - Parkinson's disease Status: Chronic Assessment and Plan: Patient on Sinemet on admission. Sinemet resumed when bowel function returned. She worked with PT/OT as well. DS: Summary Hospital Course Reason for hospitalization: 85yo female with dementia, Crohn's disease with partial colectomy here for abdominal pain and found to have pSBO. Please see H&P for details Hospital Course: Please see above for details of hospital course. Status at Discharge Cognitive/behavioral status at discharge: Stable Time Spent with Patient Time attestation: Total time spent providing and/or coordinating discharge services: 36 minutes Time spent: Greater than 30 minutes Exam Narrative: AF 98.0 144/63 81 16 93% ra Gen -NARD Chest - CTA bilaterally, nml RR CV -RR
[2021-05-30] MEDS: CYANOCOBALAMIN 1,000 MCG TABLET 1000 MCG PO (11:47)
[2021-05-30] MEDS: MEMANTINE 10 MG TABLET PO (11:47)
[2021-05-30] MEDS: DULoxetine HCL 30 MG CAPSULE.DR PO (11:47)
[2021-05-30] MEDS: CHOLECALCIFEROL 1,000 UNITS TABLET 5000 UNITS PO (11:47)
[2021-05-30] MEDS: OPTI-GEN TAB 1 TABLET PO (11:47)
[2021-05-30] MEDS: ENOXAPARIN 30 MG/0.3 ML SYRINGE SUB-Q (11:48)
[2021-05-30] MEDS: PREGABALIN (*CRX) 50 MG CAPSULE PO (11:50)
[2021-05-30 13:17] LABS: EDCOVIDSCREEN Negative (Negative)
--- NOTE | 2021-06-02 13:37 | PC.NURSE ---
Blood cx are negative. Dr. Jp chan.
== END 2021-05-30 14:05 | DRG 386 ==
LOC: ANHED 04:20 → ANH3MEDSUR 10:06
PROVIDERS: Internal Medicine Gastroenterology; Surgery; Admitting Provider Internal Medicine; Emergency Provider Emergency Medicine; PCP Family Medicine; Visit Provider Internal Medicine
DX: K50.012 Crohn's disease of small intestine with intestinal obstruction (principal); E87.1 Hypo-osmolality and hyponatremia; G20 Parkinson's disease; F02.80 Dementia in other diseases classified elsewhere, unspecified severity, without behavioral disturbance, psychotic disturbance, mood disturbance, and anxiety; Z20.822 Contact with and (suspected) exposure to COVID-19; Z93.3 Colostomy status; R09.02 Hypoxemia; D75.89 Other specified diseases of blood and blood-forming organs; I10 Essential (primary) hypertension; F31.9 Bipolar disorder, unspecified; E03.9 Hypothyroidism, unspecified; E55.9 Vitamin D deficiency, unspecified; Z79.899 Other long term (current) drug therapy
CPT/HCPCS: 36415; 51701; 71045; 74018; 74177; 74240; 74248; 80048; 80053; 81003; 83605; 83735; 84100; 84443; 85025; 85027; 85610; 85730; 86140; 87040; 87426; 93005; 93970; 96361; 96374; 96375; 97162; 99285; A9270; C9113; C9803; J0131; J1100; J1170; J1650; J1956; J2270; J2405; J3475; J7120; J7512; Q9967

== ENCOUNTER 2021-09-20 10:28 | Inpatient (IN) | payer OTHER, SELFPAY ==
[2021-09-20] VITALS (9 sets, daily range): BP systolic 90–195; BP diastolic 54–88; PULSE 76–110; RESP 16–20; TEMP 36.1–38.2; O2SAT 95–100; BMI 20.2
--- NOTE | ~2021-09-20 | XR_ITS ---
EXAM: XR abdomen NG/feed tube rechec HISTORY: check placement, NG withdrawn to 55 COMPARISON: Same date 1:36 PM. FINDINGS: Subsegmental atelectasis/consolidation in the right lung base. New NG tube, tip and side p ort projecting over the stomach. Partially visualized bowel gas pattern is within normal limits. The upper chest and lower abdomen are excluded. IMPRESSION: NG tube positioned appropriately within the stomach. However, the previously identified looped area i n the mid esophagus is excluded from this image. Recommend AP view of the chest for further evaluatio n. Reviewed, dictated and finalized at location K. IMPRESSION: NG tube positioned appropriately within the stomach. However, the previously id entified looped area in the mid esophagus is excluded from this image. Recommen d AP view of the chest for further evaluation.
--- NOTE | ~2021-09-20 | XR_ITS ---
EXAMINATION: XR chest 1V portable Exam Date/Time: 09/20/2021 17:50 CDT CLINICAL HISTORY: NG REcheck w/ esophagus in view LOOKING FOR COIL Comparison: 05/28/2021, x-ray abdomen same date at 5:02 PM. RESULT: Lines, tubes, and devices: Cervical fusion device. An NG tube traverses the images and terminates in the stomach, without coils. Lungs and pleura: Senescent changes. Subsegmental opacities in the right lung base.. Cardiomediastinal silhouette: Stable cardiomediastinal silhouette. Other: No acute osseous or upper abdominal finding. IMPRESSION: NG tube in good position, without coil. Atelectasis/consolidation the right lung base. Reviewed, dictated and finalized at location K. IMPRESSION: NG tube in good position, without coil. Atelectasis/consolidation the right alba g base.
--- NOTE | ~2021-09-20 | XR_ITS ---
EXAMINATION: XR abdomen NG/feed tube insert DATE: 09/20/2021 13:56 INDICATION: Nasogastric tube placement. TECHNIQUE: A supine view of the abdomen was obtained. COMPARISON: CT abdomen and pelvis 09/20/2021, chest CT 05/16/18 FINDINGS: The lower abdomen is excluded. The nasogastric tube tip is in the stomach. The tube forms a loop in the mid esophagus. There are changes of anterior fusion procedure in cervical spine. IMPRESSION: 1. Nasogastric tube tip in the stomach. The tube forms a loop in the mid esophagus. Reviewed, dictated and finalized at location A. IMPRESSION: 1. Nasogastric tube tip in the stomach. The tube forms a loop in the mid esopha zelda.
--- NOTE | ~2021-09-20 | XR_ITS ---
EXAMINATION: XR sm bowel follow through WS DATE: 09/22/2021 15:49 INDICATION: Crohn's disease with possible small bowel obstruction. TECHNIQUE: A supine AP physicians assistant view of the abdomen and pelvis was obtained. Oral contrast was administe red by the patient's existing nasogastric tube and sequential radiographs of the abdomen were obtaine d until oral contrast was noted to be in the proximal colon. Spot fluoroscopic images of the small amando wel were obtained. Fluoroscopy exposure time was 0.6 minutes. A total of 4 overhead radiographs and f luoroscopic images were obtained. COMPARISON: None. FINDINGS: Managing Manager radiograph demonstrates nasogastric tube tip in the proximal stomach. Postoperative change with numerous sutures project over the central abdomen. Bilateral bipolar type hip hemiarthroplasties. Tr ansit time from the stomach to proximal colon was approximately 15 minutes . By [address] has extended through the colon to the left lower quadrant colostomy with dilute contrast seen in t he colostomy bag. There is persistent mild dilation of the distal small bowel medially proximal to th e terminal ileum which appears relatively narrowed with irregular mucosal contour consistent with pro vided history of Crohn's disease. There is normal caliber and mucosal fold pattern throughout the mor e proximal small bowel. IMPRESSION: 1. Likely mild stricture with irregular mucosal contour at the terminal ileum with mild relative dila tion of the immediately more proximal small bowel but without delayed contrast transit throughout the small bowel and colon suggesting a relatively low-grade partial obstruction. Reviewed, dictated and finalized at location A. IMPRESSION: 1. Likely mild stricture with irregular mucosal contour at the terminal ileum w ith mild relative dilation of the immediately more proximal small bowel but wit hout delayed contrast transit throughout the small bowel and colon suggesting a relatively low-grade partial obstruction.
--- NOTE | ~2021-09-20 | XR_ITS ---
EXAMINATION: XR abdomen obstructive series DATE: 09/21/2021 08:13 INDICATION: Small bowel obstruction. TECHNIQUE: Upright and supine views of the abdomen were obtained. COMPARISON: Abdomen radiograph 09/20/2021 FINDINGS: There are no dilated loops of bowel. The nasogastric tube tip is in the stomach. No free in traperitoneal gas. There are bilateral bipolar hip hemiarthroplasties. IMPRESSION: 1. Nonobstructive bowel gas pattern. Reviewed, dictated and finalized at location A.
--- NOTE | ~2021-09-20 | XR_ITS ---
EXAM: XR abdomen obstructive series HISTORY: follow-up on partial small-bowel obs./Crohn's COMPARISON: 09/21/2021 at 8:02 AM. FINDINGS: Lung bases remain clear. NG tube remains in good position. Suture material over the mid ab domen. Incompletely visualized bilateral hip arthroplasties. Normal appearing and unchanged bowel gas pattern. IMPRESSION: No radiographic evidence of obstruction or ileus. Reviewed, dictated and finalized at location K.
--- NOTE | ~2021-09-20 | CT_ITS ---
EXAMINATION: CT abdomen pelvis w con DATE: 09/20/2021 12:07 INDICATION: Generalized abdominal pain. TECHNIQUE: Computed tomography (CT) of the abdomen and pelvis was performed with 100 mL Omnipaque 350 intravenous contrast. Automated exposure control and iterative reconstruction technique were employe d. The dose-length product was 802.00 mGy-cm. COMPARISON: CT abdomen and pelvis 05/28/2021 FINDINGS: The visualized portions of the lung bases demonstrate mild atelectasis. A calcified left nathalia ng nodule is consistent with old granulomas disc disease. No pleural effusion. Cardiomegaly is noted. No pericardial effusion. There is mild intrahepatic biliary duct dilatation, likely secondary to cho lecystectomy. The common duct measures 10 mm. Calcifications in the spleen are consistent with old gr anulomatous disease. The pancreas and adrenal glands are normal. There is cortical thinning of the ki dneys. There are cysts in the kidneys measuring up to 9 mm on the left. There are approximately 10 st ones in right kidney measuring up to 4 mm. There are approximately 6 stones in left kidney measuring up to 3 mm. There is an end colostomy on the left. There is a ventral hernia containing a wall of tra nsverse colon. There are changes of appendectomy. There is wall thickening of terminal ileum. There a re dilated loops of distal small bowel with desiccated stool suggesting slow transit. There is dilate d small bowel in left abdomen. There are no pathologically enlarged lymph nodes. There is no free int raperitoneal fluid. There are bilateral hip arthroplasties. There is moderate lumbar spondylosis. The re are chronic burst fractures of T12-L5 and T7. IMPRESSION: 1. Small bowel obstruction with transition point in the terminal ileum. 2. Ventral hernia containing a wall of nonobstructed transverse colon. Reviewed, dictated and finalized at location A.
--- NOTE | 2021-09-20 10:37 | ED.ABDPAIN ---
HPI - Abdominal Pain General Chief Complaint: Abdominal Pain Stated Complaint: chronic constipation Time Seen by Provider: 09/20/21 10:34 Source: patient, EMS and RN notes reviewed Mode of arrival: EMS Limitations: dementia History of Present Illness HPI narrative: Patient is 86 years old white female came from [facility] with chief complaint of abdominal pain and nausea. Started today. Patient is poor historian. Related Data Home Medications Medication Instructions Recorded Confirmed PreserVision AREDS-2 1 tablet PO DAILY 12/09/19 09/20/21 Viibryd 10 mg PO DAILY 12/09/19 09/20/21 acetaminophen 1,000 mg PO Q6H PRN 12/09/19 09/20/21 amlodipine [Norvasc] 5 mg PO QAM 12/09/19 09/20/21 baclofen 10 mg PO QPM 12/09/19 09/20/21 calcium carbonate-vitamin D3 1 tablet PO BID 12/09/19 09/20/21 [Calcium 600 + D(3)] carbidopa-levodopa 1 tablet PO TID 12/09/19 09/20/21 cholecalciferol (vitamin D3) 125 mcg PO DAILY 12/09/19 09/20/21 [Vitamin D3] dicyclomine 20 mg PO Q6H PRN 12/09/19 09/20/21 donepezil 10 mg PO HS 12/09/19 09/20/21 duloxetine [Cymbalta] 30 mg PO QAM 12/09/19 09/20/21 ferrous sulfate 325 mg PO BID 12/09/19 09/20/21 fluticasone propionate [Flonase 2 spray INTRANASAL DAILY PRN 12/09/19 09/20/21 Allergy Relief] levothyroxine 125 mcg PO QAM 12/09/19 09/20/21 loratadine 10 mg PO DAILY PRN 12/09/19 09/20/21 meclizine 25 mg PO HS 12/09/19 09/20/21 melatonin 10 mg PO HS 12/09/19 09/20/21 memantine [Namenda] 10 mg PO BID 12/09/19 09/20/21 polyethylene glycol 3350 [Miralax] 17 g PO DAILY PRN 12/09/19 09/20/21 quetiapine 12.5 mg PO HS 12/09/19 09/20/21 Retaine PM 1 applic OPHTHALMIC (EYE) HS 03/30/20 09/20/21 pregabalin [Lyrica] 50 mg PO BID 06/05/20 09/20/21 baclofen 5 mg PO QPM 07/14/20 09/20/21 mesalamine 1,000 mg PO QID 07/14/20 09/20/21 Biofreeze (menthol) 1 dose TOPICAL PRN PRN 03/03/21 09/20/21 clotrimazole-betamethasone 1 applic TOPICAL BID PRN 03/03/21 09/20/21 cyanocobalamin (vitamin B-12) 1,000 mcg PO DAILY 03/03/21 09/20/21 duloxetine 20 mg PO HS 03/03/21 09/20/21 meclizine 25 mg PO Q6-8H PRN 03/03/21 09/20/21 Allergies Allergy/AdvReac Type Severity Reaction Status Date / Time tomato Allergy Unknown Verified 09/20/21 11:19 Review of Systems Review of Systems: ROS unobtainable: Yes unobtainable due to mental status [facility] Past Medical History Medical History Anxiety and depression Bipolar disorder Bowel obstruction Chronic anemia Chronic GERD Colostomy in place Dementia Glaucoma Hip fracture Left hip fracture in 12/2017 after a fall. Right hip fracture in 03/26/2020 after a fall. Hypertension Hypothyroidism Lumbar burst fracture (~12/2017) L1, L3, and L5 burst fractures sustained in a fall. Osteoarthritis Osteoporosis Parkinsons Vitamin D deficiency Surgical History Surgical History History of bilateral carpal tunnel release History of cervical spinal surgery Diskectomy and fusion. History of cholecystectomy History of left hip replacement (~12/2017) History of partial colectomy Appears to have had a sigmoid resection with end descending colostomy. Also evidence of an ileocolic anastomosis from previous surgery. History of right hip replacement (~03/2020) History of vaginal hysterectomy Family History Family History Father Acute myocardial infarction, Onset Age: 72 Mother Parkinson disease Heart attack Sibling Hypertension Cerebrovascular accident Social History Social History Social History: The patient lives at [facility]. She was never and has no children. 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 She is a lifelong nonsmoker and denies alcohol and illicit substance use. Her nephew, Radu Adames, as her healthcare power of att
[2021-09-20 10:54] LABS: Basophils Percent Auto 0.3 % (0.2-1.2); Eosinophils Absolute Auto 0.1 K/mm3 (0-0.3); Eosinophils Percent Auto 1.5 % (0-4.4); Hematocrit 40.9 % (37.0-47.0); Hemoglobin 13.9 g/dL (12.0-15.0); Immature Granulocyte Absolute 0.03 K/mm3 (0.00-0.031); Immature Granulocyte Percent A 0.4 % (0-0.5); Lymphocytes Absolute Auto 1.02 K/mm3 (0.9-3.2); Lymphocytes Percent Auto 13.1 % (18.3-44.2); Mean Corpuscular Hemoglobin 34.3 pg (26-34); Mean Platelet Volume 8.8 fl (7.4-10.4); Monocytes Absolute Auto 0.4 K/mm3 (0.1-0.6); Neutrophils Absolute Auto 6.2 K/mm3 (1.3-6.7); Neutrophils Percent Auto 79.7 % (45.5-73.1); Platelet Count Result 152 k/mm3 (150-375); Red Blood Count 4.05 M/mm3 (4.2-5.4); Red Cell Distribution Width 12.9 % (11.5-14.5); White Blood Count 7.8 K/mm3 (4.5-10.0)
--- NOTE | 2021-09-20 11:00 | PC.NURSE ---
IV access attempted x 2, no success. Another RN called for attempt
[2021-09-20 11:06] LABS: Alanine Aminotransferase 19 U/L (4-35); Albumin Level 4.6 g/dL (3.5-5.1); Alkaline Phosphatase 96 U/L (38-126); Anion Gap 12 mmol/L (8-16); Aspartate Amino Transferase 53 U/L (14-36); Bilirubin,Total 0.5 mg/dL (0.2-1.3); Blood Urea Nitrogen 15 mg/dL (7-17); Calcium 8.9 mg/dL (8.4-10.2); Carbon Dioxide 21 mmol/L (22-30); Chloride 105 mmol/L (98-107); Estimated CRCL calculation 36 ml/min; Estimated Glomerular Filt Rate > 60; Glucose 124 mg/dL (65-110); Lipase 37 U/L (23-300); Potassium 4.2 mmol/L (3.4-5.0); Sodium 138 mmol/L (137-145)
[2021-09-20] MEDS: ONDANSETRON INJ 4 MG/2 ML VIAL 8 MG IV PUSH (11:18)
[2021-09-20] MEDS: SODIUM CHLORIDE 0.9% IV 1,000 ML 999 ML IV CONT (11:18)
[2021-09-20 11:39] LABS: Add Urine Microscopic? NO; Appearance Urine Clear (Clear); Bilirubin Urine Negative (Negative); Blood Urine Negative (Negative); Color Urine Light Yellow (Yellow); Glucose Urine UA Negative (Negative); Ketones Urine Negative (Negative); Leukocyte Esterase Ur Negative LEU/UL (Negative); Nitrate Urine Negative (Negative); Protein Urine Negative (Negative); Specific Grav Ur 1.015 (1.001-1.035); Urobilinogen Urine 0.2 mg/dL (<2.0); pH Urine 5.5 (5.0-9.0)
[2021-09-20] MEDS: MORPHINE SULFATE (*CRX) 2 MG/ML INJ IV PUSH ×2 (11:46→12:48)
--- NOTE | 2021-09-20 11:47 | PC.NURSE ---
pt c/o severe stomach pain . ERP made aware, orders received. Pt to ct via stretcher.
--- NOTE | 2021-09-20 12:05 | PC.NURSE ---
PT returned from CT.
--- NOTE | 2021-09-20 12:49 | PC.NURSE ---
PT aware of need for NG tube, states she is agreeable. pt requests bedpan at this time. Will pre-medicate and attempt NG after medication and pain is controlled.
--- NOTE | 2021-09-20 13:53 | PC.NURSE ---
NG tube placed, gastric content noted. Report called to floor. [facility] updated.
[2021-09-20] MEDS: MORPHINE SULFATE (*CRX) 4 MG/ML INJ 2 MG IV PUSH ×2 (14:24→17:25)
[2021-09-20] MEDS: LACTATED RINGERS 1,000 ML 100 ML IV CONT (14:24)
--- NOTE | 2021-09-20 14:34 | PM.IMHP ---
H&P: HPI History of Present Illness Date/Time: 09/20/21 14:34 Chief Complaint: abdominal pain with nausea vomiting Narrative: 86-year-old female resident of [facility] has a history of Crohn's disease and prior bowel obstruction in May 2021. She has a colostomy which was placed about 17 years ago. She was in her usual state of health until this morning. She developed sudden onset of crampy periumbilical epigastric abdominal pain with vomiting of undigested food then brown fecal material. She was transported the emergency department where a CT of the abdomen pelvis suggested a small-bowel obstruction with transition point at the ileum. She denied any recent blood in her ostomy or blood in the emesis. Her last known bowel movement was last night after she/her ostomy bag. She states her bowels usually do not moved unless she flushes the ostomy bag. She has generalized arthritis pain intermittent low back pain and tingling and burning in both lower extremities with prior diagnosis of peripheral neuropathy. At baseline she ambulates with a walker. She denied chest pain heaviness or dyspnea on exertion dizziness or falls. She denied pedal edema. She denied abnormal bleeding. She denied any swollen hot red or tender joints. Recently her appetite has been fairly stable and her weight has been fairly stable. She has not had fevers chills or sweats. Review of Systems Review of Systems: All systems reviewed & are unremarkable except as noted in HPI and below PMFSH Past Medical History Medical History Anxiety and depression Bipolar disorder Bowel obstruction Chronic anemia Chronic GERD Colostomy in place Dementia Glaucoma Hip fracture Left hip fracture in 12/2017 after a fall. Right hip fracture in 03/26/2020 after a fall. Hypertension Hypothyroidism Lumbar burst fracture (~12/2017) L1, L3, and L5 burst fractures sustained in a fall. Osteoarthritis Osteoporosis Parkinsons Vitamin D deficiency Surgical History Surgical History History of bilateral carpal tunnel release History of cervical spinal surgery Diskectomy and fusion. History of cholecystectomy History of left hip replacement (~12/2017) History of partial colectomy Appears to have had a sigmoid resection with end descending colostomy. Also evidence of an ileocolic anastomosis from previous surgery. History of right hip replacement (~03/2020) History of vaginal hysterectomy Family History Family History Father Acute myocardial infarction, Onset Age: 72 Mother Parkinson disease Heart attack Sibling Hypertension Cerebrovascular accident Social History Social History Social History: The patient lives at [facility]. She was never and has no children. 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 She is a lifelong nonsmoker and denies alcohol and illicit substance use. Her nephew, Radu Adames, as her healthcare power of family law attorney. She is listed as a full code. Smoking status: Never smoker Alcohol intake: never Substance use: never Substance use type: does not use Gender identity (if verbalized by the patient): Female Sexual Orientation (if Verbalized by the Patient): Straight or Heterosexual Spiritual care concerns: No Meds Home Medications and Allergies Home Medications Medication Instructions Recorded Confirmed Type PreserVision AREDS-2 1 tablet PO DAILY 12/09/19 09/20/21 History Viibryd 10 mg PO DAILY 12/09/19 09/20/21 History acetaminophen 1,000 mg PO Q6H PRN 12/09/19 09/20/21 History amlodipine [Norvasc] 5 mg PO QAM 12/09/19 09/20/21 History baclofen 10 mg PO QPM 12/09/19 09/20/21 History calcium carbonate-vitamin D3 1 tablet PO BID 12/09/19 0
[2021-09-20] MEDS: ONDANSETRON INJ 4 MG/2 ML VIAL IV PUSH (14:56)
--- NOTE | 2021-09-20 15:03 | ADMGEN ---
This patient, Lyndsey Lee, was admitted to Medical Room 250-01. Patient/family oriented to hospital policies and general routines including ID bracelet, bed and alarms, visiting hours, pain management, procedures, bathroom and other care routines, personal items, smoking policy, room service/diet, and visiting hours. Information on how to activate the Rapid Response Team has been discussed. Patient/Family are encouraged to report perceived risks to care and to ask questions if they do not understand what they are told or what they should do.
--- NOTE | 2021-09-20 15:31 | WPDGICN ---
Assessment and Plan Additional Plan GI Consultation Dr. Soto September 20, 2021 This is an 85 year old female [facility] patient well known to Dr. Damon with a history of Crohn's disease complicated by bowel obstructions with history of sigmoid resections and ostomy, Parkinson's, HTN, HLD, Hypothyroid, GERD, bilateral hip fractures with replacements, lumbar fracture, Osteoporosis, OA, Bipolar disorder, anxiety/depression, Dementia, chronic blood loss anemia, bilateral Carpal Tunnel release, C-spine surgery, CCx and vag hysterectomy who now presents for evaluation of Crohn's disease and bowel obstruction. Patient is seen at the request of the Hospitalist service to evaluate for same. Patient is confused and is a poor historian. Patient complains of abdominal pain and tenderness, nausea or vomiting, bloating. Patient denies trouble swallowing, loss of appetite or weight, early satiety, heartburn, diarrhea or constipation, rectal bleeding or melena. Further denies fever, jaundice, scleral icterus, dark urine, light stool, itching, hot or cold intolerance, chest pain, shortness of breath at rest, hematuria, dysuria, new cough or visual changes, easy bruising, tingling of the skin, bone pain or tremors. No history of endocarditis, rheumatic fever, dental prophylaxis, heart valve surgery, bleeding disorder or joint replacement. NKDA Medications: see list but includes Bentyl 20 mg AC, Protonix 40 mg po daily po, Prednisone 40 mg po/d and Miralax prn. Social history: nonsmoker, nondrinker. No illicit drugs. Family history: negative for GI malignancy. Last colonoscopy was about 2-3 years ago. Physical exam: NG with 650 cc gastric contents in jar. No lower extremity edema, jaundice, spider angioma, palmar erythema. Skull is normocephalic atraumatic. Sclera are non-icteric. Oropharynx is clear. Neck is supple without thyromegaly. Lungs are clear. Heart is rate and rhythm regular. S1 and S2 normal. Positive bowel sounds. Distended but soft. Tender diffusely with voluntary guarding without hepatosplenomegaly or masses. Rectal is deferred. Neuro is conscious and alert. Labs: Hct 41. MCV 101. PTL 152. Cr 0.8. TBili 0.5, A/P 96, AST 53, ALT 19. Lip 37 Imaging: CT A/P with IVC: SBO w/ transition in TI; V. hernia containing some transv colon Assessment and plan: A. Crohn's disease with abdominal pain (gen) and abnormal imaging-digestive with likely SBO at level of TI: - Has had this before managed medically - Continue NG-> LIS - Would use Decadron 4 mg IV Q 12 hours - Levaquin 500 mg IV q 24 hour - Flagyl 500 mg IV q 12 hour - Will need additional treat as OP; consider biological - With repeated obstructions may need to consider surgery - Consider SBFT or MR Enterography when patient improves B. GERD: IV PPI C. Abn ALT: likely due to illness; observe for now. D. Abnormal imaging-digestive: ventral hernia without incarceration; observe. E. Macrocytosis: check B12/folate if not done recently. Thank you very much for allowing me to share in the care of your patient. Demarco Soto M.D. c) [phone] GI Consult Note Consult date/time: 09/20/21 15:31 HPI: Lyndsey Lee is a 86 year old female [facility] Past Medical History Medical History Anxiety and depression Bipolar disorder Bowel obstruction Chronic anemia Chronic GERD Colostomy in place Dementia Glaucoma Hip fracture Left hip fracture in 12/2017 after a fall. Right hip fracture in 03/26/2020 after a fall. Hypertension Hypothyroidism Lumbar burst fracture (~12/2017) L1, L3, and L5 burst fractures sustained in a fall. Osteoarthritis Osteoporosis Parkinsons Vitamin D deficiency Surgical History Surgical History History of bilateral carpal tunnel release History of cervical spinal surgery Diskectomy and fusion. History of cholecystectomy History of left hip replac
[2021-09-20] MEDS: HYDROCORTISONE SODIUM SUCCINATE 100 MG/2 ML VIAL 50 MG IV PUSH (15:57)
[2021-09-20] MEDS: metroNIDAZOLE 500 MG/ISO 100ML 500 MG/100 ML BAG 100 MG IVPB (17:13)
[2021-09-20] MEDS: levoFLOXacin 500 MG/D5W 100 ML 500 MG/100 ML BAG 100 MG IVPB (17:20)
--- NOTE | 2021-09-20 20:34 | PM.EVENT ---
Event Note Event Note Event Note: Nursing staff notified me the patient has had oxygen saturations as low as 82% on room air. The patient has been receiving frequent doses of morphine. The patient denies respiratory symptoms. The patient was placed on 2 L nasal cannula. A stat chest x-ray has been ordered.
[2021-09-20] MEDS: DEXAMETHASONE SOD PHOS INJ 4 MG/ML VIAL IV PUSH (20:49)
[2021-09-20 22:17] LABS: SARS-CoV-2 RNA PCR Negative
[2021-09-21] MEDS: MORPHINE SULFATE (*CRX) 4 MG/ML INJ 2 MG IV PUSH ×2 (00:33→06:33)
[2021-09-21] MEDS: metroNIDAZOLE 500 MG/ISO 100ML 500 MG/100 ML BAG 100 MG IVPB ×3 (00:34→18:05)
[2021-09-21 00:40] VITALS: BP 122/48; PULSE 82; RESP 20; TEMP 35.8; O2SAT 97
[2021-09-21 03:54] VITALS: BP 118/48; PULSE 88; RESP 20; TEMP 36.1; O2SAT 98
[2021-09-21 05:17] LABS: Hematocrit 38.7 % (37.0-47.0); Mean Corpuscular HGB Conc 33.6 g/dl (32-36); Mean Corpuscular Hemoglobin 34.3 pg (26-34); Mean Corpuscular Volume 102.1 fl (80-100); Mean Platelet Volume 9.3 fl (7.4-10.4); Platelet Count Result 140 k/mm3 (150-375); Red Blood Count 3.79 M/mm3 (4.2-5.4); Red Cell Distribution Width 13.1 % (11.5-14.5)
[2021-09-21 05:28] LABS: Anion Gap 8 mmol/L (8-16); Blood Urea Nitrogen 23 mg/dL (7-17); Carbon Dioxide 24 mmol/L (22-30); Chloride 104 mmol/L (98-107); Estimated CRCL calculation 23 ml/min; Estimated Glomerular Filt Rate 39; Glucose 132 mg/dL (65-110); Magnesium 1.2 mg/dL (1.6-2.3); Potassium 4.7 mmol/L (3.4-5.0); Sodium 136 mmol/L (137-145)
[2021-09-21] MEDS: LEVOTHYROXINE SODIUM INJ 100 MCG/5 ML VIAL 62.5 MCG IV PUSH (05:29)
[2021-09-21] MEDS: LACTATED RINGERS 1,000 ML 75 ML IV CONT (05:29)
[2021-09-21 05:52] LABS: Band Neutrophils Percent 12 % (0-6); Lymphocytes Absolute Manual 0.32 K/mm3 (1.1-4.5); Monocytes Absolute Manual 0.32 K/mm3 (0.1-0.90); Monocytes Percent Manual 2 % (3-9); Neutrophils Absolute Manual 15.36 K/mm3 (1.7-7.2); Neutrophils Percent Manual 84 % (46-73); Total Cells Counted 100
[2021-09-21 06:38] LABS: Folic Acid > 20.0 ng/mL (2.76->20)
--- NOTE | 2021-09-21 08:25 | PM.CNGS ---
Assessment and Plan Assessment and plan (1) Small bowel obstruction: Onset Date: 09/21/21 Code(s): K56.609 - Unspecified intestinal obstruction, unspecified as to partial versus complete obstruction Status: Acute Assessment and Plan: admission CT scan suggested possible small bowel obstruction partial or complete. This seems to be in the ilium and therefore could be related to her known history of Crohn's disease. For now conservative management with NG decompression, NPO status, and fluid hydration is recommended. I agree with GI consultation that steroids may be beneficial in this situation if the partial small-bowel obstruction is related to inflammation of her known Crohn's disease. This may cloud the picture in that this can cause the white cell count to go up but we will follow with serial plain films of the abdomen and exams. (2) Incisional hernia without obstruction or gangrene: Onset Date: Unknown Code(s): K43.2 - Incisional hernia without obstruction or gangrene Status: Acute Assessment and Plan: Patient is not complaining specifically of any pain near her scar from her previous surgery there is no obvious large bulge or other changes along the scar from her previous midline incision. Will follow this with exams. (3) Crohn's ileitis: Onset Date: Unknown Qualifiers: Digestive disease complication type: with intestinal obstruction Qualified Code(s): K50.012 - Crohn's disease of small intestine with intestinal obstruction Code(s): K50.00 - Crohn's disease of small intestine without complications Status: Acute Assessment and Plan: Appreciate GI input. Patient's current symptoms and findings on CT could certainly be secondary to a flare of Crohn's. Agree with empiric Rx until patient could be cleaned out for further diagnostic studies if it seems to be indicated at that point. Would recommend NG decompression until signs and symptoms of obstruction sara. (4) Colostomy in place: Onset Date: ~2013 Code(s): Z93.3 - Colostomy status Status: Chronic Assessment and Plan: Patient has a 2 piece bag and nursing reports that there isn't much stool in the bag. Have asked nursing to consider a irrigation of the stoma to be sure there was no hard stool obstructing the intra-abdominal wall portion of the stoma and to foster emptying of the remaining colon. (5) Dementia: Onset Date: Unknown Qualifiers: Dementia type: Parkinson's disease Dementia behavioral disturbance: without behavioral disturbance Qualified Code(s): G20 - Parkinson's disease; F02.80 - Dementia in other diseases classified elsewhere without behavioral disturbance Code(s): F03.90 - Unspecified dementia without behavioral disturbance Status: Chronic Assessment and Plan: Patient seems to be able to answer standard questions. However, this issue clouds the accuracy of her history. Will continue to follow and depend on nursing and the patient's history to help in planned continuing care. History of Present Illness Consult details Consult date: 09/21/21 Reason for consult: abdominal pain Requesting physician: Cem Oseguera MD Narrative: This is an 85 year old White female [facility] patient with a history of Crohn's disease complicated by bowel obstructions in the past with a history of a sigmoid resection and ostomy creation in 2013. She also has known Parkinson's, HTN, HLD, Hypothyroidism, GERD, Hx. of bilateral hip fractures with hip replacements, lumbar compression fractures, Osteoporosis, OA, Bipolar disorder, anxiety/depression, Dementia, chronic blood loss anemia, bilateral C-spine surgery, and a vag hysterectomy who now presents for evaluation of Crohn's disease and possible bowel obstruction seen on her admitting CT scan. Patient is seen at the request of the Hospitalist service to evaluate for same. At the time of my evaluation
[2021-09-21] MEDS: MAGNESIUM SULF 2 GM/WATER 50ML 2 GM/50 ML BAG IVPB (08:50)
[2021-09-21] MEDS: DEXAMETHASONE SOD PHOS INJ 4 MG/ML VIAL IV PUSH ×2 (08:50→20:13)
[2021-09-21] MEDS: ENOXAPARIN 40 MG/0.4 ML SYRINGE SUB-Q (08:51)
[2021-09-21] MEDS: MAGNESIUM HYDROXIDE SUSP 30 ML UDC FEED TUBE (10:36)
--- NOTE | 2021-09-21 12:01 | PM.IMPN ---
Progress Note: A&P Assessment and Plan (1) Small bowel obstruction: Code(s): K56.609 - Unspecified intestinal obstruction, unspecified as to partial versus complete obstruction Status: Acute Assessment and Plan: likely related to her Crohn's disease with scarring and prior surgery with adhesions KUB 09/21 improved with nonobstructive pattern, so NG clamped 09/20 PM low grade fever Continue levofloxacin, metronidazole (day 1 09/20) (2) Crohn's disease: Qualifiers: Digestive disease complication type: with intestinal obstruction Gastrointestinal tract location: unspecified location Qualified Code(s): K50.912 - Crohn's disease, unspecified, with intestinal obstruction Code(s): K50.90 - Crohn's disease, unspecified, without complications Status: Acute Assessment and Plan: according to prison records she was still receiving prednisone 20 mg daily likely has adrenal suppression hydrocortisone 50 mg IV every 8 hours initially, then 09/20 changed to more anti-inflammatory dexamethsone (3) Macrocytosis: Code(s): D75.89 - Other specified diseases of blood and blood-forming organs Status: Acute Assessment and Plan: B12, folate WNL Not a drinker Consider primary marrow dysfunction 09/21: Leukocytosis likely due to steroids F/u lab (4) Osteoarthritis: Qualifiers: Osteoarthritis location: multiple joints Osteoarthritis type: primary Qualified Code(s): M15.9 - Polyosteoarthritis, unspecified Code(s): M19.90 - Unspecified osteoarthritis, unspecified site Status: Chronic Assessment and Plan: Was receiving Lyrica and Cymbalta for chronic pain and possible peripheral neuropathy as well; resume when able (5) Parkinsons: Code(s): G20 - Parkinson's disease Status: Chronic Assessment and Plan: hold carbidopa levodopa p.o. until oral intake resumes (6) Colostomy in place: Code(s): Z93.3 - Colostomy status Status: Chronic Assessment and Plan: monitor output Subjective Date/time seen: 09/21/21 12:01 Interval history: 09/21 visit: Denied abd pain. Gas output noted by patient into ostomy. Feels much better. Review of Systems Review of Systems: All systems reviewed & are unremarkable except as noted in HPI and below Exam Narrative: GENERAL: Chronic ill-appearing elderly female in no acute distress with nasogastric tube in place. HEENT: EOMI, PERRL, sclerae nonicteric, pharyngeal mucosa pink and intact. NECK: No JVD, adenopathy, or thyromegaly. CHEST: Clear to auscultation. Normal effort. HEART: NL S1/S2, regular, no murmur ABDOMEN: BS+, soft, MINIMALLY TENDER PERIUMBILICAL TO EPIGASTRIUM, SMALL NONTENDER REDUCIBLE VENTRAL HERNIA EXTREMITIES: No cyanosis, edema, or clubbing NEUROLOGIC: CN intact and symmetric to inspection, EXCEPT MODERATELY SEVERE HARD OF HEARING MUSCULOSKELETAL: Tone and strength symmetric. PSYCH: Alert. Oriented to person, place. Pleasant and cooperative. Objective Data Vital Signs Vital Signs: Vital Signs - 24 hr 09/20/21 12:08 09/20/21 12:17 09/20/21 13:44 Temperature Pulse Rate 85 87 86 Respiratory Rate 18 18 18 Blood Pressure 172/88 H 101/69 162/85 H Pulse Oximetry 98 98 98 09/20/21 15:15 09/20/21 15:53 09/20/21 19:46 Temperature 97 F L 97 F L 100 F H Pulse Rate 84 84 110 H Respiratory Rate 16 16 20 Blood Pressure 90/54 L 90/54 L 102/81 Pulse Oximetry 95 95 95 09/20/21 21:10 09/21/21 00:40 09/21/21 03:54 Temperature 100.7 F H 96.5 F L 96.9 F L Pulse Rate 82 88 Respiratory Rate 20 20 Blood Pressure 122/48 L 118/48 L Pulse Oximetry 97 98 Intake/Output Intake/Output: Intake & Output 09/18/21 09/19/21 09/20/21 09/21/21 23:59 23:59 23:59 23:59 Intake Total 1300 1200 Output Total 1250 850 Balance 50 350 Meds/Results Medications: Active Medications Generic Name Dose Route Start Last Admin Tr
[2021-09-21 14:45] VITALS: BP 149/69; PULSE 95; RESP 18; TEMP 36.3; O2SAT 96
[2021-09-21] MEDS: CARBAMIDE PEROXIDE 6.5% OT SOLN 15 ML BTL 5 DROP LEFT EAR (18:04)
[2021-09-21] MEDS: levoFLOXacin 250 MG/D5W 50 ML 250 MG/50 ML BAG 50 MG IVPB (18:05)
[2021-09-21 19:31] VITALS: BP 144/62; PULSE 93; RESP 18; TEMP 36.6; O2SAT 91
--- NOTE | 2021-09-21 20:26 | WPDGIPROGNO ---
Progress Note: A&P Additional Plan MAURILIO Soto for [facility] September 21 2021 Denies AP, N, V. NG in. + Ostomy OP VSS soft/NT Hct 39. WBC 16. B12 595, folate > 20 Assessment and plan: A. Crohn's disease with abdominal pain (gen) and abnormal imaging-digestive with likely SBO at level of TI: - Has had this before managed medically; improving - Continue NG-> LIS - Decadron 4 mg IV Q 12 hours - Levaquin 500 mg IV q 24 hour - Flagyl 500 mg IV q 12 hour - Will need additional treat as OP; consider biological - With repeated obstructions may need to consider surgery - Consider SBFT or MR Enterography when patient improves B. GERD: IV PPI C. Abn ALT: likely due to illness; observe for now. D. Abnormal imaging-digestive: ventral hernia without incarceration; observe. E. Macrocytosis: B12/folate normal. Further recommendations per [facility] MAURILIO Soto M.D. (c) [phone] Subjective Date/time seen: 09/21/21 20:26 Objective Data Vital Signs Vital Signs: Vital Signs - 24 hr 09/20/21 21:10 09/21/21 00:40 09/21/21 03:54 Temperature 38.2 C H 35.8 C L 36.1 C L Pulse Rate 82 88 Respiratory Rate 20 20 Blood Pressure 122/48 L 118/48 L Pulse Oximetry 97 98 09/21/21 14:45 09/21/21 19:31 Temperature 36.3 C L 36.6 C Pulse Rate 95 93 Respiratory Rate 18 18 Blood Pressure 149/69 H 144/62 H Pulse Oximetry 96 91 Intake/Output Intake/Output: Intake & Output 09/18/21 09/19/21 09/20/21 09/21/21 23:59 23:59 23:59 23:59 Intake Total 1300 1350 Output Total 1250 1550 Balance 50 -200 Meds/Results Medications: Active Medications Generic Name Dose Route Start Last Admin Trade Name Freq PRN Reason Stop Dose Admin Carbamide Peroxide 5 drop 09/21/21 17:00 09/21/21 18:04 Carbamide Peroxide 6.5% Ot Soln 15 Ml Btl LEFT EAR 5 drop BID [place] Administration Dexamethasone Sodium Phosphate 4 mg 09/20/21 21:00 09/21/21 20:13 Dexamethasone Sod Phos Inj 4 Mg/Ml Vial IV PUSH 4 mg Q12H [place] Administration Enoxaparin Sodium 40 mg 09/21/21 09:00 09/21/21 08:51 Enoxaparin 40 Mg/0.4 Ml Syringe SUB-Q 40 mg DAILY [place] Administration Lactated Ringer's 1,000 mls @ 100 mls/hr 09/20/21 13:00 09/21/21 18:05 Lr - Lactated Ringers Iv IV CONT Not Given .Q10H [place] Metronidazole 500 mg in 100 mls @ 100 mls/hr 09/20/21 17:00 09/21/21 19:05 Flagyl 500 Mg/Iso Soln 100 Ml IVPB Infused Q8H [place] Infusion Levofloxacin/Dextrose 250 mg in 50 mls @ 50 mls/hr 09/21/21 17:00 09/21/21 19:05 Levaquin 250 Mg/D5w 50 Ml IVPB Infused Q24H [place] Infusion Levothyroxine Sodium 62.5 mcg 09/21/21 06:30 09/21/21 05:29 Levothyroxine Sodium Inj 100 Mcg/5 Ml Vial IV PUSH 62.5 mcg DAILY@0630 [place] Administration Morphine Sulfate 2 mg 09/20/21 13:01 09/21/21 06:33 Morphine Sulfate (*Crx) 4 Mg/Ml Inj IV PUSH 2 mg Q2H PRN Administration Pain Rated 7-10 Promethazine HCl 12.5 mg 09/20/21 16:55 Promethazine Hcl 25 Mg/Ml Ampul IV PUSH Q4H PRN Nausea And Vomiting Radiology Results: ITS Impressions Abdomen/Pelvis CT 09/20/21 12:23 IMPRESSION: 1. Small bowel obstruction with transition point in the terminal ileum. 2. Ventral hernia containing a wall of nonobstructed transverse colon. Chest X-Ray 09/20/21 18:06 IMPRESSION: NG tube in good position, without coil. Atelectasis/consolidation the right lung base. Abdomen X-Ray 09/21/21 18:14 IMPRESSION: No radiographic evidence of obstruction or ileus. Labs Labs: Laboratory Results - last 24 hr 09/20/21 09/21/21 09/21/21 21:36 04:58 04:58 WBC 16.0 H RBC 3.79 L Hgb 13.0 Hct 38.7 MCV 102.1 H MCH 34.3 H MCHC 33.6 RDW 13.1 Plt Count 140 L MPV 9.3 Immature Gran % (Auto) Not Reportable Neut % (Auto) Not Reportable Lymph % (Auto) Not Reportable [place] % (Auto) Not Reportable Eos % (Auto) Not Reportable Baso % (Auto) Not Reportable
[2021-09-22] MEDS: LACTATED RINGERS 1,000 ML 75 ML IV CONT ×2 (02:32→20:07)
[2021-09-22 04:02] VITALS: BP 130/52; PULSE 98; RESP 18; TEMP 36.2; O2SAT 92
[2021-09-22] MEDS: LEVOTHYROXINE SODIUM INJ 100 MCG/5 ML VIAL 62.5 MCG IV PUSH (05:34)
[2021-09-22 05:47] LABS: Hematocrit 37.5 % (37.0-47.0); Hemoglobin 12.2 g/dL (12.0-15.0); Mean Corpuscular HGB Conc 32.5 g/dl (32-36); Mean Corpuscular Volume 104.5 fl (80-100); Mean Platelet Volume 9.5 fl (7.4-10.4); Platelet Count Result 152 k/mm3 (150-375); Red Blood Count 3.59 M/mm3 (4.2-5.4); Red Cell Distribution Width 13.1 % (11.5-14.5); White Blood Count 11.2 K/mm3 (4.5-10.0)
[2021-09-22 06:04] LABS: Alanine Aminotransferase 33 U/L (4-35); Albumin Level 3.7 g/dL (3.5-5.1); Alkaline Phosphatase 72 U/L (38-126); Anion Gap 7 mmol/L (8-16); Aspartate Amino Transferase 25 U/L (14-36); Bilirubin,Total 0.7 mg/dL (0.2-1.3); Blood Urea Nitrogen 26 mg/dL (7-17); Calcium 8.1 mg/dL (8.4-10.2); Carbon Dioxide 28 mmol/L (22-30); Chloride 103 mmol/L (98-107); Estimated CRCL calculation 32 ml/min; Estimated Glomerular Filt Rate 59; Glucose 100 mg/dL (65-110); Potassium 4.2 mmol/L (3.4-5.0); Sodium 138 mmol/L (137-145)
[2021-09-22] MEDS: ENOXAPARIN 40 MG/0.4 ML SYRINGE SUB-Q (08:38)
[2021-09-22] MEDS: CARBAMIDE PEROXIDE 6.5% OT SOLN 15 ML BTL 5 DROP LEFT EAR ×2 (08:38→16:56)
[2021-09-22] MEDS: metroNIDAZOLE 500 MG/ISO 100ML 500 MG/100 ML BAG 100 MG IVPB ×3 (08:39→16:56)
[2021-09-22] MEDS: DEXAMETHASONE SOD PHOS INJ 4 MG/ML VIAL IV PUSH ×2 (08:39→20:04)
--- NOTE | 2021-09-22 09:56 | PCWOUND ---
WOCN NOTE Received notification of ostomy irrigation. Spoke to Dr Raymundo, ostomy was irrigated yesterday successfully. spoke to todays RN, she reports ostomy is working with stool in appliance. Spoke to patient, she states she walks frequently to keep her bowels working and sticks to her diet and has not had problems in a long time. no irrigation additional needed at this time.
[2021-09-22] MEDS: MAGNESIUM HYDROXIDE SUSP 30 ML UDC FEED TUBE (10:29)
--- NOTE | 2021-09-22 11:58 | WPDGIPROGNO ---
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 Stool in ostomy bag this morning. (2) Crohn's disease: Qualifiers: Digestive disease complication type: with intestinal obstruction Gastrointestinal tract location: unspecified location Qualified Code(s): K50.912 - Crohn's disease, unspecified, with intestinal obstruction Code(s): K50.90 - Crohn's disease, unspecified, without complications Status: Acute Assessment and Plan: Patient with known Crohn's disease. Appears to be etiology for her partial small bowel obstruction. Obstruction appears resolved at this time. Plan for small-bowel series today. Resume oral intake otherwise. Will resume previous Crohn's disease medication. Currently Pentasa. Patient on steroids these will be changed to oral medications and taper down slowly. (3) Small bowel obstruction: Code(s): K56.609 - Unspecified intestinal obstruction, unspecified as to partial versus complete obstruction Status: Acute Assessment and Plan: Small-bowel obstruction appears resolved at this point. Recommend conservative therapy at this point. (4) Incisional hernia without obstruction or gangrene: Code(s): K43.2 - Incisional hernia without obstruction or gangrene Status: Acute Assessment and Plan: Hernia evident on CT scan. Does not appear to be causing obstruction. Subjective Date/time seen: 09/22/21 11:58 Patient alert comfortable this morning. States all symptoms have resolved. Denies abdominal pain. Now has some stool in ostomy bag. Review of Systems Review of Systems: All systems reviewed & are unremarkable except as noted in HPI and below Exam Narrative: Physical exam reveals patient be alert comfortable at rest. HEENT exam reveals no icterus. Lungs are clear. Heart without murmur. Abdomen bowel sounds are present soft ostomy bag and left upper quadrant functioning well stool present here. Objective Data Vital Signs Vital Signs: Vital Signs - 24 hr 09/21/21 14:45 09/21/21 19:31 09/22/21 04:02 Temperature 97.4 F L 97.9 F 97.1 F L Pulse Rate 95 93 98 Respiratory Rate 18 18 18 Blood Pressure 149/69 H 144/62 H 130/52 L Pulse Oximetry 96 91 92 Intake/Output Intake/Output: Intake & Output 09/19/21 09/20/21 09/21/21 09/22/21 23:59 23:59 23:59 23:59 Intake Total 1300 1350 1100 Output Total 1250 1850 1050 Balance 50 -500 50 Meds/Results Medications: Active Medications Generic Name Dose Route Start Last Admin Trade Name Freq PRN Reason Stop Dose Admin Carbamide Peroxide 5 drop 09/21/21 17:00 09/22/21 08:38 Carbamide Peroxide 6.5% Ot Soln 15 Ml Btl LEFT EAR 5 drop BID [place] Administration Dexamethasone Sodium Phosphate 4 mg 09/20/21 21:00 09/22/21 08:39 Dexamethasone Sod Phos Inj 4 Mg/Ml Vial IV PUSH 4 mg Q12H [place] Administration Enoxaparin Sodium 40 mg 09/21/21 09:00 09/22/21 08:38 Enoxaparin 40 Mg/0.4 Ml Syringe SUB-Q 40 mg DAILY [place] Administration Lactated Ringer's 1,000 mls @ 100 mls/hr 09/20/21 13:00 09/22/21 02:32 Lr - Lactated Ringers Iv IV CONT 75 mls/hr .Q10H [place] Administration Metronidazole 500 mg in 100 mls @ 100 mls/hr 09/20/21 17:00 09/22/21 08:39 Flagyl 500 Mg/Iso Soln 100 Ml IVPB 100 mls/hr Q8H [place] Administration Levofloxacin/Dextrose 250 mg in 50 mls @ 50 mls/hr 09/21/21 17:00 09/21/21 19:05 Levaquin 250 Mg/D5w 50 Ml IVPB Infused Q24H [place] Infusion Levothyroxine Sodium 62.5 mcg 09/21/21 06:30 09/22/21 05:34 Levothyroxine Sodium Inj 100 Mcg/5 Ml Vial IV PUSH 62.5 mcg DAILY@0630 [place] Administration Morphine Sulfate 2 mg 09/20/21 13:01 09/21/21 06:33 Morphine Sulfate (*Crx) 4 Mg/Ml Inj IV PUSH 2 mg Q2H PRN Administration Pain Rated 7-10 Promethazine
--- NOTE | 2021-09-22 13:40 | PM.IMPN ---
Progress Note: A&P Assessment and Plan (1) Small bowel obstruction: Code(s): K56.609 - Unspecified intestinal obstruction, unspecified as to partial versus complete obstruction Status: Acute Assessment and Plan: CT on presentation showed small-bowel obstruction with transition point in the terminal ileum Likely related to her Crohn's disease with scarring and prior surgery with adhesions KUB 09/21 improved with nonobstructive pattern, so NG clamped Small-bowel follow-through ordered today, awaiting results 09/20 PM developed low-grade fever 100.7. Continue levofloxacin and metronidazole. Fevers resolved Appreciate gastroenterology and general surgery consultation (2) Crohn's disease: Qualifiers: Digestive disease complication type: with intestinal obstruction Gastrointestinal tract location: unspecified location Qualified Code(s): K50.912 - Crohn's disease, unspecified, with intestinal obstruction Code(s): K50.90 - Crohn's disease, unspecified, without complications Status: Acute Assessment and Plan: Known Crohn's disease Continue dexamethasone Per GI recommendations, will resume mesalamine likely has adrenal suppression (3) Macrocytosis: Code(s): D75.89 - Other specified diseases of blood and blood-forming organs Status: Acute Assessment and Plan: Etiology for this is unclear B12 and folate within normal limits, no alcohol use Consider primary bone marrow dysfunction Continue to monitor CBC. Consider hematology referral as an outpatient (4) Osteoarthritis: Qualifiers: Osteoarthritis location: multiple joints Osteoarthritis type: primary Qualified Code(s): M15.9 - Polyosteoarthritis, unspecified Code(s): M19.90 - Unspecified osteoarthritis, unspecified site Status: Chronic Assessment and Plan: Was receiving Lyrica and Cymbalta for chronic pain and possible peripheral neuropathy as well; resume when able (5) Parkinsons: Code(s): G20 - Parkinson's disease Status: Chronic Assessment and Plan: No acute issues Resume carbidopa levodopa (6) Colostomy in place: Code(s): Z93.3 - Colostomy status Status: Chronic Assessment and Plan: No issues, appears to be functioning well monitor output Subjective Date/time seen: 09/22/21 13:40 Interval history: Date of service: 09/22/2021 Lyndsey Lee is 86-year-old female with a history of anxiety, depression, Crohn's disease, bowel obstruction s/p colostomy, and several other medical problems who is seen in follow-up for SBO. She is okay today. She is at times tearful and seems to be bit anxious. She was drinking Sprite and she told me this is the 1st time she has been able to drink anything. She is tolerating this well. She states she did not sleep well last night. She stated that she ?could not catch my breath.? I asked her if she has been feeling short of breath and she said no. She also denies cough. She denies abdominal pain, bloating, or cramping, no nausea or vomiting. She states that she has been feeling weak and a little bit dizzy. When I asked her more about the dizziness, she stated when she gets up she feels very unsteady. She has a sore throat from her NG tube. Denies chest pain or palpitations. ?I don't even know that I have a heart because it never gives me any problems Review of Systems Review of Systems: All systems reviewed & are unremarkable except as noted in HPI and below Exam Narrative: General: Thin, well-appearing 86 year-old female, sitting in a chair by the bedside, comfortable, NARD Neuro: awake, alert and oriented x4, speech clear, no focal neuro deficits noted HEENMT: normocephalic, atraumatic, EOMI, sclerae anicteric, NG tube secured to nare Respiratory: clear to auscultation bilaterally, nonlabored breathing Cardio: regular rate, regular rhythm with S1-S2 Abdomen: n
[2021-09-22 14:00] VITALS: BP 140/73; PULSE 99; RESP 16; TEMP 36.5; O2SAT 95
--- NOTE | 2021-09-22 14:54 | PM.PNGS ---
Progress Note: A&P Assessment and Plan (1) Small bowel obstruction: Code(s): K56.609 - Unspecified intestinal obstruction, unspecified as to partial versus complete obstruction Status: Acute Assessment and Plan: Appears to be resolving. [place] that this is secondary to her Crohn's disease. She has tolerated the NG clamping trial today and plain films yesterday showed a nonobstructive bowel gas pattern. Ostomy functioning well today. GI consulted and ordered a small bowel follow through, will await these results. If contrast moves through without evidence of an obstruction, then we can remove the NG tube and start clear liquids. (2) Crohn's ileitis: Qualifiers: Digestive disease complication type: with intestinal obstruction Qualified Code(s): K50.012 - Crohn's disease of small intestine with intestinal obstruction Code(s): K50.00 - Crohn's disease of small intestine without complications Status: Acute Assessment and Plan: On IV steroids and started on mesalamine. GI consulted and managing. (3) Incisional hernia without obstruction or gangrene: Code(s): K43.2 - Incisional hernia without obstruction or gangrene Status: Acute Assessment and Plan: Does not appear to be causing her obstruction. Reducible on exam. Continue to monitor. Additional Plan I have discussed the patient's case and plan of care with Dr. Raymundo. Subjective Subjective Date/Time Seen: 09/22/21 14:20 Patient reports: no new complaints Interval history: This is an 86 yo female who presented with evidence of a small bowel obstruction likely secondary to Crohn's disease on CT. She has been admitted and has an NG tube in place. GI consulted and has ordered a small bowel follow through today. Chart reviewed and patient seen and examined. Her nurse reports the patient has become slightly more confused through the day. She is oriented x 3 for me but did seem slightly confused when trying to obtain some history from her. She denies any abdominal pain. She reports flatus and output from her ostomy. Her nurse reports that she tolerated the clamping routine so far today and was put back to low int suction about 20 minutes prior to my arrival, with nearly no output from the NG so far since putting back to suction. Exam Const: General: no acute distress and awake Orientation/consciousness: patient oriented x3 GI: Inspection: non-distended and other (Ostomy with soft stool and gas in bag) GI Palp: Yes Soft to palpation, No Tenderness to palpation present (GI), No Guarding due to palpation present (GI), Yes Hernia present (ventral hernia just superior to umbilicus that is nontender and reducible) and No Rebound tenderness present Auscultation: normal bowel sounds Neuro: General: moves all extremities and no focal motor deficits Speech: normal speech Extrem: General: normal to inspection Psych: Insight: Fair insight present (Psych) Judgement: Fair judgement present (Psych) Objective Data Vital Signs Vital Signs: Vital Signs - 24 hr 09/21/21 19:31 09/22/21 04:02 Temperature 97.9 F 97.1 F L Pulse Rate 93 98 Respiratory Rate 18 18 Blood Pressure 144/62 H 130/52 L Pulse Oximetry 91 92 Intake/Output Intake/Output: Intake & Output 09/19/21 09/20/21 09/21/21 09/22/21 23:59 23:59 23:59 23:59 Intake Total 1300 1350 1100 Output Total 1250 1850 1050 Balance 50 -500 50 Meds/Results Medications: Active Medications Generic Name Dose Route Start Last Admin Trade Name Freq PRN Reason Stop Dose Admin Carbamide Peroxide 5 drop 09/21/21 17:00 09/22/21 08:38 Carbamide Peroxide 6.5% Ot Soln 15 Ml Btl LEFT EAR 5 drop BID [place] Administration Dexamethasone Sodium Phosphate 4 mg 09/20/21 21:00 09/22/21 08:39 Dexamethasone Sod Phos Inj 4 Mg/Ml Vial IV PUSH 4 mg Q12H [place] Administration Enoxaparin Sodium 40 mg 09/21/21 09:00 09/22/21 08:38 Enoxaparin 40 Mg/0.4 Ml Syringe SUB-Q
[2021-09-22] MEDS: CARBIDOPA/LEVODOPA 25/250 MG TABLET 1 TABLET PO (17:01)
[2021-09-22] MEDS: levoFLOXacin 250 MG/D5W 50 ML 250 MG/50 ML BAG 50 MG IVPB (17:52)
[2021-09-22] MEDS: MESALAMINE 250 MG CAP CR 1000 MG PO ×2 (17:53→20:03)
[2021-09-22 20:06] VITALS: BP 145/84; PULSE 89; RESP 20; TEMP 37.1; O2SAT 100
[2021-09-23] MEDS: metroNIDAZOLE 500 MG/ISO 100ML 500 MG/100 ML BAG 100 MG IVPB ×2 (00:55→08:04)
[2021-09-23 04:24] VITALS: BP 165/76; PULSE 92; RESP 18; TEMP 36.8; O2SAT 94
[2021-09-23] MEDS: LEVOTHYROXINE SODIUM INJ 100 MCG/5 ML VIAL 62.5 MCG IV PUSH (05:32)
[2021-09-23 05:41] LABS: Hematocrit 35.5 % (37.0-47.0); Hemoglobin 12.1 g/dL (12.0-15.0); Mean Corpuscular HGB Conc 34.1 g/dl (32-36); Mean Corpuscular Hemoglobin 34.2 pg (26-34); Mean Corpuscular Volume 100.3 fl (80-100); Mean Platelet Volume 9.3 fl (7.4-10.4); Platelet Count Result 158 k/mm3 (150-375); Red Blood Count 3.54 M/mm3 (4.2-5.4); Red Cell Distribution Width 12.5 % (11.5-14.5); White Blood Count 10.1 K/mm3 (4.5-10.0)
[2021-09-23 05:59] LABS: Alanine Aminotransferase 25 U/L (4-35); Albumin Level 3.7 g/dL (3.5-5.1); Alkaline Phosphatase 67 U/L (38-126); Anion Gap 8 mmol/L (8-16); Aspartate Amino Transferase 28 U/L (14-36); Bilirubin,Total 0.7 mg/dL (0.2-1.3); Blood Urea Nitrogen 21 mg/dL (7-17); Calcium 8.2 mg/dL (8.4-10.2); Carbon Dioxide 28 mmol/L (22-30); Chloride 98 mmol/L (98-107); Estimated CRCL calculation 36 ml/min; Estimated Glomerular Filt Rate > 60; Glucose 128 mg/dL (65-110); Magnesium 1.7 mg/dL (1.6-2.3); Potassium 3.4 mmol/L (3.4-5.0); Sodium 134 mmol/L (137-145)
[2021-09-23] MEDS: LACTATED RINGERS 1,000 ML 75 ML IV CONT (08:04)
[2021-09-23] MEDS: ENOXAPARIN 40 MG/0.4 ML SYRINGE SUB-Q (08:05)
[2021-09-23] MEDS: MESALAMINE 250 MG CAP CR 1000 MG PO ×2 (08:05→12:12)
[2021-09-23] MEDS: DEXAMETHASONE SOD PHOS INJ 4 MG/ML VIAL IV PUSH (08:05)
[2021-09-23] MEDS: CARBAMIDE PEROXIDE 6.5% OT SOLN 15 ML BTL 5 DROP LEFT EAR (08:05)
[2021-09-23] MEDS: CARBIDOPA/LEVODOPA 25/250 MG TABLET 1 TABLET PO ×2 (08:05→12:12)
--- NOTE | 2021-09-23 10:42 | WPDGIPROGNO ---
Progress Note: A&P Assessment and Plan (1) Crohn's disease: Qualifiers: Digestive disease complication type: with intestinal obstruction Gastrointestinal tract location: unspecified location Qualified Code(s): K50.912 - Crohn's disease, unspecified, with intestinal obstruction Code(s): K50.90 - Crohn's disease, unspecified, without complications Status: Acute Assessment and Plan: Patient with known Crohn's disease. Small-bowel follow-through reveals no significant obstruction she does have ileal small bowel disease. Plan to continue Pentasa orally. Low-fiber diet at this time discharge patient with outpatient follow-up in several months advised. 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 This appears resolved. No need for surgical intervention. If patient fails to do well on oral Pentasa may need to consider a biological agent. Outpatient follow-up encouraged. Subjective Date/time seen: 09/23/21 10:42 Patient alert comfortable this morning. Tolerating diet. No abdominal pain. Good bowel movements through her ostomy. Review of Systems Review of Systems: All systems reviewed & are unremarkable except as noted in HPI and below Exam Narrative: Physical exam reveals patient be alert. Comfortable at rest. HEENT exam unremarkable. Lungs are clear. Heart without murmur. Abdomen bowel sounds present soft nontender with no hepatosplenomegaly. Stool is present in her ostomy bag. Objective Data Vital Signs Vital Signs: Vital Signs - 24 hr 09/22/21 14:00 09/22/21 20:06 09/23/21 04:24 Temperature 97.7 F 98.7 F 98.3 F Pulse Rate 99 89 92 Respiratory Rate 16 20 18 Blood Pressure 140/73 145/84 H 165/76 H Pulse Oximetry 95 100 94 Intake/Output Intake/Output: Intake & Output 09/20/21 09/21/21 09/22/21 09/23/21 23:59 23:59 23:59 23:59 Intake Total 1300 1350 2510 1280 Output Total 1250 1850 3500 Balance 50 -500 -990 1280 Meds/Results Medications: Active Medications Generic Name Dose Route Start Last Admin Trade Name Freq PRN Reason Stop Dose Admin Carbamide Peroxide 5 drop 09/21/21 17:00 09/23/21 08:05 Carbamide Peroxide 6.5% Ot Soln 15 Ml Btl LEFT EAR 5 drop BID [place] Administration Carbidopa/Levodopa 1 tablet 09/22/21 17:00 09/23/21 08:05 Carbidopa/Levodopa 25/250 Mg Tablet PO 1 tablet TID [place] Administration Dexamethasone Sodium Phosphate 4 mg 09/20/21 21:00 09/23/21 08:05 Dexamethasone Sod Phos Inj 4 Mg/Ml Vial IV PUSH 4 mg Q12H [place] Administration Enoxaparin Sodium 40 mg 09/21/21 09:00 09/23/21 08:05 Enoxaparin 40 Mg/0.4 Ml Syringe SUB-Q 40 mg DAILY [place] Administration Lactated Ringer's 1,000 mls @ 50 mls/hr 09/20/21 13:00 09/23/21 08:04 Lr - Lactated Ringers Iv IV CONT 75 mls/hr .Q20H [place] Administration Metronidazole 500 mg in 100 mls @ 100 mls/hr 09/20/21 17:00 09/23/21 08:04 Flagyl 500 Mg/Iso Soln 100 Ml IVPB 100 mls/hr Q8H [place] Administration Levofloxacin/Dextrose 250 mg in 50 mls @ 50 mls/hr 09/21/21 17:00 09/22/21 17:52 Levaquin 250 Mg/D5w 50 Ml IVPB 50 mls/hr Q24H [place] Administration Levothyroxine Sodium 125 mcg 09/24/21 06:30 Levothyroxine Sodium 125 Mcg Tablet PO DAILY@0630 [facility] Mesalamine 1,000 mg 09/22/21 13:00 09/23/21 08:05 Mesalamine 250 Mg Cap Cr PO 1,000 mg QID [place] Administration Morphine Sulfate 2 mg 09/20/21 13:01 09/21/21 06:33 Morphine Sulfate (*Crx) 4 Mg/Ml Inj IV PUSH 2 mg Q2H PRN Administration Pain Rated 7-10 Promethazine HCl 12.5 mg 09/20/21 16:55 Promethazine Hcl 25 Mg/Ml Ampul IV PUSH Q4H PRN
--- NOTE | 2021-09-23 13:23 | PM.DS ---
DS: Admitting Diagnosis Discharge Date 09/23/2021 Admitting Diagnosis Small-bowel obstruction DS: Discharge Diagnosis Discharge Diagnosis (1) Small bowel obstruction: Onset Date: 09/21/21 Code(s): K56.609 - Unspecified intestinal obstruction, unspecified as to partial versus complete obstruction Status: Acute Assessment and Plan: CT on presentation showed small-bowel obstruction with transition point in the terminal ileum Likely related to her Crohn's disease with scarring and prior surgery with adhesions KUB 09/21 showed improvement with nonobstructive pattern, NG clamped NG removed on 09/22/21. Diet was advanced to low fiber diet which she was able to tolerate Small-bowel follow-through showed no evidence of delayed contrast transit through small bowel Seen in consultation by GI and General Surgery (2) Crohn's disease: Qualifiers: Digestive disease complication type: with intestinal obstruction Gastrointestinal tract location: unspecified location Qualified Code(s): K50.912 - Crohn's disease, unspecified, with intestinal obstruction Code(s): K50.90 - Crohn's disease, unspecified, without complications Status: Acute Assessment and Plan: Patient with history of known Crohn's disease Maintained on mesalamine Started on IV dexamethasone, transitioned to p.o. Medrol Dosepak which will be continued on outpatient basis (3) Macrocytosis: Code(s): D75.89 - Other specified diseases of blood and blood-forming organs Status: Acute Assessment and Plan: Etiology for this is unclear B12 and folate within normal limits, no alcohol use Consider primary bone marrow dysfunction Repeat CBC in 1 week with results to PCP. Consider hematology referral as an outpatient based on results (4) Parkinsons: Code(s): G20 - Parkinson's disease Status: Chronic Assessment and Plan: No acute issues during hospitalization Carbidopa-levodopa held while NPO, resumed when diet was advanced (5) Colostomy in place: Onset Date: ~2013 Code(s): Z93.3 - Colostomy status Status: Chronic Assessment and Plan: No issues, functioning well. DS: Summary Hospital Course Hospital Course: Date of admission: 09/20/2021 Date of discharge: 09/23/2021 Lyndsey Lee is 86-year-old female with a history of anxiety, depression, Crohn's disease, bowel obstruction s/p colostomy, and several other medical problems who presented to the emergency department on 09/20/2021 with complaints of abdominal pain and nausea. On presentation, she was found to have a small-bowel obstruction with transition point in the terminal ileum. She was admitted to the hospitalist service for further evaluation and management and was seen in consultation by General surgery and Gastroenterology. Please see above for further details. The patient's obstruction resolved she was able to tolerate a low-fiber diet. She will continue a steroid taper. She was noted to have an episode of hypoxia early in her admission but this resolved and she had no ongoing oxygen requirements. She was feeling overall improved. Given this improvement, she was determined to no longer require inpatient care and was felt to be stable for discharge. Discussed case with general surgery and GI who were agreeable with discharge plans. She was discharged in hemodynamically stable condition on 09/23/2021. Status at Discharge Overall status at discharge: patient is progressing back to baseline Time Spent with Patient Time attestation: Total time spent providing and/or coordinating discharge services: 40 minutes Time spent: Greater than 30 minutes Exam Narrative: General: Thin, well-appearing 86 year-old female, sitting up in bed, comfortable, NARD Neuro: awake, alert and oriented x4, speech clear, no focal neuro deficits noted HEENMT: normocephalic, atraumatic, EOMI, sclerae ani
[2021-09-23 13:42] LABS: EDCOVIDSCREEN Negative (Negative)
== END 2021-09-23 13:59 | DRG 387 ==
LOC: ANHED 13:06 → ANH2MED 13:18
PROVIDERS: Internal Medicine; Surgery; Admitting Provider Internal Medicine; Emergency Provider Emergency Medicine; PCP Family Medicine; Visit Provider Physician Assistant
DX: K50.012 Crohn's disease of small intestine with intestinal obstruction (principal); Z93.3 Colostomy status; K21.9 Gastro-esophageal reflux disease without esophagitis; D75.89 Other specified diseases of blood and blood-forming organs; K43.9 Ventral hernia without obstruction or gangrene; F31.9 Bipolar disorder, unspecified; D64.9 Anemia, unspecified; Z20.822 Contact with and (suspected) exposure to COVID-19; F03.90 Unspecified dementia, unspecified severity, without behavioral disturbance, psychotic disturbance, mood disturbance, and anxiety; H40.9 Unspecified glaucoma; I10 Essential (primary) hypertension; E03.9 Hypothyroidism, unspecified; M19.90 Unspecified osteoarthritis, unspecified site; M81.0 Age-related osteoporosis without current pathological fracture; E55.9 Vitamin D deficiency, unspecified; G20 Parkinson's disease; F41.8 Other specified anxiety disorders; Z96.643 Presence of artificial hip joint, bilateral; Z98.1 Arthrodesis status; Z90.710 Acquired absence of both cervix and uterus; Z90.49 Acquired absence of other specified parts of digestive tract; E78.5 Hyperlipidemia, unspecified; D72.828 Other elevated white blood cell count; T38.0X5A Adverse effect of glucocorticoids and synthetic analogues, initial encounter
CPT/HCPCS: 36415; 51701; 71045; 74018; 74019; 74177; 74250; 80048; 80053; 81003; 82607; 82746; 83690; 83735; 85025; 85027; 87040; 87426; 96361; 96374; 96375; 96376; 97161; 97165; 97535; 99284; A9270; C9803; J0131; J1100; J1650; J1720; J1956; J2270; J2405; J3475; J7030; J7120; Q9967; U0003; U0005

== ENCOUNTER 2021-09-27 19:03 | Inpatient (IN) | payer OTHER, SELFPAY ==
[2021-09-27] VITALS (32 sets, daily range): BP systolic 134–215; BP diastolic 52–96; PULSE 77–104; RESP 13–22; TEMP 36.2–37; O2SAT 92–100; BMI 35.8
--- NOTE | ~2021-09-27 | XR_ITS ---
EXAMINATION: XR barium swallow modified DATE: 09/29/2021 12:37 INDICATION: Dysphagia. TECHNIQUE: The patient was given barium-containing material of multiple consistencies to swallow by iza pugh speech pathologist while I performed fluoroscopy. Dose-area product was 0.65 Gy-cm2. 1.5 minutes fluoroscopy time FINDINGS: Oral Stage: Within functional limits Pharyngeal Phase: Reduced laryngeal elevation and reduced laryngeal adduction Laryngeal penetration and significant silent aspiration without cough reflex with half teaspoon thin fluid Cervical/Esophageal Stage: Within functional limits IMPRESSION: Modified esophagram findings as above. Please refer to the speech therapy report for spec ific recommendations. Reviewed, dictated and finalized at [facility]. Reviewed, dictated and finalized at [facility]. IMPRESSION: Modified esophagram findings as above. Please refer to the speech t herapy report for specific recommendations.
--- NOTE | ~2021-09-27 | CT_ITS ---
EXAMINATION: CT brain wo con DATE: 09/27/2021 19:49 INDICATION: ams TECHNIQUE: Computed tomography (CT) of the head was performed without intravenous contrast. The mA wa s adjusted according to patient size. Iterative reconstruction technique was employed. The dose-lengt h product was 605.33 mGy-cm. COMPARISON: 05/01/2018. FINDINGS: No acute intracranial hemorrhage or extra-axial fluid collection. No hydrocephalus, mass, or herniation. No acute ischemic infarct. Unremarkable dural venous sinus attenuation. No acute osseous abnormality. The aerated spaces are clear. Exam is limited by motion artifact. Moderate atrophy and moderate chronic white matter change. Athero sclerotic intracranial calcifications. Bilateral lens replacements. IMPRESSION: Motion limited examination, within that constraint there is no definite acute intracranial process. Reviewed, dictated and finalized at location [facility]. IMPRESSION: Motion limited examination, within that constraint there is no definite acute i ntracranial process.
[2021-09-27 19:13] LABS: Glucose Point of Care 118 mg/dl (65-105)
--- NOTE | 2021-09-27 19:17 | ECG_ITS ---
Measurements Intervals [place] Rate: 94 P: 44 TX: 138 QRS: -40 QRSD: 113 T: 83 QT: 342 QTc: 428 Interpretive Statements SINUS RHYTHM MARKED LEFT AXIS DEVIATION [QRS AXIS < -30] LEFT VENTRICULAR HYPERTROPHY AND ST-T CHANGE [VOLTAGE CRITERIA PLUS ST/T ABNORMALITY] PREVIOUS ANTERIOR INFARCTION NO PREVIOUS ECG AVAILABLE FOR COMPARISON Electronically Signed On 09-28-2021 8:02:49 CDT by Andrea Banks M.D.
--- NOTE | 2021-09-27 19:19 | ED.AMS ---
HPI - Altered Mental Status General Chief Complaint: Altered Mental Status Stated Complaint: AMS SINCE 1800 Time Seen by Provider: 09/27/21 19:07 Source: EMS Mode of arrival: EMS Limitations: altered mental status History of Present Illness HPI narrative: Patient is an 86-year-old female sent here from the retirement due to altered mental status. According to EMS patient was mumbling, confused accompanied by weakness that started tonight, possibly around 6 PM. Unable to get any history from the patient due to her altered mental status and history of dementia. Related Data Home Medications Medication Instructions Recorded Confirmed PreserVision AREDS-2 1 tablet PO DAILY 12/09/19 09/20/21 Viibryd 10 mg PO DAILY 12/09/19 09/20/21 acetaminophen 1,000 mg PO Q6H PRN 12/09/19 09/20/21 amlodipine [Norvasc] 5 mg PO QAM 12/09/19 09/20/21 baclofen 10 mg PO QPM 12/09/19 09/20/21 carbidopa-levodopa 1 tablet PO TID 12/09/19 09/20/21 cholecalciferol (vitamin D3) 125 mcg PO DAILY 12/09/19 09/20/21 [Vitamin D3] dicyclomine 20 mg PO Q6H PRN 12/09/19 09/20/21 donepezil 10 mg PO HS 12/09/19 09/20/21 duloxetine [Cymbalta] 30 mg PO QAM 12/09/19 09/20/21 ferrous sulfate 325 mg PO BID 12/09/19 09/20/21 fluticasone propionate [Flonase 2 spray INTRANASAL DAILY PRN 12/09/19 09/20/21 Allergy Relief] levothyroxine 125 mcg PO QAM 12/09/19 09/20/21 loratadine 10 mg PO DAILY PRN 12/09/19 09/20/21 meclizine 25 mg PO HS 12/09/19 09/20/21 melatonin 10 mg PO 12/09/19 09/20/21 memantine [Namenda] 10 mg PO BID 12/09/19 09/20/21 polyethylene glycol 3350 [Miralax] 17 g PO DAILY PRN 12/09/19 09/20/21 quetiapine 12.5 mg PO HS 12/09/19 09/20/21 Retaine PM 1 applic OPHTHALMIC (EYE) HS 03/30/20 09/20/21 pregabalin [Lyrica] 100 mg PO BID 06/05/20 09/20/21 baclofen 5 mg PO QPM 07/14/20 09/20/21 mesalamine 1,000 mg PO QID 07/14/20 09/20/21 Biofreeze (menthol) 1 dose TOPICAL PRN PRN 03/03/21 09/20/21 clotrimazole-betamethasone 1 applic TOPICAL BID PRN 03/03/21 09/20/21 duloxetine 20 mg PO HS 03/03/21 09/20/21 meclizine 25 mg PO Q6-8H PRN 03/03/21 09/20/21 calcium carbonate 600 mg PO BID 09/20/21 09/20/21 calcium polycarbophil 650 mg PO DAILY 09/20/21 09/20/21 cyanocobalamin (vitamin B-12) 1,000 mcg PO DAILY 09/20/21 09/20/21 [Vitamin B-12] simethicone [Gas Relief 125 mg PO TID PRN 09/20/21 09/20/21 (simethicone)] Allergies Allergy/AdvReac Type Severity Reaction Status Date / Time tomato Allergy Unknown Verified 09/24/21 08:40 Review of Systems Review of Systems: All systems reviewed & are unremarkable except as noted in HPI and below ROS unobtainable: Yes unobtainable due to mental status PMFSH Past Medical History Medical History Anxiety and depression Bipolar disorder Bowel obstruction Chronic anemia Chronic GERD Colostomy in place (~2013) Dementia (Unknown) Glaucoma Hip fracture Left hip fracture in 12/2017 after a fall. Right hip fracture in 03/26/2020 after a fall. Hypertension Hypothyroidism Lumbar burst fracture (~12/2017) L1, L3, and L5 burst fractures sustained in a fall. Osteoarthritis Osteoporosis Parkinsons Vitamin D deficiency Surgical History Surgical History History of bilateral carpal tunnel release History of cervical spinal surgery Diskectomy and fusion. History of cholecystectomy History of left hip replacement (~12/2017) History of partial colectomy Appears to have had a sigmoid resection with end descending colostomy. Also evidence of an ileocolic anastomosis from previous surgery. History of right hip replacement (~03/2020) History of vaginal hysterectomy Family History Family History Father Acute myocardial infarction, Onset Age: 72 Mother Parkinson disease Heart attack Sibling Hypertension Cerebrovascular accident Social Histor
[2021-09-27 19:31] LABS: Basophils Percent Auto 0.2 % (0.2-1.2); Eosinophils Absolute Auto 0.1 K/mm3 (0-0.3); Eosinophils Percent Auto 1.1 % (0-4.4); Hematocrit 41.9 % (37.0-47.0); Hemoglobin 14.1 g/dL (12.0-15.0); Immature Granulocyte Absolute 0.06 K/mm3 (0.00-0.031); Immature Granulocyte Percent A 0.5 % (0-0.5); Lymphocytes Absolute Auto 1.01 K/mm3 (0.9-3.2); Lymphocytes Percent Auto 9.2 % (18.3-44.2); Mean Corpuscular HGB Conc 33.7 g/dl (32-36); Mean Corpuscular Hemoglobin 34.4 pg (26-34); Mean Corpuscular Volume 102.2 fl (80-100); Mean Platelet Volume 9.1 fl (7.4-10.4); Monocytes Absolute Auto 0.5 K/mm3 (0.1-0.6); Monocytes Percent Auto 4.6 % (2.6-8.5); Neutrophils Absolute Auto 9.3 K/mm3 (1.3-6.7); Neutrophils Percent Auto 84.4 % (45.5-73.1); Platelet Count Result 201 k/mm3 (150-375); Red Cell Distribution Width 13.1 % (11.5-14.5)
[2021-09-27 19:41] LABS: Alanine Aminotransferase 23 U/L (4-35); Albumin Level 4.6 g/dL (3.5-5.1); Alkaline Phosphatase 80 U/L (38-126); Anion Gap 14 mmol/L (8-16); Aspartate Amino Transferase 24 U/L (14-36); Bilirubin,Total 0.4 mg/dL (0.2-1.3); Blood Urea Nitrogen 15 mg/dL (7-17); Calcium 8.4 mg/dL (8.4-10.2); Carbon Dioxide 22 mmol/L (22-30); Chloride 107 mmol/L (98-107); Estimated Glomerular Filt Rate > 60; Glucose 117 mg/dL (65-110); Potassium 3.3 mmol/L (3.4-5.0); Sodium 143 mmol/L (137-145)
[2021-09-27 19:42] LABS: INR 1.1; Partial Thromboplastin Time 24.4 SECONDS (22.3-36.8); Prothrombin Time 14.2 Seconds (11.1-14.7)
[2021-09-27 19:55] LABS: Troponin I 0.068 ng/mL (0.000-0.034)
[2021-09-27 21:14] LABS: Add Urine Microscopic? YES; Appearance Urine Clear (Clear); Bilirubin Urine Negative (Negative); Blood Urine 2+ (Negative); Color Urine Straw (Yellow); Glucose Urine UA Negative (Negative); Ketones Urine Negative (Negative); Leukocyte Esterase Ur Negative LEU/UL (Negative); Nitrate Urine Negative (Negative); Protein Urine Negative (Negative); RBC Urine 21-50 /hpf (0-2); Squamous Epithelial Cell Urine Rare /hpf (Few); Urobilinogen Urine Negative mg/dL (<2.0); WBC Urine 0-3 /hpf
[2021-09-27] MEDS: levETIRAcetam 1000MG/NACL100ML 1,000 MG/100 ML BAG 400 MG IVPB (21:23)
[2021-09-27] MEDS: ENOXAPARIN 60 MG/0.6 ML SYRINGE 55 MG SUB-Q (21:24)
--- NOTE | 2021-09-27 21:47 | PM.IMHP ---
H&P: HPI History of Present Illness Date/Time: 09/27/21 21:47 Chief Complaint: 86 years old female with past medical history of dementia Parkinson Crohn's disease bowel obstruction hypertension presents to the hospital with altered mental status from nursing facility history is limited but according to the record and ER physician patient started having weakness and confusion started this evening at the ER patient had episode of tonic-clonic seizure was given IV Keppra CT scan of the head was ordered neurology was consulted recommended continue Keppra and get EEG Patient was recently discharged from the hospital where she was treated for bowel obstruction surgery and GI have seen the patient during last admission Review of Systems Review of Systems: ROS unobtainable: Yes unobtainable due to mental status PMFSH Past Medical History Medical History Anxiety and depression Bipolar disorder Bowel obstruction Chronic anemia Chronic GERD Colostomy in place (~2013) Dementia (Unknown) Glaucoma Hip fracture Left hip fracture in 12/2017 after a fall. Right hip fracture in 03/26/2020 after a fall. Hypertension Hypothyroidism Lumbar burst fracture (~12/2017) L1, L3, and L5 burst fractures sustained in a fall. Osteoarthritis Osteoporosis Parkinsons Vitamin D deficiency Surgical History Surgical History History of bilateral carpal tunnel release History of cervical spinal surgery Diskectomy and fusion. History of cholecystectomy History of left hip replacement (~12/2017) History of partial colectomy Appears to have had a sigmoid resection with end descending colostomy. Also evidence of an ileocolic anastomosis from previous surgery. History of right hip replacement (~03/2020) History of vaginal hysterectomy Family History Family History Father Acute myocardial infarction, Onset Age: 72 Mother Parkinson disease Heart attack Sibling Hypertension Cerebrovascular accident Social History Social History Social History: The patient lives at [facility]. She was never and has no children. 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 She is a lifelong nonsmoker and denies alcohol and illicit substance use. Her nephew, Radu Adames, as her healthcare power of him specialists. She is listed as a full code. Smoking status: Never smoker Alcohol intake: never Substance use: never Substance use type: does not use Gender identity (if verbalized by the patient): Female Sexual Orientation (if Verbalized by the Patient): Straight or Heterosexual Spiritual care concerns: No Meds Home Medications and Allergies Home Medications Medication Instructions Recorded Confirmed Type PreserVision AREDS-2 1 tablet PO DAILY 12/09/19 09/20/21 History Viibryd 10 mg PO DAILY 12/09/19 09/20/21 History acetaminophen 1,000 mg PO Q6H PRN 12/09/19 09/20/21 History amlodipine [Norvasc] 5 mg PO QAM 12/09/19 09/20/21 History baclofen 10 mg PO QPM 12/09/19 09/20/21 History carbidopa-levodopa 1 tablet PO TID 12/09/19 09/20/21 History cholecalciferol (vitamin D3) 125 mcg PO DAILY 12/09/19 09/20/21 History [Vitamin D3] dicyclomine 20 mg PO Q6H PRN 12/09/19 09/20/21 History donepezil 10 mg PO HS 12/09/19 09/20/21 History duloxetine [Cymbalta] 30 mg PO QAM 12/09/19 09/20/21 History ferrous sulfate 325 mg PO BID 12/09/19 09/20/21 History fluticasone propionate [Flonase 2 spray INTRANASAL DAILY PRN 12/09/19 09/20/21 History Allergy Relief] levothyroxine 125 mcg PO QAM 12/09/19 09/20/21 History loratadine 10 mg PO DAILY PRN 12/09/19 09/20/21 History meclizine 25 mg PO HS 12/09/19 09/20/21 History melatonin 10 mg PO HS 12/09/19 09/20/21 History memantine [Namenda] 10
[2021-09-27 22:03] LABS: Magnesium 1.2 mg/dL (1.6-2.3)
--- NOTE | 2021-09-27 22:04 | PC.NURSE ---
[facility] faxed to floor at [phone].
[2021-09-27] MEDS: ASPIRIN 300 MG SUPPOSITORY RECTAL (22:29)
[2021-09-27] MEDS: KCL 20 MEQ/D5/0.45% SOD CHL 1,000 ML 75 ML IV CONT (22:29)
[2021-09-27 22:52] LABS: Thyroid Stimulating Hormone Reflex 0.615 uIU/mL (0.465-4.68)
[2021-09-27 23:27] LABS: Troponin I 0.318 ng/mL (0.000-0.034)
[2021-09-28] VITALS (10 sets, daily range): BP systolic 121–165; BP diastolic 64–86; PULSE 72–94; RESP 16–18; TEMP 35.9–37.2; O2SAT 97–99
--- NOTE | 2021-09-28 | ADMGEN ---
This patient, Lyndsey Lee, was admitted to [facility] Surg Room 324-01 at 23:20. Patient/family oriented to hospital policies and general routines including ID bracelet, bed and alarms, visiting hours, pain management, procedures, bathroom and other care routines, personal items, smoking policy, room service/diet, and visiting hours. Information on how to activate the Rapid Response Team has been discussed. Patient/Family are encouraged to report perceived risks to care and to ask questions if they do not understand what they are told or what they should do.
[2021-09-28 04:56] LABS: Basophils Percent Auto 0.3 % (0.2-1.2); Eosinophils Absolute Auto 0.2 K/mm3 (0-0.3); Eosinophils Percent Auto 1.8 % (0-4.4); Hematocrit 40.2 % (37.0-47.0); Immature Granulocyte Absolute 0.06 K/mm3 (0.00-0.031); Immature Granulocyte Percent A 0.6 % (0-0.5); Lymphocytes Absolute Auto 1.71 K/mm3 (0.9-3.2); Lymphocytes Percent Auto 16.5 % (18.3-44.2); Mean Corpuscular HGB Conc 32.3 g/dl (32-36); Mean Corpuscular Hemoglobin 33.9 pg (26-34); Mean Corpuscular Volume 104.7 fl (80-100); Mean Platelet Volume 9.4 fl (7.4-10.4); Monocytes Absolute Auto 0.7 K/mm3 (0.1-0.6); Monocytes Percent Auto 6.5 % (2.6-8.5); Neutrophils Absolute Auto 7.7 K/mm3 (1.3-6.7); Neutrophils Percent Auto 74.3 % (45.5-73.1); Platelet Count Result 188 k/mm3 (150-375); Red Blood Count 3.84 M/mm3 (4.2-5.4); Red Cell Distribution Width 12.9 % (11.5-14.5); White Blood Count 10.4 K/mm3 (4.5-10.0)
[2021-09-28 05:33] LABS: Troponin I 0.506 ng/mL (0.000-0.034)
--- NOTE | 2021-09-28 05:37 | ECG_ITS ---
Measurements Intervals [place] Rate: 74 P: 75 MS: 148 QRS: -46 QRSD: 109 T: 80 QT: 429 QTc: 478 Interpretive Statements SINUS RHYTHM MARKED LEFT AXIS DEVIATION [QRS AXIS < -30] PREVIOUS ANTERIOR INFARCTION COMPARED TO ECG 09/27/2021 19:06:26 NO SIGNIFICANT CHANGES Electronically Signed On 09-28-2021 8:10:30 CDT by Andrea Banks M.D.
[2021-09-28 05:43] LABS: Alanine Aminotransferase 21 U/L (4-35); Albumin Level 3.8 g/dL (3.5-5.1); Alkaline Phosphatase 58 U/L (38-126); Anion Gap 8 mmol/L (8-16); Aspartate Amino Transferase 25 U/L (14-36); Bilirubin,Total 0.6 mg/dL (0.2-1.3); Blood Urea Nitrogen 13 mg/dL (7-17); Calcium 7.5 mg/dL (8.4-10.2); Carbon Dioxide 22 mmol/L (22-30); Chloride 108 mmol/L (98-107); Estimated Glomerular Filt Rate > 60; Glucose 106 mg/dL (65-110); Potassium 3.1 mmol/L (3.4-5.0); Sodium 138 mmol/L (137-145)
[2021-09-28] MEDS: levETIRAcetam 500MG/NACL 100ML 500 MG/100 ML BAG 400 MG IVPB ×2 (08:35→20:48)
--- NOTE | 2021-09-28 09:04 | PM.CNCAR ---
Assessment and Plan Additional Plan This is an 86-year-old senior care resident sent to the hospital because of decline in mental status. There is no clinical event that is suspicious for an acute coronary syndrome. It is unclear to me as to the reason why troponin levels were done. They are as detailed above. The patient's electrocardiogram suggests that there may have been a previous infarction in the past but nothing acute and nothing that would lead me to consider than [place] of an acute cardiac workup in this elderly woman in this circumstance. I do not plan on actively following her while she is in the hospital unless something changes. If you need my help other than this please let me know. Andrea Banks MD [facility] History of Present Illness History of Present Illness Consult date/time: 09/28/21 09:04 Consult reason: Other (Elevated troponin level/abnormal ECG) Reason For Visit: new onset seizure Narrative: This is an 86-year-old woman who I have not seen previously on whom I received message for a stat consultation last night because of elevated troponin levels and an abnormal ECG. The staff called early this morning while I was still at home notify me of this situation. I reviewed the electrocardiogram which was sent to be on a fax as well as the troponin levels. I am seeing her this morning because of this request. The patient is significantly demented and not able to provide any significant meaningful history. She is however responsive and denies having any chest pain currently nor remembering any recent chest pain. She however is alert and responsive oriented only to self. This lady apparently has a senior care resident with a history of some dementia and also history of Crohn's disease with previous bowel obstructions and a colostomy that was created a long time ago. She was apparently recently in the hospital here with a bowel obstruction and discharged back to the senior care where she resides. She was sent to the emergency room yesterday because of she was found mumbling in her room and apparently this is not her usual mental status. There was no comment about chest pain event or anything to suggest that she had an acute cardiac problem. For reasons that are not evident troponin levels were done and they are out of normal range at 0.06 rising to 0.5. Her electrocardiogram was done this morning and the machine reading was that of an acute myocardial infarction which apparently triggered the request for a stat consultation. The electrocardiogram upon my personal review shows sinus rhythm with evidence of a previous anterior infarction and is unchanged from previous electrocardiograms that are on this patient's chart. She is in the room this morning with her nurse cleaning her up she is alert and responsive but only to self. Review of Systems Review of Systems: ROS unobtainable: Yes unobtainable due to mental status PMFSH Past Medical History Medical History Anxiety and depression Bipolar disorder Bowel obstruction Chronic anemia Chronic GERD Colostomy in place (~2013) Dementia (Unknown) Glaucoma Hip fracture Left hip fracture in 12/2017 after a fall. Right hip fracture in 03/26/2020 after a fall. Hypertension Hypothyroidism Lumbar burst fracture (~12/2017) L1, L3, and L5 burst fractures sustained in a fall. Osteoarthritis Osteoporosis Parkinsons Vitamin D deficiency Surgical History Surgical History History of bilateral carpal tunnel release History of cervical spinal surgery Diskectomy and fusion. History of cholecystectomy History of left hip replacement (~12/2017) History of partial colectomy Appears to have had a sigmoid resection with end descending colostomy. Also evidence of an ileocolic anastomosis from previous surgery. History of right hip replacement (~03/2020) History of
[2021-09-28 09:19] LABS: Magnesium 1.1 mg/dL (1.6-2.3)
[2021-09-28] MEDS: MAGNESIUM SULF 2 GM/WATER 50ML 2 GM/50 ML BAG IVPB (09:50)
[2021-09-28] MEDS: POTASSIUM CHLORIDE INJ 40 MEQ in SODIUM CHLORIDE 0.9% IV 500 ML 130 MEQ IVPB (11:02)
--- NOTE | 2021-09-28 11:02 | PCOTNOTE ---
Attempted OT evaluation this am. Per RN hold for this morning. Will try again in pm as able.
[2021-09-28] MEDS: LACTATED RINGERS 1,000 ML 80 ML IV CONT (11:14)
--- NOTE | 2021-09-28 11:48 | WPDNEURCNPN ---
Assessment and Plan Additional Plan ongoing chronic neurological disorder complicated by the underlying dementia, Parkinson's, and bipolar illness noted to have briefs generalized seizures in the emergency room EEG will be obtained and a CT scan of the brain does not show any bleed, space-occupying lesion, gross hydrocephalus treatment will be adjustment of the medication and long with the revealing the EEG Consult date: 09/28/21 HPI: Lyndsey Lee is a 86 year old female Admitted to the hospital through the emergency room for the complaints of change in the mental status [facility] and a history of mumbling confusion since 6:00 p.m. in the evening in addition to history of multiple medication at the [facility] including,donepezil 10 mg HS ,duloxetine 30 mg every morning ,memantine 10 mg twice a day ,Seroquel 12.5 mg at night carbidopa levodopa 1 tablet 3 times a day , and with ongoing history of bipolar disorder with anxiety and depression, hypothyroidism, Parkinson's disease, and colostomy in place Review of Systems Review of Systems: All systems reviewed & are unremarkable except as noted in HPI and below PMFSH Past Medical History Medical History Anxiety and depression Bipolar disorder Bowel obstruction Chronic anemia Chronic GERD Colostomy in place (~2013) Dementia (Unknown) Glaucoma Hip fracture Left hip fracture in 12/2017 after a fall. Right hip fracture in 03/26/2020 after a fall. Hypertension Hypothyroidism Lumbar burst fracture (~12/2017) L1, L3, and L5 burst fractures sustained in a fall. Osteoarthritis Osteoporosis Parkinsons Vitamin D deficiency Surgical History Surgical History History of bilateral carpal tunnel release History of cervical spinal surgery Diskectomy and fusion. History of cholecystectomy History of left hip replacement (~12/2017) History of partial colectomy Appears to have had a sigmoid resection with end descending colostomy. Also evidence of an ileocolic anastomosis from previous surgery. History of right hip replacement (~03/2020) History of vaginal hysterectomy Family History Family History Father Acute myocardial infarction, Onset Age: 72 Mother Parkinson disease Heart attack Sibling Hypertension Cerebrovascular accident Social History Social History Social History: The patient lives at [facility]. She was never and has no children. 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 She is a lifelong nonsmoker and denies alcohol and illicit substance use. Her nephew, Radu Adames, as her healthcare power of theatre instructor. She is listed as a full code. Smoking status: Never smoker Alcohol intake: never Substance use: never Substance use type: does not use Gender identity (if verbalized by the patient): Female Sexual Orientation (if Verbalized by the Patient): Straight or Heterosexual Spiritual care concerns: No Meds Home Medications and Allergies Home Medications Medication Instructions Recorded Confirmed Type PreserVision AREDS-2 1 tablet PO DAILY 12/09/19 09/27/21 History Viibryd 10 mg PO DAILY 12/09/19 09/27/21 History acetaminophen 1,000 mg PO Q6H PRN 12/09/19 09/27/21 History amlodipine [Norvasc] 5 mg PO QAM 12/09/19 09/27/21 History baclofen 10 mg PO QPM 12/09/19 09/27/21 History carbidopa-levodopa 1 tablet PO TID 12/09/19 09/27/21 History cholecalciferol (vitamin D3) 125 mcg PO DAILY 12/09/19 09/27/21 History [Vitamin D3] dicyclomine 20 mg PO Q6H PRN 12/09/19 09/27/21 History donepezil 10 mg PO HS 12/09/19 09/27/21 History duloxetine [Cymbalta] 30 mg PO QAM 12/09/19 09/27/21 History ferrous sulfate 325 mg PO BID 12/09/19 09/27/21 History fluticasone propionate [Flonase 2 spr
--- NOTE | 2021-09-28 14:11 | PM.IMPN ---
Progress Note: A&P Assessment and Plan (1) New onset seizure: Code(s): R56.9 - Unspecified convulsions Status: Acute Assessment and Plan: Seizure precaution CT scan of the head EEG Neurology consult Consider MRI of the brain 09/28/2021 interval history: patient 86-year-old female with history of dementia was brought emergency department for new onset seizures patient was started on Keppra her head scan did not show any lesions, patient is somnolent unable to provide any review of symptoms, patient is seen by neurologist recommended to continue Keppra and and follow-up on EEG, patient magnesium is low will supplement and monitor, patient has elevated tropes seen by branch office manager does not suspect acute plaque rupture most likely stress ischemia due to seizures, will continue to monitor and further recommendation to follow. (2) Altered mental status: Qualifiers: Altered mental status type: unspecified Qualified Code(s): R41.82 - Altered mental status, unspecified Code(s): R41.82 - Altered mental status, unspecified Status: Acute Assessment and Plan: Most likely acute metabolic encephalopathy probably related to seizure dehydration it generalized disturbance Check TSH replace potassium give IV fluid usual treatment as above (3) Acute hypokalemia: Code(s): E87.6 - Hypokalemia Status: Acute Assessment and Plan: Replace (4) Hypertension: Qualifiers: Hypertension type: essential hypertension Qualified Code(s): I10 - Essential (primary) hypertension Code(s): I10 - Essential (primary) hypertension Status: Chronic Assessment and Plan: Pending home medication reconciliation (5) Hypothyroidism: Qualifiers: Hypothyroidism type: unspecified Qualified Code(s): E03.9 - Hypothyroidism, unspecified Code(s): E03.9 - Hypothyroidism, unspecified Status: Chronic Assessment and Plan: Check TSH pending home medication reconciliation (6) Dementia: Onset Date: Unknown Qualifiers: Dementia type: Parkinson's disease Dementia behavioral disturbance: without behavioral disturbance Qualified Code(s): G20 - Parkinson's disease; F02.80 - Dementia in other diseases classified elsewhere without behavioral disturbance Code(s): F03.90 - Unspecified dementia without behavioral disturbance Status: Chronic Assessment and Plan: Stable (7) Anxiety and depression: Code(s): F41.9 - Anxiety disorder, unspecified; F32.9 - Major depressive disorder, single episode, unspecified Status: Chronic Assessment and Plan: Pending home medication reconciliation (8) Crohn's disease: Qualifiers: Digestive disease complication type: with intestinal obstruction Gastrointestinal tract location: unspecified location Qualified Code(s): K50.912 - Crohn's disease, unspecified, with intestinal obstruction Code(s): K50.90 - Crohn's disease, unspecified, without complications Status: Acute Assessment and Plan: Pending home medication reconciliation Subjective Date/time seen: 09/28/21 14:11 Chief Complaint: 86 years old female with past medical history of dementia Parkinson Crohn's disease bowel obstruction hypertension presents to the hospital with altered mental status from nursing facility history is limited but according to the record and ER physician patient started having weakness and confusion started this evening at the ER patient had episode of tonic-clonic seizure was given IV Keppra CT scan of the head was ordered neurology was consulted recommended continue Keppra and get EEG Patient was recently discharged from the hospital where she was treated for bowel obstruction surgery and GI have seen the patient during last admission, 09/28/2021 interval history: patient 86-year-old female with history of dementia was brought emergency department for new onset
[2021-09-28 15:58] LABS: Anion Gap 6 mmol/L (8-16); Blood Urea Nitrogen 10 mg/dL (7-17); Calcium 7.5 mg/dL (8.4-10.2); Carbon Dioxide 25 mmol/L (22-30); Chloride 108 mmol/L (98-107); Estimated Glomerular Filt Rate > 60; Glucose 110 mg/dL (65-110); Magnesium 1.8 mg/dL (1.6-2.3); Potassium 3.5 mmol/L (3.4-5.0); Sodium 139 mmol/L (137-145)
[2021-09-28] MEDS: OLANZapine 10 MG INJ VIAL 2.5 MG IM (16:08)
[2021-09-28] MEDS: BACLOFEN 10 MG TABLET PO (16:39)
[2021-09-28] MEDS: CARBIDOPA/LEVODOPA 25/250 MG TABLET 1 TABLET PO (16:39)
[2021-09-28] MEDS: PREGABALIN (*CRX) 50 MG CAPSULE 100 MG PO (16:39)
[2021-09-28] MEDS: BACLOFEN 5 MG TABLET PO (16:41)
[2021-09-28] MEDS: LIDOCAINE 5% PATCH 2 PATCH TRANSDERM (17:36)
[2021-09-28] MEDS: MESALAMINE 250 MG CAP CR 1000 MG PO (20:38)
[2021-09-28] MEDS: FLUTICASONE PROPIONATE 0.05% NA SPR 16 GM BTL (*BKC) 2 SPRAY NASAL (20:38)
[2021-09-28] MEDS: MELATONIN 5 MG TABLET 10 MG PO (20:39)
[2021-09-28] MEDS: QUEtiapine FUMARATE 12.5 MG TABLET PO (20:39)
[2021-09-28] MEDS: MEMANTINE 10 MG TABLET PO (20:39)
[2021-09-28] MEDS: DONEPEZIL HCL 10 MG TABLET PO (20:39)
[2021-09-28] MEDS: DULoxetine HCL 20 MG CAPSULE.DR PO (20:41)
[2021-09-28] MEDS: HEPARIN SODIUM 5,000 UNITS/ML VIAL 5000 UNITS SUB-Q (20:48)
[2021-09-28] MEDS: MECLIZINE HCL 25 MG TABLET PO (20:48)
[2021-09-28] MEDS: MINERAL OIL/WHITE PETROLATUM OINTMENT 1 APPLIC EACH EYE (21:02)
[2021-09-28] MEDS: methylPREDNISolone 4 MG TABLET PO (21:40)
[2021-09-28] MEDS: LORATADINE 10 MG TABLET PO (22:52)
[2021-09-28] MEDS: ACETAMINOPHEN 500 MG TABLET 1000 MG PO (22:52)
[2021-09-29] VITALS (10 sets, daily range): BP systolic 133–146; BP diastolic 61–81; PULSE 67–79; RESP 17–20; TEMP 36.3–36.7; O2SAT 95–97
[2021-09-29] MEDS: LEVOTHYROXINE SODIUM 125 MCG TABLET PO (05:59)
[2021-09-29] MEDS: LACTATED RINGERS 1,000 ML 80 ML IV CONT ×2 (05:59→18:33)
[2021-09-29 06:52] LABS: Hematocrit 41.3 % (37.0-47.0); Mean Corpuscular HGB Conc 33.9 g/dl (32-36); Mean Corpuscular Hemoglobin 34.3 pg (26-34); Mean Corpuscular Volume 101.2 fl (80-100); Mean Platelet Volume 9.1 fl (7.4-10.4); Platelet Count Result 190 k/mm3 (150-375); Red Blood Count 4.08 M/mm3 (4.2-5.4); Red Cell Distribution Width 12.8 % (11.5-14.5); White Blood Count 7.2 K/mm3 (4.5-10.0)
[2021-09-29 07:04] LABS: Anion Gap 7 mmol/L (8-16); Blood Urea Nitrogen 10 mg/dL (7-17); Calcium 7.9 mg/dL (8.4-10.2); Carbon Dioxide 25 mmol/L (22-30); Chloride 108 mmol/L (98-107); Estimated Glomerular Filt Rate > 60; Glucose 105 mg/dL (65-110); Magnesium 1.5 mg/dL (1.6-2.3); Potassium 3.3 mmol/L (3.4-5.0); Sodium 140 mmol/L (137-145)
[2021-09-29] MEDS: levETIRAcetam 500MG/NACL 100ML 500 MG/100 ML BAG 400 MG IVPB ×2 (08:06→20:26)
[2021-09-29] MEDS: PANTOPRAZOLE 40 MG TABLET PO (08:07)
[2021-09-29] MEDS: MESALAMINE 250 MG CAP CR 1000 MG PO ×4 (08:07→20:34)
[2021-09-29] MEDS: CYANOCOBALAMIN 1,000 MCG TABLET 1000 MCG PO (08:07)
[2021-09-29] MEDS: calcium polycarbophiL 625 MG TABLET 650 MG PO (08:07)
[2021-09-29] MEDS: PREGABALIN (*CRX) 50 MG CAPSULE 100 MG PO ×2 (08:07→16:31)
[2021-09-29] MEDS: CARBIDOPA/LEVODOPA 25/250 MG TABLET 1 TABLET PO ×3 (08:07→16:30)
[2021-09-29] MEDS: DULoxetine HCL 30 MG CAPSULE.DR PO (08:07)
[2021-09-29] MEDS: ACETAMINOPHEN 500 MG TABLET 1000 MG PO ×2 (08:07→21:36)
[2021-09-29] MEDS: FLUTICASONE PROPIONATE 0.05% NA SPR 16 GM BTL (*BKC) 2 SPRAY NASAL (08:07)
[2021-09-29] MEDS: amLODIPine BESYLATE 5 MG TABLET PO (08:08)
[2021-09-29] MEDS: CHOLECALCIFEROL 1,000 UNITS TABLET 5000 UNITS PO (08:08)
[2021-09-29] MEDS: methylPREDNISolone 4 MG TABLET PO ×2 (08:08→20:31)
[2021-09-29] MEDS: MEMANTINE 10 MG TABLET PO ×2 (08:08→20:31)
[2021-09-29] MEDS: FERROUS SULFATE 324 MG TABLET PO ×2 (08:08→16:31)
[2021-09-29] MEDS: OPTI-GEN TAB 1 TABLET PO (08:08)
[2021-09-29] MEDS: CALCIUM CARBONATE (OSCAL) 500 MG TABLET PO ×2 (08:08→17:02)
[2021-09-29] MEDS: MAGNESIUM SULF 2 GM/WATER 50ML 2 GM/50 ML BAG IVPB (08:11)
[2021-09-29] MEDS: HEPARIN SODIUM 5,000 UNITS/ML VIAL 5000 UNITS SUB-Q ×2 (09:09→20:30)
[2021-09-29] MEDS: POTASSIUM CHLORIDE 20 MEQ TABLET 40 MEQ PO (09:48)
--- NOTE | 2021-09-29 11:35 | PCSTNOTE ---
Please refer to the Bedside Swallow Evaluation in the EMR. Please note, silent aspiration cannot be ruled out at bedside.
--- NOTE | 2021-09-29 11:44 | PC.NURSE ---
Maddie with speech therapy recommended barrium swallow r/t difficulty with swallowing liquids and wet sounds heard during speech bedside swallowing eval.
--- NOTE | 2021-09-29 12:00 | PC.NURSE ---
Spoke with Rashel in pharmacy, Vilazodone is not available while at hospital, inquired about substitute, pharmacy to look into substitute medication while in hospital.
--- NOTE | 2021-09-29 12:35 | PC.NURSE ---
barium swallow performed this shift awaiting results.
--- NOTE | 2021-09-29 13:46 | PC.NURSE ---
shower offered to pt, pt stated want to take later this evening, pt didn't want to change IJ dressing until shower taken.
--- NOTE | 2021-09-29 13:51 | PC.NURSE ---
No sz this shift, continue to monitor electrolytes, restarted on regular diet, passed barium swallow. Remains confused A&0x2. Hx dementia. Possible discharge to [facility] tomorrow if medically stable.
--- NOTE | 2021-09-29 14:50 | PCSTNOTE ---
Please refer to the Modified Barium Swallow Evaluation in the EMR.
--- NOTE | 2021-09-29 15:08 | PM.IMPN ---
Progress Note: A&P Assessment and Plan (1) New onset seizure: Code(s): R56.9 - Unspecified convulsions Status: Acute Assessment and Plan: Seizure precaution CT scan of the head EEG Neurology consult Consider MRI of the brain 09/28/2021 interval history: patient 86-year-old female with history of dementia was brought emergency department for new onset seizures patient was started on Keppra her head scan did not show any lesions, patient is somnolent unable to provide any review of symptoms, patient is seen by neurologist recommended to continue Keppra and and follow-up on EEG, patient magnesium is low will supplement and monitor, patient has elevated tropes seen by clinical veterinarian does not suspect acute plaque rupture most likely stress ischemia due to seizures, will continue to monitor and further recommendation to follow. 09/29/2021 interval history: patient 86-year-old female with history of dementia was brought emergency department for new onset seizures patient was started on Keppra her head scan did not show any lesions, patient had been somnolent unable to provide any review of symptoms, patient is seen by neurologist recommended to continue Keppra and and follow-up on EEG which is pending, patient magnesium is low will supplement and monitor, patient has elevated tropes seen by clinical veterinarian does not suspect acute plaque rupture most likely stress ischemia due to seizures, today patient in modified swallow study patient is requiring taken liquids, will have a PT OT evaluate the patient, will continue to monitor and further recommendation to follow. (2) Altered mental status: Qualifiers: Altered mental status type: unspecified Qualified Code(s): R41.82 - Altered mental status, unspecified Code(s): R41.82 - Altered mental status, unspecified Status: Acute Assessment and Plan: Most likely acute metabolic encephalopathy probably related to seizure dehydration it generalized disturbance Check TSH replace potassium give IV fluid usual treatment as above (3) Acute hypokalemia: Code(s): E87.6 - Hypokalemia Status: Acute Assessment and Plan: Replace (4) Hypertension: Qualifiers: Hypertension type: essential hypertension Qualified Code(s): I10 - Essential (primary) hypertension Code(s): I10 - Essential (primary) hypertension Status: Chronic Assessment and Plan: Pending home medication reconciliation (5) Hypothyroidism: Qualifiers: Hypothyroidism type: unspecified Qualified Code(s): E03.9 - Hypothyroidism, unspecified Code(s): E03.9 - Hypothyroidism, unspecified Status: Chronic Assessment and Plan: Check TSH pending home medication reconciliation (6) Dementia: Onset Date: Unknown Qualifiers: Dementia type: Parkinson's disease Dementia behavioral disturbance: without behavioral disturbance Qualified Code(s): G20 - Parkinson's disease; F02.80 - Dementia in other diseases classified elsewhere without behavioral disturbance Code(s): F03.90 - Unspecified dementia without behavioral disturbance Status: Chronic Assessment and Plan: Stable (7) Anxiety and depression: Code(s): F41.9 - Anxiety disorder, unspecified; F32.9 - Major depressive disorder, single episode, unspecified Status: Chronic Assessment and Plan: Pending home medication reconciliation (8) Crohn's disease: Qualifiers: Digestive disease complication type: with intestinal obstruction Gastrointestinal tract location: unspecified location Qualified Code(s): K50.912 - Crohn's disease, unspecified, with intestinal obstruction Code(s): K50.90 - Crohn's disease, unspecified, without complications Status: Acute Assessment and Plan: Pending home medication reconciliation Subjective Date/time seen: 09/29/21 15:08 09/28/2021 interval history: patient
[2021-09-29] MEDS: BACLOFEN 10 MG TABLET PO (17:02)
[2021-09-29] MEDS: BACLOFEN 5 MG TABLET PO (17:02)
[2021-09-29] MEDS: MELATONIN 5 MG TABLET 10 MG PO (20:31)
[2021-09-29] MEDS: MECLIZINE HCL 25 MG TABLET PO (20:31)
[2021-09-29] MEDS: DONEPEZIL HCL 10 MG TABLET PO (20:31)
[2021-09-29] MEDS: traZODone HCL 25 MG TABLET PO (20:31)
[2021-09-29] MEDS: DULoxetine HCL 20 MG CAPSULE.DR PO (20:33)
[2021-09-29] MEDS: QUEtiapine FUMARATE 12.5 MG TABLET PO (20:33)
[2021-09-29] MEDS: MINERAL OIL/WHITE PETROLATUM OINTMENT 1 APPLIC EACH EYE (21:38)
[2021-09-30] VITALS: PULSE 70
[2021-09-30 04:00] VITALS: PULSE 68
[2021-09-30] MEDS: LEVOTHYROXINE SODIUM 125 MCG TABLET PO (05:31)
[2021-09-30 05:46] VITALS: BP 160/79; PULSE 98; RESP 19; TEMP 36.1; O2SAT 99
[2021-09-30 06:20] LABS: Hematocrit 37.7 % (37.0-47.0); Hemoglobin 12.4 g/dL (12.0-15.0); Mean Corpuscular HGB Conc 32.9 g/dl (32-36); Mean Corpuscular Hemoglobin 34.3 pg (26-34); Mean Corpuscular Volume 104.1 fl (80-100); Platelet Count Result 154 k/mm3 (150-375); Red Blood Count 3.62 M/mm3 (4.2-5.4); Red Cell Distribution Width 12.8 % (11.5-14.5); White Blood Count 6.5 K/mm3 (4.5-10.0)
[2021-09-30 06:30] LABS: Anion Gap 2 mmol/L (8-16); Blood Urea Nitrogen 12 mg/dL (7-17); Calcium 8.1 mg/dL (8.4-10.2); Carbon Dioxide 28 mmol/L (22-30); Chloride 108 mmol/L (98-107); Estimated Glomerular Filt Rate > 60; Glucose 99 mg/dL (65-110); Magnesium 1.6 mg/dL (1.6-2.3); Potassium 3.8 mmol/L (3.4-5.0); Sodium 138 mmol/L (137-145)
[2021-09-30] MEDS: LACTATED RINGERS 1,000 ML 80 ML IV CONT (07:04)
[2021-09-30] MEDS: ACETAMINOPHEN 500 MG TABLET 1000 MG PO (07:58)
[2021-09-30 08:00] VITALS: PULSE 79; PULSE 98; RESP 19; O2SAT 99
[2021-09-30] MEDS: CHOLECALCIFEROL 1,000 UNITS TABLET 5000 UNITS PO (08:01)
[2021-09-30] MEDS: MESALAMINE 250 MG CAP CR 1000 MG PO (08:01)
[2021-09-30] MEDS: calcium polycarbophiL 625 MG TABLET 650 MG PO (08:01)
[2021-09-30] MEDS: FLUTICASONE PROPIONATE 0.05% NA SPR 16 GM BTL (*BKC) 2 SPRAY NASAL (08:01)
[2021-09-30] MEDS: CYANOCOBALAMIN 1,000 MCG TABLET 1000 MCG PO (08:02)
[2021-09-30] MEDS: HEPARIN SODIUM 5,000 UNITS/ML VIAL 5000 UNITS SUB-Q (08:02)
[2021-09-30] MEDS: OPTI-GEN TAB 1 TABLET PO (08:02)
[2021-09-30] MEDS: methylPREDNISolone 4 MG TABLET PO (08:02)
[2021-09-30] MEDS: CARBIDOPA/LEVODOPA 25/250 MG TABLET 1 TABLET PO (08:02)
[2021-09-30] MEDS: PANTOPRAZOLE 40 MG TABLET PO (08:02)
[2021-09-30] MEDS: CALCIUM CARBONATE (OSCAL) 500 MG TABLET PO (08:02)
[2021-09-30] MEDS: DULoxetine HCL 30 MG CAPSULE.DR PO (08:02)
[2021-09-30] MEDS: FERROUS SULFATE 324 MG TABLET PO (08:02)
[2021-09-30] MEDS: LIDOCAINE 5% PATCH 2 PATCH TRANSDERM (08:03)
[2021-09-30] MEDS: amLODIPine BESYLATE 5 MG TABLET PO (08:03)
[2021-09-30] MEDS: MEMANTINE 10 MG TABLET PO (08:03)
[2021-09-30] MEDS: levETIRAcetam 500MG/NACL 100ML 500 MG/100 ML BAG 400 MG IVPB (08:03)
[2021-09-30] MEDS: SIMETHICONE 125 MG CHEW TAB PO (08:03)
[2021-09-30] MEDS: PREGABALIN (*CRX) 50 MG CAPSULE 100 MG PO (08:05)
[2021-09-30] MEDS: MAGNESIUM SULF 2 GM/WATER 50ML 2 GM/50 ML BAG IVPB (10:15)
--- NOTE | 2021-09-30 10:21 | PC.NURSE ---
covid swab sent to lab for analysis, pt to discharge back to [facility] today, will need ambulance for transport to facility.
[2021-09-30 10:36] LABS: EDCOVIDSCREEN Negative (Negative)
--- NOTE | 2021-09-30 10:43 | P.NEURO_ITS ---
Neurology EEG Report General Information Date of Study: 09/29/21 TEST EEG DIAGNOSIS seizures EEG NUMBER [id number] CLINICAL HISTORY patient is not sure why she is here or why she would be having this test EEG DESCRIPTION basic resting occipital frequency consists of moderate amount of fairly well- organized low to medium voltage 8 to 10 hertz per 2nd alpha admixed with low- voltage 15 to 18 hertz per 2nd beta. Low-voltage beta activity seen diffusely admixed with waxing and waning posterior alpha rhythm. Bilateral symmetrical sleep activity seen during sleep. Intermittent low-voltage to medium voltage 3 to 4 hertz per 2nd delta activity seen. Non paroxysmal nonfocal nonlateralizing IMPRESSION mildly abnormal record due to presence of excessive amount of delta activity these abnormalities could be suggestive of underlying organic or metabolic encephalopathy clinical correlation recommended
--- NOTE | 2021-09-30 11:11 | PC.NURSE ---
Report given to Franklinmartha Aaron per Rosalinda nurse, discharging via ambulance today. MD Michaud recommends keppra 250 mg bid. MD Torresf informed. Awaiting ambulance for transport to facility,
--- NOTE | 2021-09-30 11:39 | PM.DS ---
DS: Admitting Diagnosis Discharge Date 09/30/2021 Admitting Diagnosis altered mental status DS: Discharge Diagnosis Discharge Diagnosis (1) New onset seizure: Code(s): R56.9 - Unspecified convulsions Status: Acute Assessment and Plan: Seizure precaution CT scan of the head EEG Neurology consult Consider MRI of the brain 09/28/2021 interval history: patient 86-year-old female with history of dementia was brought emergency department for new onset seizures patient was started on Keppra her head scan did not show any lesions, patient is somnolent unable to provide any review of symptoms, patient is seen by neurologist recommended to continue Keppra and and follow-up on EEG, patient magnesium is low will supplement and monitor, patient has elevated tropes seen by 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 (2) Altered mental status: Qualifiers: Altered mental status type: unspecified Qualified Code(s): R41.82 - Altered mental status, unspecified Code(s): R41.82 - Altered mental status, unspecified Status: Acute Assessment and Plan: Most likely acute metabolic encephalopathy probably related to seizure dehydration it generalized disturbance Check TSH replace potassium give IV fluid usual treatment as above (3) Acute hypokalemia: Code(s): E87.6 - Hypokalemia Status: Acute Assessment and Plan: Replace (4) Hypertension: Qualifiers: Hypertension type: essential hypertension Qualified Code(s): I10 - Essential (primary) hypertension Code(s): I10 - Essential (primary) hypertension Status: Chronic Assessment and Plan: Pending home medication reconciliation (5) Hypothyroidism: Qualifiers: Hypothyroidism type: unspecified Qualified Code(s): E03.9 - Hypothyroidism, unspecified Code(s): E03.9 - Hypothyroidism, unspecified Status: Chronic Assessment and Plan: Check TSH pending home medication reconciliation (6) Dementia: Onset Date: Unknown Qualifiers: Dementia type: Parkinson's disease Dementia behavioral disturbance: without behavioral disturbance Qualified Code(s): G20 - Parkinson's disease; F02.80 - Dementia in other diseases classified elsewhere without behavioral disturbance Code(s): F03.90 - Unspecified dementia without behavioral disturbance Status: Chronic Assessment and Plan: Stable (7) Anxiety and depression: Code(s): F41.9 - Anxiety disorder, unspecified; F32.9 - Major depressive disorder, single episode, unspecified Status: Chronic Assessment and Plan: Pending home medication reconciliation (8) Crohn's disease: Qualifiers: Digestive disease complication type: with intestinal obstruction Gastrointestinal tract location: unspecified location Qualified Code(s): K50.912 - Crohn's disease, unspecified, with intestinal obstruction Code(s): K50.90 - Crohn's disease, unspecified, without complications Status: Acute Assessment and Plan: Pending home medica
[2021-09-30 12:00] VITALS: PULSE 65
--- NOTE | 2021-09-30 12:18 | PC.NURSE ---
Called Carmen LIVINGSTON at [facility] discharge report given. Pt started eliquis 10 mg po bid today, first dose given today, Nettie Salazar NP cardiology stated pt ok of discharge. MD Duran informed. Pt discharging to [facility] today. Covid test sent to lab awaiting results.
--- NOTE | 2021-09-30 12:36 | PC.NURSE ---
emt's picked up pt, transporting to [facility].
== END 2021-09-30 12:40 | DRG 101 ==
LOC: ANHED 21:36 → ANH3MEDSUR 09-29 09:14
PROVIDERS: Admitting Provider Internal Medicine; Emergency Provider Emergency Medicine; PCP Family Medicine; Visit Provider Family Medicine
DX: R56.9 Unspecified convulsions (principal); K50.90 Crohn's disease, unspecified, without complications; E86.0 Dehydration; Z20.822 Contact with and (suspected) exposure to COVID-19; E87.6 Hypokalemia; E03.9 Hypothyroidism, unspecified; I10 Essential (primary) hypertension; F03.90 Unspecified dementia, unspecified severity, without behavioral disturbance, psychotic disturbance, mood disturbance, and anxiety; F41.9 Anxiety disorder, unspecified; F31.9 Bipolar disorder, unspecified; G20 Parkinson's disease; M81.0 Age-related osteoporosis without current pathological fracture; M19.90 Unspecified osteoarthritis, unspecified site; H40.9 Unspecified glaucoma; K21.9 Gastro-esophageal reflux disease without esophagitis; D64.9 Anemia, unspecified; Z96.643 Presence of artificial hip joint, bilateral; Z98.1 Arthrodesis status; Z90.49 Acquired absence of other specified parts of digestive tract; Z93.3 Colostomy status; Z90.710 Acquired absence of both cervix and uterus
CPT/HCPCS: 36415; 51701; 70450; 80048; 80053; 81001; 82948; 83735; 84443; 84484; 85025; 85027; 85610; 85730; 87426; 92610; 92611; 93005; 95816; 96372; 97161; 99285; A9270; C9803; J1644; J1650; J1953; J3475; J3480; J7040; J7120

== ENCOUNTER 2022-01-16 18:25 | Emergency (ER) | payer MEDICARE, OTHER, MEDICAID, SELFPAY ==
--- NOTE | ~2022-01-16 | CT_ITS ---
EXAMINATION: CT lumbar spine wo con DATE: 01/16/2022 19:28 INDICATION: Low back pain radiating to the legs. TECHNIQUE: Computed tomography (CT) of the lumbar spine was performed without intravenous contrast. T he dose-length product was 955.19 mGy-cm. Automated exposure control and iterative reconstruction gil hnique were employed. COMPARISON: CT abdomen dated 09/20/2021 FINDINGS: There are stable compression fractures of T12, L1, L2, L4 and L5. There is stable grade 1 s pondylolisthesis at L4-5. There is central canal stenosis at the L4-5 level with bilateral neural for aminal narrowing. There is central canal stenosis at the L2-3 level with bilateral neural foraminal n arrowing. There is levoscoliosis. There is an acute horizontally oriented fracture adjacent to the in ferior endplate at L1. Sacral foramen are symmetric. There is disc narrowing and multilevel facet hyp ertrophy. IMPRESSION: 1. Acute superimposed on chronic fracture involving L1. 2: Chronic fractures of T12, L2, L4 and L5 with associated spinal stenosis at the L2-3 and L4-5 leve ls. 3: Moderate-severe lumbar spondylosis Reviewed, dictated and finalized at location A. IMPRESSION: 1. Acute superimposed on chronic fracture involving L1. 2: Chronic fractures of T12, L2, L4 and L5 with associated spinal stenosis at the L2-3 and L4-5 levels. 3: Moderate-severe lumbar spondylosis
[2022-01-16 18:26] VITALS: BP 129/68; PULSE 72; RESP 16; TEMP 36.3; O2SAT 98
--- NOTE | 2022-01-16 19:02 | ED.EXTPRO ---
HPI - Extremity Problem General Chief complaint: Extremity Problem,Nontraumatic Stated complaint: RT HIP PAIN SHOOTING DOWN BILAT LEGS Time Seen by Provider: 01/16/22 18:50 History of Present Illness HPI Narrative: 86-year-old female presents emergency room complaining of pain to both of her legs. She lives in a local custodial. She states is worse when she is sitting. She describes it as knots in my legs . She denies any recent trauma or falls. No pain to her hips. No bowel issues have been noted. She does have a colostomy in place for many years. She has been taking some [id number]-[id number] medication and states is not giving her much relief. She was initially on Tylenol. She states that prior to coming over here they told her that they gave her something much stronger . Related Data Home Medications Medication Instructions Recorded Confirmed acetaminophen 500 mg tablet 1,000 mg PO Q6H PRN Fever Or Pain 12/09/19 09/27/21 amlodipine 5 mg tablet (Norvasc) 5 mg PO QAM 12/09/19 09/27/21 baclofen 10 mg tablet 10 mg PO QPM 12/09/19 09/27/21 carbidopa 25 mg-levodopa 250 mg 1 tablet PO TID 12/09/19 09/27/21 tablet cholecalciferol (vitamin D3) 125 125 mcg PO DAILY 12/09/19 09/27/21 mcg (5,000 unit) tablet (Vitamin D3) dicyclomine 20 mg tablet 20 mg PO Q6H PRN Abdominal 12/09/19 09/27/21 Discomfort donepezil 10 mg tablet 10 mg PO HS 12/09/19 09/27/21 duloxetine 30 mg capsule,delayed 30 mg PO QAM 12/09/19 09/27/21 release (Cymbalta) ferrous sulfate 325 mg (65 mg 325 mg PO BID 12/09/19 09/27/21 iron) tablet,delayed release fluticasone propionate 50 2 spray intranasal DAILY PRN 12/09/19 09/27/21 mcg/actuation nasal Allergy Symptoms spray,suspension (Flonase Allergy Relief) levothyroxine 125 mcg capsule 125 mcg PO QAM 12/09/19 09/27/21 loratadine 10 mg capsule 10 mg PO DAILY PRN Allergic 12/09/19 09/27/21 Symptoms meclizine 25 mg tablet 25 mg PO HS 12/09/19 09/27/21 melatonin 5 mg tablet 10 mg PO HS 12/09/19 09/27/21 memantine 10 mg tablet (Namenda) 10 mg PO BID 12/09/19 09/27/21 polyethylene glycol 3350 17 gram 17 g PO DAILY PRN Constipation 12/09/19 09/27/21 oral powder packet (Miralax) quetiapine 25 mg tablet 12.5 mg PO HS 12/09/19 09/27/21 vilazodone 20 mg tablet (Viibryd) 10 mg PO DAILY 12/09/19 09/27/21 vit C 250 mg-vit E 90 mg-zinc 40 1 tablet PO DAILY 12/09/19 09/27/21 mg-copper 1 [id number]-[id number] capsule (PreserVision AREDS-2) white petrolatum-mineral oil 80 1 applic ophthalmic (eye) HS 03/30/20 09/27/21 %-20 % eye ointment (Retaine PM) pregabalin 50 mg capsule (Lyrica) 100 mg PO BID 06/05/20 09/27/21 baclofen 5 mg tablet 5 mg PO QPM 07/14/20 09/27/21 mesalamine 500 mg capsule,extended 1,000 mg PO QID 07/14/20 09/27/21 release clotrimazole-betamethasone 1 1 applic topical BID PRN Pain 03/03/21 09/27/21 %-0.05 % topical cream duloxetine 20 mg capsule,delayed 20 mg PO HS 03/03/21 09/27/21 release meclizine 25 mg tablet 25 mg PO Q6-8H PRN Vertigo 03/03/21 09/27/21 calcium carbonate 600 mg calcium 1,500 mg PO BID 09/20/21 09/27/21 (1,500 mg) tablet calcium polycarbophil 625 mg tablet 650 mg PO DAILY 09/20/21 09/27/21 cyanocobalamin (vitamin B-12) 1,000 mcg PO DAILY 09/20/21 09/27/21 1,000 mcg tablet (Vitamin B-12) simethicone 125 mg chewable tablet 125 mg PO TID PRN gas pain 09/20/21 09/27/21 (Gas Relief (simethicone)) diclofenac sodium 1 % topical gel 2 g topical Q8H PRN Pain 09/27/21 09/27/21 methylprednisolone 4 mg tablets in 4 mg PO DAILY 09/27/21 09/27/21 a dose pack (Methylpred DP) Allergies Allergy/AdvReac Type Severity Reaction Status Date / Time tomato Allergy Unknown Verified 01/16/22 18:32 Review of Systems Review of Systems: CONSTITUTIONAL: Denies fever, chills, or sweats. EYES: Denies visual changes, redness, or discharge. ENT: Denies rhinorrhea, congestion, sore throat, or otalgia. CARDIOVASCULAR: Denies chest pain, palpitations, or edema. RESPIRATOR
[2022-01-16] MEDS: CYCLOBENZAPRINE HCL 10 MG TABLET 5 MG PO (19:30)
[2022-01-16] MEDS: NAPROXEN 250 MG TABLET BY MOUTH (19:30)
[2022-01-16 19:59] LABS: Alanine Aminotransferase 7 U/L (6-35); Albumin Level 3.6 g/dL (3.5-5.1); Alkaline Phosphatase 101 U/L (38-126); Anion Gap 9 mmol/L (8-16); Aspartate Amino Transferase 18 U/L (14-36); Bilirubin,Total 0.4 mg/dL (0.2-1.3); Blood Urea Nitrogen 23 mg/dL (7-17); Calcium 8.3 mg/dL (8.4-10.2); Carbon Dioxide 22 mmol/L (22-30); Chloride 107 mmol/L (98-107); Estimated CRCL calculation 28 ml/min; Estimated Glomerular Filt Rate 59; Glucose 125 mg/dL (65-110); Sodium 138 mmol/L (137-145)
[2022-01-16 20:24] VITALS: PULSE 74; RESP 20; O2SAT 98
[2022-01-16] MEDS: HYDROcodone/acetaminophen (*CRX) 5-325 MG TABLET 0.5 TAB PO (20:43)
--- NOTE | 2022-01-17 00:56 | PC.NURSE ---
@2136 called [facility] to request transport. ETA 0000 @0020 called [facility] for ETA update. ETA 0200 @0022 called [facility] to request transport. Jaymie here at 0056 @0042 cancelled [facility]
[2022-01-17 01:05] VITALS: BP 136/78; PULSE 80; RESP 16; O2SAT 96
== END 2022-01-17 01:05 ==
PROVIDERS: Emergency Provider Emergency Medicine; PCP Family Medicine
DX: M48.56XA Collapsed vertebra, not elsewhere classified, lumbar region, initial encounter for fracture (principal); M48.061 Spinal stenosis, lumbar region without neurogenic claudication; G20 Parkinson's disease; I10 Essential (primary) hypertension; E03.9 Hypothyroidism, unspecified; D64.9 Anemia, unspecified; K21.9 Gastro-esophageal reflux disease without esophagitis; H40.9 Unspecified glaucoma; M19.90 Unspecified osteoarthritis, unspecified site; M81.0 Age-related osteoporosis without current pathological fracture; E55.9 Vitamin D deficiency, unspecified; F31.9 Bipolar disorder, unspecified; F41.9 Anxiety disorder, unspecified; Z93.3 Colostomy status; Z98.1 Arthrodesis status; Z90.49 Acquired absence of other specified parts of digestive tract; Z96.643 Presence of artificial hip joint, bilateral; Z90.710 Acquired absence of both cervix and uterus
CPT/HCPCS: 36415; 72131; 80053; 99284; A9270

== ENCOUNTER 2022-01-29 11:09 | Inpatient (IN) | payer MEDICARE, OTHER, MEDICAID, SELFPAY ==
[2022-01-29] VITALS (11 sets, daily range): BP systolic 105–147; BP diastolic 46–67; PULSE 70–81; RESP 12–17; TEMP 36.4–37.7; O2SAT 90–100; BMI 22.6
--- NOTE | 2022-01-29 | ECHO_ITS ---
Patient Info Name: Lyndsey Lee Age: 86 years : 1935 Gender: Female Ht: 58 in Wt: 132 lbs BSA: 1.59 m2 HR: 75 bpm BP: 147 / 67 mmHg Heart Rhythm: Sinus Rhythm Technical Quality: Fair Exam Date: 01/29/2022 2:12 PM Exam Location: [facility] Pulmonary Exam Room: ED10 Patient Status: Inpatient Admit Date: 01/29/2022 Staff Ordering Physician: Simeon Walter Pigs Feet Finisher: Cherie Valdes RDCS Attending Provider: Leon Lujan MD Referring Physician: Jose Angel WELCH; Exam Type: CA echo doppler w bubble study Study Info Indications - TIA Complete two-dimensional, color flow and Doppler transthoracic echocardiogram is performed with agitated saline. Summary 1. Left ventricular chamber dimension is normal. 2. Left ventricular systolic function is normal, estimated at 65-70%. 3. There is moderate asymmetric septal increased left ventricular wall thickness. 4. The left ventricular diastolic function is grade I diastolic dysfunction. 5. No evidence for [id number]-xf-[id number] shunt with and without Valsalva upon injection of agitated saline. 6. There is no aortic valve stenosis. 7. There is no mitral valve regurgitation. 8. There is mild tricuspid valve regurgitation. 9. No pulmonary hypertension, estimated pulmonary arterial systolic pressure is 23 mmHg. Recommendations * Consider transesophageal echocardiogram if clinically indicated. Left Ventricle Left ventricular chamber dimension is normal. Left ventricular systolic function is normal, estimated at 65-70%. There is moderate asymmetric septal increased left ventricular wall thickness. The left ventricular diastolic function is grade I diastolic dysfunction. Right Ventricle Right ventricular chamber dimension is normal. Right ventricular systolic function is normal. Left Atria Left atrial chamber dimension is normal. Right Atria Right atrial chamber dimension is normal. Atrial Septum No evidence for kimbk-lf-wvdk shunt with and without Valsalva upon injection of agitated saline. Aortic Valve The aortic valve is trileaflet. There is mild aortic valve sclerosis. There is no aortic valve stenosis. There is trace aortic valve regurgitation. Pulmonic Valve The pulmonic valve is not well visualized. Mitral Valve The mitral valve has normal leaflets. There is no mitral valve regurgitation. The mitral valve annulus is mildly calcified. Tricuspid Valve The tricuspid valve leaflets are normal. There is mild tricuspid valve regurgitation. No pulmonary hypertension, estimated pulmonary arterial systolic pressure is 23 mmHg. Pericardium/Pleural The pericardium appears normal. There is no pericardial effusion. Inferior Vena Cava Normal inferior vena cava with >50% collapse upon inspiration consistent with normal right atrial pressure, 5 mmHg. Aorta The aortic root size at the sinus of Valsalva is normal. There is mild aortic atherosclerosis. Left Ventricular Outflow Tract Name Value Normal LVOT 2D LVOT Diameter 2.0 cm LVOT Doppler LVOT Peak Gradient 4 mmHg LVOT Eugenie
--- NOTE | ~2022-01-29 | MR_ITS ---
EXAMINATION: MR brain/brain stem wo/w con DATE: 01/29/2022 17:17 INDICATION: Transient ischemic episode with left-sided weakness and facial droop TECHNIQUE: Magnetic resonance imaging (MRI) of the brain and brainstem was performed without and with 15 mL Multihance intravenous contrast. Sequences included sagittal and axial T1-weighted SE, axial d iffusion-weighted FS SE, axial T2*-weighted GRE, axial T2-weighted FLAIR, and axial T2-weighted FSE. Postcontrast axial and coronal T1-weighted SE was obtained. Apparent diffusion coefficient (ADC) maps were created. COMPARISON: Head CT dated 01/29/2022 FINDINGS: There are no areas of restricted diffusion to suggest acute infarction. No intracranial hemorrhage or abnormal intracranial mass lesion. There are scattered areas of nonspecific increased T2-weighted si gnal intensity in the cerebral white matter, predominantly involving the deep and periventricular whi te matter. There are no intraparenchymal signal abnormalities seen on the other pulse sequences. The ventricles are symmetric and normal in size. There are no abnormal extra-axial fluid collections. Sathya w voids are seen in the cerebral arteries on the T2-weighted sequences consistent with their expected patency. Changes of bilateral intraocular lens replacement. Visualized orbits and soft tissues are unremarkable. There are no areas of abnormal enhancement on the post contrast images. IMPRESSION: 1. No acute intracranial process. 2. Moderate periventricular predominant nonspecific white matter T2 hyperintensity which is within no rmal limits for age and likely sequela of chronic small vessel ischemic disease. Reviewed, dictated and finalized at location A. IMPRESSION: 1. No acute intracranial process. 2. Moderate periventricular predominant nonspecific white matter T2 hyperintens ity which is within normal limits for age and likely sequela of chronic small v essel ischemic disease.
--- NOTE | ~2022-01-29 | CT_ITS ---
EXAMINATION: CT brain wo con INDICATION: Left-sided weakness and facial droop COMPARISON: 09/27/2021 TECHNIQUE: Standard unenhanced head CT. The dose-length product (DLP) was 605.33 mGy-cm. The mA was a djusted according to patient size. Iterative reconstruction technique was employed. FINDINGS: There is no acute intraparenchymal hemorrhage. No evidence of mass lesion. No evidence of a cute infarction. There is mild periventricular and subcortical hypodensity probably related to small vessel ischemic disease. There is mild prominence of the sulci and ventricles related to cerebral atr ophy. Intracranial calcified cerebral atherosclerosis is noted. There are no extra-axial collections. There is no mass effect or midline shift. Changes in the globes are likely from ocular lens surgery. There is mild mucosal thickening of the paranasal sinuses. IMPRESSION: 1. No acute intracranial abnormality. 2. Age related findings. As per stroke protocol, I called these results to the Emergency Department, and discussed with Dr. Sylvain Red MD at 1123 hours on 01/29/2022. Reviewed, dictated and finalized at location B. IMPRESSION: 1. No acute intracranial abnormality. 2. Age related findings. As per stroke protocol, I called these results to the Emergency Department, and discussed with Dr. Awilda Red MD at 1123 hours on 01/29/2022.
--- NOTE | ~2022-01-29 | XR_ITS ---
XR chest 1V portable 01/29/2022 11:30 Indication: Respiratory arrest. CVA. Procedure: AP portable chest Comparison: Comparison to multiple prior studies sequentially, with oldest reviewed study dated 03/08. Findings: Cardiomegaly. Shallow inspiration with crowding of the pulmonary vessels. No focal air spac e disease, pulmonary edema, pleural effusion or suspected pneumothorax. Impression: 1: No acute cardiopulmonary disease. Reviewed, dictated and finalized at location A. Impression: 1: No acute cardiopulmonary disease.
--- NOTE | ~2022-01-29 | US_ITS ---
EXAMINATION: US carotid duplex BI DATE: 01/29/2022 15:25 INDICATION: TIA symptoms TECHNIQUE: Grayscale, color Doppler, and pulsed Doppler images of the cervical carotid arteries were obtained. The degree of vessel stenosis is placed in one of the following categories: normal, <50%, 5 0-69%, >=70% but less than near-occlusion, near-occlusion, or total occlusion. Note that percent sten osis relative to normal distal artery lumen diameter is indirectly measured from velocity measurement s as described by Kip, et al. Radiology 2003; 229:340-346. Notes: Normal: Peak systolic velocity <125 centimeters/sec and no plaque <50%. Peak systolic velocity <125 ( EDV <40; ICA/CCA PSV ratio <2.0; used these factors only a tandem lesions or low cardiac output or co ntralateral disease) 50-69 %: PSV 125-230 (EDV 40-100; ratio 2-4) >= 70% but less than near occlusion: PSV greater than 230 (EDV > 100; ratio> 4.0) Near Occlusion: PSV that is variable; markedly narrowed lumen Occlusion: Absent flow on color/spectral Doppler and no lumen on damian scale. COMPARISON: No prior studies for comparison. . FINDINGS: RIGHT: The right common carotid artery (CCA) peak systolic velocity (PSV) is 69 cm/s. The right internal car otid artery (ICA) PSV is 78 cm/s. The right ICA end-diastolic velocity (EDV) is 21 cm/s. The right IC A/CCA PSV ratio is 1.1. The external carotid artery (ECA) PSV is 72 cm/s. There is antegrade flow in the right vertebral artery. LEFT: The left CCA PSV is 71 cm/s. The left ICA PSV is 89 cm/s. The left ICA EDV is 26 cm/s. The left ICA/C CA PSV ratio is 1.3. The ECA PSV is 78 cm/s. There is antegrade flow in the left vertebral artery. IMPRESSION: 1. Less than 50% stenosis in the right internal carotid artery by sonographic criteria. 2. Less than 50% stenosis in the left internal carotid artery by sonographic criteria. Reviewed, dictated and finalized at location A. IMPRESSION: 1. Less than 50% stenosis in the right internal carotid artery by sonographic c [place]. 2. Less than 50% stenosis in the left internal carotid artery by sonographic cr [place].
--- NOTE | ~2022-01-29 | XR_ITS ---
EXAMINATION: XR barium swallow modified DATE: 01/30/2022 13:18 INDICATION: Cough with ingestion of liquids. TECHNIQUE: The patient was given barium-containing material of multiple consistencies to swallow by t keaton speech pathologist while I performed fluoroscopy. Fluoroscopy exposure time was 0.9 minutes. The n umber of fluoroscopy images saved to the PACS was 1. Dose-area product was 0.7 Gy-cm^2. FINDINGS: There is a reduced laryngeal elevation. There is laryngeal penetration and aspiration. IMPRESSION: 1. Laryngeal penetration and aspiration. 2. Please refer to the speech therapy report for recommendations. Reviewed, dictated and finalized at location A.
--- NOTE | ~2022-01-29 | XR_ITS ---
EXAMINATION: XR chest 1V portable DATE: 01/30/2022 10:01 INDICATION: Aspiration. TECHNIQUE: A single frontal view of the chest was obtained. COMPARISON: Chest single view 01/29/2022, CT abdomen and pelvis 09/20/2021 FINDINGS: There is mild atelectasis in the lower lung zones. No pleural effusion or pneumothorax. Car diomegaly is noted. There are changes of anterior fusion procedure in cervical spine. IMPRESSION: 1. Mild atelectasis in the lower lung zones. 2. Cardiomegaly. Reviewed, dictated and finalized at location A.
--- NOTE | 2022-01-29 11:10 | ECG_ITS ---
Measurements Intervals Edon Rate: 73 P: 17 CA: 117 QRS: -40 QRSD: 103 T: 56 QT: 382 QTc: 423 Interpretive Statements SINUS RHYTHM WITH SHORT CA INTERVAL LEFT AXIS DEVIATION LEFT VENTRICULAR HYPERTROPHY AND ST-T CHANGE ANTEROSEPTAL MYOCARDIAL INFARCTION, PROBABLY OLD ABNORMAL ECG COMPARED TO ECG 09/28/2021 05:54:06 LEFT VENTRICULAR HYPERTROPHY NOW PRESENT Electronically Signed On 01-29-2022 15:26:11 CDT by Maxim Nobles M.D.
[2022-01-29 11:27] LABS: Basophils Percent Auto 0.2 % (0.2-1.2); Eosinophils Absolute Auto 0.2 K/mm3 (0-0.3); Eosinophils Percent Auto 1.8 % (0-4.4); Hematocrit 40.7 % (37.0-47.0); Hemoglobin 12.6 g/dL (12.0-15.0); Immature Granulocyte Absolute 0.04 K/mm3 (0.00-0.031); Immature Granulocyte Percent A 0.4 % (0-0.5); Lymphocytes Percent Auto 11.7 % (18.3-44.2); Mean Corpuscular Hemoglobin 34.6 pg (26-34); Mean Corpuscular Volume 111.8 fl (80-100); Mean Platelet Volume 9.3 fl (7.4-10.4); Monocytes Absolute Auto 0.5 K/mm3 (0.1-0.6); Monocytes Percent Auto 5.3 % (2.6-8.5); Neutrophils Absolute Auto 7.5 K/mm3 (1.3-6.7); Neutrophils Percent Auto 80.6 % (45.5-73.1); Platelet Count Result 108 k/mm3 (150-375); Red Blood Count 3.64 M/mm3 (4.2-5.4); Red Cell Distribution Width 13.2 % (11.5-14.5); White Blood Count 9.4 K/mm3 (4.5-10.0)
--- NOTE | 2022-01-29 11:36 | ED.NEUROSD ---
HPI - Neuro Symptoms/Deficit General Chief Complaint: Suspected CVA Stated Complaint: code stroke Time Seen by Provider: 01/29/22 11:33 Source: EMS and RN notes reviewed Mode of arrival: EMS Limitations: no limitations History of Present Illness HPI Narrative: 86 years old white female came from [facility] by ambulance because of slurred speech, given difficult to get words out, facial drooping and inability to walk without assistive. Last time patient was seen normal 10:15 AM today. Which is roughly 3 hours ago. On arrival to the emergency room patient is awake, alert and oriented x4, denying any symptoms. History of hypothyroidism, hypertension, seizure, Parkinson's, GERD, and anxiety/depression, Crohn's disease, colostomy. Patient is not on blood thinner, she is full code. Related Data Home Medications Medication Instructions Recorded Confirmed acetaminophen 500 mg tablet 1,000 mg PO Q6H PRN Fever Or Pain 12/09/19 09/27/21 amlodipine 5 mg tablet (Norvasc) 5 mg PO QAM 12/09/19 09/27/21 baclofen 10 mg tablet 10 mg PO QPM 12/09/19 09/27/21 carbidopa 25 mg-levodopa 250 mg 1 tablet PO TID 12/09/19 09/27/21 tablet cholecalciferol (vitamin D3) 125 125 mcg PO DAILY 12/09/19 09/27/21 mcg (5,000 unit) tablet (Vitamin D3) dicyclomine 20 mg tablet 20 mg PO Q6H PRN Abdominal 12/09/19 09/27/21 Discomfort donepezil 10 mg tablet 10 mg PO HS 12/09/19 09/27/21 duloxetine 30 mg capsule,delayed 30 mg PO QAM 12/09/19 09/27/21 release (Cymbalta) ferrous sulfate 325 mg (65 mg 325 mg PO BID 12/09/19 09/27/21 iron) tablet,delayed release fluticasone propionate 50 2 spray intranasal DAILY PRN 12/09/19 09/27/21 mcg/actuation nasal Allergy Symptoms spray,suspension (Flonase Allergy Relief) levothyroxine 125 mcg capsule 125 mcg PO QAM 12/09/19 09/27/21 loratadine 10 mg capsule 10 mg PO DAILY PRN Allergic 12/09/19 09/27/21 Symptoms meclizine 25 mg tablet 25 mg PO HS 12/09/19 09/27/21 melatonin 5 mg tablet 10 mg PO HS 12/09/19 09/27/21 memantine 10 mg tablet (Namenda) 10 mg PO BID 12/09/19 09/27/21 polyethylene glycol 3350 17 gram 17 g PO DAILY PRN Constipation 12/09/19 09/27/21 oral powder packet (Miralax) quetiapine 25 mg tablet 12.5 mg PO HS 12/09/19 09/27/21 vit C 250 mg-vit E 90 mg-zinc 40 1 tablet PO DAILY 12/09/19 09/27/21 mg-copper 1 [id number] capsule (PreserVision AREDS-2) white petrolatum-mineral oil 80 1 applic ophthalmic (eye) HS 03/30/20 09/27/21 %-20 % eye ointment (Retaine PM) pregabalin 50 mg capsule (Lyrica) 100 mg PO BID 06/05/20 09/27/21 mesalamine 500 mg capsule,extended 1,000 mg PO QID 07/14/20 09/27/21 release clotrimazole-betamethasone 1 1 applic topical BID PRN Pain 03/03/21 09/27/21 %-0.05 % topical cream meclizine 25 mg tablet 25 mg PO Q6-8H PRN Vertigo 03/03/21 09/27/21 calcium carbonate 600 mg calcium 1,500 mg PO BID 09/20/21 09/27/21 (1,500 mg) tablet calcium polycarbophil 625 mg tablet 650 mg PO DAILY 09/20/21 09/27/21 cyanocobalamin (vitamin B-12) 1,000 mcg PO DAILY 09/20/21 09/27/21 1,000 mcg tablet (Vitamin B-12) simethicone 125 mg chewable tablet 125 mg PO TID PRN gas pain 09/20/21 09/27/21 (Gas Relief (simethicone)) diclofenac sodium 1 % topical gel 2 g topical Q8H PRN Pain 09/27/21 09/27/21 memantine 10 mg tablet (Namenda) 10 mg PO BID 01/29/22 vilazodone 40 mg tablet 40 mg 01/29/22 Allergies Allergy/AdvReac Type Severity Reaction Status Date / Time tomato Allergy Unknown Verified 01/16/22 18:32 Review of Systems Review of Systems: All systems reviewed & are unremarkable except as noted in HPI and below PMFSH Past Medical History Medical History Anxiety and depression Bipolar disorder Bowel obstruction Chronic anemia Chronic GERD Colostomy in place (~2013) Dementia (Unknown) Glaucoma Hip fracture Left hip fracture in 12/2017 after a fall. Right hip fracture in 03/26/2020 after a fall. H
[2022-01-29 11:37] LABS: INR 1.3; Prothrombin Time 15.3 Seconds (11.1-14.7)
[2022-01-29 11:38] LABS: Alanine Aminotransferase 11 U/L (6-35); Albumin Level 3.4 g/dL (3.5-5.1); Alkaline Phosphatase 77 U/L (38-126); Anion Gap 9 mmol/L (8-16); Aspartate Amino Transferase 18 U/L (14-36); Bilirubin,Total 0.8 mg/dL (0.2-1.3); Blood Urea Nitrogen 31 mg/dL (7-17); Calcium 8.4 mg/dL (8.4-10.2); Carbon Dioxide 23 mmol/L (22-30); Chloride 105 mmol/L (98-107); Estimated Glomerular Filt Rate 53; Glucose 149 mg/dL (65-110); Partial Thromboplastin Time 27.1 SECONDS (22.3-36.8); Potassium 4.6 mmol/L (3.4-5.0); Sodium 137 mmol/L (137-145)
[2022-01-29 11:39] LABS: Glucose Point of Care 158 mg/dl (65-105)
[2022-01-29 11:42] LABS: Platelet Estimate Decreased (Adequate)
[2022-01-29 11:43] LABS: Anisocytosis 1+ (NORMAL); Hypochromasia 1+ (NORMAL)
[2022-01-29 11:49] LABS: Troponin I < 0.012 ng/mL (0.000-0.034)
[2022-01-29] MEDS: ASPIRIN 325 MG TABLET PO (12:16)
--- NOTE | 2022-01-29 12:24 | PM.IMHP ---
H&P: HPI History of Present Illness Date/Time: 01/29/22 12:24 Chief Complaint: Stroke like symptoms Narrative: Patient is a 6-year-old female with a past medical history of dementia, seizures, Parkinson's disease, anxiety, depression, hypertension, hypothyroidism that presented to the ED from [facility] with complaints of slurred speech, facial drooping and inability to walk. Last known normal was 10:15 a.m. today. She stated that today the staff was upset because she would not talk to them, and her speech was slurred. Howeever she stated that she is really having some bad hip pain bilaterally. She then told me that she had they done from fractures. She denies any chest pain, shortness of breath, nausea, vomiting, diarrhea, constipation, weakness, fatigue, visual/hearing changes, urinary dysfunction, dizziness, falls or syncope. She did state that she has a facial droop on the left side, because she can not wear her bottom teeth. she stated that she does not see any difference in her face at all. NIH score was a 0. She is being admitted to the hospitalist service under inpatient. Review of Systems Review of Systems: All systems reviewed & are unremarkable except as noted in HPI and below PMFSH Past Medical History Medical History Acute hypokalemia Acute respiratory failure with hypoxia Anxiety and depression Bipolar disorder Bowel obstruction Chronic anemia Chronic GERD Closed fracture of right hip Crohn's disease Dementia (Unknown) Glaucoma Hip fracture Left hip fracture in 12/2017 after a fall. Right hip fracture in 03/26/2020 after a fall. Hypertension Hyponatremia Hypothyroidism Incisional hernia without obstruction or gangrene (Unknown) L2 vertebral fracture Lumbar burst fracture (~12/2017) L1, L3, and L5 burst fractures sustained in a fall. Macrocytosis Murmur Nondisplaced fracture of right femur Osteoarthritis Osteoporosis Parkinsons Pneumonia Seizure Small bowel obstruction (09/21/21) UTI (urinary tract infection), bacterial Vitamin D deficiency Surgical History Surgical History History of bilateral carpal tunnel release History of cervical spinal surgery Diskectomy and fusion. History of cholecystectomy History of left hip replacement (~12/2017) History of partial colectomy Appears to have had a sigmoid resection with end descending colostomy. Also evidence of an ileocolic anastomosis from previous surgery. History of right hip replacement (~03/2020) History of vaginal hysterectomy Family History Family History Father Acute myocardial infarction, Onset Age: 72 Mother Parkinson disease Heart attack Sibling Hypertension Cerebrovascular accident Social History Social History Social History: The patient lives at [facility]. She was never and has no children. 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 She is a lifelong nonsmoker and denies alcohol and illicit substance use. Her nephew, Radu Adames, as her healthcare power of heat treater head. She is listed as a full code. Smoking status: Never smoker Alcohol intake: never Substance use: never Substance use type: does not use Living arrangements: senior care Additional living arrangements comments: [facility] Gender identity (if verbalized by the patient): Female Sexual Orientation (if Verbalized by the Patient): Straight or Heterosexual Spiritual care concerns: No Meds Home Medications and Allergies Home Medications Medication Instructions Recorded Confirmed Type acetaminophen 500 mg tablet 1,000 mg PO Q6H PRN Fever Or Pain 12/09/19 09/27/21 History amlodipine 5 mg tablet (Norvasc) 5 mg PO QAM 12/09/19 09/27/21 History miki
[2022-01-29 13:39] LABS: SARS-CoV-2 RNA PCR Negative
--- NOTE | 2022-01-29 14:49 | PC.NURSE ---
This patient, Lyndsey Lee, was admitted to Medical Room 245-. Patient/family oriented to hospital policies and general routines including ID bracelet, bed and alarms, visiting hours, pain management, procedures, bathroom and other care routines, personal items, smoking policy, room service/diet, and visiting hours. Information on how to activate the Rapid Response Team has been discussed. Patient/Family are encouraged to report perceived risks to care and to ask questions if they do not understand what they are told or what they should do.
--- NOTE | 2022-01-29 14:54 | PC.NURSE ---
transfer to [facility] delayed d/t echo coming to er.
[2022-01-29] MEDS: HYDROcodone/acetaminophen (*CRX) 5-325 MG TABLET 1 TAB PO (16:27)
--- NOTE | 2022-01-29 16:53 | PC.NURSE ---
Patient to MRI per stretcher.
[2022-01-29] MEDS: FERROUS SULFATE 324 MG TABLET PO (18:03)
[2022-01-29] MEDS: CARBIDOPA/LEVODOPA 25/250 MG TABLET 1 TABLET PO (18:03)
[2022-01-29] MEDS: LOSARTAN POTASSIUM 50 MG TABLET PO (18:04)
[2022-01-29] MEDS: SENNOSIDES 8.6 MG TABLET PO (18:04)
[2022-01-29] MEDS: PANTOPRAZOLE 40 MG TABLET PO (18:04)
[2022-01-29] MEDS: PREGABALIN (*CRX) 50 MG CAPSULE 100 MG PO (18:10)
[2022-01-29 18:22] LABS: Appearance Urine Clear (Clear); Bilirubin Urine Negative (Negative); Blood Urine Negative (Negative); Color Urine Yellow (Yellow); Glucose Urine UA Negative (Negative); Ketones Urine Negative (Negative); Leukocyte Esterase Ur Negative LEU/UL (Negative); Nitrate Urine Negative (Negative); Protein Urine Negative (Negative); Specific Grav Ur 1.015 (1.001-1.035); Urobilinogen Urine 0.2 mg/dL (<2.0)
[2022-01-29 18:50] LABS: Add Urine Microscopic? NO
[2022-01-29] MEDS: MECLIZINE HCL 25 MG TABLET PO (20:04)
[2022-01-29] MEDS: MELATONIN 5 MG TABLET 10 MG PO (20:04)
[2022-01-29] MEDS: levETIRAcetam 250 MG TABLET PO (20:05)
[2022-01-29] MEDS: DONEPEZIL HCL 10 MG TABLET PO (20:05)
[2022-01-29] MEDS: QUEtiapine FUMARATE 25 MG TABLET 12.5 MG PO (20:05)
[2022-01-29] MEDS: MEMANTINE 10 MG TABLET PO (20:05)
[2022-01-30] VITALS (10 sets, daily range): BP systolic 107–133; BP diastolic 44–69; PULSE 60–91; RESP 12–18; TEMP 36.1–36.8; O2SAT 91–95
[2022-01-30] MEDS: HYDROcodone/acetaminophen (*CRX) 5-325 MG TABLET 1 TAB PO ×4 (01:10→20:07)
[2022-01-30 04:49] LABS: Basophils Percent Auto 0.2 % (0.2-1.2); Eosinophils Absolute Auto 0.2 K/mm3 (0-0.3); Eosinophils Percent Auto 2.2 % (0-4.4); Hematocrit 39.5 % (37.0-47.0); Hemoglobin 12.4 g/dL (12.0-15.0); Immature Granulocyte Absolute 0.06 K/mm3 (0.00-0.031); Immature Granulocyte Percent A 0.6 % (0-0.5); Lymphocytes Absolute Auto 1.02 K/mm3 (0.9-3.2); Lymphocytes Percent Auto 9.5 % (18.3-44.2); Mean Corpuscular HGB Conc 31.4 g/dl (32-36); Mean Corpuscular Hemoglobin 34.1 pg (26-34); Mean Corpuscular Volume 108.5 fl (80-100); Mean Platelet Volume 9.2 fl (7.4-10.4); Monocytes Absolute Auto 0.5 K/mm3 (0.1-0.6); Monocytes Percent Auto 5.1 % (2.6-8.5); Neutrophils Absolute Auto 8.8 K/mm3 (1.3-6.7); Neutrophils Percent Auto 82.4 % (45.5-73.1); Platelet Count Result 107 k/mm3 (150-375); Red Blood Count 3.64 M/mm3 (4.2-5.4); Red Cell Distribution Width 13.2 % (11.5-14.5); White Blood Count 10.7 K/mm3 (4.5-10.0)
[2022-01-30 05:05] LABS: Alanine Aminotransferase 16 U/L (6-35); Albumin Level 3.2 g/dL (3.5-5.1); Alkaline Phosphatase 80 U/L (38-126); Anion Gap 7 mmol/L (8-16); Aspartate Amino Transferase 19 U/L (14-36); Blood Urea Nitrogen 23 mg/dL (7-17); Calcium 7.8 mg/dL (8.4-10.2); Carbon Dioxide 28 mmol/L (22-30); Chloride 101 mmol/L (98-107); Estimated Glomerular Filt Rate > 60; Glucose 98 mg/dL (65-110); Magnesium 1.5 mg/dL (1.6-2.3); Potassium 4.5 mmol/L (3.4-5.0); Sodium 136 mmol/L (137-145)
[2022-01-30 05:28] LABS: Macrocytosis 1+ (NORMAL); Platelet Estimate Decreased (Adequate)
[2022-01-30] MEDS: LEVOTHYROXINE SODIUM 125 MCG TABLET PO (06:41)
[2022-01-30] MEDS: SENNOSIDES 8.6 MG TABLET PO ×2 (08:00→16:55)
[2022-01-30] MEDS: CYANOCOBALAMIN 500 MCG TABLET PO (08:00)
[2022-01-30] MEDS: LOSARTAN POTASSIUM 50 MG TABLET PO ×2 (08:00→16:55)
[2022-01-30] MEDS: MAGNESIUM OXIDE 400 MG TABLET PO (08:00)
[2022-01-30] MEDS: DULoxetine HCL 30 MG CAPSULE.DR PO (08:00)
[2022-01-30] MEDS: CARBIDOPA/LEVODOPA 25/250 MG TABLET 1 TABLET PO ×3 (08:01→16:54)
[2022-01-30] MEDS: FERROUS SULFATE 324 MG TABLET PO ×2 (08:01→16:55)
[2022-01-30] MEDS: MAGNESIUM SULF 2 GM/WATER 50ML 2 GM/50 ML BAG IVPB (08:01)
[2022-01-30] MEDS: levETIRAcetam 250 MG TABLET PO ×2 (08:01→20:11)
[2022-01-30] MEDS: amLODIPine BESYLATE 5 MG TABLET PO (08:01)
[2022-01-30] MEDS: calcium polycarbophiL 625 MG TABLET PO (08:01)
[2022-01-30] MEDS: PANTOPRAZOLE 40 MG TABLET PO ×2 (08:01→16:55)
[2022-01-30] MEDS: MEMANTINE 10 MG TABLET PO ×2 (08:01→20:09)
[2022-01-30] MEDS: polyethylene glycoL 3350 17 GM POWD.PACK PO (08:01)
[2022-01-30] MEDS: PREGABALIN (*CRX) 50 MG CAPSULE 100 MG PO ×2 (08:02→16:54)
[2022-01-30] MEDS: QUEtiapine FUMARATE 25 MG TABLET 12.5 MG PO ×2 (08:03→20:11)
[2022-01-30] MEDS: ENOXAPARIN 40 MG/0.4 ML SYRINGE SUB-Q (08:03)
[2022-01-30] MEDS: ATORVASTATIN 40 MG TABLET PO (08:40)
[2022-01-30] MEDS: ASPIRIN 81 MG CHEWABLE TABLET PO (08:40)
--- NOTE | 2022-01-30 08:49 | PM.IMPN ---
Progress Note: A&P Assessment and Plan (1) Brain TIA: Code(s): G45.9 - Transient cerebral ischemic attack, unspecified Status: Acute Assessment and Plan: Reported slurred speech, left sided droop, and unable to ambulate Last known well was 10:30 NIH score was [address] no acute intracranial abnormalities, age related findings MRI Ordered Carotid doppler ordered Echo ordered Neuro checks Q shift No indication for anticoagulant therapy Neurology consulted. Aspirin and statin on board Consider Plavix (2) Parkinsons: Code(s): G20 - Parkinson's disease Status: Acute Assessment and Plan: Continue home medications Seems to be controlled PT/OT (3) Seizure: Code(s): R56.9 - Unspecified convulsions Status: Acute Assessment and Plan: Looks like this started last admission Continue Keppra 250mg PO BID. No indication of seizures (4) Hypertension: Qualifiers: Hypertension type: essential hypertension Qualified Code(s): I10 - Essential (primary) hypertension Code(s): I10 - Essential (primary) hypertension Status: Chronic Assessment and Plan: Current BP is 130/69 Continue home amlodipine 5mg PO Qam Trend BP Adjust therapy as indicated (5) Hypothyroidism: Qualifiers: Hypothyroidism type: unspecified Qualified Code(s): E03.9 - Hypothyroidism, unspecified Code(s): E03.9 - Hypothyroidism, unspecified Status: Chronic Assessment and Plan: Continue home Levothyroxine 125mcg PO Check TSH (6) Dementia: Onset Date: Unknown Qualifiers: Dementia behavioral disturbance: without behavioral disturbance Dementia type: Parkinson's disease Qualified Code(s): G20 - Parkinson's disease; F02.80 - Dementia in other diseases classified elsewhere without behavioral disturbance Code(s): F03.90 - Unspecified dementia without behavioral disturbance Status: Chronic Assessment and Plan: Continue namenda (7) Dysphasia: Code(s): R47.02 - Dysphasia Status: Acute Assessment and Plan: Witness chocking on thin liquids Chest xray from 01/29 shows no cardiopulmonary process Repeat chest xray ST consulted thank you Modified barium swallow ordered Time Spent With Patient Time with patient: Greater than 35 minutes Subjective Date/time seen: 01/30/22 08:45 Interval history: 01/30/22 0845 Patient is lying in bed. Patient states she is in a lot of pain still. It is also noted that the patient is coughing with liquids modified barium swallow has been ordered. Patient has no complaints of chest pain, shortness of breath, nausea, vomiting, diarrhea, constipation, weakness or fatigue. She does sound a little course in the bilateral lower lung [place]. Modified barium swallow has been ordered for this afternoon. 01/29/22? 12:24 ? Patient is a 6-year-old female with a past medical history of dementia, seizures, Parkinson's disease, anxiety, depression, hypertension, hypothyroidism that presented to the ED from [facility] with complaints of slurred speech, facial drooping and inability to walk.? Last known normal was 10:15 a.m. today.? She stated that today the staff was upset because she would not talk to them, and her speech was slurred.? Howeever she stated that she is really having some bad hip pain bilaterally.? She then told me that she had they done from fractures.? She denies any chest pain, shortness of breath, nausea, vomiting, diarrhea, constipation, weakness, fatigue, visual/hearing changes, urinary dysfunction, dizziness, falls or syncope.? She did state that she has a facial droop on the left side, because she can not wear her bottom teeth.? she stated that she does not see any difference in her face at all.? NIH score was a 0.? Review of Systems Review of System
--- NOTE | 2022-01-30 08:49 | P.PNIM_ITS ---
Progress Note: A&P Assessment and Plan (1) Brain TIA: Code(s): G45.9 - Transient cerebral ischemic attack, unspecified Status: Acute Assessment and Plan: * Reported slurred speech, left sided droop, and unable to ambulate * Last known well was 10:30 * NIH score was 0 * Head CT no acute intracranial abnormalities, age related findings * MRI Ordered * Carotid doppler ordered * Echo ordered * Neuro checks Q shift * No indication for anticoagulant therapy * Neurology consulted. * Aspirin and statin on board * Consider Plavix (2) Parkinsons: Code(s): G20 - Parkinson's disease Status: Acute Assessment and Plan: * Continue home medications * Seems to be controlled * PT/OT (3) Seizure: Code(s): R56.9 - Unspecified convulsions Status: Acute Assessment and Plan: * Looks like this started last admission * Continue Keppra 250mg PO BID. * No indication of seizures (4) Hypertension: Qualifiers: Hypertension type: essential hypertension Qualified Code(s): I10 - Essential (primary) hypertension Code(s): I10 - Essential (primary) hypertension Status: Chronic Assessment and Plan: * Current BP is 130/69 * Continue home amlodipine 5mg PO Qam * Trend BP * Adjust therapy as indicated (5) Hypothyroidism: Qualifiers: Hypothyroidism type: unspecified Qualified Code(s): E03.9 - Hypothyroidism, unspecified Code(s): E03.9 - Hypothyroidism, unspecified Status: Chronic Assessment and Plan: * Continue home Levothyroxine 125mcg PO * Check TSH (6) Dementia: Onset Date: Unknown Qualifiers: Dementia behavioral disturbance: without behavioral disturbance Dementia type: Parkinson's disease Qualified Code(s): G20 - Parkinson's disease; F02.80 - Dementia in other diseases classified elsewhere without behavioral disturbance Code(s): F03.90 - Unspecified dementia without behavioral disturbance Status: Chronic Assessment and Plan: * Continue namenda (7) Dysphasia: Code(s): R47.02 - Dysphasia Status: Acute Assessment and Plan: * Witness chocking on thin liquids * Chest xray from 01/29 shows no cardiopulmonary process * Repeat chest xray * ST consulted thank you * Modified barium swallow ordered Time Spent With Patient Time with patient: Greater than 35 minutes Subjective Date/time seen: 01/30/22 08:45 Interval history: 01/30/22 0845 Patient is lying in bed. Patient states she is in a lot of pain still. It is also noted that the patient is coughing with liquids modified barium swallow has been ordered. Patient has no complaints of chest pain, shortness of breath, nausea, vomiting, diarrhea, constipation, weakness or fatigue. She does sound a little course in the bilateral lower lung [place]. Modified barium swallow has been ordered for this afternoon. 01/29/22? 12:24 ? Patient is a 6-year-old female with a past medical history of dementia, seizures, Parkinson's disease, anxiety, depression, hypertension, hypothyroidism that presented to the ED from [facility] with complaints of slurred speech, facial drooping and inability to walk.? Last known normal was 10:15 a.m. today.? She stated that today the staff was upset because she would not talk to them
--- NOTE | 2022-01-30 09:11 | PCSTNOTE ---
Please refer to the Bedside Swallow Evaluation in the EMR. Please note, silent aspiration cannot be ruled out at bedside.
--- NOTE | 2022-01-30 09:15 | PM.DS ---
DS: Admitting Diagnosis Discharge Date 01/30/2215 Admitting Diagnosis TIA DS: Discharge Diagnosis Discharge Diagnosis (1) Brain TIA: Code(s): G45.9 - Transient cerebral ischemic attack, unspecified Status: Acute Assessment and Plan: Reported slurred speech, left sided droop, and unable to ambulate Last known well was 10:30 NIH score was [address] no acute intracranial abnormalities, age related findings MRI no intracranial abnormality Carotid doppler <50% stenosis Echo EF 65-70% with grade 1 diastolic dysfunction Neuro checks Q shift Neurology consulted. Aspirin and statin on board Plavix started (2) Parkinsons: Code(s): G20 - Parkinson's disease Status: Acute Assessment and Plan: Continue home medications Seems to be controlled PT/OT (3) Seizure: Code(s): R56.9 - Unspecified convulsions Status: Acute Assessment and Plan: Looks like this started last admission Continue Keppra 250mg PO BID. No indication of seizures (4) Hypertension: Qualifiers: Hypertension type: essential hypertension Qualified Code(s): I10 - Essential (primary) hypertension Code(s): I10 - Essential (primary) hypertension Status: Chronic Assessment and Plan: Current BP is 147/59 Continue home amlodipine 5mg PO Qam Trend BP Adjust therapy as indicated (5) Hypothyroidism: Qualifiers: Hypothyroidism type: unspecified Qualified Code(s): E03.9 - Hypothyroidism, unspecified Code(s): E03.9 - Hypothyroidism, unspecified Status: Chronic Assessment and Plan: Continue home Levothyroxine 125mcg PO Check TSH 1.320 (6) Dementia: Onset Date: Unknown Qualifiers: Dementia behavioral disturbance: without behavioral disturbance Dementia type: Parkinson's disease Qualified Code(s): G20 - Parkinson's disease; F02.80 - Dementia in other diseases classified elsewhere without behavioral disturbance Code(s): F03.90 - Unspecified dementia without behavioral disturbance Status: Chronic Assessment and Plan: Continue namenda DS: Summary Hospital Course Hospital Course: ?Patient is a 6-year-old female with a past medical history of dementia, seizures, Parkinson's disease, anxiety, depression, hypertension, hypothyroidism that presented to the ED from [facility] with complaints of slurred speech, facial drooping and inability to walk. Brain MRI was performed, showed normal brain, ECHO was EF of 65-70% with a grade 1 diastolic dysfunction, Head CT found no acute abnormality, Carotid doppler <50% stenosis bilaterally. Labs and vital signs have remained stable. Neurology was consulted. UA does not appear infectious. NIH score remains 0. She does not have any complaints other than bilateral hip pain which appears to be chronic. It was noted that she was having difficulties swallow. Modified barium swallow study indicated penetration on thin liquids. She will need to continue on mildly thickened liquids for now. She denies any chest pain, shortness of breath, nausea, vomiting, diarrhea, or constipation. Statin and aspirin has been started. She is stable for discharge at this time. Status at Discharge Functional status at discharge: independent ambulation Overall status at discharge: patient is progressing back to baseline Time Spent with Patient Time attestation: Total time spent providing and/or coordinating discharge services: 37 minutes Time spent: Greater than 30 minutes Specific discharge activities: Diagnostic testing, chart review, developing a treatment plan, education, care coordination documentation, physical exam, result review Exam Const: General: cooperative, healthy appearing, no acute distress, well developed, alert and awake Nutritional Appearance: well nourished Orientation/consciousness: p
--- NOTE | 2022-01-30 09:15 | P.DS_ITS ---
DS: Admitting Diagnosis Discharge Date 01/30/2215 Admitting Diagnosis TIA DS: Discharge Diagnosis Discharge Diagnosis (1) Brain TIA: Code(s): G45.9 - Transient cerebral ischemic attack, unspecified Status: Acute Assessment and Plan: * Reported slurred speech, left sided droop, and unable to ambulate * Last known well was 10:30 * NIH score was 0 * Head CT no acute intracranial abnormalities, age related findings * MRI no intracranial abnormality * Carotid doppler <50% stenosis * Echo EF 65-70% with grade 1 diastolic dysfunction * Neuro checks Q shift * Neurology consulted. * Aspirin and statin on board * Plavix started (2) Parkinsons: Code(s): G20 - Parkinson's disease Status: Acute Assessment and Plan: * Continue home medications * Seems to be controlled * PT/OT (3) Seizure: Code(s): R56.9 - Unspecified convulsions Status: Acute Assessment and Plan: * Looks like this started last admission * Continue Keppra 250mg PO BID. * No indication of seizures (4) Hypertension: Qualifiers: Hypertension type: essential hypertension Qualified Code(s): I10 - Essential (primary) hypertension Code(s): I10 - Essential (primary) hypertension Status: Chronic Assessment and Plan: * Current BP is 147/59 * Continue home amlodipine 5mg PO Qam * Trend BP * Adjust therapy as indicated (5) Hypothyroidism: Qualifiers: Hypothyroidism type: unspecified Qualified Code(s): E03.9 - Hypothyroidism, unspecified Code(s): E03.9 - Hypothyroidism, unspecified Status: Chronic Assessment and Plan: * Continue home Levothyroxine 125mcg PO * Check TSH 1.320 (6) Dementia: Onset Date: Unknown Qualifiers: Dementia behavioral disturbance: without behavioral disturbance Dementia type: Parkinson's disease Qualified Code(s): G20 - Parkinson's disease; F02.80 - Dementia in other diseases classified elsewhere without behavioral disturbance Code(s): F03.90 - Unspecified dementia without behavioral disturbance Status: Chronic Assessment and Plan: * Continue namenda DS: Summary Hospital Course Hospital Course: ?Patient is a 6-year-old female with a past medical history of dementia, seizures, Parkinson's disease, anxiety, depression, hypertension, hypothyroidism that presented to the ED from [facility] with complaints of slurred speech, facial drooping and inability to walk. Brain MRI was performed, showed normal brain, ECHO was EF of 65-70% with a grade 1 diastolic dysfunction, Head CT found no acute abnormality, Carotid doppler <50% stenosis bilaterally. Labs and vital signs have remained stable. Neurology was consulted. UA does not appear infectious. NIH score remains 0. She does not have any complaints other than bilateral hip pain which appears to be chronic. It was noted that she was having difficulties swallow. Modified barium swallow study indicated penetration on thin liquids. She will need to continue on mildly thickened liquids for now. She denies any chest pain, shortness of breath, nausea, vomiting, diarrhea, or constipation. Statin and aspirin has been started. She is stable for discharge at this time. Status at Discharge Functional status at discharge: independent ambulation Overall status at discharge: patient is progressing back
[2022-01-30 09:37] LABS: NT Pro B Type Natriuretic Pept 792 pg/mL (5-100)
[2022-01-30] MEDS: BACLOFEN 10 MG TABLET PO (11:18)
--- NOTE | 2022-01-30 13:28 | PCSTNOTE ---
Please refer to the Modified Barium Swallow Evaluation in the EMR.
[2022-01-30] MEDS: CLOPIDOGREL BISULFATE 75 MG TABLET PO (16:55)
[2022-01-30] MEDS: MELATONIN 5 MG TABLET 10 MG PO (20:07)
[2022-01-30] MEDS: MECLIZINE HCL 25 MG TABLET PO (20:10)
[2022-01-30] MEDS: DONEPEZIL HCL 10 MG TABLET PO (20:11)
[2022-01-30] MEDS: LIDOCAINE 5% PATCH 2 PATCH TRANSDERM (20:50)
[2022-01-31] VITALS: BP 101/64; PULSE 60; PULSE 62; RESP 16; TEMP 36.7; O2SAT 94
[2022-01-31 04:00] VITALS: BP 147/59; PULSE 64; PULSE 68; RESP 16; TEMP 36.8; O2SAT 91
[2022-01-31] MEDS: HYDROcodone/acetaminophen (*CRX) 5-325 MG TABLET 1 TAB PO ×2 (05:12→17:21)
[2022-01-31] MEDS: BACLOFEN 10 MG TABLET PO (05:12)
[2022-01-31] MEDS: LEVOTHYROXINE SODIUM 125 MCG TABLET PO (05:15)
[2022-01-31 08:00] VITALS: PULSE 67
[2022-01-31] MEDS: MEMANTINE 10 MG TABLET PO (09:20)
[2022-01-31] MEDS: PREGABALIN (*CRX) 50 MG CAPSULE 100 MG PO ×2 (09:20→17:21)
[2022-01-31] MEDS: CYANOCOBALAMIN 500 MCG TABLET PO (09:21)
[2022-01-31] MEDS: calcium polycarbophiL 625 MG TABLET PO (09:21)
[2022-01-31] MEDS: levETIRAcetam 250 MG TABLET PO (09:21)
[2022-01-31] MEDS: amLODIPine BESYLATE 5 MG TABLET PO (09:21)
[2022-01-31] MEDS: FERROUS SULFATE 324 MG TABLET PO ×2 (09:21→17:23)
[2022-01-31] MEDS: PANTOPRAZOLE 40 MG TABLET PO ×2 (09:22→17:21)
[2022-01-31] MEDS: QUEtiapine FUMARATE 25 MG TABLET 12.5 MG PO (09:22)
[2022-01-31] MEDS: MAGNESIUM OXIDE 400 MG TABLET PO (09:23)
[2022-01-31] MEDS: SENNOSIDES 8.6 MG TABLET PO ×2 (09:23→17:23)
[2022-01-31] MEDS: ATORVASTATIN 40 MG TABLET PO (09:23)
[2022-01-31] MEDS: CLOPIDOGREL BISULFATE 75 MG TABLET PO (09:24)
[2022-01-31] MEDS: ASPIRIN 81 MG CHEWABLE TABLET PO (09:24)
[2022-01-31] MEDS: LOSARTAN POTASSIUM 50 MG TABLET PO (09:25)
[2022-01-31] MEDS: ENOXAPARIN 40 MG/0.4 ML SYRINGE SUB-Q (09:25)
[2022-01-31] MEDS: DULoxetine HCL 30 MG CAPSULE.DR PO (09:25)
[2022-01-31] MEDS: CARBIDOPA/LEVODOPA 25/250 MG TABLET 1 TABLET PO ×3 (09:25→17:23)
[2022-01-31] MEDS: MAGNESIUM SULF 4 GM/WATER100ML 4 GM/100 ML BAG IVPB (09:32)
[2022-01-31 11:44] VITALS: BP 97/42; PULSE 71; RESP 16; TEMP 36.1; O2SAT 91
[2022-01-31 12:00] VITALS: PULSE 74
--- NOTE | 2022-01-31 12:21 | PCPTNOTE ---
RN and hospitalist OK ambulation/physical therapy despite Bed rest orders.
--- NOTE | 2022-01-31 14:19 | P.PNIM_ITS ---
Progress Note: A&P Assessment and Plan (1) Brain TIA: Code(s): G45.9 - Transient cerebral ischemic attack, unspecified Status: Acute Assessment and Plan: * Reported slurred speech, left sided droop, and unable to ambulate * Last known well was 10:30 * NIH score was 0 * Head CT no acute intracranial abnormalities, age related findings * MRI no intracranial abnormality * Carotid doppler <50% stenosis * Echo EF 65-70% with grade 1 diastolic dysfunction * Neuro checks Q shift * Neurology consulted. * Aspirin and statin on board * Plavix started * PT/OT (2) Parkinsons: Code(s): G20 - Parkinson's disease Status: Acute Assessment and Plan: * Continue home medications * Seems to be controlled * PT/OT (3) Seizure: Code(s): R56.9 - Unspecified convulsions Status: Acute Assessment and Plan: * Looks like this started last admission * Continue Keppra 250mg PO BID. * No indication of seizures (4) Hypertension: Qualifiers: Hypertension type: essential hypertension Qualified Code(s): I10 - Essential (primary) hypertension Code(s): I10 - Essential (primary) hypertension Status: Chronic Assessment and Plan: * Current BP is 147/59 * Continue home amlodipine 5mg PO Qam * Trend BP * Adjust therapy as indicated (5) Hypothyroidism: Qualifiers: Hypothyroidism type: unspecified Qualified Code(s): E03.9 - Hypothyroidism, unspecified Code(s): E03.9 - Hypothyroidism, unspecified Status: Chronic Assessment and Plan: * Continue home Levothyroxine 125mcg PO * Check TSH 1.320 (6) Dementia: Onset Date: Unknown Qualifiers: Dementia type: Parkinson's disease Dementia behavioral disturbance: without behavioral disturbance Qualified Code(s): G20 - Parkinson's disease; F02.80 - Dementia in other diseases classified elsewhere without behavioral disturbance Code(s): F03.90 - Unspecified dementia without behavioral disturbance Status: Chronic Assessment and Plan: * Continue namenda Time Spent With Patient Time with patient: Greater than 35 minutes Subjective Date/time seen: 01/31/22 09:15 Interval history: 01/31/2215 Patient is doing ok. She was feeding herself when I saw her this morning. She denies any current complaints. She stated that she is ready to go. I did have them get her up, however they stated that she was unable to get up. PT/OT has assessed the patient. She was in the chair when I went to reevaluate. Awaiting recommendations from therapy. 01/30/22 0845 Patient is lying in bed. Patient states she is in a lot of pain still. It is also noted that the patient is coughing with liquids modified barium swallow has been ordered. Patient has no complaints of chest pain, shortness of breath, nausea, vomiting, diarrhea, constipation, weakness or fatigue. She does sound a little course in the bilateral lower lung [place]. Modified barium swallow has been ordered for this afternoon. 01/29/22? 12:24 ? Patient is a 6-year-old female with a past medical history of dementia, seizures, Parkinson's disease, anxiety, depression, hypertension, hypothyroidism that presented to the ED from [facility] with complaints of slurred speech, facial drooping and inability to walk.? Last known normal was 10:15 a.m. t
--- NOTE | 2022-01-31 14:19 | PM.IMPN ---
Progress Note: A&P Assessment and Plan (1) Brain TIA: Code(s): G45.9 - Transient cerebral ischemic attack, unspecified Status: Acute Assessment and Plan: Reported slurred speech, left sided droop, and unable to ambulate Last known well was 10:30 NIH score was [address] no acute intracranial abnormalities, age related findings MRI no intracranial abnormality Carotid doppler <50% stenosis Echo EF 65-70% with grade 1 diastolic dysfunction Neuro checks Q shift Neurology consulted. Aspirin and statin on board Plavix started PT/OT (2) Parkinsons: Code(s): G20 - Parkinson's disease Status: Acute Assessment and Plan: Continue home medications Seems to be controlled PT/OT (3) Seizure: Code(s): R56.9 - Unspecified convulsions Status: Acute Assessment and Plan: Looks like this started last admission Continue Keppra 250mg PO BID. No indication of seizures (4) Hypertension: Qualifiers: Hypertension type: essential hypertension Qualified Code(s): I10 - Essential (primary) hypertension Code(s): I10 - Essential (primary) hypertension Status: Chronic Assessment and Plan: Current BP is 147/59 Continue home amlodipine 5mg PO Qam Trend BP Adjust therapy as indicated (5) Hypothyroidism: Qualifiers: Hypothyroidism type: unspecified Qualified Code(s): E03.9 - Hypothyroidism, unspecified Code(s): E03.9 - Hypothyroidism, unspecified Status: Chronic Assessment and Plan: Continue home Levothyroxine 125mcg PO Check TSH 1.320 (6) Dementia: Onset Date: Unknown Qualifiers: Dementia type: Parkinson's disease Dementia behavioral disturbance: without behavioral disturbance Qualified Code(s): G20 - Parkinson's disease; F02.80 - Dementia in other diseases classified elsewhere without behavioral disturbance Code(s): F03.90 - Unspecified dementia without behavioral disturbance Status: Chronic Assessment and Plan: Continue namenda Time Spent With Patient Time with patient: Greater than 35 minutes Subjective Date/time seen: 01/31/22 09:15 Interval history: 01/31/22 0915 Patient is doing ok. She was feeding herself when I saw her this morning. She denies any current complaints. She stated that she is ready to go. I did have them get her up, however they stated that she was unable to get up. PT/OT has assessed the patient. She was in the chair when I went to reevaluate. Awaiting recommendations from therapy. 01/30/22 0845 Patient is lying in bed. Patient states she is in a lot of pain still. It is also noted that the patient is coughing with liquids modified barium swallow has been ordered. Patient has no complaints of chest pain, shortness of breath, nausea, vomiting, diarrhea, constipation, weakness or fatigue. She does sound a little course in the bilateral lower lung [place]. Modified barium swallow has been ordered for this afternoon. 01/29/22? 12:24 ? Patient is a 6-year-old female with a past medical history of dementia, seizures, Parkinson's disease, anxiety, depression, hypertension, hypothyroidism that presented to the ED from [facility] with complaints of slurred speech, facial drooping and inability to walk.? Last known normal was 10:15 a.m. today.? She stated that today the staff was upset because she would not talk to them, and her speech was slurred.? Howeever she stated that she is really having some bad hip pain bilaterally.? She then told me that she had they done from fractures.? She denies any chest pain, shortness of breath, nausea, vomiting, diarrhea, constipation, weakness, fatigue, visual/hearing changes, urinary dysfunction, dizziness, falls or syncope.? She did state that she has a facial droop on the left side, because she can not wear her bottom teeth.? she s
[2022-01-31 15:10] VITALS: BP 107/49; PULSE 65; RESP 16; TEMP 36; O2SAT 98
[2022-01-31 15:50] LABS: EDCOVIDSCREEN Negative (Negative)
== END 2022-01-31 18:40 | DRG 69 ==
LOC: ANHED 12:22 → ANH2MED 14:25
PROVIDERS: Admitting Provider Internal Medicine; Emergency Provider Emergency Medicine; PCP Family Medicine; Visit Provider Nurse Practitioner
DX: G45.9 Transient cerebral ischemic attack, unspecified (principal); K50.90 Crohn's disease, unspecified, without complications; Z20.822 Contact with and (suspected) exposure to COVID-19; G20 Parkinson's disease; F02.80 Dementia in other diseases classified elsewhere, unspecified severity, without behavioral disturbance, psychotic disturbance, mood disturbance, and anxiety; R56.9 Unspecified convulsions; I10 Essential (primary) hypertension; R13.10 Dysphagia, unspecified; E03.9 Hypothyroidism, unspecified; K21.9 Gastro-esophageal reflux disease without esophagitis; F31.9 Bipolar disorder, unspecified; F41.8 Other specified anxiety disorders; D64.9 Anemia, unspecified; H40.9 Unspecified glaucoma; M19.90 Unspecified osteoarthritis, unspecified site; M81.0 Age-related osteoporosis without current pathological fracture; E55.9 Vitamin D deficiency, unspecified; R29.700 NIHSS score 0; Z93.3 Colostomy status; Z98.1 Arthrodesis status; Z90.49 Acquired absence of other specified parts of digestive tract; Z90.710 Acquired absence of both cervix and uterus; Z96.643 Presence of artificial hip joint, bilateral
CPT/HCPCS: 36415; 70450; 70553; 71045; 80053; 81003; 82948; 83735; 83880; 84443; 84484; 85025; 85610; 85730; 87426; 92610; 92611; 93005; 93306; 93880; 96375; 97161; 97165; A9270; A9577; C9803; J1650; J3475; U0003; U0005

== ENCOUNTER 2023-05-21 02:44 | Inpatient (IN) | payer MEDICARE, OTHER, MEDICAID, SELFPAY ==
[2023-05-21] VITALS (59 sets, daily range): BP systolic 86–185; BP diastolic 43–71; PULSE 39–104; RESP 10–25; TEMP 34.7–36.9; O2SAT 84–100; BMI 21.6
--- NOTE | ~2023-05-21 | XR_ITS ---
Portable chest x-ray Comparison: 05/23/2023 Clinical History: Respiratory failure Findings: Endotracheal tube, NG tube, and right-sided PICC line are in place. Lungs are clear, witho ut focal consolidation or pleural effusion. Cardiomediastinal silhouette is stable. Bones and soft t issues are unremarkable. Impression: Clear lungs. Support tubes, as above. Reviewed, dictated and finalized at location M. SSIONS SUPERVISOR Impression: Clear lungs. Support tubes, as above.
--- NOTE | ~2023-05-21 | CT_ITS ---
CT head without contrast Indication: Altered mental status COMPARISON: 01/29/2022 Technique: Serial scans were obtained through the brain without the administration of contrast. Dose reduction technique was used on this scan by utilizing automated exposure control and iterative recon struction technique. The dose-length product (DLP) was 756.67 mGy-cm. Findings: There is no evidence of intracranial hemorrhage, mass lesion, or acute infarct. The ventri cles and subarachnoid spaces are dilated, consistent with mild atrophy. Low attenuation regions are seen within the periventricular white matter bilaterally, likely representing changes from chronic mi crovascular ischemic disease. There is no evidence of edema, mass effect or midline shift. The visu alized paranasal sinuses and mastoid air cells are clear. Impression: No intracranial hemorrhage, mass, or acute infarct. Atrophy and chronic white matter changes, as above. Reviewed, dictated and finalized at [facility]. ICIAN'S AIDE Impression: No intracranial hemorrhage, mass, or acute infarct. Atrophy and chronic white matter changes, as above.
--- NOTE | ~2023-05-21 | XR_ITS ---
Portable chest x-ray Comparison: 05/21/2023 at 7:15 AM Clinical History: Tube placement Findings: Endotracheal tube and NG tube are in satisfactory positions. There is hazy left basilar ai rspace disease and possible mild central congestive change. Cardiomediastinal silhouette is stable. Bones and soft tissues are unremarkable. Impression: Support tubes in place, as above. Central congestive change and probable mild left basilar pulmonary edema/atelectasis. Correlate clini arlette for pneumonia. Reviewed, dictated and finalized at [facility]. CTOR SECURITY MANAGEMENT Impression: Support tubes in place, as above. Central congestive change and probable mild left basilar pulmonary edema/atelec tasis. Correlate clinically for pneumonia.
--- NOTE | ~2023-05-21 | XR_ITS ---
EXAMINATION: XR chest PICC line INDICATION: PICC insertion TECHNIQUE: Portable AP chest at 1147 hours COMPARISON: 05/21/2023 FINDINGS: A right upper extremity PICC has been inserted. Two subsequent images demonstrate readjustm ent of PICC which ends with its tip at the superior cavoatrial junction. The endotracheal tube ends a pproximately 2.5 cm above the debbie. The nasogastric tube is followed as far as the stomach. Its tip is beyond the inferior margin of the radiograph. Left basilar airspace opacities persist without sig nificant change. No pneumothorax is identified. Cardiomegaly is noted. IMPRESSION: 1. Right upper extremity PICC ending with its tip at the superior cavoatrial junction. 2. Stable left basilar airspace opacity, consistent with atelectasis versus pneumonia. Reviewed, dictated and finalized at location B. TED CIRCUIT BOARD ASSEMBLY REPAIRER IMPRESSION: 1. Right upper extremity PICC ending with its tip at the superior cavoatrial ju nction. 2. Stable left basilar airspace opacity, consistent with atelectasis versus pne umonia.
--- NOTE | ~2023-05-21 | XR_ITS ---
Portable chest x-ray Comparison: 05/27/2023 Clinical History: Respiratory failure Findings: Endotracheal tube, NG tube, and right-sided PICC line are unchanged. Probable minimal cent ral congestive change. Cardiomediastinal silhouette is stable. Bones and soft tissues are unremarkab le. Impression: Probable minimal central congestive change. Support tubes, as above. Reviewed, dictated and finalized at location . LATION SPRAYER Impression: Probable minimal central congestive change. Support tubes, as above.
--- NOTE | ~2023-05-21 | XR_ITS ---
EXAMINATION: XR chest 1V portable DATE: 06/01/2023 05:50 INDICATION: Respiratory failure. TECHNIQUE: A single frontal view of the chest was obtained. COMPARISON: Chest single view 05/31/2023, chest CT 05/21/2023 FINDINGS: There is mild atelectasis in right lower lung zone. No pleural effusion or pneumothorax. Th e heart size is normal. The endotracheal tube tip is 3.3 cm above the debbie. The nasogastric tube ti p is beyond the inferior margin of the radiograph, but at least to the stomach. A right upper extremi ty peripherally inserted central venous catheter (PICC) is seen with tip at the superior cavoatrial j unction. IMPRESSION: 1. Mild atelectasis in right lower lung zone. Reviewed, dictated and finalized at location E. WORKER
--- NOTE | ~2023-05-21 | XR_ITS ---
Portable chest x-ray Comparison: 05/24/2023 Clinical History: Respiratory failure Findings: Endotracheal tube, NG tube, and right-sided PICC line are unchanged. Small bilateral pleur al effusions are present. There is central congestive change and probable minimal pulmonary edema. C ardiomediastinal silhouette is stable. Bones and soft tissues are unremarkable. Impression: Central congestive change with probable minimal pulmonary edema and minimal bilateral pleural effusio ns. Support tubes, as above. Reviewed, dictated and finalized at location M. IAL EDUCATION AIDE Impression: Central congestive change with probable minimal pulmonary edema and minimal melodie ateral pleural effusions. Support tubes, as above.
--- NOTE | ~2023-05-21 | XR_ITS ---
XR chest 1V portable 05/23/2023 06:26 Indication: Respiratory failure Procedure: AP portable chest Comparison: Comparison to multiple prior studies sequentially, with oldest reviewed study dated 05/07. Findings: Endotracheal tube tip 2.7 cm above the debbie. NG tube in the stomach. Heart size normal fo r technique. Pulmonary vascular congestion. Small left pleural effusion. No pneumothorax. Impression: 1: Mild pulmonary vascular congestion. 2: Small left pleural effusion. Reviewed, dictated and finalized at location A. ENGRAVER Impression: 1: Mild pulmonary vascular congestion. 2: Small left pleural effusion.
--- NOTE | ~2023-05-21 | XR_ITS ---
XR chest 1V portable DATE: 05/31/2023 05:38 INDICATION: Respiratory failure TECHNIQUE: Portable AP chest on 05/31/2023 at 0518 hours COMPARISON: 05/26/2023 portable AP chest at 0509 hours FINDINGS: ET and NG tubes in satisfactory position. Right upper extremity PIC catheter tip overlies superior vena cava. There is diminished on a vascular congestion and resolution of minor fissure subpleural edema since 1 07/27/2022. There is interval improvement of bilateral pulmonary infiltrates. IMPRESSION: Diminished congestive changes since 05/26/2023 Reviewed, dictated and finalized at location A. S DISASSEMBLER
--- NOTE | ~2023-05-21 | XR_ITS ---
Portable chest x-ray Comparison: 05/25/2023 Clinical History: Respiratory failure Findings: Endotracheal tube, NG tube, and right-sided PICC line are in place. Suggestion of some kin erendira of the distal PICC line. Lungs are clear, without focal consolidation or pleural effusion. Card iomediastinal silhouette is stable. Bones and soft tissues are unremarkable. Impression: Clear lungs. Support tubes, as above. Sedation mild kinking of the distal PICC line. Consider repositioning to ens ure position within the SVC. Reviewed, dictated and finalized at location . R COATING HAND Impression: Clear lungs. Support tubes, as above. Sedation mild kinking of the distal PICC line. Conside r repositioning to ensure position within the SVC.
--- NOTE | ~2023-05-21 | XR_ITS ---
Portable chest x-ray Comparison: 01/30/2022 Clinical History: Cough, weakness Findings: There is stable prominence of the central pulmonary vascular structures. Lungs are clear, without focal consolidation or pleural effusion. Cardiomediastinal silhouette is stable. Bones and s oft tissues are unremarkable. Impression: Mild central congestive change versus pulmonary artery hypertension. Reviewed, dictated and finalized at location M. ORACLE DEVELOPER Impression: Mild central congestive change versus pulmonary artery hypertension.
--- NOTE | ~2023-05-21 | XR_ITS ---
EXAMINATION: XR chest ET placement INDICATION: Respiratory failure TECHNIQUE: Portable AP chest at 1014 hours COMPARISON: 05/21/2023 FINDINGS: The endotracheal tube ends approximately 1.9 cm above the debbie. The nasogastric tube is f ollowed as far as the stomach. Its tip is beyond the inferior margin of the radiograph. There are air space opacities of the left lung base. Cardiomegaly is noted. No pneumothorax identified. There are s mall pleural effusions. IMPRESSION: 1. Endotracheal tube approximately 1.9 cm above the debbie. 2. Left basilar airspace opacity, consistent with atelectasis versus pneumonia. Reviewed, dictated and finalized at location B. RATING STATION MECHANIC
--- NOTE | ~2023-05-21 | XR_ITS ---
EXAMINATION: XR chest 1V portable INDICATION: Repositioned endotracheal tube TECHNIQUE: Portable AP chest at 0803 hours COMPARISON: 0529 hours FINDINGS: The endotracheal tube ends approximately 2.5 cm above the debbie. The nasogastric tube is f ollowed as far as the stomach. Its tip is beyond the inferior margin of the radiograph. A right upper extremity PICC appears to enter the brachiocephalic vein and coil back ending with its tip in the pr oximal superior vena cava. The lung volumes are low. There are diffuse interstitial and airspace opac ities of the lungs. The cardiomediastinal silhouette is stable. IMPRESSION: 1. Repositioned endotracheal tube approximately 2.5 cm above the debbie. 2. Right upper extremity PICC appears to enter the brachiocephalic vein and coil pack into the proxim al superior vena cava. 3. Low lung volumes with diffuse opacities of the lungs, likely atelectasis. Reviewed, dictated and finalized at location B. SMAKER HELPER IMPRESSION: 1. Repositioned endotracheal tube approximately 2.5 cm above the debbie. 2. Right upper extremity PICC appears to enter the brachiocephalic vein and coi l pack into the proximal superior vena cava. 3. Low lung volumes with diffuse opacities of the lungs, likely atelectasis.
--- NOTE | ~2023-05-21 | XR_ITS ---
XR chest 1V portable DATE: 05/30/2023 05:46 INDICATION: Respiratory failure TECHNIQUE: Portable AP chest on 05/26/2023 at 0509 hours COMPARISON: 05/29/2023 portable AP chest at 0512 hours FINDINGS: ET and NG tubes in satisfactory position. Right upper extremity PIC catheter is present; because of motion is not certain whether the tip overl ies the superior vena cava or the lower aspect of the right atrium. There are mild bilateral predominantly perihilar/central pulmonary infiltrates in addition to promine nce of the minor fissure, suggesting pulmonary edema. No pneumothorax.. IMPRESSION: Mild congestive changes, increased since 05/29/2023 Reviewed, dictated and finalized at location A. TECHNICAL LEAD
--- NOTE | ~2023-05-21 | CT_ITS ---
EXAMINATION: CT diagnostic chest wo con DATE: 05/21/2023 15:16 INDICATION: COVID positive, respiratory failure TECHNIQUE: Computed tomography (CT) of the chest was performed without intravenous contrast. Addition al 3D reconstructions utilizing coronal maximum intensity projection (MIP) were performed. Automated exposure control and iterative reconstruction technique were employed. The dose-length product was 27 8.62 mGy-cm. COMPARISON: Chest CT dated 05/16/2018 FINDINGS: Endotracheal tube tip 2.9 cm above the debbie. Nasogastric tube extends into the body of the stomach and beyond the inferior margin of the [id number]. Small right and trace left pleural effusions wit h atelectasis in the dependent aspect of the bilateral lower lobes. There is some mild smooth periphe ral septal line thickening at the bilateral upper lungs, right greater than left consistent with mild pulmonary edema. Calcified nodules in the left lower lobe along with calcified left hilar lymph node s and a few splenic calcifications are all consistent with old granulomatous disease. Mild cardiomega ly. Atherosclerotic coronary artery calcifications. No pericardial effusion. Thoracic aorta is normal in caliber. There is mild enlargement of the central pulmonary arteries consistent with pulmonary ar terial hypertension. No pathologically enlarged thoracic no lymphadenopathy. Small amount of ascites in the visualized upper abdomen. Gallbladder is not visualized and likely surgically absent. C6-C7 an terior spinal fusion with interbody fusion device. Again seen are multiple chronic compression and bu rst fractures throughout the thoracic spine with mild to moderate vertebral body height loss and with up to 3 mm retropulsion at T3 and T5 resulting in mild central canal stenosis. There is a more recen t-appearing L1 burst fracture with residual lucency along the horizontal fracture plane, 80% central vertebral body height loss and 5 mm retropulsion resulting in moderate to severe central canal stenos is. IMPRESSION: 1. Mild pulmonary edema at the bilateral upper lobes and small right and tiny left pleural effusions with dependent atelectasis in bilateral lower lobes. No other lung disease suspicious for pneumonia. 2. Cardiomegaly. 3. Enlargement of the central pulmonary arteries consistent with pulmonary arterial hypertension. 4. Small amount of ascites in the upper abdomen. 5. Relatively recent-appearing L1 burst fracture with retropulsion resulting in moderate to severe ce ntral canal stenosis. Reviewed, dictated and finalized at location A. KROOM HELPER IMPRESSION: 1. Mild pulmonary edema at the bilateral upper lobes and small right and tiny l eft pleural effusions with dependent atelectasis in bilateral lower lobes. No o ther lung disease suspicious for pneumonia. 2. Cardiomegaly. 3. Enlargement of the central pulmonary arteries consistent with pulmonary olga rial hypertension. 4. Small amount of ascites in the upper abdomen. 5. 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
--- NOTE | ~2023-05-21 | XR_ITS ---
EXAMINATION: XR abdomen gastric tube rechec INDICATION: OG tube placement TECHNIQUE: Portable AP [id number] at 1017 hours COMPARISON: None available FINDINGS: The OG tube is in the stomach. There are minimal airspace opacities of the left lung base. The bowel gas pattern is nonspecific. IMPRESSION: 1. OG tube in the stomach. Reviewed, dictated and finalized at location B. ICAL AUDIOLOGIST IMPRESSION: 1. OG tube in the stomach.
--- NOTE | ~2023-05-21 | XR_ITS ---
XR chest 1V portable DATE: 05/29/2023 05:45 INDICATION: Respiratory failure TECHNIQUE: Portable AP chest on 05/2323 at 0512 hours COMPARISON: 05/28/2023 portable AP chest at 0520 hours FINDINGS: ET and NG tube are in expected position. Right upper extremity PIC catheter tip is situated in the right atrium near the inferior cavoatrial j unction. Mild improvement minimal congestive changes suggested on 05/28/2023. Slight right pleural effusion. N o pneumothorax. IMPRESSION: Mild improvement of congestive change Reviewed, dictated and finalized at location A. DRIVER
--- NOTE | ~2023-05-21 | XR_ITS ---
Portable chest x-ray Comparison: 05/21/2023 at 406 exam Clinical History: Tube placed Findings: Endotracheal tube tip is just at the debbie. NG tube in satisfactory position. Minimal bas ilar haziness noted. Cardiomediastinal silhouette is stable. Bones and soft tissues are unremarkable . Impression: ET tube tip at the debbie. Retraction advised. NG tube in satisfactory position. Mild left basilar haziness, nonspecific. Reviewed, dictated and finalized at location M. CULAR BIOLOGY PROFESSOR Impression: ET tube tip at the debbie. Retraction advised. NG tube in satisfactory position. Mild left basilar haziness, nonspecific.
--- NOTE | ~2023-05-21 | XR_ITS ---
XR chest 1V portable 05/22/2023 06:27 Indication: Respiratory failure Procedure: AP portable chest Comparison: Comparison to multiple prior studies sequentially, with oldest reviewed study dated 05/07. Findings: Heart size normal. Endotracheal tube tip 2 cm above the debbie. NG tube in the stomach. Rig ht subclavian PICC line tip near the cavoatrial junction. Mild interstitial edema. Small pleural effu sions. Impression: 1: Mild interstitial edema with small pleural effusions. Reviewed, dictated and finalized at location A. HT MANAGER Impression: 1: Mild interstitial edema with small pleural effusions.
--- NOTE | ~2023-05-21 | XR_ITS ---
Portable chest x-ray Comparison: 05/26/2023 Clinical History: Respiratory failure Findings: Endotracheal tube, NG tube, and right-sided PICC line are in place. Probable central conge stive change and minimal bibasilar pulmonary edema. Cardiomediastinal silhouette is stable. Bones an d soft tissues are unremarkable. Impression: Probable central congestive change and minimal bibasilar pulmonary edema. Stable support tubes. Reviewed, dictated and finalized at location . HT DISPATCHER Impression: Probable central congestive change and minimal bibasilar pulmonary edema. Stable support tubes.
--- NOTE | ~2023-05-21 | XR_ITS ---
Supine and upright views of the abdomen Clinical history: NG tube placement Findings: NG tube is in satisfactory position. Bowel gas pattern is nonspecific. No evidence for obst ruction or free air. No abnormal mass lesion or calcification is seen. Bilateral hip arthroplasties n oted. Degenerative change of the spine noted. Impression: NG tube in satisfactory position. Reviewed, dictated and finalized at location . BILITATION NURSE Impression: NG tube in satisfactory position.
[2023-05-21 02:51] LABS: Glucose Point of Care 104 mg/dl (65-105)
--- NOTE | 2023-05-21 03:04 | ECG_ITS ---
Measurements Intervals [place] Rate: 76 P: 62 ID: [id number] QRS: -38 QRSD: 112 T: 94 QT: 354 QTc: 400 Interpretive Statements SINUS RHYTHM WITH PACS MARKED LEFT AXIS DEVIATION [QRS AXIS < -30] PREVIOUS ANTERIOR GA NONSPECIFIC T-WAVE ABNORMALITY ABNORMAL ECG] COMPARED TO ECG 01/29/2022 11:33:21 NO SIGNIFICANT DIFFERENCE Electronically Signed On 05-21-2023 14:05:51 [employer] MANAGER by Andrea Banks M.D.
[2023-05-21 03:15] LABS: Basophils Percent Auto 0.3 % (0.2-1.2); Eosinophils Percent Auto 0.6 % (0-4.4); Hematocrit 40.3 % (37.0-47.0); Hemoglobin 12.3 g/dL (12.0-15.0); Immature Granulocyte Absolute 0.04 K/mm3 (0.00-0.031); Immature Granulocyte Percent A 0.6 % (0-0.5); Lymphocytes Absolute Auto 0.88 K/mm3 (0.9-3.2); Lymphocytes Percent Auto 12.3 % (18.3-44.2); Mean Corpuscular HGB Conc 30.5 g/dl (32-36); Mean Corpuscular Hemoglobin 33.7 pg (26-34); Mean Corpuscular Volume 110.4 fl (80-100); Mean Platelet Volume 9.3 fl (7.4-10.4); Monocytes Absolute Auto 0.6 K/mm3 (0.1-0.6); Monocytes Percent Auto 8.1 % (2.6-8.5); Neutrophils Absolute Auto 5.6 K/mm3 (1.3-6.7); Neutrophils Percent Auto 78.1 % (45.5-73.1); Platelet Count Result 137 k/mm3 (150-375); Red Blood Count 3.65 M/mm3 (4.2-5.4); Red Cell Distribution Width 13.8 % (11.5-14.5); White Blood Count 7.1 K/mm3 (4.5-10.0)
[2023-05-21 03:20] LABS: Appearance Urine Clear (Clear); Bacteria Urine None Seen /hpf; Bilirubin Urine Negative (Negative); Blood Urine Negative (Negative); Color Urine Yellow (Yellow); Glucose Urine UA Negative (Negative); Ketones Urine Negative (Negative); Leukocyte Esterase Ur Negative LEU/UL (Negative); Nitrate Urine Negative (Negative); Non Pathogenic Casts 0-2; Protein Urine 1+ mg/dL (Negative); RBC Urine 0-2 /hpf (0-2); Specific Grav Ur 1.014 (1.001-1.035); Squamous Epithelial Cell Urine None seen /hpf (Few); Urobilinogen Urine 0.2 mg/dL (<2.0); pH Urine 5.5 (5.0-9.0)
[2023-05-21 03:28] LABS: Alanine Aminotransferase 6 U/L (6-35); Alkaline Phosphatase 147 U/L (38-126); Anion Gap 7 mmol/L (8-16); Aspartate Amino Transferase 24 U/L (14-36); Bilirubin,Total 0.7 mg/dL (0.2-1.3); Blood Urea Nitrogen 33 mg/dL (7-17); Calcium 8.8 mg/dL (8.4-10.2); Carbon Dioxide 23 mmol/L (22-30); Chloride 112 mmol/L (98-107); Estimated CRCL calculation 25 ml/min; Estimated Glomerular Filt Rate 42; Glucose 116 mg/dL (65-110); Potassium 5.5 mmol/L (3.4-5.0); Sodium 142 mmol/L (137-145)
--- NOTE | 2023-05-21 03:33 | ECG_ITS ---
Measurements Intervals [place] Rate: 76 P: [place]: 0 QRS: -38 QRSD: 110 T: 71 QT: 370 QTc: 418 Interpretive Statements SINUS RHYTHM WITH PACS MARKED LEFT AXIS DEVIATION [QRS AXIS < -30] PREVIOUS ANTERIOR WALL FL NONSPECIFIC T-WAVE ABNORMALITY COMPARED TO ECG 05/21/2023 03:32:29 COMPARED WITH THE ECG DONE 1 MINUTE AGO NOTHING HAS CHANGED Electronically Signed On 05-21-2023 14:06:54 RN CLINICAL APPEALS by Andrea Banks M.D.
[2023-05-21 03:34] LABS: INR 1.2; Prothrombin Time 15.8 Seconds (11.1-14.7)
[2023-05-21 03:35] LABS: Partial Thromboplastin Time 30.1 SECONDS (22.3-36.8)
[2023-05-21 03:36] LABS: Add Urine Microscopic? YES
[2023-05-21 03:39] LABS: Anisocytosis 1+ (NORMAL); Platelet Estimate Adequate (Adequate)
[2023-05-21 03:40] LABS: Macrocytosis 1+ (NORMAL); Schistocytes None Seen (NORMAL); Stomatocytes 1+ (NORMAL)
[2023-05-21 03:50] LABS: Alveolar/Arterial O2 Gradient 134.7 mmHg; Base Excess ABG -4.5 mEq/l (+/-2.0); Fractional Inspired Oxygen 80 %; HCO3 ABG 23.9 mEq/l (22.0-26.0); Oxygen Content ABG 17.6 %vol (16.0-22.0); Oxygen Saturation ABG 99.7 % (95.0-100.0); Oxyhemoglobin 97.7 % THb (90.0-100.0); PCO2 ABG 60.1 mmHg (35.0-45.0); PO2 ABG 372.6 mmHg (80.0-100.0); PO2 FiO2 Ratio Arterial Blood 4.66 %; Total Hemoglobin 12.1 g/dL (12.0-18.0)
[2023-05-21] MEDS: SODIUM CHLORIDE 0.9% IV 1,000 ML 999 ML IV CONT (03:51)
[2023-05-21 03:53] LABS: Device NON-REBREATHER MASK; Modified Allen's Test Pass; Site Drawn LEFT RADIAL; pH ABG 7.218 (7.350-7.450)
[2023-05-21 04:03] LABS: Lactic Acid Reflex 1.1 mmol/L (0.7-2.0); Magnesium 1.7 mg/dL (1.6-2.3)
[2023-05-21 04:15] LABS: NT Pro B Type Natriuretic Pept 3510 pg/mL (19.9-100); Troponin I 0.023 ng/mL (0.000-0.034)
--- NOTE | 2023-05-21 04:15 | PC.NURSE ---
This RN spoke with Marycarmen from [facility] to give an update on pt.
[2023-05-21 04:20] LABS: Procalcitonin 0.1 ng/mL
[2023-05-21 04:25] LABS: Influenza A QL RT-PCR Negative (Negative); Influenza B QL RT-PCR Negative (Negative); RSV RNA, RT-PCR Negative (Negative); SARS-CoV-2 RNA PCR Positive (Negative)
--- NOTE | 2023-05-21 05:21 | ED.GENADULT ---
HPI - General Adult General Chief complaint: Altered Mental Status Stated complaint: altered mental status Time Seen by Provider: 05/21/23 03:16 History of Present Illness HPI narrative: patient 87-year-old female who presents emerged department from [facility] with chief complaint of altered mental status. The facility noticed that she started acting abnormal yesterday the patient does have prior history of TIAs upon arrival to the emergency department the patient was extremely short of breath and minimally responsive the patient does have prior history of hypercapnic respiratory failure in the past. The patient was also hypoxic on room air with a room air saturation of 84% Related Data Home Medications Medication Instructions Recorded Confirmed acetaminophen 500 mg tablet 1,000 mg PO Q6H PRN Fever Or Pain 12/09/19 02/04/23 amlodipine 5 mg tablet (Norvasc) 5 mg PO QAM 12/09/19 02/04/23 baclofen 10 mg tablet 10 mg PO Q12H 12/09/19 02/04/23 carbidopa 25 mg-levodopa 250 mg 1 tablet PO TID 12/09/19 02/04/23 tablet dicyclomine 20 mg tablet 20 mg PO Q6H PRN Abdominal 12/09/19 02/04/23 Discomfort donepezil 10 mg tablet 10 mg PO HS 12/09/19 02/04/23 duloxetine 30 mg capsule,delayed 30 mg PO QAM 12/09/19 02/04/23 release (Cymbalta) ferrous sulfate 325 mg (65 mg 325 mg PO BID 12/09/19 02/04/23 iron) tablet,delayed release fluticasone propionate 50 2 spray intranasal DAILY PRN 12/09/19 02/04/23 mcg/actuation nasal Allergy Symptoms spray,suspension (Flonase Allergy Relief) levothyroxine 125 mcg capsule 125 mcg PO QAM 12/09/19 02/04/23 loratadine 10 mg capsule 10 mg PO DAILY PRN Allergic 12/09/19 02/04/23 Symptoms meclizine 25 mg tablet 25 mg PO HS 12/09/19 02/04/23 melatonin 5 mg tablet 10 mg PO HS 12/09/19 02/04/23 memantine 10 mg tablet (Namenda) 10 mg PO BID 12/09/19 02/04/23 quetiapine 25 mg tablet 12.5 mg PO BID 12/09/19 02/04/23 vit C 250 mg-vit E 90 mg-zinc 40 1 tablet PO DAILY 12/09/19 02/04/23 mg-copper 1 [id number] capsule (PreserVision AREDS-2) white petrolatum-mineral oil 80 1 applic ophthalmic (eye) HS 03/30/20 02/04/23 %-20 % eye ointment (Retaine PM) pregabalin 50 mg capsule (Lyrica) 100 mg PO BID 06/05/20 02/04/23 clotrimazole-betamethasone 1 1 applic topical BID PRN Pain 03/03/21 02/04/23 %-0.05 % topical cream meclizine 25 mg tablet 25 mg PO Q6-8H PRN Vertigo 03/03/21 02/04/23 calcium polycarbophil 625 mg tablet 650 mg PO DAILY 09/20/21 02/04/23 cyanocobalamin (vitamin B-12) 500 mcg PO DAILY 09/20/21 02/04/23 1,000 mcg tablet (Vitamin B-12) simethicone 125 mg chewable tablet 125 mg PO TID PRN gas pain 09/20/21 02/04/23 (Gas Relief (simethicone)) diclofenac sodium 1 % topical gel 2 g topical Q8H PRN Pain 09/27/21 02/04/23 calcium carbonate 600 mg-vitamin 1 tablet PO DAILY 01/29/22 02/04/23 D3 25 mcg (1,000 unit) tablet diclofenac sodium 1 % topical gel 2 g topical QID PRN finger and 01/29/22 02/04/23 (Voltaren Arthritis Pain) feet pain losartan 50 mg tablet 50 mg PO BID 01/29/22 02/04/23 pantoprazole 40 mg tablet,delayed 40 mg PO BID 01/29/22 02/04/23 release polyethylene glycol 3350 17 gram 17 g PO DAILY 01/29/22 02/04/23 oral powder packet (Miralax) sennosides 8.6 mg tablet (Senna 8.6 mg PO BID 01/29/22 02/04/23 Lax) vilazodone 40 mg tablet 40 mg PO DAILY 01/29/22 02/04/23 Allergies Allergy/AdvReac Type Severity Reaction Status Date / Time tomato Allergy Unknown Verified 01/29/22 16:10 Review of Systems Review of Systems: A 10 system review of systems was completed on the patient and is negative except for what is stated in the HPI. Nursing and ancillary documentation was reviewed. [facility] Past Medical History Medical History Acute hypokalemia Acute respiratory failure with hypoxia Anxiety and depression Bipolar disorder Bowel obstruction Chronic anemia Chronic GERD Closed frac
[2023-05-21 05:40] LABS: Alveolar/Arterial O2 Gradient 27.3 mmHg; Base Excess ABG -5.6 mEq/l (+/-2.0); Fractional Inspired Oxygen 25 %; HCO3 ABG 23.1 mEq/l (22.0-26.0); Oxygen Content ABG 15.1 %vol (16.0-22.0); Oxygen Saturation ABG 92.4 % (95.0-100.0); Oxyhemoglobin 91.5 % THb (90.0-100.0); PO2 ABG 78.6 mmHg (80.0-100.0); PO2 FiO2 Ratio Arterial Blood 3.14 %; Total Hemoglobin 11.7 g/dL (12.0-18.0)
[2023-05-21 05:42] LABS: Device BIPAP; Modified Allen's Test Pass; PCO2 ABG 60.9 mmHg (35.0-45.0); Site Drawn LEFT RADIAL; pH ABG 7.197 (7.350-7.450)
[2023-05-21 05:44] LABS: Expiratory Pressure 6 cmH2O; Inspiratory Pressure 18 cmH2O
[2023-05-21] MEDS: RAPID SEQUENCE INTUBATION KIT 1 EACH (06:45)
--- NOTE | 2023-05-21 06:46 | PC.NURSE ---
EDP at bedside with respiratory preparing to intubate patient with a 7.5 ETT; medications used are 100 mg Succinycholine and 20 mg of Etomidate being administered at 0649 via left wrist IV. ETT placed at 0651 with a depth of 20 cm at the lip and positive color change.
--- NOTE | 2023-05-21 07:01 | PC.NURSE ---
EDP made aware that the patient had bradycardia and hypotension. EDP at bedside to assess patient. 1 Gram of Calcium Gluconate and 1 mg of Atropine administered at 0700 due to bradycardia for a heart rate of 36 bpm. Improved to 54 bpm and blood pressure of 116/76.
--- NOTE | 2023-05-21 07:05 | PC.NURSE ---
Defibrillator pads placed at 0659 due to heart rate. Crash cart at bedside. EDP made aware of patient condition.
[2023-05-21] MEDS: PROPOFOL IV EMULSION 100 ML 1.74 MG IV CONT (07:17)
--- NOTE | 2023-05-21 07:30 | PC.NURSE ---
swelling noted to left wrist, appears to be dependent edema, SLN in left wrist flushed without difficulty, left soft restraint continued, good radial pulse palpated and skin warm to touch
--- NOTE | 2023-05-21 07:48 | PC.NURSE ---
POA, nephew Radu notified of pt condition. Will continue to update Radu
[2023-05-21] MEDS: MIDAZOLAM HCL (*CRX) 2 MG/2 ML VIAL IV PUSH ×2 (08:06→11:28)
[2023-05-21] MEDS: SODIUM CHLORIDE 0.9% IV 1,000 ML 125 ML IV CONT ×2 (08:06→14:24)
[2023-05-21 09:17] LABS: Triglycerides 286 mg/dL (<150)
--- NOTE | 2023-05-21 10:00 | ADMGEN ---
This patient, Lyndsey Lee, was admitted to Intensive Care Unit-12. Patient/family oriented to hospital policies and general routines including ID bracelet, bed and alarms, visiting hours, pain management, procedures, bathroom and other care routines, personal items, smoking policy, room service/diet, and visiting hours. Information on how to activate the Rapid Response Team has been discussed. Patient/Family are encouraged to report perceived risks to care and to ask questions if they do not understand what they are told or what they should do.
[2023-05-21] MEDS: MIDAZOLAM HCL (*CRX) 2 MG/2 ML VIAL 4 MG IV PUSH (11:28)
[2023-05-21] MEDS: fentaNYL CITRATE INJ (*CRX) 100 MCG/2 ML VIAL (11:29)
[2023-05-21] MEDS: FENTANYL 2,500MCG/NS250ML(*CRX 2,500 MCG/250 ML BAG IV CONT (11:30)
--- NOTE | 2023-05-21 11:48 | WPDCNINT ---
Assessment and Plan Assessment and plan (1) Acute hypercapnic respiratory failure: Code(s): J96.02 - Acute respiratory failure with hypercapnia Status: Acute Assessment and Plan: Acute on chronic hypercarbic respiratory failure patient also tested for COVID-19 the chest x-ray does not suggest COVID-19 pneumonia Patient now intubated on mechanical ventilation Repeat ABG now Bronchodilators Dexamethasone, isolation Chest x-ray suggests left basilar opacity which could be atelectasis was pneumonia. Start empiric treatment for community-acquired pneumonia Blood cultures have been done. Check urine pneumococcal and Legionella antigen, check sputum culture Check CT scan of the chest to further evaluate lung parenchyma (2) COVID-19: Code(s): U07.1 - COVID-19 Status: Acute Assessment and Plan: Patient was tested positive for COVID-19 on 05/01 at the nursing which is almost 20 days ago. She was treated with Paxlovid. She continues to be positive. Chest x-ray is not suggestive of COVID-19 pneumonia Now intubated on mechanical ventilation Start dexamethasone. Isolation (3) Parkinsons: Code(s): G20 - Parkinson's disease Status: Acute Assessment and Plan: Continue Sinemet (4) Seizure: Code(s): R56.9 - Unspecified convulsions Status: Acute Assessment and Plan: Continue Keppra (5) Hypothyroidism: Qualifiers: Hypothyroidism type: unspecified Qualified Code(s): E03.9 - Hypothyroidism, unspecified Code(s): E03.9 - Hypothyroidism, unspecified Status: Chronic Assessment and Plan: Continue levothyroxine. Check TSH (6) Hypertension: Qualifiers: Hypertension type: essential hypertension Qualified Code(s): I10 - Essential (primary) hypertension Code(s): I10 - Essential (primary) hypertension Status: Chronic Assessment and Plan: Blood pressures is now low normal on sedation Monitor and treat as needed (7) Altered mental status: Qualifiers: Altered mental status type: unspecified Qualified Code(s): R41.82 - Altered mental status, unspecified Code(s): R41.82 - Altered mental status, unspecified Status: Inactive Assessment and Plan: Etiology not clear although it is likely multifactor Patient has history of baseline dementia is on multiple sedative medication, she also had hypercarbic respiratory failure, possible seizure patient has history of seizure disorder. Now intubated and sedated but moving all 4 extremities Hold all sedatives accept sedation for mechanical ventilation Check CT scan of the head Check TSH and ammonia levels Continue aspirin statin and Plavix Plan DVT prophylaxis -Lovenox Stress ulcer prophylaxis -PPI Nutrition -start Tube Feeds Code Status - Full Code Total Critical Care Time - 35 minutes Due to a high probability of clinically significant, life threatening deterioration, the patient required my highest level of preparedness to intervene emergently and I personally spent this critical care time directly and personally managing the patient. This critical care time included obtaining a history; examining the patient; pulse oximetry; ordering and review of studies; arranging urgent treatment with development of a management plan; evaluation of patient's response to treatment; frequent reassessment; and discussions with other providers. It was exclusive of separately billable procedures and treating other patients and teaching time. Please see Assessment and Plan section and the rest of the note for further information on patient assessment and treatment Technical Support Associate Consult Note Consult date: 05/21/23 Reason for consult: Acute respiratory failure HPI: Lyndsey Lee is a 87 year old female with past medical history of COVID vaccination,dementia, seizures, Parkinson's disease, anxiety, depression, hypertension, hypothyroidism, intestinal obstruct
[2023-05-21] MEDS: LIDOCAINE HCL 1% PF INJ 5 ML VIAL INFILTRATE (12:01)
--- NOTE | 2023-05-21 12:31 | PCDIET ---
Tube feeding recommendations: Vital AF 1.2 at 20 ml/hr advance by 10 ml q 4hours goal rate 50 ml/hr. Total nutrition at this time with Propofol of 35 mcgs:1596/83 gms protein/892 ml water. Flush 30 ml q 4 hours. Monitoring.
--- NOTE | 2023-05-21 13:00 | PM.IMHP ---
H&P: HPI History of Present Illness Date/Time: 05/21/23 13:00 Chief Complaint: Altered mental status Narrative: Ms. Lyndsey Lee is an 87 years female resident of [place] with past medical history of multiple medical problems was transferred to [facility] with evaluation of altered mental status. According to the transfer notes patient with a metastatic changes since yesterday. Upon arrival in the ER patient was found to be in respiratory distress and was intubated. Patient was found to have hypercapnia and respiratory failure on arterial blood gas. Patient also was found to be COVID positive and is highly BNP. After intubation patient was transferred to ICU for further evaluation treatment. At present patient is intubated and sedated, patient was seen by [facility] nurse practitioner physicians assistant service and started on antibiotics and steroids. Home medications were reconciled and continued. Pulmonary consultation was ordered. Review of Systems Review of Systems: All systems reviewed & are unremarkable except as noted in HPI and below (the history and physical exam) PMFSH Past Medical History Medical History (Updated 05/21/23 @ 13:41 by Willard Phoenix MD) Acute hypokalemia Acute respiratory failure with hypoxia Anxiety and depression Bipolar disorder Bowel obstruction Chronic anemia Chronic GERD Closed fracture of right hip Crohn's disease Dementia (Unknown) Glaucoma Hip fracture Left hip fracture in 12/2017 after a fall. Right hip fracture in 03/26/2020 after a fall. Hypertension Hyponatremia Hypothyroidism Incisional hernia without obstruction or gangrene (Unknown) L2 vertebral fracture Lumbar burst fracture (~12/2017) L1, L3, and L5 burst fractures sustained in a fall. Macrocytosis Murmur Nondisplaced fracture of right femur Osteoarthritis Osteoporosis Parkinsons Pneumonia Seizure Small bowel obstruction (09/21/21) UTI (urinary tract infection), bacterial Vitamin D deficiency Surgical History Surgical History History of bilateral carpal tunnel release History of cervical spinal surgery Diskectomy and fusion. History of cholecystectomy History of left hip replacement (~12/2017) History of partial colectomy Appears to have had a sigmoid resection with end descending colostomy. Also evidence of an ileocolic anastomosis from previous surgery. History of right hip replacement (~03/2020) History of vaginal hysterectomy Family History Family History Father Acute myocardial infarction, Onset Age: 72 Mother Parkinson disease Heart attack Sibling Hypertension Cerebrovascular accident Social History Social History Social History: The patient lives at [facility]. She was never and has no children. 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 She is a lifelong nonsmoker and denies alcohol and illicit substance use. Her nephew, Radu Adames, as her healthcare power of attorney recruiter. She is listed as a full code. Smoking status: Never smoker Alcohol intake: never Substance use: never Substance use type: does not use Living arrangements: prison Additional living arrangements comments: [facility] Gender identity (if verbalized by the patient): Female Sexual Orientation (if Verbalized by the Patient): Straight or Heterosexual Spiritual care concerns: No Meds Home Medications and Allergies Home Medications Medication Instructions Recorded Confirmed Type amlodipine 5 mg tablet (Norvasc) 5 mg PO QAM 12/09/19 05/21/23 History baclofen 10 mg tablet 10 mg PO Q12H 12/09/19 05/21/23 History carbidopa 25 mg-levodopa 250 mg 1 tablet PO BID 12/09/19 05/21/23 History tablet fluticasone propionate 50 1 spray intranasal DAILY PRN 12/09/19 05/21/23 History mcg/actuation nasal Allergy Sympt
[2023-05-21 13:03] LABS: Ammonia < 9 umol/L (9-30)
[2023-05-21] MEDS: ENOXAPARIN 30 MG/0.3 ML SYRINGE SUB-Q (13:18)
[2023-05-21] MEDS: AZITHROMYCIN 500 MG/NS 250 ML 500 MG/250 ML BAG 250 MG IVPB (13:19)
[2023-05-21] MEDS: LACTATED RINGERS 1,000 ML 999 ML IV CONT (13:19)
[2023-05-21] MEDS: ASPIRIN 325 MG TABLET FEED TUBE (13:19)
[2023-05-21] MEDS: cefTRIAXone 2 GM/NS 100 ML 2 GM/100 ML BAG IVPB (13:19)
[2023-05-21] MEDS: CLOPIDOGREL BISULFATE 75 MG TABLET PO (13:20)
[2023-05-21] MEDS: levETIRAcetam ORAL SOL 500 MG/5 ML UDC 250 MG FEED TUBE ×2 (13:20→21:36)
[2023-05-21] MEDS: PANTOPRAZOLE SODIUM IV 40 MG VIAL IV PUSH (13:21)
[2023-05-21 13:32] LABS: Procalcitonin 0.1 ng/mL
[2023-05-21 13:43] LABS: Thyroid Stimulating Hormone Reflex 0.491 uIU/mL (0.465-4.68)
[2023-05-21] MEDS: PROPOFOL IV EMULSION 100 ML 8.7 MG IV CONT (14:25)
[2023-05-21] MEDS: CENTRAL LINE FLUSH 10 ML IV PUSH ×2 (14:26→21:36)
[2023-05-21] MEDS: CARBIDOPA/LEVODOPA 25/250 MG TABLET 1 TABLET PO (17:45)
[2023-05-21 17:55] LABS: Glucose Point of Care 94 mg/dl (65-105)
[2023-05-21 22:01] LABS: Anion Gap 5 mmol/L (8-16); Blood Urea Nitrogen 31 mg/dL (7-17); Calcium 8.2 mg/dL (8.4-10.2); Carbon Dioxide 17 mmol/L (22-30); Chloride 118 mmol/L (98-107); Estimated CRCL calculation 25 ml/min; Estimated Glomerular Filt Rate 42; Glucose 107 mg/dL (65-110); Potassium 4.6 mmol/L (3.4-5.0); Sodium 140 mmol/L (137-145)
[2023-05-21] MEDS: NOREPINEPHRINE 8 MG/D5W 250 ML 8 MG/250 ML BAG 9.38 MG IV CONT (22:42)
[2023-05-22] VITALS (50 sets, daily range): BP systolic 83–176; BP diastolic 44–102; PULSE 46–107; RESP 14–25; TEMP 36.4–37.2; O2SAT 92–98
--- NOTE | 2023-05-22 | ECHO_ITS ---
Patient Info Name: Lyndsey Lee Age: 87 years : 1935 Gender: Female Ht: 64 in Wt: 138 lbs BSA: 1.69 m2 HR: 78 bpm BP: 150 / 67 mmHg Heart Rhythm: Sinus Rhythm Technical Quality: Fair Exam Date: 05/22/2023 11:36 AM Exam Location: Echo Lab Exam Room: ICU12 Patient Status: Inpatient Admit Date: 05/21/2023 Staff Ordering Physician: Amrit Cui MD Dean: Cherie Valdes RDCS Attending Provider: Essie Beckman DO Exam Type: CA echo doppler color flow Study Info Indications - CHF Complete two-dimensional, color flow and Doppler transthoracic echocardiogram is performed. Summary 1. Complete two-dimensional, color flow and Doppler transthoracic echocardiogram is performed. 2. Normal left ventricular size with hyperdynamic systolic function. 3. Remarkably normal appearing cardiac valves given patient's age. 4. Tiny amount of tricuspid valve insufficiency with velocity that suggests moderately elevated PA pressure. 5. Trivial amount of mitral regurgitation. 6. Trivial MR. Left Ventricle Left ventricular chamber dimension is normal. Left ventricular systolic function is hyperdynamic, estimated at >70%. The left ventricular diastolic function is grade I diastolic dysfunction. Right Ventricle Right ventricular chamber dimension is normal. Left Atria Left atrial chamber dimension is normal. Right Atria Right atrial chamber dimension is normal. Aortic Valve The aortic valve is normal. Pulmonic Valve The pulmonic valve is not well visualized. Mitral Valve The mitral valve has normal leaflets. Trivial MR. Tricuspid Valve The tricuspid valve leaflets are normal. There is trace tricuspid valve regurgitation. Moderate pulmonary hypertension, estimated pulmonary arterial systolic pressure is 61 mmHg. Pericardium/Pleural The pericardium appears normal. Aorta The aortic root size at the sinus of Valsalva is normal. Left Ventricular Outflow Tract Name Value Normal LVOT 2D LVOT Diameter 2.0 cm LVOT Doppler LVOT Peak Gradient 6 mmHg LVOT Mean Gradient 4 mmHg LVOT VTI 27 cm LVOT VTI/AV VTI Ratio 0.8 LVOT Stroke Volume 82 ml LVOT CO 17.8 l/min LVOT CI 10.6 l/min/m2 Pulmonic Valve Name Value Normal RVOT Doppler RVOT Peak Gradient 1 mmHg PV Doppler PV Peak Gradient 3 mmHg Mitral Valve Name Value Normal MV Doppler MV [place]el [place]
[2023-05-22 01:01] LABS: Glucose Point of Care 78 mg/dl (65-105)
[2023-05-22 05:36] LABS: Base Excess ABG -6.7 mEq/l (+/-2.0); Carboxyhemoglobin 0.3 % THb (0-2.0); Fractional Inspired Oxygen 30 %; HCO3 ABG 19.6 mEq/l (22.0-26.0); Methemoglobin ABG 0.3 %THb (0-1.5); Oxygen Content ABG 14.4 %vol (16.0-22.0); Oxygen Saturation ABG 91.1 % (95.0-100.0); Oxyhemoglobin 90.3 % THb (90.0-100.0); PCO2 ABG 42.2 mmHg (35.0-45.0); PO2 ABG 67.1 mmHg (80.0-100.0); PO2 FiO2 Ratio Arterial Blood 2.24 %; Reduced Hemoglobin 9.1 %THb (0-5.0); Total Hemoglobin 11.3 g/dL (12.0-18.0)
[2023-05-22 05:39] LABS: Device VENTILATOR; Modified Allen's Test Pass; Site Drawn RIGHT RADIAL; pH ABG 7.284 (7.350-7.450)
[2023-05-22 05:40] LABS: Arterial Blood Gas PEEP 5 cmH2O; Arterial Blood Gas Tidal Volume 400 ml; Arterial Blood Gas Vent Mode CMV; Arterial Blood Gas Ventilator rate 14 /MIN
[2023-05-22] MEDS: LEVOTHYROXINE SODIUM 112 MCG TABLET PO (06:42)
[2023-05-22] MEDS: PROPOFOL IV EMULSION 100 ML 5.22 MG IV CONT (06:42)
[2023-05-22] MEDS: CENTRAL LINE FLUSH 10 ML IV PUSH ×3 (06:43→20:18)
[2023-05-22 06:59] LABS: Hematocrit 33.6 % (37.0-47.0); Hemoglobin 10.3 g/dL (12.0-15.0); Mean Corpuscular HGB Conc 30.7 g/dl (32-36); Mean Corpuscular Volume 110.9 fl (80-100); Mean Platelet Volume 9.4 fl (7.4-10.4); Platelet Count Result 156 k/mm3 (150-375); Red Blood Count 3.03 M/mm3 (4.2-5.4); Red Cell Distribution Width 13.4 % (11.5-14.5); White Blood Count 7.6 K/mm3 (4.5-10.0)
[2023-05-22 07:08] LABS: Alanine Aminotransferase 11 U/L (6-35); Albumin Level 2.8 g/dL (3.5-5.1); Alkaline Phosphatase 113 U/L (38-126); Anion Gap 5 mmol/L (8-16); Aspartate Amino Transferase 19 U/L (14-36); Bilirubin,Total 0.3 mg/dL (0.2-1.3); Blood Urea Nitrogen 32 mg/dL (7-17); Carbon Dioxide 19 mmol/L (22-30); Chloride 117 mmol/L (98-107); Estimated CRCL calculation 25 ml/min; Estimated Glomerular Filt Rate 42; Glucose 124 mg/dL (65-110); Magnesium 1.5 mg/dL (1.6-2.3); Potassium 4.4 mmol/L (3.4-5.0); Sodium 141 mmol/L (137-145)
[2023-05-22] MEDS: PANTOPRAZOLE SODIUM IV 40 MG VIAL IV PUSH (08:58)
[2023-05-22] MEDS: CARBIDOPA/LEVODOPA 25/250 MG TABLET 1 TABLET PO ×2 (08:58→17:36)
[2023-05-22] MEDS: ASPIRIN 325 MG TABLET FEED TUBE (08:58)
[2023-05-22] MEDS: cefTRIAXone 2 GM/NS 100 ML 2 GM/100 ML BAG IVPB (08:59)
[2023-05-22] MEDS: CLOPIDOGREL BISULFATE 75 MG TABLET PO (08:59)
[2023-05-22] MEDS: polyethylene glycoL 3350 17 GM POWD.PACK PO (08:59)
[2023-05-22] MEDS: levETIRAcetam ORAL SOL 500 MG/5 ML UDC 250 MG FEED TUBE ×2 (09:00→20:16)
[2023-05-22] MEDS: ENOXAPARIN 30 MG/0.3 ML SYRINGE SUB-Q (09:00)
[2023-05-22 10:20] LABS: Glucose Point of Care 120 mg/dl (65-105)
[2023-05-22] MEDS: AZITHROMYCIN 500 MG/NS 250 ML 500 MG/250 ML BAG 250 MG IVPB (11:46)
--- NOTE | 2023-05-22 12:00 | WPDINTPN ---
Progress Note: A&P Assessment and Plan (1) Acute hypercapnic respiratory failure: Code(s): J96.02 - Acute respiratory failure with hypercapnia Status: Acute Assessment and Plan: Acute on chronic hypercarbic respiratory failure patient also tested for COVID-19 the chest x-ray does not suggest COVID-19 pneumonia Patient now intubated on mechanical ventilation CT chest IMPRESSION: 1. Mild pulmonary edema at the bilateral upper lobes and small right and tiny left pleural effusions with dependent atelectasis in bilateral lower lobes. No other lung disease suspicious for pneumonia. 2. Cardiomegaly. 3. Enlargement of the central pulmonary arteries consistent with pulmonary arterial hypertension. 4. Small amount of ascites in the upper abdomen. 5. 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 Lasix ordered Bronchodilators Dexamethasone, isolation Procalcitonin level was low Blood cultures have been done and are pending. Pending urine pneumococcal and Legionella antigen, pending sputum culture Continue empiric Rocephin and azithromycin at this time Patient placed on weaning trial (2) COVID-19: Code(s): U07.1 - COVID-19 Status: Acute Assessment and Plan: Patient was tested positive for COVID-19 on 05/01 at the nursing which is almost 20 days ago. She was treated with Paxlovid. She continues to be positive. Imaging is not suggestive of COVID-19 pneumonia Now intubated on mechanical ventilation Continue dexamethasone. Isolation (3) Parkinsons: Code(s): G20 - Parkinson's disease Status: Acute Assessment and Plan: Continue Sinemet (4) Seizure: Code(s): R56.9 - Unspecified convulsions Status: Acute Assessment and Plan: Continue Keppra (5) Hypothyroidism: Qualifiers: Hypothyroidism type: unspecified Qualified Code(s): E03.9 - Hypothyroidism, unspecified Code(s): E03.9 - Hypothyroidism, unspecified Status: Chronic Assessment and Plan: Continue levothyroxine. Check TSH (6) Hypertension: Qualifiers: Hypertension type: essential hypertension Qualified Code(s): I10 - Essential (primary) hypertension Code(s): I10 - Essential (primary) hypertension Status: Chronic Assessment and Plan: Blood pressures is now low normal on sedation Monitor and treat as needed (7) Altered mental status: Qualifiers: Altered mental status type: unspecified Qualified Code(s): R41.82 - Altered mental status, unspecified Code(s): R41.82 - Altered mental status, unspecified Status: Inactive Assessment and Plan: Etiology not clear although it is likely multifactor Patient has history of baseline dementia is on multiple sedative medication, she also had hypercarbic respiratory failure, possible seizure patient has history of seizure disorder. Now intubated and sedated but moving all 4 extremities On holding sedation patient follows commands CT scan shows chronic white matter changes Normal tSH and ammonia levels Continue aspirin statin and Plavix Plan DVT prophylaxis -Lovenox Stress ulcer prophylaxis -PPI Nutrition -on Tube Feeds Code Status - Full Code Total Critical Care Time - 30 minutes Due to a high probability of clinically significant, life threatening deterioration, the patient required my highest level of preparedness to intervene emergently and I personally spent this critical care time directly and personally managing the patient. This critical care time included obtaining a history; examining the patient; pulse oximetry; ordering and review of studies; arranging urgent treatment with development of a management plan; evaluation of patient's response to treatment; frequent reassessment; and discussions with other providers. It was exclusive of separately billable procedures and treating other patients and [facility]
[2023-05-22 12:13] LABS: Glucose Point of Care 110 mg/dl (65-105)
[2023-05-22] MEDS: FUROSEMIDE INJ 40 MG/4 ML VIAL IV PUSH (12:53)
[2023-05-22] MEDS: dexmedeTOMIDine 400 MCG/100 ML 400 MCG/100 ML BAG IV CONT (14:30)
[2023-05-22 20:10] LABS: Glucose Point of Care 121 mg/dl (65-105)
[2023-05-22] MEDS: MINERAL OIL/WHITE PETROLATUM OINTMENT 1 APPLIC EACH EYE (20:17)
[2023-05-22] MEDS: PROPOFOL IV EMULSION 100 ML 8.7 MG IV CONT (20:17)
[2023-05-22 23:55] LABS: Glucose Point of Care 140 mg/dl (65-105)
[2023-05-23] VITALS (41 sets, daily range): BP systolic 99–157; BP diastolic 51–99; PULSE 38–89; RESP 11–29; TEMP 36.5–37.5; O2SAT 91–100
[2023-05-23] MEDS: LEVOTHYROXINE SODIUM 112 MCG TABLET PO (05:20)
[2023-05-23] MEDS: CENTRAL LINE FLUSH 10 ML IV PUSH ×3 (05:21→20:23)
[2023-05-23 05:41] LABS: Hematocrit 32.7 % (37.0-47.0); Mean Corpuscular HGB Conc 30.6 g/dl (32-36); Mean Corpuscular Hemoglobin 33.8 pg (26-34); Mean Corpuscular Volume 110.5 fl (80-100); Mean Platelet Volume 9.7 fl (7.4-10.4); Platelet Count Result 128 k/mm3 (150-375); Red Blood Count 2.96 M/mm3 (4.2-5.4); Red Cell Distribution Width 13.5 % (11.5-14.5)
[2023-05-23 05:48] LABS: Alanine Aminotransferase 9 U/L (6-35); Albumin Level 2.9 g/dL (3.5-5.1); Alkaline Phosphatase 113 U/L (38-126); Anion Gap 7 mmol/L (8-16); Aspartate Amino Transferase 17 U/L (14-36); Bilirubin,Total 0.2 mg/dL (0.2-1.3); Blood Urea Nitrogen 39 mg/dL (7-17); Calcium 7.8 mg/dL (8.4-10.2); Carbon Dioxide 18 mmol/L (22-30); Chloride 114 mmol/L (98-107); Estimated CRCL calculation 24 ml/min; Estimated Glomerular Filt Rate 39; Glucose 129 mg/dL (65-110); Magnesium 1.5 mg/dL (1.6-2.3); Potassium 3.8 mmol/L (3.4-5.0); Sodium 139 mmol/L (137-145); Triglycerides 114 mg/dL (<150)
[2023-05-23 06:17] LABS: Base Excess ABG -5.3 mEq/l (+/-2.0); Carboxyhemoglobin 0.3 % THb (0-2.0); Fractional Inspired Oxygen 30 %; HCO3 ABG 21.1 mEq/l (22.0-26.0); Methemoglobin ABG 0.3 %THb (0-1.5); Oxygen Content ABG 18.5 %vol (16.0-22.0); PCO2 ABG 44.2 mmHg (35.0-45.0); PO2 FiO2 Ratio Arterial Blood 1.73 %; Reduced Hemoglobin 15.6 %THb (0-5.0); Total Hemoglobin 15.7 g/dL (12.0-18.0)
[2023-05-23 06:27] LABS: Oxygen Saturation ABG 97.1 % (95.0-100.0); Oxyhemoglobin 95.1 % THb (90.0-100.0); pH ABG 7.345 (7.350-7.450)
[2023-05-23 06:31] LABS: Device VENTILATOR; Modified Allen's Test Pass; Site Drawn RIGHT RADIAL
[2023-05-23 06:32] LABS: Arterial Blood Gas PEEP 5 cmH2O; Arterial Blood Gas Tidal Volume 400 ml; Arterial Blood Gas Vent Mode CMV; Arterial Blood Gas Ventilator rate 14 /MIN
[2023-05-23] MEDS: PROPOFOL IV EMULSION 100 ML 6.96 MG IV CONT (08:09)
[2023-05-23] MEDS: SODIUM BICARBONATE TAB 650 MG TABLET FEED TUBE ×3 (08:45→16:48)
[2023-05-23] MEDS: polyethylene glycoL 3350 17 GM POWD.PACK PO (08:45)
[2023-05-23] MEDS: levETIRAcetam ORAL SOL 500 MG/5 ML UDC 250 MG FEED TUBE ×2 (08:45→20:22)
[2023-05-23] MEDS: ENOXAPARIN 30 MG/0.3 ML SYRINGE SUB-Q (08:45)
[2023-05-23] MEDS: cefTRIAXone 2 GM/NS 100 ML 2 GM/100 ML BAG IVPB (08:46)
[2023-05-23] MEDS: ASPIRIN 325 MG TABLET FEED TUBE (08:46)
[2023-05-23] MEDS: CARBIDOPA/LEVODOPA 25/250 MG TABLET 1 TABLET PO ×2 (08:46→16:48)
[2023-05-23] MEDS: MAGNESIUM SULF 2 GM/WATER 50ML 2 GM/50 ML BAG IVPB (08:46)
[2023-05-23] MEDS: CLOPIDOGREL BISULFATE 75 MG TABLET PO (08:46)
[2023-05-23] MEDS: ALBUMIN HUMAN 25% 25 GM/100 ML 100 ML IVPB ×4 (08:47→23:32)
[2023-05-23] MEDS: POTASSIUM CHLORIDE 20 MEQ PACKET (FOR LIQUID) FEED TUBE (08:47)
[2023-05-23] MEDS: MINERAL OIL/WHITE PETROLATUM OINTMENT 1 APPLIC EACH EYE ×2 (08:48→20:23)
[2023-05-23] MEDS: PANTOPRAZOLE SODIUM IV 40 MG VIAL IV PUSH (08:48)
--- NOTE | 2023-05-23 09:21 | WPDINTPN ---
Progress Note: A&P Assessment and Plan (1) Acute hypercapnic respiratory failure: Code(s): J96.02 - Acute respiratory failure with hypercapnia Status: Acute Assessment and Plan: Acute on chronic hypercarbic respiratory failure patient also tested for COVID-19 the chest x-ray does not suggest COVID-19 pneumonia Patient now intubated on mechanical ventilation Repeat ABG now Bronchodilators Dexamethasone, isolation Chest x-ray suggests left basilar opacity which could be atelectasis was pneumonia. Start empiric treatment for community-acquired pneumonia Blood cultures have been done. Check urine pneumococcal and Legionella antigen, check sputum culture Check CT scan of the chest to further evaluate lung parenchyma (2) COVID-19: Code(s): U07.1 - COVID-19 Status: Acute Assessment and Plan: Patient was tested positive for COVID-19 on 05/01 at the nursing which is almost 20 days ago. She was treated with Paxlovid. She continues to be positive. Chest x-ray is not suggestive of COVID-19 pneumonia Now intubated on mechanical ventilation Start dexamethasone. Isolation (3) Parkinsons: Code(s): G20 - Parkinson's disease Status: Acute Assessment and Plan: Continue Sinemet (4) Seizure: Code(s): R56.9 - Unspecified convulsions Status: Acute Assessment and Plan: Continue Keppra (5) Hypothyroidism: Qualifiers: Hypothyroidism type: unspecified Qualified Code(s): E03.9 - Hypothyroidism, unspecified Code(s): E03.9 - Hypothyroidism, unspecified Status: Chronic Assessment and Plan: Continue levothyroxine. Check TSH (6) Hypertension: Qualifiers: Hypertension type: essential hypertension Qualified Code(s): I10 - Essential (primary) hypertension Code(s): I10 - Essential (primary) hypertension Status: Chronic Assessment and Plan: Blood pressures is now low normal on sedation Monitor and treat as needed (7) Altered mental status: Qualifiers: Altered mental status type: unspecified Qualified Code(s): R41.82 - Altered mental status, unspecified Code(s): R41.82 - Altered mental status, unspecified Status: Inactive Assessment and Plan: Etiology not clear although it is likely multifactor Patient has history of baseline dementia is on multiple sedative medication, she also had hypercarbic respiratory failure, possible seizure patient has history of seizure disorder. Now intubated and sedated but moving all 4 extremities Hold all sedatives accept sedation for mechanical ventilation Check CT scan of the head Check TSH and ammonia levels Continue aspirin statin and Plavix Plan DVT prophylaxis -Lovenox Stress ulcer prophylaxis -PPI Nutrition -start Tube Feeds Code Status - Full Code Total Critical Care Time - 30 minutes Due to a high probability of clinically significant, life threatening deterioration, the patient required my highest level of preparedness to intervene emergently and I personally spent this critical care time directly and personally managing the patient. This critical care time included obtaining a history; examining the patient; pulse oximetry; ordering and review of studies; arranging urgent treatment with development of a management plan; evaluation of patient's response to treatment; frequent reassessment; and discussions with other providers. It was exclusive of separately billable procedures and treating other patients and teaching time. Please see Assessment and Plan section and the rest of the note for further information on patient assessment and treatment Subjective Date/time seen: 05/23/23 Overnight events reviewed. Afebrile Continues to be on mechanical ventilation 30% FiO2 Continues to be on low-dose Levophed Continues to be sedated with propofol and Precedex Sinus bradycardia monitor Other vitals acceptable Good urine output Review of Sy
[2023-05-23] MEDS: AZITHROMYCIN 500 MG/NS 250 ML 500 MG/250 ML BAG 250 MG IVPB (11:52)
[2023-05-23 12:48] LABS: Glucose Point of Care 127 mg/dl (65-105)
[2023-05-23 17:02] LABS: Glucose Point of Care 122 mg/dl (65-105)
[2023-05-23] MEDS: PROPOFOL IV EMULSION 100 ML 17.4 MG IV CONT ×2 (17:39→18:08)
[2023-05-23 23:58] LABS: Glucose Point of Care 104 mg/dl (65-105)
[2023-05-24] VITALS (39 sets, daily range): BP systolic 92–166; BP diastolic 49–66; PULSE 36–77; RESP 14–18; TEMP 35.4–37.3; O2SAT 95–100
[2023-05-24] MEDS: PROPOFOL IV EMULSION 100 ML 17.4 MG IV CONT (02:15)
[2023-05-24] MEDS: ALBUMIN HUMAN 25% 25 GM/100 ML 100 ML IVPB ×4 (05:31→23:22)
[2023-05-24] MEDS: LEVOTHYROXINE SODIUM 112 MCG TABLET PO (05:31)
[2023-05-24] MEDS: CENTRAL LINE FLUSH 10 ML IV PUSH ×3 (05:32→20:24)
[2023-05-24 05:42] LABS: Alveolar/Arterial O2 Gradient 59.7 mmHg; Base Excess ABG -3.2 mEq/l (+/-2.0); Carboxyhemoglobin 0.3 % THb (0-2.0); Fractional Inspired Oxygen 30 %; HCO3 ABG 22.4 mEq/l (22.0-26.0); Methemoglobin ABG 0.3 %THb (0-1.5); Oxygen Content ABG 13.3 %vol (16.0-22.0); Oxygen Saturation ABG 97.5 % (95.0-100.0); Oxyhemoglobin 95.5 % THb (90.0-100.0); PCO2 ABG 42.5 mmHg (35.0-45.0); PO2 ABG 104.3 mmHg (80.0-100.0); PO2 FiO2 Ratio Arterial Blood 3.48 %; Reduced Hemoglobin 3.9 %THb (0-5.0); Total Hemoglobin 9.8 g/dL (12.0-18.0)
[2023-05-24 05:44] LABS: Arterial Blood Gas PEEP 5 cmH2O; Arterial Blood Gas Tidal Volume 400 ml; Arterial Blood Gas Vent Mode CMV; Arterial Blood Gas Ventilator rate 14 /MIN; Device VENTILATOR; Modified Allen's Test Pass; Site Drawn RIGHT RADIAL
[2023-05-24 06:10] LABS: Hematocrit 28.2 % (37.0-47.0); Hemoglobin 8.8 g/dL (12.0-15.0); Immature Platelet Fraction Pct 2.7 % (0.9-11.2); Mean Corpuscular HGB Conc 31.2 g/dl (32-36); Mean Corpuscular Volume 108.9 fl (80-100); Mean Platelet Volume 9.6 fl (7.4-10.4); Platelet Count Result 85 k/mm3 (150-375); Red Blood Count 2.59 M/mm3 (4.2-5.4); Red Cell Distribution Width 13.4 % (11.5-14.5)
[2023-05-24 06:15] LABS: Alanine Aminotransferase 10 U/L (6-35); Albumin Level 4.1 g/dL (3.5-5.1); Alkaline Phosphatase 86 U/L (38-126); Anion Gap 10 mmol/L (8-16); Aspartate Amino Transferase 16 U/L (14-36); Bilirubin,Total 0.3 mg/dL (0.2-1.3); Blood Urea Nitrogen 32 mg/dL (7-17); Calcium 8.3 mg/dL (8.4-10.2); Carbon Dioxide 22 mmol/L (22-30); Chloride 112 mmol/L (98-107); Estimated CRCL calculation 30 ml/min; Estimated Glomerular Filt Rate 52; Glucose 106 mg/dL (65-110); Magnesium 2.1 mg/dL (1.6-2.3); Potassium 3.7 mmol/L (3.4-5.0); Sodium 144 mmol/L (137-145)
[2023-05-24 06:17] LABS: White Blood Count 4.5 K/mm3 (4.5-10.0)
[2023-05-24] MEDS: levETIRAcetam ORAL SOL 500 MG/5 ML UDC 250 MG FEED TUBE ×2 (08:03→20:23)
[2023-05-24] MEDS: CLOPIDOGREL BISULFATE 75 MG TABLET PO (08:04)
[2023-05-24] MEDS: cefTRIAXone 2 GM/NS 100 ML 2 GM/100 ML BAG IVPB (08:04)
[2023-05-24] MEDS: ASPIRIN 325 MG TABLET FEED TUBE (08:04)
[2023-05-24] MEDS: ENOXAPARIN 30 MG/0.3 ML SYRINGE SUB-Q (08:04)
[2023-05-24] MEDS: PANTOPRAZOLE SODIUM IV 40 MG VIAL IV PUSH (08:04)
[2023-05-24] MEDS: CARBIDOPA/LEVODOPA 25/250 MG TABLET 1 TABLET PO ×2 (08:04→17:32)
[2023-05-24] MEDS: polyethylene glycoL 3350 17 GM POWD.PACK PO (08:10)
[2023-05-24] MEDS: SODIUM BICARBONATE TAB 650 MG TABLET FEED TUBE ×2 (08:10→17:32)
[2023-05-24] MEDS: MINERAL OIL/WHITE PETROLATUM OINTMENT 1 APPLIC EACH EYE ×2 (08:30→20:22)
--- NOTE | 2023-05-24 08:53 | WPDINTPN ---
Progress Note: A&P Assessment and Plan (1) Acute hypercapnic respiratory failure: Code(s): J96.02 - Acute respiratory failure with hypercapnia Status: Acute Assessment and Plan: Acute on chronic hypercarbic respiratory failure patient also tested for COVID-19 the chest x-ray does not suggest COVID-19 pneumonia Patient now intubated on mechanical ventilation Chest CT IMPRESSION: 1. Mild pulmonary edema at the bilateral upper lobes and small right and tiny left pleural effusions with dependent atelectasis in bilateral lower lobes. No other lung disease suspicious for pneumonia. 2. Cardiomegaly. 3. Enlargement of the central pulmonary arteries consistent with pulmonary arterial hypertension. 4. Small amount of ascites in the upper abdomen. 5. 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 Bronchodilators 05/23 Lasix given Dexamethasone, isolation Blood cultures have been done. Pending urine pneumococcal and Legionella antigen, Sputum culture is growing Staph aureus Continue Rocephin azithromycin Add vancomycin (2) COVID-19: Code(s): U07.1 - COVID-19 Status: Acute Assessment and Plan: Patient was tested positive for COVID-19 on 05/01 at the nursing which is almost 20 days ago. She was treated with Paxlovid. She continues to be positive. Chest x-ray is not suggestive of COVID-19 pneumonia Now intubated on mechanical ventilation Continue dexamethasone. Isolation (3) Parkinsons: Code(s): G20 - Parkinson's disease Status: Acute Assessment and Plan: Continue Sinemet (4) Seizure: Code(s): R56.9 - Unspecified convulsions Status: Acute Assessment and Plan: Continue Keppra (5) Hypothyroidism: Qualifiers: Hypothyroidism type: unspecified Qualified Code(s): E03.9 - Hypothyroidism, unspecified Code(s): E03.9 - Hypothyroidism, unspecified Status: Chronic Assessment and Plan: Continue levothyroxine. Check TSH (6) Hypertension: Qualifiers: Hypertension type: essential hypertension Qualified Code(s): I10 - Essential (primary) hypertension Code(s): I10 - Essential (primary) hypertension Status: Chronic Assessment and Plan: Blood pressures is now low normal on sedation Monitor and treat as needed (7) Altered mental status: Qualifiers: Altered mental status type: unspecified Qualified Code(s): R41.82 - Altered mental status, unspecified Code(s): R41.82 - Altered mental status, unspecified Status: Inactive Assessment and Plan: Etiology not clear although it is likely multifactor Patient has history of baseline dementia is on multiple sedative medication, she also had hypercarbic respiratory failure, possible seizure patient has history of seizure disorder. Now intubated and sedated but moving all 4 extremities Patient has been difficult to sedate as either she is too sedated or once lowered she is agitated and does not follow commands. She has not been tolerating Precedex as on minimal rate she becomes bradycardic. Continue propofol. Switch Precedex to fentanyl infusion Negative cT scan of the head Normal tSH and ammonia levels Continue aspirin statin and Plavix Plan DVT prophylaxis -Lovenox Stress ulcer prophylaxis -PPI Nutrition -continue Tube Feeds Code Status - Full Code Total Critical Care Time - 30 minutes Due to a high probability of clinically significant, life threatening deterioration, the patient required my highest level of preparedness to intervene emergently and I personally spent this critical care time directly and personally managing the patient. This critical care time included obtaining a history; examining the patient; pulse oximetry; ordering and review of studies; arranging urgent treatment with development of a management plan; evaluation of patient's response to treatme
[2023-05-24] MEDS: FENTANYL 2,500MCG/NS250ML(*CRX 2,500 MCG/250 ML BAG IV CONT (09:07)
[2023-05-24] MEDS: VANCOMYCIN 1,500 MG/NS 500 ML 1,500 MG/500 ML BAG 250 MG IVPB (09:50)
[2023-05-24 10:51] LABS: MRSA (PCR) DETECTED (NOT DETECTE)
--- NOTE | 2023-05-24 11:13 | PCFNICU ---
ICU Rounding Note: Pt current nutrition is Vital 1.2 @ 50 ml/h: 1320 kcal, 83 g protein, 890 ml free water. Flush 30 ml q 4 hours. Nutrition recommendation: Tube feedings meeting needs 100% EER, 100% estimated protein needs. Continue current tube feeding orders. Last recorded weight is 62 kg. Bowel Motility: +1 BM 05/24/23 Labs Reviewed: Hgb 8.8, Hct 28.2, BUN 32 Meds Noted: Propofol, dexamethasone, Keppra, fentanyl, protonix Skin: No pressure injuries Additional Notes: Propofol @ 10.44 ml/h= 275 kcal. Pressors are off. Adequately perfused. Tolerating tube feeds well. Following daily in ICU rounds. Will monitor weight, labs, skin, meds, tube feeding tolerance every Wednesday and Wednesday..
[2023-05-24] MEDS: PROPOFOL IV EMULSION 100 ML 8.7 MG IV CONT (11:36)
[2023-05-24] MEDS: AZITHROMYCIN 500 MG/NS 250 ML 500 MG/250 ML BAG 250 MG IVPB (11:40)
[2023-05-24 12:07] LABS: Glucose Point of Care 153 mg/dl (65-105)
[2023-05-24] MEDS: PROPOFOL IV EMULSION 100 ML 10.44 MG IV CONT (17:33)
[2023-05-24 17:44] LABS: Glucose Point of Care 119 mg/dl (65-105)
[2023-05-24 23:33] LABS: Glucose Point of Care 97 mg/dl (65-105)
[2023-05-25] VITALS (37 sets, daily range): BP systolic 94–166; BP diastolic 50–74; PULSE 47–86; RESP 15–22; TEMP 37.1–37.7; O2SAT 93–100
[2023-05-25] MEDS: PROPOFOL IV EMULSION 100 ML 10.44 MG IV CONT (04:27)
[2023-05-25 05:33] LABS: Alveolar/Arterial O2 Gradient 91.1 mmHg; Carboxyhemoglobin 0.3 % THb (0-2.0); Fractional Inspired Oxygen 30 %; HCO3 ABG 21.7 mEq/l (22.0-26.0); Methemoglobin ABG 0.3 %THb (0-1.5); Oxygen Content ABG 11.1 %vol (16.0-22.0); Oxygen Saturation ABG 90.2 % (95.0-100.0); PCO2 ABG 48.4 mmHg (35.0-45.0); PO2 ABG 65.9 mmHg (80.0-100.0); Reduced Hemoglobin 10.4 %THb (0-5.0); Total Hemoglobin 8.8 g/dL (12.0-18.0)
[2023-05-25 05:35] LABS: Device VENTILATOR; Modified Allen's Test Pass; Site Drawn LEFT RADIAL
[2023-05-25 05:36] LABS: Arterial Blood Gas PEEP 5 cmH2O; Arterial Blood Gas Tidal Volume 400 ml; Arterial Blood Gas Vent Mode CMV; Arterial Blood Gas Ventilator rate 15 /MIN
[2023-05-25] MEDS: ALBUMIN HUMAN 25% 25 GM/100 ML 100 ML IVPB ×2 (05:53→11:54)
[2023-05-25] MEDS: LEVOTHYROXINE SODIUM 112 MCG TABLET PO (05:54)
[2023-05-25] MEDS: CENTRAL LINE FLUSH 10 ML IV PUSH ×3 (05:55→20:20)
[2023-05-25 06:17] LABS: Hematocrit 28.1 % (37.0-47.0); Hemoglobin 8.4 g/dL (12.0-15.0); Immature Platelet Fraction Pct 4.5 % (0.9-11.2); Mean Corpuscular HGB Conc 29.9 g/dl (32-36); Mean Corpuscular Hemoglobin 33.9 pg (26-34); Mean Corpuscular Volume 113.3 fl (80-100); Mean Platelet Volume 9.5 fl (7.4-10.4); Platelet Count Result 99 k/mm3 (150-375); Red Blood Count 2.48 M/mm3 (4.2-5.4); Red Cell Distribution Width 13.8 % (11.5-14.5); White Blood Count 5.8 K/mm3 (4.5-10.0)
[2023-05-25 06:26] LABS: Alanine Aminotransferase 10 U/L (6-35); Albumin Level 4.8 g/dL (3.5-5.1); Alkaline Phosphatase 70 U/L (38-126); Anion Gap 13 mmol/L (8-16); Aspartate Amino Transferase 17 U/L (14-36); Bilirubin,Total 0.2 mg/dL (0.2-1.3); Blood Urea Nitrogen 34 mg/dL (7-17); Calcium 8.7 mg/dL (8.4-10.2); Carbon Dioxide 20 mmol/L (22-30); Chloride 112 mmol/L (98-107); Estimated CRCL calculation 33 ml/min; Estimated Glomerular Filt Rate 59; Glucose 107 mg/dL (65-110); Magnesium 1.9 mg/dL (1.6-2.3); Potassium 3.9 mmol/L (3.4-5.0); Sodium 145 mmol/L (137-145); Triglycerides 131 mg/dL (<150)
[2023-05-25] MEDS: ASPIRIN 325 MG TABLET FEED TUBE (08:20)
[2023-05-25] MEDS: MINERAL OIL/WHITE PETROLATUM OINTMENT 1 APPLIC EACH EYE ×2 (08:20→20:19)
[2023-05-25] MEDS: CARBIDOPA/LEVODOPA 25/250 MG TABLET 1 TABLET PO ×2 (08:20→17:28)
[2023-05-25] MEDS: SODIUM BICARBONATE TAB 650 MG TABLET FEED TUBE (08:20)
[2023-05-25] MEDS: CLOPIDOGREL BISULFATE 75 MG TABLET PO (08:20)
[2023-05-25] MEDS: cefTRIAXone 2 GM/NS 100 ML 2 GM/100 ML BAG IVPB (08:20)
[2023-05-25] MEDS: levETIRAcetam ORAL SOL 500 MG/5 ML UDC 250 MG FEED TUBE ×2 (08:23→20:18)
[2023-05-25] MEDS: PANTOPRAZOLE SODIUM IV 40 MG VIAL IV PUSH (08:24)
--- NOTE | 2023-05-25 11:19 | PCNFU ---
Nutrition Follow-Up Complete: Inadequate Oral Intake as related to mechanical vent as evidenced by NPO. Goal: Meet estimated nutritional needs. Patient is progressing towards goal. We will continue current goal. Pt current nutrition is Vital AF 1.2 at 50 ml/hr. Last recorded weight is 60.7 kg, up from 57.2 kg on admit. Bowel Motility:+BM reported 05/25 Labs Reviewed:BUN 34, Hct 28.1,Hgb 8.4 Meds Noted:Synthroid,Keppra, Protonix, Decadron, Fentanyl, Propofol at 30 [id number] kcals with plans to titrate down today to 20 mcgs. Skin: WNL Additional Notes: Patient remains on mechanical vent and tube feedings of Vital AF 1.2 at 50 ml/hr. Tube feedings providing 1320 kcals/83 gms protein/892 ml water. Total Nutrition with propofol: 1595 kcals/83 gms protein/892 ml water. Flush 30 ml q 4 hours. Agree with diet orders at this time. Will continue to monitor for any tube feeding rate recommendations. Will monitor weight, labs, skin, meds, tube feeding tolerance every Wednesday and Wednesday.
[2023-05-25] MEDS: AZITHROMYCIN 500 MG/NS 250 ML 500 MG/250 ML BAG 250 MG IVPB (11:54)
[2023-05-25 11:55] LABS: Glucose Point of Care 149 mg/dl (65-105)
--- NOTE | 2023-05-25 12:14 | WPDINTPN ---
Progress Note: A&P Assessment and Plan (1) Acute hypercapnic respiratory failure: Code(s): J96.02 - Acute respiratory failure with hypercapnia Status: Acute Assessment and Plan: Acute on chronic hypercarbic respiratory failure patient also tested for COVID-19 the chest x-ray does not suggest COVID-19 pneumonia -05/21: Patient intubated in the ED Continue Bronchodilators 05/23 Lasix given -Dexamethasone for total of 10 days for COVID-19 -isolation has been lifted 05/21: Blood and urine cultures are negative 05/21: Pending urine pneumococcal and Legionella antigen, 05/21: Sputum culture growing MRSA Continue Rocephin azithromycin, vancomycin 05/[address] IMPRESSION: 1. Mild pulmonary edema at the bilateral upper lobes and small right and tiny left pleural effusions with dependent atelectasis in bilateral lower lobes. No other lung disease suspicious for pneumonia. 2. Cardiomegaly. 3. Enlargement of the central pulmonary arteries consistent with pulmonary arterial hypertension. 4. Small amount of ascites in the upper abdomen. 5. 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 (2) COVID-19: Code(s): U07.1 - COVID-19 Status: Acute Assessment and Plan: Patient was tested positive for COVID-19 on 05/01 at the nursing which is almost 20 days ago. She was treated with Paxlovid. She continues to be positive. Chest x-ray is not suggestive of COVID-19 pneumonia Now intubated on mechanical ventilation Continue dexamethasone. -isolation was lifted on 05/25 (3) Parkinsons: Code(s): G20 - Parkinson's disease Status: Acute Assessment and Plan: Continue Sinemet (4) Seizure: Code(s): R56.9 - Unspecified convulsions Status: Acute Assessment and Plan: Continue Keppra (5) Hypothyroidism: Qualifiers: Hypothyroidism type: unspecified Qualified Code(s): E03.9 - Hypothyroidism, unspecified Code(s): E03.9 - Hypothyroidism, unspecified Status: Chronic Assessment and Plan: Continue levothyroxine. -TSH 0.491, low end of normal (6) Hypertension: Qualifiers: Hypertension type: essential hypertension Qualified Code(s): I10 - Essential (primary) hypertension Code(s): I10 - Essential (primary) hypertension Status: Chronic Assessment and Plan: Blood pressures is now low normal on sedation Monitor and treat as needed (7) Altered mental status: Qualifiers: Altered mental status type: unspecified Qualified Code(s): R41.82 - Altered mental status, unspecified Code(s): R41.82 - Altered mental status, unspecified Status: Inactive Assessment and Plan: Etiology not clear although it is likely multifactor Patient has history of baseline dementia is on multiple sedative medication, she also had hypercarbic respiratory failure, possible seizure patient has history of seizure disorder. Now intubated and sedated but moving all 4 extremities Patient has been difficult to sedate as either she is too sedated or once lowered she is agitated and does not follow commands. She has not been tolerating Precedex as on minimal rate she becomes bradycardic. Continue propofol and low-dose fentanyl Negative CT scan of the head Normal TSH and ammonia levels Continue aspirin statin and Plavix Plan DVT prophylaxis -Lovenox Stress ulcer prophylaxis -PPI Nutrition -continue Tube Feeds Code Status - Full Code Total Critical Care Time - 35 minutes Discussed with Radu Adames, her POA for healthcare, also her nephew. I updated him with patient's condition and plan of care. He does state that she was conversive and talking at the shelter when they call them there was a big change from her baseline and that is how the center to the ER at [place]. I did update him that she is on a mechanical ventilator and is growing MRSA
[2023-05-25] MEDS: PROPOFOL IV EMULSION 100 ML 13.92 MG IV CONT ×2 (12:48→20:17)
[2023-05-25 17:43] LABS: Glucose Point of Care 73 mg/dl (65-105)
[2023-05-25] MEDS: VANCOMYCIN 1,000 MG/NS 250 ML 1,000 MG/250 ML BAG 250 MG IVPB (21:36)
[2023-05-25 23:49] LABS: Pneumococcal Antigen Urine Not Detected (Not Detected)
[2023-05-25 23:49] LABS: Glucose Point of Care 101 mg/dl (65-105)
[2023-05-26] VITALS (33 sets, daily range): BP systolic 106–169; BP diastolic 52–90; PULSE 45–83; RESP 14–22; TEMP 36.9–37.9; O2SAT 96–100
[2023-05-26] MEDS: PROPOFOL IV EMULSION 100 ML 17.4 MG IV CONT ×2 (01:13→07:03)
[2023-05-26 03:53] LABS: Legionella pneumophila Ag Ur Not Detected (Not Detected)
[2023-05-26 04:23] LABS: Alveolar/Arterial O2 Gradient 89.8 mmHg; Carboxyhemoglobin 0.2 % THb (0-2.0); Fractional Inspired Oxygen 35 %; HCO3 ABG 21.3 mEq/l (22.0-26.0); Oxygen Content ABG 14.2 %vol (16.0-22.0); Oxygen Saturation ABG 97.5 % (95.0-100.0); Oxyhemoglobin 95.9 % THb (90.0-100.0); PCO2 ABG 44.2 mmHg (35.0-45.0); PO2 ABG 108.4 mmHg (80.0-100.0); Reduced Hemoglobin 3.6 %THb (0-5.0); Total Hemoglobin 10.4 g/dL (12.0-18.0)
[2023-05-26 04:24] LABS: Modified Allen's Test Pass; Site Drawn RIGHT RADIAL
[2023-05-26 04:25] LABS: Device VENTILATOR; Methemoglobin ABG 0.3 %THb (0-1.5)
[2023-05-26 04:26] LABS: Arterial Blood Gas PEEP 5 cmH2O; Arterial Blood Gas Tidal Volume 400 ml; Arterial Blood Gas Vent Mode CMV; Arterial Blood Gas Ventilator rate 18 /MIN
[2023-05-26] MEDS: CENTRAL LINE FLUSH 10 ML IV PUSH ×3 (04:40→20:21)
[2023-05-26 05:04] LABS: Basophils Percent Auto 0.2 % (0.2-1.2); Eosinophils Absolute Auto 0.2 K/mm3 (0-0.3); Eosinophils Percent Auto 3.6 % (0-4.4); Hematocrit 29.4 % (37.0-47.0); Hemoglobin 8.8 g/dL (12.0-15.0); Immature Granulocyte Absolute 0.05 K/mm3 (0.00-0.031); Immature Granulocyte Percent A 0.9 % (0-0.5); Lymphocytes Absolute Auto 1.22 K/mm3 (0.9-3.2); Lymphocytes Percent Auto 21.9 % (18.3-44.2); Mean Corpuscular HGB Conc 29.9 g/dl (32-36); Mean Corpuscular Volume 113.5 fl (80-100); Mean Platelet Volume 10.2 fl (7.4-10.4); Monocytes Absolute Auto 0.5 K/mm3 (0.1-0.6); Neutrophils Absolute Auto 3.6 K/mm3 (1.3-6.7); Neutrophils Percent Auto 64.4 % (45.5-73.1); Platelet Count Result 96 k/mm3 (150-375); Red Blood Count 2.59 M/mm3 (4.2-5.4); Red Cell Distribution Width 14.1 % (11.5-14.5); White Blood Count 5.6 K/mm3 (4.5-10.0)
[2023-05-26 05:11] LABS: Alanine Aminotransferase 10 U/L (6-35); Albumin Level 4.7 g/dL (3.5-5.1); Alkaline Phosphatase 73 U/L (38-126); Anion Gap 13 mmol/L (8-16); Aspartate Amino Transferase 15 U/L (14-36); Bilirubin,Total 0.3 mg/dL (0.2-1.3); Blood Urea Nitrogen 35 mg/dL (7-17); Calcium 8.7 mg/dL (8.4-10.2); Carbon Dioxide 18 mmol/L (22-30); Chloride 115 mmol/L (98-107); Estimated CRCL calculation 37 ml/min; Estimated Glomerular Filt Rate > 60; Glucose 102 mg/dL (65-110); Magnesium 1.8 mg/dL (1.6-2.3); Phosphorus 2.9 mg/dL (2.5-4.5); Potassium 3.9 mmol/L (3.4-5.0); Sodium 146 mmol/L (137-145)
[2023-05-26] MEDS: LEVOTHYROXINE SODIUM 112 MCG TABLET PO (06:14)
[2023-05-26] MEDS: ASPIRIN 325 MG TABLET FEED TUBE (09:11)
[2023-05-26] MEDS: CLOPIDOGREL BISULFATE 75 MG TABLET PO (09:11)
[2023-05-26] MEDS: PANTOPRAZOLE SODIUM IV 40 MG VIAL IV PUSH (09:11)
[2023-05-26] MEDS: cefTRIAXone 2 GM/NS 100 ML 2 GM/100 ML BAG IVPB (09:11)
[2023-05-26] MEDS: CARBIDOPA/LEVODOPA 25/250 MG TABLET 1 TABLET PO ×2 (09:11→16:10)
[2023-05-26] MEDS: MINERAL OIL/WHITE PETROLATUM OINTMENT 1 APPLIC EACH EYE ×2 (09:12→20:20)
[2023-05-26] MEDS: levETIRAcetam ORAL SOL 500 MG/5 ML UDC 250 MG FEED TUBE ×2 (09:15→20:20)
--- NOTE | 2023-05-26 11:22 | PCFNICU ---
Addendum entered by Mleinda Geronimo, RD, LDN 05/26/23 11:22: ICU Rounding Note: Pt current nutrition is Vital AF 1.2 @ 50 ML.H. Provides 1320 kcal, 83 g protein, 892 ml free water. tolerating Nutrition recommendation: Continue with current tube feeding orders and nutrition care plan with no changes Last recorded weight is 60.1 kg. Bowel Motility: +2 BM 05/25 per colostomy Labs Reviewed: Hgb 8.8, Hct 29.2, Na 146, BUN 35 Meds Noted: Propofol, Miralax, protonix Skin: WNL Additional Notes: Remains on vent. Propofol running @ 17.4 ml/h: 459 kcals. Discussed with MD that pt was getting sodium tablets yesterday and that may have caused an elevation in sodium levels and likely not related to free water flushes. Following daily in ICU rounds. Will monitor weight, labs, skin, meds, tube feeding tolerance every Wednesday and Wednesday.. Original Note: ICU Rounding Note: Pt current nutrition is . Nutrition recommendation: Last recorded weight is 60.1 kg. Bowel Motility: Labs Reviewed: Meds Noted: Skin: Additional Notes: Following daily in ICU rounds. Will monitor weight, labs, skin, meds, tube feeding tolerance every Wednesday and Wednesday..
[2023-05-26] MEDS: PROPOFOL IV EMULSION 100 ML 12.18 MG IV CONT (12:14)
[2023-05-26 12:33] LABS: Glucose Point of Care 169 mg/dl (65-105)
--- NOTE | 2023-05-26 14:03 | WPDINTPN ---
Progress Note: A&P Assessment and Plan (1) Acute hypercapnic respiratory failure: Code(s): J96.02 - Acute respiratory failure with hypercapnia Status: Acute Assessment and Plan: Acute on chronic hypercarbic respiratory failure patient also tested for COVID-19 the chest x-ray does not suggest COVID-19 pneumonia -05/21: Patient intubated in the ED Continue Bronchodilators 05/23 Lasix given -Dexamethasone for total of 10 days for COVID-19 -isolation has been lifted 05/21: Blood and urine cultures are negative 05/21: NEGATIVE urine pneumococcal and Legionella antigen, 05/21: Sputum culture growing MRSA Continue Rocephin, vancomycin -status post 5 day course of azithromycin -patient is sedated with fentanyl and propofol. Daily sedation vacation, maintain RASS of 0 to -2 05/[address] IMPRESSION: 1. Mild pulmonary edema at the bilateral upper lobes and small right and tiny left pleural effusions with dependent atelectasis in bilateral lower lobes. No other lung disease suspicious for pneumonia. 2. Cardiomegaly. 3. Enlargement of the central pulmonary arteries consistent with pulmonary arterial hypertension. 4. Small amount of ascites in the upper abdomen. 5. 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 (2) COVID-19: Code(s): U07.1 - COVID-19 Status: Acute Assessment and Plan: Patient was tested positive for COVID-19 on 05/01 at the nursing which is almost 20 days ago. She was treated with Paxlovid. She continues to be positive. Chest x-ray is not suggestive of COVID-19 pneumonia Now intubated on mechanical ventilation Continue dexamethasone. -isolation was lifted on 05/25 (3) Parkinsons: Code(s): G20 - Parkinson's disease Status: Acute Assessment and Plan: Continue Sinemet (4) Seizure: Code(s): R56.9 - Unspecified convulsions Status: Acute Assessment and Plan: Continue Keppra (5) Hypothyroidism: Qualifiers: Hypothyroidism type: unspecified Qualified Code(s): E03.9 - Hypothyroidism, unspecified Code(s): E03.9 - Hypothyroidism, unspecified Status: Chronic Assessment and Plan: Continue levothyroxine. -TSH 0.491, low end of normal (6) Hypertension: Qualifiers: Hypertension type: essential hypertension Qualified Code(s): I10 - Essential (primary) hypertension Code(s): I10 - Essential (primary) hypertension Status: Chronic Assessment and Plan: Blood pressures is now low normal on sedation Monitor and treat as needed (7) Altered mental status: Qualifiers: Altered mental status type: unspecified Qualified Code(s): R41.82 - Altered mental status, unspecified Code(s): R41.82 - Altered mental status, unspecified Status: Inactive Assessment and Plan: Etiology not clear although it is likely multifactor Patient has history of baseline dementia is on multiple sedative medication, she also had hypercarbic respiratory failure, possible seizure patient has history of seizure disorder. Now intubated and sedated but moving all 4 extremities Patient has been difficult to sedate as either she is too sedated or once lowered she is agitated and does not follow commands. She has not been tolerating Precedex as on minimal rate she becomes bradycardic. Continue propofol and low-dose fentanyl Negative CT scan of the head Normal TSH and ammonia levels Continue aspirin statin and Plavix Plan DVT prophylaxis -Lovenox Stress ulcer prophylaxis -PPI Nutrition -continue Tube Feeds Code Status - Full Code Total Critical Care Time - 32 minutes 05/25: Discussed with Radu Adames, her POA for healthcare, also her nephew. I updated him with patient's condition and plan of care. He does state that she was conversive and talking at the detention when they call them there was a big change from
[2023-05-26 18:26] LABS: Glucose Point of Care 142 mg/dl (65-105)
[2023-05-26] MEDS: PROPOFOL IV EMULSION 100 ML 13.92 MG IV CONT (20:22)
[2023-05-26 23:47] LABS: Glucose Point of Care 82 mg/dl (65-105)
[2023-05-27] VITALS (29 sets, daily range): BP systolic 106–179; BP diastolic 49–72; PULSE 47–77; RESP 16–21; TEMP 37.6–38.4; O2SAT 93–100
[2023-05-27] MEDS: PROPOFOL IV EMULSION 100 ML 13.92 MG IV CONT (02:33)
[2023-05-27] MEDS: LEVOTHYROXINE SODIUM 112 MCG TABLET PO (05:25)
[2023-05-27] MEDS: CENTRAL LINE FLUSH 10 ML IV PUSH ×3 (05:25→21:40)
[2023-05-27 05:34] LABS: Alveolar/Arterial O2 Gradient 97.1 mmHg; Base Excess ABG -3.8 mEq/l (+/-2.0); Carboxyhemoglobin 0.2 % THb (0-2.0); Fractional Inspired Oxygen 30 %; HCO3 ABG 20.1 mEq/l (22.0-26.0); Methemoglobin ABG 0.3 %THb (0-1.5); Oxygen Content ABG 13.9 %vol (16.0-22.0); Oxyhemoglobin 93.8 % THb (90.0-100.0); PCO2 ABG 32.1 mmHg (35.0-45.0); PO2 ABG 79.1 mmHg (80.0-100.0); PO2 FiO2 Ratio Arterial Blood 2.64 %; Reduced Hemoglobin 5.7 %THb (0-5.0); Total Hemoglobin 10.5 g/dL (12.0-18.0); pH ABG 7.414 (7.350-7.450)
[2023-05-27 05:52] LABS: Basophils Percent Auto 0.4 % (0.2-1.2); Eosinophils Absolute Auto 0.3 K/mm3 (0-0.3); Eosinophils Percent Auto 3.4 % (0-4.4); Hematocrit 31.1 % (37.0-47.0); Hemoglobin 9.8 g/dL (12.0-15.0); Immature Granulocyte Absolute 0.05 K/mm3 (0.00-0.031); Immature Granulocyte Percent A 0.6 % (0-0.5); Lymphocytes Absolute Auto 1.28 K/mm3 (0.9-3.2); Lymphocytes Percent Auto 16.2 % (18.3-44.2); Mean Corpuscular HGB Conc 31.5 g/dl (32-36); Mean Corpuscular Hemoglobin 34.9 pg (26-34); Mean Corpuscular Volume 110.7 fl (80-100); Mean Platelet Volume 10.1 fl (7.4-10.4); Monocytes Absolute Auto 0.6 K/mm3 (0.1-0.6); Neutrophils Absolute Auto 5.6 K/mm3 (1.3-6.7); Neutrophils Percent Auto 71.4 % (45.5-73.1); Platelet Count Result 103 k/mm3 (150-375); Red Blood Count 2.81 M/mm3 (4.2-5.4); Red Cell Distribution Width 13.9 % (11.5-14.5); White Blood Count 7.9 K/mm3 (4.5-10.0)
[2023-05-27 05:55] LABS: Device VENTILATOR; Modified Allen's Test Pass; Site Drawn LEFT RADIAL
[2023-05-27 05:56] LABS: Arterial Blood Gas PEEP 5 cmH2O; Arterial Blood Gas Tidal Volume 400 ml; Arterial Blood Gas Vent Mode CMV; Arterial Blood Gas Ventilator rate 18 /MIN
[2023-05-27 06:07] LABS: Alanine Aminotransferase 13 U/L (6-35); Albumin Level 4.4 g/dL (3.5-5.1); Alkaline Phosphatase 83 U/L (38-126); Anion Gap 9 mmol/L (8-16); Aspartate Amino Transferase 19 U/L (14-36); Bilirubin,Total 0.4 mg/dL (0.2-1.3); Blood Urea Nitrogen 35 mg/dL (7-17); Calcium 9.3 mg/dL (8.4-10.2); Carbon Dioxide 21 mmol/L (22-30); Chloride 114 mmol/L (98-107); Estimated CRCL calculation 48 ml/min; Estimated Glomerular Filt Rate > 60; Glucose 123 mg/dL (65-110); Magnesium 1.6 mg/dL (1.6-2.3); Phosphorus 2.6 mg/dL (2.5-4.5); Potassium 3.7 mmol/L (3.4-5.0); Sodium 144 mmol/L (137-145); Triglycerides 128 mg/dL (<150)
[2023-05-27 06:11] LABS: Vancomycin Trough 11.1 ug/mL (10.0-20.0)
[2023-05-27] MEDS: levETIRAcetam ORAL SOL 500 MG/5 ML UDC 250 MG FEED TUBE ×2 (08:13→21:39)
[2023-05-27] MEDS: PANTOPRAZOLE SODIUM IV 40 MG VIAL IV PUSH (08:13)
[2023-05-27] MEDS: CARBIDOPA/LEVODOPA 25/250 MG TABLET 1 TABLET PO ×2 (08:13→17:40)
[2023-05-27] MEDS: CLOPIDOGREL BISULFATE 75 MG TABLET PO (08:13)
[2023-05-27] MEDS: ENOXAPARIN 40 MG/0.4 ML SYRINGE SUB-Q (08:13)
[2023-05-27] MEDS: ASPIRIN 325 MG TABLET FEED TUBE (08:13)
[2023-05-27] MEDS: cefTRIAXone 2 GM/NS 100 ML 2 GM/100 ML BAG IVPB (08:13)
[2023-05-27] MEDS: MINERAL OIL/WHITE PETROLATUM OINTMENT 1 APPLIC EACH EYE ×2 (08:14→21:40)
--- NOTE | 2023-05-27 09:50 | PC.NURSE ---
0751: Propofol drip paused due to pt sustaining a heart rate in the 30's. Dr. York notified. 0812: Propofol drip resumed due to pt becoming agitated. Heart rate now in the 70's, respirations in the 20's and pt is moving all over the bed and trying to remove ET tube. Dr. York notified
[2023-05-27] MEDS: PROPOFOL IV EMULSION 100 ML 10.44 MG IV CONT (10:16)
[2023-05-27] MEDS: VANCOMYCIN 1,000 MG/NS 250 ML 1,000 MG/250 ML BAG 250 MG IVPB (10:17)
--- NOTE | 2023-05-27 11:39 | PCFNICU ---
ICU Rounding Note: Pt current nutrition is Vital AF 1.2 at 50 ml/hr Last recorded weight is 58.9 kg, up from 57.2 kg on admit. Bowel Motility:colostomy-output good. Labs Reviewed:Glul 123, VUB 35, Cr 0.6, Hct 31.1,Hgb 9.8 Meds Noted:Protonix, Keppra, Decadron, Lovenox, Synthroid, Propofol at 30 frsa=[id number] kcals Skin: WNL Additional Notes: Patient remains on mechanical vent and tube feedings of Vital AF 1.2 at 50 ml/hr and tolerating per nursing. Flush 30 ml q 4 hours. Total Nutrition with Propofol: 1596 kcals/83 gms protein/892 ml water. Agree with diet orders at this time. Following daily in ICU rounds. Will monitor weight, labs, skin, meds, tube feeding tolerance every Wednesday and Wednesday.
[2023-05-27 12:32] LABS: Glucose Point of Care 158 mg/dl (65-105)
--- NOTE | 2023-05-27 12:56 | WPDINTPN ---
Progress Note: A&P Assessment and Plan (1) Acute hypercapnic respiratory failure: Code(s): J96.02 - Acute respiratory failure with hypercapnia Status: Acute Assessment and Plan: Acute on chronic hypercarbic respiratory failure patient also tested for COVID-19 the chest x-ray does not suggest COVID-19 pneumonia -05/21: Patient intubated in the ED Continue Bronchodilators 05/23 Lasix given -Dexamethasone for total of 10 days for COVID-19 -isolation has been lifted 05/21: Blood and urine cultures are negative 05/21: NEGATIVE urine pneumococcal and Legionella antigen, 05/21: Sputum culture growing MRSA Continue Rocephin, vancomycin -status post 5 day course of azithromycin -patient is sedated with propofol. Daily sedation vacation, maintain RASS of 0 to -2 05/[address] IMPRESSION: 1. Mild pulmonary edema at the bilateral upper lobes and small right and tiny left pleural effusions with dependent atelectasis in bilateral lower lobes. No other lung disease suspicious for pneumonia. 2. Cardiomegaly. 3. Enlargement of the central pulmonary arteries consistent with pulmonary arterial hypertension. 4. Small amount of ascites in the upper abdomen. 5. 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 (2) COVID-19: Code(s): U07.1 - COVID-19 Status: Acute Assessment and Plan: Patient was tested positive for COVID-19 on 05/01 at the nursing which is almost 20 days ago. She was treated with Paxlovid. She continues to be positive. Chest x-ray is not suggestive of COVID-19 pneumonia Now intubated on mechanical ventilation Continue dexamethasone. -isolation was lifted on 05/25 (3) Parkinsons: Code(s): G20 - Parkinson's disease Status: Acute Assessment and Plan: Continue Sinemet (4) Seizure: Code(s): R56.9 - Unspecified convulsions Status: Acute Assessment and Plan: Continue Keppra (5) Hypothyroidism: Qualifiers: Hypothyroidism type: unspecified Qualified Code(s): E03.9 - Hypothyroidism, unspecified Code(s): E03.9 - Hypothyroidism, unspecified Status: Chronic Assessment and Plan: Continue levothyroxine. -TSH 0.491, low end of normal (6) Hypertension: Qualifiers: Hypertension type: essential hypertension Qualified Code(s): I10 - Essential (primary) hypertension Code(s): I10 - Essential (primary) hypertension Status: Chronic Assessment and Plan: Blood pressures is now low normal on sedation Monitor and treat as needed (7) Altered mental status: Qualifiers: Altered mental status type: unspecified Qualified Code(s): R41.82 - Altered mental status, unspecified Code(s): R41.82 - Altered mental status, unspecified Status: Inactive Assessment and Plan: Etiology not clear although it is likely multifactor Patient has history of baseline dementia is on multiple sedative medication, she also had hypercarbic respiratory failure, possible seizure patient has history of seizure disorder. Now intubated and sedated but moving all 4 extremities Patient has been difficult to sedate as either she is too sedated or once lowered she is agitated and does not follow commands. She has not been tolerating Precedex as on minimal rate she becomes bradycardic. Continue propofol Negative CT scan of the head Normal TSH and ammonia levels Continue aspirin statin and Plavix Plan DVT prophylaxis -Lovenox Stress ulcer prophylaxis -PPI Nutrition -continue Tube Feeds Code Status - Full Code Total Critical Care Time - 32 minutes 05/25: Discussed with Radu Adames, her POA for healthcare, also her nephew. I updated him with patient's condition and plan of care. He does state that she was conversive and talking at the halfway when they call them there was a big change from her baseline and that is how the
[2023-05-27] MEDS: PROPOFOL IV EMULSION 100 ML 12.18 MG IV CONT (17:44)
[2023-05-27 17:52] LABS: Glucose Point of Care 120 mg/dl (65-105)
[2023-05-28] VITALS (39 sets, daily range): BP systolic 103–166; BP diastolic 51–92; PULSE 35–109; RESP 15–28; TEMP 36.9–37.7; O2SAT 96–100
[2023-05-28 00:16] LABS: Glucose Point of Care 105 mg/dl (65-105)
[2023-05-28] MEDS: PROPOFOL IV EMULSION 100 ML 8.7 MG IV CONT (04:06)
[2023-05-28 05:54] LABS: Alveolar/Arterial O2 Gradient 102.6 mmHg; Base Excess ABG -6.6 mEq/l (+/-2.0); Carboxyhemoglobin 0.2 % THb (0-2.0); Fractional Inspired Oxygen 30 %; HCO3 ABG 17.4 mEq/l (22.0-26.0); Methemoglobin ABG 0.3 %THb (0-1.5); Oxygen Content ABG 13.1 %vol (16.0-22.0); Oxygen Saturation ABG 95.5 % (95.0-100.0); Oxyhemoglobin 92.7 % THb (90.0-100.0); PCO2 ABG 29.3 mmHg (35.0-45.0); PO2 ABG 76.9 mmHg (80.0-100.0); PO2 FiO2 Ratio Arterial Blood 2.56 %; Reduced Hemoglobin 6.8 %THb (0-5.0); pH ABG 7.391 (7.350-7.450)
[2023-05-28 05:55] LABS: Device VENTILATOR; Modified Allen's Test Pass; Site Drawn LEFT RADIAL
[2023-05-28 05:56] LABS: Arterial Blood Gas PEEP 5 cmH2O; Arterial Blood Gas Tidal Volume 400 ml; Arterial Blood Gas Vent Mode CMV; Arterial Blood Gas Ventilator rate 18 /MIN
[2023-05-28 05:58] LABS: Basophils Percent Auto 0.4 % (0.2-1.2); Eosinophils Absolute Auto 0.3 K/mm3 (0-0.3); Eosinophils Percent Auto 4.8 % (0-4.4); Hematocrit 30.1 % (37.0-47.0); Hemoglobin 9.2 g/dL (12.0-15.0); Immature Granulocyte Absolute 0.06 K/mm3 (0.00-0.031); Immature Granulocyte Percent A 0.9 % (0-0.5); Lymphocytes Absolute Auto 1.16 K/mm3 (0.9-3.2); Lymphocytes Percent Auto 17.3 % (18.3-44.2); Mean Corpuscular HGB Conc 30.6 g/dl (32-36); Mean Corpuscular Hemoglobin 34.1 pg (26-34); Mean Corpuscular Volume 111.5 fl (80-100); Monocytes Absolute Auto 0.6 K/mm3 (0.1-0.6); Monocytes Percent Auto 8.6 % (2.6-8.5); Neutrophils Absolute Auto 4.6 K/mm3 (1.3-6.7); Platelet Count Result 103 k/mm3 (150-375); Red Cell Distribution Width 14.2 % (11.5-14.5); White Blood Count 6.7 K/mm3 (4.5-10.0)
[2023-05-28 06:17] LABS: Alanine Aminotransferase 12 U/L (6-35); Albumin Level 4.3 g/dL (3.5-5.1); Alkaline Phosphatase 86 U/L (38-126); Anion Gap 11 mmol/L (8-16); Aspartate Amino Transferase 14 U/L (14-36); Bilirubin,Total 0.4 mg/dL (0.2-1.3); Blood Urea Nitrogen 36 mg/dL (7-17); Calcium 9.1 mg/dL (8.4-10.2); Carbon Dioxide 17 mmol/L (22-30); Chloride 116 mmol/L (98-107); Estimated CRCL calculation 48 ml/min; Estimated Glomerular Filt Rate > 60; Glucose 121 mg/dL (65-110); Magnesium 1.5 mg/dL (1.6-2.3); Phosphorus 3.1 mg/dL (2.5-4.5); Potassium 3.4 mmol/L (3.4-5.0); Sodium 144 mmol/L (137-145)
[2023-05-28] MEDS: CENTRAL LINE FLUSH 10 ML IV PUSH ×3 (06:39→20:30)
[2023-05-28] MEDS: LEVOTHYROXINE SODIUM 112 MCG TABLET PO (07:30)
[2023-05-28] MEDS: PANTOPRAZOLE SODIUM IV 40 MG VIAL IV PUSH (09:07)
[2023-05-28] MEDS: levETIRAcetam ORAL SOL 500 MG/5 ML UDC 250 MG FEED TUBE ×2 (09:07→20:16)
[2023-05-28] MEDS: CARBIDOPA/LEVODOPA 25/250 MG TABLET 1 TABLET PO ×2 (09:08→16:35)
[2023-05-28] MEDS: cefTRIAXone 2 GM/NS 100 ML 2 GM/100 ML BAG IVPB (09:08)
[2023-05-28] MEDS: CLOPIDOGREL BISULFATE 75 MG TABLET PO (09:08)
[2023-05-28] MEDS: POTASSIUM CHLORIDE 20 MEQ PACKET (FOR LIQUID) 40 MEQ FEED TUBE (09:08)
[2023-05-28] MEDS: ASPIRIN 325 MG TABLET FEED TUBE (09:08)
[2023-05-28] MEDS: MAGNESIUM SULF 2 GM/WATER 50ML 2 GM/50 ML BAG IVPB (09:08)
[2023-05-28] MEDS: MINERAL OIL/WHITE PETROLATUM OINTMENT 1 APPLIC EACH EYE ×2 (09:09→20:16)
[2023-05-28] MEDS: ENOXAPARIN 40 MG/0.4 ML SYRINGE SUB-Q (09:09)
[2023-05-28] MEDS: PROPOFOL IV EMULSION 100 ML 10.44 MG IV CONT (09:24)
[2023-05-28] MEDS: QUEtiapine FUMARATE 12.5 MG TABLET PO (11:04)
--- NOTE | 2023-05-28 11:16 | PCNFU ---
Nutrition Follow-Up Complete: Inadequate Oral Intake as related to mechanical vent as evidenced by NPO. goal: Meet estimated nutritional needs. Patient is progressing towards goal. We will continue current goal. Pt current nutrition is Vital AF 1.2 at 50 ml/hr. Last recorded weight is 59.3 kg, up from 57.2 kg on admit. Bowel Motility: Colostomy Labs Reviewed:Glu 121, BUN 36, Cr 0.6, Hct 30.1,Hgb 9.2 Meds Noted:Keppra, Propofol at 30 scpw=882 kcals, Seroquel, Protonix Skin: WNL Additional Notes: Patient remains on mechanical vent and tube feedings of Vital AF 1.2 at 50 ml/hr providing 1320 kcals/83 gms protein/892 ml water. Flush 30 ml q 4 hours. Total Nutrition with Propofol: 1596 kcals/83 gms protein/892 ml water. Meeting 100% kcal needs at 27 kcal/kg and 100% protein needs at 1.2-1.4 gm/kg. Agree with diet orders at this time. Will monitor weight, labs, skin, meds, tube feeding tolerance every Wednesday and Wednesday.
[2023-05-28] MEDS: MIDAZOLAM 100MG/NS 100ML(*CRX) 100 MG/100 ML BAG IV CONT (11:35)
[2023-05-28 12:13] LABS: Glucose Point of Care 169 mg/dl (65-105)
--- NOTE | 2023-05-28 12:31 | WPDINTPN ---
Progress Note: A&P Assessment and Plan (1) Acute hypercapnic respiratory failure: Code(s): J96.02 - Acute respiratory failure with hypercapnia Status: Acute Assessment and Plan: Acute on chronic hypercarbic respiratory failure patient also tested for COVID-19 the chest x-ray does not suggest COVID-19 pneumonia -05/21: Patient intubated in the ED Continue Bronchodilators 05/23 Lasix given -Dexamethasone for total of 10 days for COVID-19 -isolation has been lifted 05/21: Blood and urine cultures are negative 05/21: NEGATIVE urine pneumococcal and Legionella antigen, 05/21: Sputum culture growing MRSA Continue Rocephin, vancomycin -status post 5 day course of azithromycin -patient gets bradycardic intermittently on propofol, will discontinue. Start small dose of Versed, RASS of 0 to -1. -placed patient on a small dose of Seroquel also has seen is not tolerate being off sedation, so can evaluate her mental status or place her on a breathing trial 05/[address] IMPRESSION: 1. Mild pulmonary edema at the bilateral upper lobes and small right and tiny left pleural effusions with dependent atelectasis in bilateral lower lobes. No other lung disease suspicious for pneumonia. 2. Cardiomegaly. 3. Enlargement of the central pulmonary arteries consistent with pulmonary arterial hypertension. 4. Small amount of ascites in the upper abdomen. 5. 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 (2) COVID-19: Code(s): U07.1 - COVID-19 Status: Acute Assessment and Plan: Patient was tested positive for COVID-19 on 05/01 at the nursing which is almost 20 days ago. She was treated with Paxlovid. She continues to be positive. Chest x-ray is not suggestive of COVID-19 pneumonia Now intubated on mechanical ventilation Continue dexamethasone for a total of 10 days -isolation was lifted on 05/25 (3) Parkinsons: Code(s): G20 - Parkinson's disease Status: Acute Assessment and Plan: Continue Sinemet (4) Seizure: Code(s): R56.9 - Unspecified convulsions Status: Acute Assessment and Plan: Continue Keppra (5) Hypothyroidism: Qualifiers: Hypothyroidism type: unspecified Qualified Code(s): E03.9 - Hypothyroidism, unspecified Code(s): E03.9 - Hypothyroidism, unspecified Status: Chronic Assessment and Plan: Continue levothyroxine. -TSH 0.491, low end of normal (6) Hypertension: Qualifiers: Hypertension type: essential hypertension Qualified Code(s): I10 - Essential (primary) hypertension Code(s): I10 - Essential (primary) hypertension Status: Chronic Assessment and Plan: Blood pressures is now low normal on sedation Monitor and treat as needed (7) Altered mental status: Qualifiers: Altered mental status type: unspecified Qualified Code(s): R41.82 - Altered mental status, unspecified Code(s): R41.82 - Altered mental status, unspecified Status: Inactive Assessment and Plan: Etiology not clear although it is likely multifactor Patient has history of baseline dementia is on multiple sedative medication, she also had hypercarbic respiratory failure, possible seizure patient has history of seizure disorder. Now intubated and sedated but moving all 4 extremities Patient has been difficult to sedate as either she is too sedated or once lowered she is agitated and does not follow commands. She has not been tolerating Precedex as on minimal rate she becomes bradycardic. Negative CT scan of the head Normal TSH and ammonia levels Continue aspirin statin and Plavix Will start propofol and start small dose of Versed, also started small dose of Seroquel Plan DVT prophylaxis -Lovenox Stress ulcer prophylaxis -PPI Nutrition -continue Tube Feeds Code Status - Full Code Total Critical Care Time - 32 minutes
[2023-05-28] MEDS: MIDAZOLAM HCL (*CRX) 2 MG/2 ML VIAL IV PUSH (12:36)
[2023-05-28] MEDS: VANCOMYCIN 1,000 MG/NS 250 ML 1,000 MG/250 ML BAG 250 MG IVPB (13:21)
[2023-05-28 13:31] LABS: Toxigenic C. Diff NEGATIVE (NEGATIVE)
[2023-05-28] MEDS: FENTANYL 2,500MCG/NS250ML(*CRX 2,500 MCG/250 ML BAG IV CONT (13:40)
[2023-05-28] MEDS: PREGABALIN (*CRX) 50 MG CAPSULE 100 MG PO (16:35)
[2023-05-28 18:26] LABS: Glucose Point of Care 105 mg/dl (65-105)
[2023-05-28] MEDS: rOPINIRole HCL 0.25 MG TABLET PO (21:03)
[2023-05-28] MEDS: ATROPINE SULFATE 1 MG/10 ML SYRINGE IV PUSH (22:45)
[2023-05-29] VITALS (30 sets, daily range): BP systolic 102–174; BP diastolic 54–109; PULSE 31–94; RESP 18–26; TEMP 36.7–38.1; O2SAT 93–100
[2023-05-29 00:11] LABS: Glucose Point of Care 75 mg/dl (65-105)
[2023-05-29] MEDS: CENTRAL LINE FLUSH 10 ML IV PUSH ×3 (05:08→21:20)
[2023-05-29 05:25] LABS: Basophils Percent Auto 0.3 % (0.2-1.2); Eosinophils Absolute Auto 0.3 K/mm3 (0-0.3); Eosinophils Percent Auto 3.7 % (0-4.4); Hematocrit 31.6 % (37.0-47.0); Hemoglobin 9.7 g/dL (12.0-15.0); Immature Granulocyte Absolute 0.06 K/mm3 (0.00-0.031); Immature Granulocyte Percent A 0.9 % (0-0.5); Lymphocytes Absolute Auto 1.04 K/mm3 (0.9-3.2); Lymphocytes Percent Auto 14.9 % (18.3-44.2); Mean Corpuscular HGB Conc 30.7 g/dl (32-36); Mean Corpuscular Volume 110.9 fl (80-100); Mean Platelet Volume 9.9 fl (7.4-10.4); Monocytes Absolute Auto 0.7 K/mm3 (0.1-0.6); Monocytes Percent Auto 10.2 % (2.6-8.5); Neutrophils Absolute Auto 4.9 K/mm3 (1.3-6.7); Platelet Count Result 113 k/mm3 (150-375); Red Blood Count 2.85 M/mm3 (4.2-5.4)
[2023-05-29 05:36] LABS: Carboxyhemoglobin 0.3 % THb (0-2.0); Fractional Inspired Oxygen 30 %; HCO3 ABG 18.5 mEq/l (22.0-26.0); Methemoglobin ABG 0.3 %THb (0-1.5); Oxygen Content ABG 14.4 %vol (16.0-22.0); Oxygen Saturation ABG 97.3 % (95.0-100.0); Oxyhemoglobin 95.4 % THb (90.0-100.0); PCO2 ABG 32.6 mmHg (35.0-45.0); PO2 ABG 97.6 mmHg (80.0-100.0); PO2 FiO2 Ratio Arterial Blood 3.25 %; Total Hemoglobin 10.6 g/dL (12.0-18.0); pH ABG 7.371 (7.350-7.450)
[2023-05-29 05:39] LABS: Arterial Blood Gas PEEP 5 cmH2O; Arterial Blood Gas Tidal Volume 400 ml; Arterial Blood Gas Vent Mode CMV; Arterial Blood Gas Ventilator rate 18 /MIN; Device VENTILATOR; Modified Allen's Test Pass; Site Drawn LEFT RADIAL
[2023-05-29 05:46] LABS: Alanine Aminotransferase 12 U/L (6-35); Albumin Level 4.5 g/dL (3.5-5.1); Alkaline Phosphatase 87 U/L (38-126); Anion Gap 13 mmol/L (8-16); Aspartate Amino Transferase 17 U/L (14-36); Bilirubin,Total 0.5 mg/dL (0.2-1.3); Blood Urea Nitrogen 35 mg/dL (7-17); Calcium 9.2 mg/dL (8.4-10.2); Carbon Dioxide 18 mmol/L (22-30); Chloride 113 mmol/L (98-107); Estimated CRCL calculation 42 ml/min; Estimated Glomerular Filt Rate > 60; Glucose 110 mg/dL (65-110); Magnesium 1.9 mg/dL (1.6-2.3); Phosphorus 3.3 mg/dL (2.5-4.5); Sodium 144 mmol/L (137-145); Triglycerides 117 mg/dL (<150)
[2023-05-29] MEDS: LEVOTHYROXINE SODIUM 112 MCG TABLET PO (06:07)
[2023-05-29 08:19] LABS: Anisocytosis 1+ (NORMAL); Hypochromasia 1+ (NORMAL); Schistocytes None Seen (NORMAL)
--- NOTE | 2023-05-29 08:34 | WPDINTPN ---
Progress Note: A&P Assessment and Plan (1) Acute hypercapnic respiratory failure: Code(s): J96.02 - Acute respiratory failure with hypercapnia Status: Acute Assessment and Plan: Acute on chronic hypercarbic respiratory failure patient also tested for COVID-19 the chest x-ray does not suggest COVID-19 pneumonia -05/21: Patient intubated in the ED Continue Bronchodilators 05/23 Lasix given -Dexamethasone for total of 10 days for COVID-19 -isolation has been lifted 05/21: Blood and urine cultures are negative 05/21: NEGATIVE urine pneumococcal and Legionella antigen, 05/21: Sputum culture growing MRSA Continue Rocephin, vancomycin -status post 5 day course of azithromycin -patient gets bradycardic intermittently, have discontinued propofol, started Versed and will wean off fentanyl as that can sometimes cause bradycardia 2.. Start small dose of Versed, RASS of 0 to -1. -Seroquel has been discontinued due to bradycardia -patient remains encephalopathic on discontinuing sedation medications so cannot place patient on breathing trial 05/[address] IMPRESSION: 1. Mild pulmonary edema at the bilateral upper lobes and small right and tiny left pleural effusions with dependent atelectasis in bilateral lower lobes. No other lung disease suspicious for pneumonia. 2. Cardiomegaly. 3. Enlargement of the central pulmonary arteries consistent with pulmonary arterial hypertension. 4. Small amount of ascites in the upper abdomen. 5. 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 (2) COVID-19: Code(s): U07.1 - COVID-19 Status: Acute Assessment and Plan: Patient was tested positive for COVID-19 on 05/01 at the nursing which is almost 20 days ago. She was treated with Paxlovid. She continues to be positive. Chest x-ray is not suggestive of COVID-19 pneumonia Now intubated on mechanical ventilation Continue dexamethasone for a total of 10 days -isolation was lifted on 05/25 (3) Parkinsons: Code(s): G20 - Parkinson's disease Status: Acute Assessment and Plan: Continue Sinemet (4) Seizure: Code(s): R56.9 - Unspecified convulsions Status: Acute Assessment and Plan: Continue Keppra (5) Hypothyroidism: Qualifiers: Hypothyroidism type: unspecified Qualified Code(s): E03.9 - Hypothyroidism, unspecified Code(s): E03.9 - Hypothyroidism, unspecified Status: Chronic Assessment and Plan: Continue levothyroxine. -TSH 0.491, low end of normal (6) Hypertension: Qualifiers: Hypertension type: essential hypertension Qualified Code(s): I10 - Essential (primary) hypertension Code(s): I10 - Essential (primary) hypertension Status: Chronic Assessment and Plan: Blood pressures is now low normal on sedation Monitor and treat as needed (7) Altered mental status: Qualifiers: Altered mental status type: unspecified Qualified Code(s): R41.82 - Altered mental status, unspecified Code(s): R41.82 - Altered mental status, unspecified Status: Inactive Assessment and Plan: Etiology not clear although it is likely multifactor Patient has history of baseline dementia is on multiple sedative medication, she also had hypercarbic respiratory failure, possible seizure patient has history of seizure disorder. Now intubated and sedated but moving all 4 extremities Patient has been difficult to sedate as either she is too sedated or once lowered she is agitated and does not follow commands. She has not been tolerating Precedex as on minimal rate she becomes bradycardic. Negative CT scan of the head Normal TSH and ammonia levels Continue aspirin statin and Plavix Will start propofol and start small dose of Versed, also started small dose of Seroquel (8) Liquid stool: Code(s): R19.7 - Diarrhea, unspecified Status
[2023-05-29] MEDS: levETIRAcetam ORAL SOL 500 MG/5 ML UDC 250 MG FEED TUBE ×2 (08:52→20:02)
[2023-05-29] MEDS: ASPIRIN 325 MG TABLET FEED TUBE (08:52)
[2023-05-29] MEDS: ENOXAPARIN 40 MG/0.4 ML SYRINGE SUB-Q (08:52)
[2023-05-29] MEDS: PANTOPRAZOLE SODIUM IV 40 MG VIAL IV PUSH (08:53)
[2023-05-29] MEDS: CARBIDOPA/LEVODOPA 25/250 MG TABLET 1 TABLET PO ×2 (08:53→16:13)
[2023-05-29] MEDS: PREGABALIN (*CRX) 50 MG CAPSULE 100 MG PO ×2 (08:53→16:13)
[2023-05-29] MEDS: cefTRIAXone 2 GM/NS 100 ML 2 GM/100 ML BAG IVPB (08:53)
[2023-05-29] MEDS: CLOPIDOGREL BISULFATE 75 MG TABLET PO (08:53)
[2023-05-29] MEDS: MINERAL OIL/WHITE PETROLATUM OINTMENT 1 APPLIC EACH EYE ×2 (08:53→20:04)
[2023-05-29] MEDS: SODIUM BICARBONATE TAB 650 MG TABLET FEED TUBE ×2 (09:21→16:13)
[2023-05-29] MEDS: MIDAZOLAM 100MG/NS 100ML(*CRX) 100 MG/100 ML BAG IV CONT (09:53)
[2023-05-29] MEDS: VANCOMYCIN 1,000 MG/NS 250 ML 1,000 MG/250 ML BAG 250 MG IVPB (10:33)
--- NOTE | 2023-05-29 10:49 | PCFNICU ---
ICU Rounding Note: Pt current nutrition is Vital AF 1.2 at 50 ml/hr. Nutrition recommendation: Banatrol Plus TF BID Last recorded weight is 58.8 kg, stable Bowel Motility:colostomy-output good. Labs Reviewed:BUN 35 Meds Noted:Versed, Protonix, Keppra, Synthroid Skin: WNL Additional Notes: Patient remains on mechanical vent. Tube feedings at goal rate of 50 ml/hr of Vital AF and tolerating per nursing. Flush 30 ml q 4 hours. New orders for Banatrol Plus TF BID for stool bulking. Cdiff negative. Agree with diet orders. Following daily in ICU rounds. Will monitor weight, labs, skin, meds, tube feeding tolerance every Wednesday and Wednesday.
[2023-05-29 17:32] LABS: Glucose Point of Care 109 mg/dl (65-105)
[2023-05-29 17:37] LABS: Glucose Point of Care 128 mg/dl (65-105)
[2023-05-29] MEDS: rOPINIRole HCL 0.25 MG TABLET PO (20:02)
[2023-05-30] VITALS (22 sets, daily range): BP systolic 110–176; BP diastolic 56–103; PULSE 40–96; RESP 15–24; TEMP 36.8–37.7; O2SAT 49–99
[2023-05-30 00:13] LABS: Glucose Point of Care 81 mg/dl (65-105)
[2023-05-30] MEDS: MIDAZOLAM 100MG/NS 100ML(*CRX) 100 MG/100 ML BAG 7 MG IV CONT (03:37)
[2023-05-30] MEDS: CENTRAL LINE FLUSH 10 ML IV PUSH ×3 (05:19→22:01)
[2023-05-30 05:34] LABS: Basophils Percent Auto 0.2 % (0.2-1.2); Eosinophils Absolute Auto 0.2 K/mm3 (0-0.3); Hematocrit 31.1 % (37.0-47.0); Hemoglobin 9.6 g/dL (12.0-15.0); Immature Granulocyte Absolute 0.08 K/mm3 (0.00-0.031); Lymphocytes Absolute Auto 1.43 K/mm3 (0.9-3.2); Lymphocytes Percent Auto 17.8 % (18.3-44.2); Mean Corpuscular HGB Conc 30.9 g/dl (32-36); Mean Corpuscular Hemoglobin 34.2 pg (26-34); Mean Corpuscular Volume 110.7 fl (80-100); Mean Platelet Volume 9.8 fl (7.4-10.4); Monocytes Absolute Auto 0.8 K/mm3 (0.1-0.6); Monocytes Percent Auto 9.7 % (2.6-8.5); Neutrophils Absolute Auto 5.6 K/mm3 (1.3-6.7); Neutrophils Percent Auto 69.3 % (45.5-73.1); Platelet Count Result 121 k/mm3 (150-375); Red Blood Count 2.81 M/mm3 (4.2-5.4); Red Cell Distribution Width 13.8 % (11.5-14.5); White Blood Count 8.1 K/mm3 (4.5-10.0)
[2023-05-30 05:45] LABS: Alanine Aminotransferase 14 U/L (6-35); Albumin Level 4.3 g/dL (3.5-5.1); Alkaline Phosphatase 89 U/L (38-126); Anion Gap 12 mmol/L (8-16); Aspartate Amino Transferase 20 U/L (14-36); Bilirubin,Total 0.5 mg/dL (0.2-1.3); Blood Urea Nitrogen 34 mg/dL (7-17); Calcium 9.4 mg/dL (8.4-10.2); Carbon Dioxide 20 mmol/L (22-30); Chloride 114 mmol/L (98-107); Estimated CRCL calculation 42 ml/min; Estimated Glomerular Filt Rate > 60; Glucose 106 mg/dL (65-110); Magnesium 1.7 mg/dL (1.6-2.3); Phosphorus 3.1 mg/dL (2.5-4.5); Potassium 3.8 mmol/L (3.4-5.0); Sodium 146 mmol/L (137-145)
[2023-05-30 06:12] LABS: Alveolar/Arterial O2 Gradient 76.6 mmHg; Base Excess ABG -6.2 mEq/l (+/-2.0); Carboxyhemoglobin 0.3 % THb (0-2.0); Device VENTILATOR; Fractional Inspired Oxygen 30 %; HCO3 ABG 18.2 mEq/l (22.0-26.0); Methemoglobin ABG 0.3 %THb (0-1.5); Oxygen Content ABG 16.9 %vol (16.0-22.0); Oxygen Saturation ABG 97.4 % (95.0-100.0); Oxyhemoglobin 95.6 % THb (90.0-100.0); PCO2 ABG 32.7 mmHg (35.0-45.0); PO2 ABG 98.9 mmHg (80.0-100.0); Reduced Hemoglobin 3.8 %THb (0-5.0); Site Drawn LEFT BRACHIAL; Total Hemoglobin 12.5 g/dL (12.0-18.0); pH ABG 7.363 (7.350-7.450)
[2023-05-30] MEDS: LEVOTHYROXINE SODIUM 112 MCG TABLET PO (06:12)
[2023-05-30 06:13] LABS: Arterial Blood Gas PEEP 5 cmH2O; Arterial Blood Gas Tidal Volume 400 ml; Arterial Blood Gas Vent Mode CMV; Arterial Blood Gas Ventilator rate 18 /MIN
[2023-05-30] MEDS: SODIUM BICARBONATE TAB 650 MG TABLET FEED TUBE ×2 (08:47→17:04)
[2023-05-30] MEDS: CARBIDOPA/LEVODOPA 25/250 MG TABLET 1 TABLET PO ×2 (08:47→17:04)
[2023-05-30] MEDS: ASPIRIN 325 MG TABLET FEED TUBE (08:47)
[2023-05-30] MEDS: CLOPIDOGREL BISULFATE 75 MG TABLET PO (08:48)
[2023-05-30] MEDS: PANTOPRAZOLE SODIUM IV 40 MG VIAL IV PUSH (08:48)
[2023-05-30] MEDS: levETIRAcetam ORAL SOL 500 MG/5 ML UDC 250 MG FEED TUBE ×2 (08:48→22:00)
[2023-05-30] MEDS: PREGABALIN (*CRX) 50 MG CAPSULE 100 MG PO ×2 (08:48→17:04)
[2023-05-30] MEDS: MINERAL OIL/WHITE PETROLATUM OINTMENT 1 APPLIC EACH EYE ×2 (08:49→22:01)
[2023-05-30] MEDS: cefTRIAXone 2 GM/NS 100 ML 2 GM/100 ML BAG IVPB (08:49)
[2023-05-30] MEDS: ENOXAPARIN 40 MG/0.4 ML SYRINGE SUB-Q (08:49)
[2023-05-30 09:10] LABS: Anisocytosis 1+ (NORMAL); Schistocytes None Seen (NORMAL)
--- NOTE | 2023-05-30 09:40 | P.PNINT_ITS ---
Progress Note: A&P Assessment and Plan (1) Acute hypercapnic respiratory failure: Code(s): J96.02 - Acute respiratory failure with hypercapnia Status: Acute Assessment and Plan: Acute on chronic hypercarbic respiratory failure patient also tested for COVID- 19 the chest x-ray does not suggest COVID-19 pneumonia -05/21: Patient intubated in the ED Continue Bronchodilators 05/23 Lasix given -Dexamethasone for total of 10 days for COVID-19 -isolation has been lifted 05/21: Blood and urine cultures are negative 05/21: NEGATIVE urine pneumococcal and Legionella antigen, 05/21: Sputum culture growing MRSA Continue Rocephin, vancomycin -status post 5 day course of azithromycin -patient gets bradycardic intermittently, have discontinued propofol, started Versed and will wean off fentanyl as that can sometimes cause bradycardia 2.. Start small dose of Versed, RASS of 0 to -1. -Seroquel has been discontinued due to bradycardia -patient remains encephalopathic on discontinuing sedation medications so cannot place patient on breathing trial 05/[address] IMPRESSION: 1. Mild pulmonary edema at the bilateral upper lobes and small right and tiny left pleural effusions with dependent atelectasis in bilateral lower lobes. No other lung disease suspicious for pneumonia. 2. Cardiomegaly. 3. Enlargement of the central pulmonary arteries consistent with pulmonary arterial hypertension. 4. Small amount of ascites in the upper abdomen. 5. 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 (2) COVID-19: Code(s): U07.1 - COVID-19 Status: Acute Assessment and Plan: Patient was tested positive for COVID-19 on 05/01 at the nursing which is almost 20 days ago. She was treated with Paxlovid. She continues to be positive. Chest x-ray is not suggestive of COVID-19 pneumonia Now intubated on mechanical ventilation Continue dexamethasone for a total of 10 days -isolation was lifted on 05/25 (3) Parkinsons: Code(s): G20 - Parkinson's disease Status: Acute Assessment and Plan: Continue Sinemet (4) Seizure: Code(s): R56.9 - Unspecified convulsions Status: Acute Assessment and Plan: Continue Keppra (5) Hypothyroidism: Qualifiers: Hypothyroidism type: unspecified Qualified Code(s): E03.9 - Hypothyroidism, unspecified Code(s): E03.9 - Hypothyroidism, unspecified Status: Chronic Assessment and Plan: Continue levothyroxine. -TSH 0.491, low end of normal (6) Hypertension: Qualifiers: Hypertension type: essential hypertension Qualified Code(s): I10 - Essential (primary) hypertension Code(s): I10 - Essential (primary) hypertension Status: Chronic Assessment and Plan: Blood pressures is now low normal on sedation Monitor and treat as needed (7) Altered mental status: Qualifiers: Altered mental status type: unspecified Qualified Code(s): R41.82 - Altered mental status, unspecified Code(s): R41.82 - Altered mental status, unspecified Status: Inactive Assessment and Plan: Etiology not clear although it is likely multifactor Patient has history of baseline dementia is on multiple sedative medication, she also had hypercarbic respiratory failure, possible seizure patient has history of seizure disorder. Now intubated and sedated but moving all 4 extremities Patient has been difficult to sedate as either she is too sedated or once lowered she i
[2023-05-30 11:21] LABS: Vancomycin Trough 14.1 ug/mL (10.0-20.0)
[2023-05-30] MEDS: VANCOMYCIN 1,250 MG/NS 250 ML 1,250 MG/250 ML BAG 166.67 MG IVPB (12:05)
[2023-05-30 12:22] LABS: Glucose Point of Care 158 mg/dl (65-105)
[2023-05-30] MEDS: MIDAZOLAM 100MG/NS 100ML(*CRX) 100 MG/100 ML BAG 8 MG IV CONT (16:34)
[2023-05-30 17:37] LABS: Glucose Point of Care 113 mg/dl (65-105)
[2023-05-30] MEDS: rOPINIRole HCL 0.25 MG TABLET PO (22:01)
[2023-05-31] VITALS (25 sets, daily range): BP systolic 106–177; BP diastolic 45–110; PULSE 31–100; RESP 13–23; TEMP 36.5–37.5; O2SAT 48–99
[2023-05-31] MEDS: DEXTROSE 50% 25 GM/50 ML SYRINGE IV PUSH ×4 (01:06→23:23)
[2023-05-31 01:25] LABS: Glucose Point of Care 44 mg/dl (65-105)
[2023-05-31 01:25] LABS: Glucose Point of Care 39 mg/dl (65-105)
[2023-05-31 01:25] LABS: Glucose Point of Care 106 mg/dl (65-105)
[2023-05-31 05:01] LABS: Alveolar/Arterial O2 Gradient 91.4 mmHg; Base Excess ABG -6.1 mEq/l (+/-2.0); Carboxyhemoglobin 0.3 % THb (0-2.0); Fractional Inspired Oxygen 30 %; HCO3 ABG 17.6 mEq/l (22.0-26.0); Methemoglobin ABG 0.3 %THb (0-1.5); Oxygen Content ABG 14.1 %vol (16.0-22.0); Oxyhemoglobin 94.7 % THb (90.0-100.0); PCO2 ABG 28.6 mmHg (35.0-45.0); PO2 ABG 88.9 mmHg (80.0-100.0); PO2 FiO2 Ratio Arterial Blood 2.96 %; Reduced Hemoglobin 4.7 %THb (0-5.0); Total Hemoglobin 10.5 g/dL (12.0-18.0); pH ABG 7.406 (7.350-7.450)
[2023-05-31 05:03] LABS: Device VENTILATOR; Site Drawn RIGHT BRACHIAL
[2023-05-31 05:04] LABS: Arterial Blood Gas PEEP 5 cmH2O; Arterial Blood Gas Tidal Volume 400 ml; Arterial Blood Gas Vent Mode CMV; Arterial Blood Gas Ventilator rate 18 /MIN
[2023-05-31] MEDS: MIDAZOLAM 100MG/NS 100ML(*CRX) 100 MG/100 ML BAG 9 MG IV CONT (05:15)
[2023-05-31] MEDS: CENTRAL LINE FLUSH 10 ML IV PUSH ×3 (05:16→20:31)
[2023-05-31 06:53] LABS: Basophils Percent Auto 0.4 % (0.2-1.2); Eosinophils Absolute Auto 0.2 K/mm3 (0-0.3); Eosinophils Percent Auto 2.1 % (0-4.4); Hematocrit 30.3 % (37.0-47.0); Hemoglobin 9.4 g/dL (12.0-15.0); Immature Granulocyte Absolute 0.07 K/mm3 (0.00-0.031); Immature Granulocyte Percent A 0.9 % (0-0.5); Lymphocytes Absolute Auto 1.42 K/mm3 (0.9-3.2); Lymphocytes Percent Auto 18.8 % (18.3-44.2); Mean Corpuscular Hemoglobin 33.8 pg (26-34); Mean Platelet Volume 9.7 fl (7.4-10.4); Monocytes Absolute Auto 0.7 K/mm3 (0.1-0.6); Monocytes Percent Auto 8.7 % (2.6-8.5); Neutrophils Absolute Auto 5.2 K/mm3 (1.3-6.7); Neutrophils Percent Auto 69.1 % (45.5-73.1); Platelet Count Result 127 k/mm3 (150-375); Red Blood Count 2.78 M/mm3 (4.2-5.4); Red Cell Distribution Width 13.7 % (11.5-14.5); White Blood Count 7.6 K/mm3 (4.5-10.0)
[2023-05-31 07:08] LABS: Alanine Aminotransferase 12 U/L (6-35); Albumin Level 4.2 g/dL (3.5-5.1); Alkaline Phosphatase 82 U/L (38-126); Anion Gap 11 mmol/L (8-16); Aspartate Amino Transferase 18 U/L (14-36); Bilirubin,Total 0.4 mg/dL (0.2-1.3); Blood Urea Nitrogen 32 mg/dL (7-17); Calcium 9.4 mg/dL (8.4-10.2); Carbon Dioxide 20 mmol/L (22-30); Chloride 112 mmol/L (98-107); Estimated CRCL calculation 48 ml/min; Estimated Glomerular Filt Rate > 60; Glucose 98 mg/dL (65-110); Magnesium 1.7 mg/dL (1.6-2.3); Phosphorus 3.1 mg/dL (2.5-4.5); Potassium 3.5 mmol/L (3.4-5.0); Sodium 143 mmol/L (137-145); Triglycerides 131 mg/dL (<150)
[2023-05-31 07:45] LABS: Glucose Point of Care 122 mg/dl (65-105)
[2023-05-31 07:45] LABS: Glucose Point of Care 56 mg/dl (65-105)
[2023-05-31 07:45] LABS: Glucose Point of Care 41 mg/dl (65-105)
[2023-05-31] MEDS: PREGABALIN (*CRX) 50 MG CAPSULE 100 MG PO ×2 (08:50→16:18)
[2023-05-31] MEDS: POTASSIUM CHLORIDE 20 MEQ PACKET (FOR LIQUID) 40 MEQ FEED TUBE (08:50)
[2023-05-31] MEDS: levETIRAcetam ORAL SOL 500 MG/5 ML UDC 250 MG FEED TUBE ×2 (08:51→20:30)
[2023-05-31] MEDS: cefTRIAXone 2 GM/NS 100 ML 2 GM/100 ML BAG IVPB (08:51)
[2023-05-31] MEDS: CLOPIDOGREL BISULFATE 75 MG TABLET PO (08:51)
[2023-05-31] MEDS: PANTOPRAZOLE SODIUM IV 40 MG VIAL IV PUSH (08:51)
[2023-05-31] MEDS: CARBIDOPA/LEVODOPA 25/250 MG TABLET 1 TABLET PO ×2 (08:51→16:18)
[2023-05-31] MEDS: SODIUM BICARBONATE TAB 650 MG TABLET FEED TUBE ×2 (08:52→16:18)
[2023-05-31] MEDS: ENOXAPARIN 40 MG/0.4 ML SYRINGE SUB-Q (08:52)
[2023-05-31] MEDS: ASPIRIN 325 MG TABLET FEED TUBE (08:52)
[2023-05-31] MEDS: MINERAL OIL/WHITE PETROLATUM OINTMENT 1 APPLIC EACH EYE ×2 (08:52→20:30)
[2023-05-31 09:02] LABS: Anisocytosis 1+ (NORMAL); Hypochromasia 1+ (NORMAL); Macrocytosis 1+ (NORMAL); Schistocytes None Seen (NORMAL)
[2023-05-31] MEDS: MAGNESIUM SULF 2 GM/WATER 50ML 2 GM/50 ML BAG IVPB (09:49)
--- NOTE | 2023-05-31 11:02 | WPDINTPN ---
Progress Note: A&P Assessment and Plan (1) Acute hypercapnic respiratory failure: Code(s): J96.02 - Acute respiratory failure with hypercapnia Status: Acute Assessment and Plan: Acute on chronic hypercarbic respiratory failure patient also tested for COVID-19 the chest x-ray does not suggest COVID-19 pneumonia -05/21: Patient intubated in the ED Continue Bronchodilators 05/23 Lasix given -Dexamethasone for total of 10 days for COVID-19 -isolation has been lifted 05/21: Blood and urine cultures are negative 05/21: NEGATIVE urine pneumococcal and Legionella antigen, 05/21: Sputum culture growing MRSA Continue Rocephin, vancomycin -status post 5 day course of azithromycin -patient gets bradycardic intermittently, have discontinued propofol, started Versed and will wean off fentanyl as that can sometimes cause bradycardia 2.. Start small dose of Versed, RASS of 0 to -1. -Seroquel has been discontinued due to bradycardia -patient remains encephalopathic on discontinuing sedation medications so cannot place patient on breathing trial -05/31 ABGs reviewed, decrease respiratory rate to 16 05/[address] IMPRESSION: 1. Mild pulmonary edema at the bilateral upper lobes and small right and tiny left pleural effusions with dependent atelectasis in bilateral lower lobes. No other lung disease suspicious for pneumonia. 2. Cardiomegaly. 3. Enlargement of the central pulmonary arteries consistent with pulmonary arterial hypertension. 4. Small amount of ascites in the upper abdomen. 5. 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 (2) COVID-19: Code(s): U07.1 - COVID-19 Status: Acute Assessment and Plan: Patient was tested positive for COVID-19 on 05/01 at the nursing which is almost 20 days ago. She was treated with Paxlovid. She continues to be positive. Chest x-ray is not suggestive of COVID-19 pneumonia Now intubated on mechanical ventilation Continue dexamethasone for a total of 10 days -isolation was lifted on 05/25 (3) Parkinsons: Code(s): G20 - Parkinson's disease Status: Acute Assessment and Plan: Continue Sinemet (4) Seizure: Code(s): R56.9 - Unspecified convulsions Status: Acute Assessment and Plan: Continue Keppra (5) Hypothyroidism: Qualifiers: Hypothyroidism type: unspecified Qualified Code(s): E03.9 - Hypothyroidism, unspecified Code(s): E03.9 - Hypothyroidism, unspecified Status: Chronic Assessment and Plan: Continue levothyroxine. -TSH 0.491, low end of normal (6) Hypertension: Qualifiers: Hypertension type: essential hypertension Qualified Code(s): I10 - Essential (primary) hypertension Code(s): I10 - Essential (primary) hypertension Status: Chronic Assessment and Plan: Blood pressures is now low normal on sedation Monitor and treat as needed (7) Altered mental status: Qualifiers: Altered mental status type: unspecified Qualified Code(s): R41.82 - Altered mental status, unspecified Code(s): R41.82 - Altered mental status, unspecified Status: Inactive Assessment and Plan: Etiology not clear although it is likely multifactor Patient has history of baseline dementia is on multiple sedative medication, she also had hypercarbic respiratory failure, possible seizure patient has history of seizure disorder. Now intubated and sedated but moving all 4 extremities Patient has been difficult to sedate as either she is too sedated or once lowered she is agitated and does not follow commands. She has not been tolerating Precedex as on minimal rate she becomes bradycardic. Negative CT scan of the head Normal TSH and ammonia levels Continue aspirin statin and Plavix (8) Liquid stool: Code(s): R19.7 - Diarrhea, unspecified Status: Acute Assessment and Pl
[2023-05-31 11:56] LABS: Glucose Point of Care 113 mg/dl (65-105)
[2023-05-31] MEDS: VANCOMYCIN 1,250 MG/NS 250 ML 1,250 MG/250 ML BAG 166.67 MG IVPB (12:46)
[2023-05-31] MEDS: MIDAZOLAM 100MG/NS 100ML(*CRX) 100 MG/100 ML BAG 8 MG IV CONT (16:32)
[2023-05-31 18:51] LABS: Glucose Point of Care 104 mg/dl (65-105)
[2023-05-31] MEDS: rOPINIRole HCL 0.25 MG TABLET PO (20:30)
[2023-05-31 23:13] LABS: Glucose Point of Care 60 mg/dl (65-105)
[2023-05-31 23:35] LABS: Glucose Point of Care 166 mg/dl (65-105)
[2023-06-01] VITALS (23 sets, daily range): BP systolic 87–161; BP diastolic 48–84; PULSE 46–80; RESP 15–24; TEMP 37.1–37.7; O2SAT 93–100
[2023-06-01 05:38] LABS: Basophils Percent Auto 0.2 % (0.2-1.2); Eosinophils Absolute Auto 0.1 K/mm3 (0-0.3); Eosinophils Percent Auto 1.6 % (0-4.4); Hematocrit 31.8 % (37.0-47.0); Hemoglobin 9.7 g/dL (12.0-15.0); Immature Granulocyte Absolute 0.06 K/mm3 (0.00-0.031); Immature Granulocyte Percent A 0.7 % (0-0.5); Lymphocytes Absolute Auto 1.46 K/mm3 (0.9-3.2); Lymphocytes Percent Auto 16.7 % (18.3-44.2); Mean Corpuscular HGB Conc 30.5 g/dl (32-36); Mean Corpuscular Hemoglobin 33.9 pg (26-34); Mean Corpuscular Volume 111.2 fl (80-100); Monocytes Absolute Auto 0.7 K/mm3 (0.1-0.6); Neutrophils Absolute Auto 6.4 K/mm3 (1.3-6.7); Neutrophils Percent Auto 72.8 % (45.5-73.1); Platelet Count Result 141 k/mm3 (150-375); Red Blood Count 2.86 M/mm3 (4.2-5.4); Red Cell Distribution Width 13.8 % (11.5-14.5); White Blood Count 8.8 K/mm3 (4.5-10.0)
[2023-06-01 05:47] LABS: Alanine Aminotransferase 16 U/L (6-35); Albumin Level 4.3 g/dL (3.5-5.1); Alkaline Phosphatase 100 U/L (38-126); Anion Gap 12 mmol/L (8-16); Aspartate Amino Transferase 21 U/L (14-36); Bilirubin,Total 0.3 mg/dL (0.2-1.3); Blood Urea Nitrogen 33 mg/dL (7-17); Calcium 9.3 mg/dL (8.4-10.2); Carbon Dioxide 17 mmol/L (22-30); Chloride 114 mmol/L (98-107); Estimated CRCL calculation 42 ml/min; Estimated Glomerular Filt Rate > 60; Glucose 98 mg/dL (65-110); Magnesium 1.9 mg/dL (1.6-2.3); Phosphorus 3.3 mg/dL (2.5-4.5); Potassium 4.1 mmol/L (3.4-5.0); Sodium 143 mmol/L (137-145)
[2023-06-01] MEDS: CENTRAL LINE FLUSH 10 ML IV PUSH ×2 (05:52→13:21)
[2023-06-01] MEDS: LEVOTHYROXINE SODIUM 112 MCG TABLET PO (05:52)
[2023-06-01 05:56] LABS: Alveolar/Arterial O2 Gradient 78.8 mmHg; Base Excess ABG -7.2 mEq/l (+/-2.0); Carboxyhemoglobin 0.3 % THb (0-2.0); Fractional Inspired Oxygen 30 %; HCO3 ABG 17.1 mEq/l (22.0-26.0); Methemoglobin ABG 0.3 %THb (0-1.5); Oxygen Content ABG 14.8 %vol (16.0-22.0); Oxygen Saturation ABG 97.4 % (95.0-100.0); Oxyhemoglobin 95.4 % THb (90.0-100.0); PCO2 ABG 30.5 mmHg (35.0-45.0); PO2 ABG 99.3 mmHg (80.0-100.0); PO2 FiO2 Ratio Arterial Blood 3.31 %; Total Hemoglobin 10.9 g/dL (12.0-18.0); pH ABG 7.367 (7.350-7.450)
[2023-06-01 05:57] LABS: Device VENTILATOR; Modified Allen's Test Pass; Site Drawn RIGHT RADIAL
[2023-06-01 05:58] LABS: Arterial Blood Gas PEEP 5 cmH2O; Arterial Blood Gas Tidal Volume 400 ml; Arterial Blood Gas Vent Mode CMV; Arterial Blood Gas Ventilator rate 18 /MIN
[2023-06-01] MEDS: MIDAZOLAM 100MG/NS 100ML(*CRX) 100 MG/100 ML BAG IV CONT (05:58)
[2023-06-01 06:26] LABS: Anisocytosis 2+ (NORMAL); Macrocytosis 2+ (NORMAL); Platelet Estimate Adequate (Adequate); Schistocytes None Seen (NORMAL)
[2023-06-01] MEDS: levETIRAcetam ORAL SOL 500 MG/5 ML UDC 250 MG FEED TUBE (08:45)
[2023-06-01] MEDS: PANTOPRAZOLE SODIUM IV 40 MG VIAL IV PUSH (08:46)
[2023-06-01] MEDS: ASPIRIN 325 MG TABLET FEED TUBE (08:46)
[2023-06-01] MEDS: PREGABALIN (*CRX) 50 MG CAPSULE 100 MG PO ×2 (08:46→16:37)
[2023-06-01] MEDS: SODIUM BICARBONATE TAB 650 MG TABLET FEED TUBE ×2 (08:46→16:37)
[2023-06-01] MEDS: CARBIDOPA/LEVODOPA 25/250 MG TABLET 1 TABLET PO ×2 (08:46→16:37)
[2023-06-01] MEDS: CLOPIDOGREL BISULFATE 75 MG TABLET PO (08:46)
[2023-06-01] MEDS: MINERAL OIL/WHITE PETROLATUM OINTMENT 1 APPLIC EACH EYE (08:47)
--- NOTE | 2023-06-01 09:44 | WPDINTPN ---
Progress Note: A&P Assessment and Plan (1) Acute hypercapnic respiratory failure: Code(s): J96.02 - Acute respiratory failure with hypercapnia Status: Acute Assessment and Plan: Acute on chronic hypercarbic respiratory failure patient also tested for COVID-19 the chest x-ray does not suggest COVID-19 pneumonia -05/21: Patient intubated in the ED Continue Bronchodilators 05/23 Lasix given -Dexamethasone for total of 10 days for COVID-19 -isolation has been lifted 05/21: Blood and urine cultures are negative 05/21: NEGATIVE urine pneumococcal and Legionella antigen, 05/21: Sputum culture growing MRSA 05/29: Repeat sputum culture obtained due to patient having thick secretions, continues to grow Staph aureus -status post 5 day course of azithromycin -status post ceftriaxone -continue vancomycin -patient gets bradycardic intermittently, have discontinued propofol, started Versed and will wean off fentanyl as that can sometimes cause bradycardia 2.. Start small dose of Versed, RASS of 0 to -1. -Seroquel has been discontinued due to bradycardia -patient remains encephalopathic on discontinuing sedation medications so cannot place patient on breathing trial -05/31 ABGs reviewed, decrease respiratory rate to 16 -06/01: Place patient on ASV mode and is tolerating 05/[address] IMPRESSION: 1. Mild pulmonary edema at the bilateral upper lobes and small right and tiny left pleural effusions with dependent atelectasis in bilateral lower lobes. No other lung disease suspicious for pneumonia. 2. Cardiomegaly. 3. Enlargement of the central pulmonary arteries consistent with pulmonary arterial hypertension. 4. Small amount of ascites in the upper abdomen. 5. 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 (2) COVID-19: Code(s): U07.1 - COVID-19 Status: Acute Assessment and Plan: Patient was tested positive for COVID-19 on 05/01 at the nursing which is almost 20 days ago. She was treated with Paxlovid. She continues to be positive. Chest x-ray is not suggestive of COVID-19 pneumonia Now intubated on mechanical ventilation Continue dexamethasone for a total of 10 days -isolation was lifted on 05/25 (3) Parkinsons: Code(s): G20 - Parkinson's disease Status: Acute Assessment and Plan: Continue Sinemet (4) Seizure: Code(s): R56.9 - Unspecified convulsions Status: Acute Assessment and Plan: Continue Keppra (5) Hypothyroidism: Qualifiers: Hypothyroidism type: unspecified Qualified Code(s): E03.9 - Hypothyroidism, unspecified Code(s): E03.9 - Hypothyroidism, unspecified Status: Chronic Assessment and Plan: Continue levothyroxine. -TSH 0.491, low end of normal (6) Hypertension: Qualifiers: Hypertension type: essential hypertension Qualified Code(s): I10 - Essential (primary) hypertension Code(s): I10 - Essential (primary) hypertension Status: Chronic Assessment and Plan: Blood pressures within normal limits Monitor and treat as needed (7) Altered mental status: Qualifiers: Altered mental status type: unspecified Qualified Code(s): R41.82 - Altered mental status, unspecified Code(s): R41.82 - Altered mental status, unspecified Status: Inactive Assessment and Plan: Etiology not clear although it is likely multifactor Patient has history of baseline dementia is on multiple sedative medication, she also had hypercarbic respiratory failure, possible seizure patient has history of seizure disorder. Now intubated and sedated but moving all 4 extremities Patient has been difficult to sedate as either she is too sedated or once lowered she is agitated and does not follow commands. She has not been tolerating Precedex as on minimal rate she becomes bradycardic. Negative CT scan of the head Normal TS
--- NOTE | 2023-06-01 10:43 | PCFNICU ---
ICU Rounding Note: Pt current nutrition is Vital 1.2 @ goal rate 50 ml/h: 1320 kcal, 83 g protein, 892 ml free water. Flush 30 ml q 4 hours. Banatrol BID for loose stools Nutrition recommendation: Continue with current tube feeding orders with no changes Last recorded weight is 55.8 kg. Bowel Motility: +2 BM 06/01/23 Labs Reviewed: Hgb 9.7, Hct 31.8, BUN 33, Glu 166 Meds Noted: Sedation with versed. Miralax, Keppra, protonix Skin: No pressure injuries Additional Notes: Continues on mechanical ventilation. Tolerating tube feeding well. Awaiting family decision on care. Following daily in ICU rounds. Will monitor weight, labs, skin, meds, tube feeding tolerance every Wednesday and Wednesday..
[2023-06-01] MEDS: ENOXAPARIN 40 MG/0.4 ML SYRINGE SUB-Q (10:58)
[2023-06-01] MEDS: VANCOMYCIN 1,250 MG/NS 250 ML 1,250 MG/250 ML BAG 166 MG IVPB (10:58)
[2023-06-01 11:53] LABS: Glucose Point of Care 113 mg/dl (65-105)
--- NOTE | 2023-06-01 15:08 | P.PNCROSS_ITS ---
Event Note Event Note Event Note: Discussed with Radu Adames, patient's POA and Nephew, updated with patient's con dition. I discussed at length regarding tracheostomy and PEG tube, also discussed about comfort measures and withdrawal of care. He stated that the patient did not want to live on machines. So he has decided to make her comfort care and withdraw support. He is going to call some family members to see if they will come and say goodbye and he will let us know once they are ready for withdrawal of support. -Gloria Helton, who is her nurse was notified.
[2023-06-01 18:35] LABS: Glucose Point of Care 92 mg/dl (65-105)
[2023-06-01] MEDS: MORPHINE SULFATE INJ (*CRX) 10 MG/ML AMP 5 MG IV PUSH (21:18)
[2023-06-01] MEDS: LORazepam INJ (*CRX) 2 MG/ML VIAL IV PUSH (21:18)
--- NOTE | 2023-06-01 23:27 | PC.NURSE ---
Notified Jay Adorno who is going to drive patient half way meeting with Negrita from [place]. they are here to bulk picker patient.
--- NOTE | 2023-06-30 13:33 | PM.DDS ---
Discharge Summary Date and Time Date of : 06/01/23 Time of : 21:32 Provider Pronounced By: Liliya Sarmiento Probable Cause of Probable Cause of : Cardiac arrest, acute respiratory failure, Summary Hospital Course: 87-year-old female with past medical history of COVID vaccination, dementia, seizures, Parkinson's disease, anxiety, depression, hypertension, hypothyroidism, intestinal obstruction, TIA, ataxia, Crohn's disease, thyroid disease, GERD presented on 05/21/2023 from the care home with altered mental status.? Was intubated ER for hypercapnic respiratory failure after failing BiPAP.? Patient was tested positive for COVID 19 on 05/01 at the care home and was also tested positive in the ER on 05/21. 05/21/2023: Intubated in the ED 05/21:? sputum cultures growing MRSA (1) Acute hypercapnic respiratory failure: ?Code(s): J96.02 - Acute respiratory failure with hypercapnia ?Status:?Acute ?Assessment and Plan: Acute on chronic hypercarbic respiratory failure patient also tested for COVID-19 the chest x-ray does not suggest COVID-19 pneumonia -05/21: Patient intubated in the ED Continue Bronchodilators 05/23 Lasix given -Dexamethasone for total of 10 days for COVID-19 -isolation has been lifted 05/21:? Blood and urine cultures are negative 05/21:? NEGATIVE urine pneumococcal and Legionella antigen, 05/21:??Sputum culture growing MRSA 05/29:? Repeat sputum culture obtained due to patient having thick secretions, continues to grow?Staph aureus -status post 5 day course of azithromycin -status post ceftriaxone -continue vancomycin -patient gets bradycardic intermittently, have discontinued propofol, started Versed and will wean off fentanyl as that can sometimes cause bradycardia 2..? Start small dose of Versed, RASS of 0 to -1. -Seroquel has been discontinued due to bradycardia -patient remains encephalopathic on discontinuing sedation medications so cannot place patient on breathing trial -05/31 ABGs reviewed, decrease respiratory rate to 16 -06/01:? Place patient on ASV mode and is tolerating 05/[address] IMPRESSION: 1. Mild pulmonary edema at the bilateral upper lobes and small right and tiny left pleural effusions with dependent atelectasis in bilateral lower lobes. No other lung disease suspicious for pneumonia. 2. Cardiomegaly. 3. Enlargement of the central pulmonary arteries consistent with pulmonary arterial hypertension. 4. Small amount of ascites in the upper abdomen. 5. 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 (2) COVID-19: ?Code(s): U07.1 - COVID-19 ?Status:?Acute ?Assessment and Plan: Patient was tested positive for COVID-19 on 05/01 at the nursing which is almost 20 days ago.? She was treated with Paxlovid.? She continues to be positive.? Chest x-ray is not suggestive of COVID-19 pneumonia Now intubated on mechanical ventilation Continue dexamethasone for a total of 10 days -isolation was lifted on 05/25 (3) Parkinsons: ?Code(s): G20 - Parkinson's disease ?Status:?Acute ?Assessment and Plan: Continue Sinemet (4) Seizure: ?Code(s): R56.9 - Unspecified convulsions ?Status:?Acute ?Assessment and Plan: Continue Keppra (5) Hypothyroidism: ?Qualifiers: ?Hypothyroidism type:?unspecified? Qualified Code(s):?E03.9 - Hypothyroidism, unspecified ?Code(s): E03.9 - Hypothyroidism, unspecified ?Status:?Chronic ?Assessment and Plan: Continue levothyroxine. -TSH 0.491, low end of normal (6) Hypertension: ?Qualifiers: ?Hypertension type:?essential hypertension? Qualified Code(s):?I10 - Essential (primary) hypertension ?Code(s): I10 - Essential (primary) hypertension ?Status:?Chronic ?Assessment and Plan: Blood pressures within normal limits Monitor and treat as needed (7) Altered mental status:
== END 2023-06-01 21:32 | disposition expired | DRG 207 ==
LOC: ANHED 07:15 → ANHICU 09:12
PROVIDERS: Internal Medicine; Admitting Provider Internal Medicine; Emergency Provider Emergency Medicine; PCP Family Medicine; Visit Provider Internal Medicine
DX: U07.1 COVID-19 (principal); J15.212 Pneumonia due to Methicillin resistant Staphylococcus aureus; J96.22 Acute and chronic respiratory failure with hypercapnia; G20.A1 Parkinson's disease without dyskinesia, without mention of fluctuations; E03.9 Hypothyroidism, unspecified; G40.909 Epilepsy, unspecified, not intractable, without status epilepticus; F02.80 Dementia in other diseases classified elsewhere, unspecified severity, without behavioral disturbance, psychotic disturbance, mood disturbance, and anxiety; K21.9 Gastro-esophageal reflux disease without esophagitis; R00.1 Bradycardia, unspecified; Z93.3 Colostomy status; Z51.5 Encounter for palliative care; F41.9 Anxiety disorder, unspecified; F32.A Depression, unspecified; I10 Essential (primary) hypertension; Z79.82 Long term (current) use of aspirin; Z86.73 Personal history of transient ischemic attack (TIA), and cerebral infarction without residual deficits
CPT/HCPCS: 31500; 36415; 36569; 36600; 70450; 71045; 71250; 80048; 80053; 80202; 81001; 82140; 82375; 82805; 82948; 83050; 83605; 83735; 83880; 84100; 84145; 84443; 84478; 84484; 85025; 85027; 85055; 85610; 85730; 87040; 87070; 87086; 87147; 87186; 87205; 87449; 87493; 87637; 87641; 87899; 93005; 93306; 94002; 94003; 96365; 96366; 96375; 99291; A9270; C9113; J0330; J0456; J0461; J0696; J1100; J1650; J1940; J2060; J2250; J2270; J2704; J3010; J3370; J3475; J7030; J7120; P9047